=== PATIENT | male | born 1940 | race Caucasian/White ===

== ENCOUNTER → 2018-05-03 10:19 | Outpatient (CLI) | payer MEDICARE, OTHER, SELFPAY ==
[2018-05-03 10:58] LABS: Add Manual Diff / Slide Review NO; Basophils Percent Auto 0.8 % (0-2); Hematocrit 45.7 % (41-53); Hemoglobin 16.1 g/dL (13.5-17.5); Lymphocytes Percent Auto 33.1 % (25-40); Mean Corpuscular HGB Conc 35.2 % (30-36); Mean Corpuscular Volume 93.8 fL (80-100); Monocytes Percent Auto 8.9 % (3-14); Neutrophils Absolute Auto 4700 /uL (1500-7000); Neutrophils Percent Auto 51.2 % (50-75); Platelet Count 287 X10^3/uL (150-400); Red Blood Cell Count 4.87 X10^6/uL (4.5-5.9); Red Cell Distribution Width 13.2 % (11.6-14.8); White Blood Cell Count 9.1 X10^3/uL (4.5-11.0)
[2018-05-03 11:28] LABS: Alanine Aminotransferase 30 IU/L (21-72); Albumin Globulin Ratio 1.4 (1.0-2.8); Alkaline Phosphatase 70 U/L (38-126); Aspartate Aminotransferase 27 IU/L (17-59); BUN Creatinine Ratio 18.2 (6-22); Bilirubin Total 0.9 mg/dL (0.2-1.3); Blood Urea Nitrogen 20 mg/dL (9-20); Calcium 9.2 mg/dL (8.4-10.2); Carbon Dioxide 28 mmol/L (22-32); Chloride 107 mmol/L (98-107); Cholesterol 116 mg/dL (140-199); Estimated Glomerular Filt Rate > 60.0 mL/min (>60); Globulin 2.9 g/dL (1.7-4.1); Glucose 97 mg/dL (80-110); HDL Cholesterol 50 mg/dL (40-60); HEMOLYSIS < 15 (0-50); LDL Cholesterol Calculated 52 mg/dL (<100); Potassium 4.3 mmol/L (3.4-5.1); Sodium 144 mmol/L (137-145); Total Protein 6.9 g/dL (6.3-8.2); Triglycerides 72 mg/dL (35-150)
== END ==
PROVIDERS: PCP Internal Medicine; Visit Provider Internal Medicine
DX: I10 Essential (primary) hypertension (principal); E78.00 Pure hypercholesterolemia, unspecified; R73.01 Impaired fasting glucose
CPT/HCPCS: 36415; 80053; 80061; 85025

== ENCOUNTER → 2018-05-24 07:59 | Outpatient (CLI) | payer MEDICARE, OTHER, SELFPAY ==
--- NOTE | 2018-05-24 09:30 | PM.TREADMILL ---
Cardiac Stress Test Report Referral & Results Date Patient Seen: 05/24/18 Requesting provider: Shankar Ventura Indication: Coronary disease Rest ECG: Unremarkable Procedure Note: Today following both written and verbal informed consent the patient was exercised according to a standard Demetris protocol patient went for a total of 9 min to seconds achieving a maximum heart rate of 142 maximum systolic blood pressure of 220. This is approximately 10.1 METS. Exercise was terminated at this point because of targets were met. Patient was also given Cardiolite through a previously started Hep-Lock IV by the nuclear plant instrument technician approximately 1 minute prior to the cessation of exercise. With exercise patient did develop some atypical chest discomfort that resolved almost immediately upon cessation of activity There is nonspecific ST-T segment changes in leads V4 through V6 this seem to have minimal upsloping ST segment depression that rapidly in fact almost immediately resolved upon cessation of exercise Normal heart rate and blood pressure response to exercise Rare PVC Functional aerobic impairment way off the scale estimate is exercise capacity to 140% normal on the active scale Impression: No clear evidence of ischemia. Nonspecific changes as above not likely to be ischemic given duration of patient's exercise in the almost immediate resolution of changes with cessation of activity Perfusion imaging to be reported separately Excellent exercise capacity Please note: Actual ECG tracings can be found in the PACS system.
--- NOTE | 2018-05-25 17:45 | DI.NM.S_ITS ---
DATE OF SERVICE: 05/24/2018 PROCEDURE PERFORMED: Exercise treadmill stress and rest myocardial perfusion imaging with gating to assess ejection fraction and regional wall motion. ORDERING PROVIDER: Shankar Ventura MD INDICATIONS: The patient is a 77-year-old male with a history of stenting, now presents with atypical chest pain. EXERCISE TREADMILL TESTING: The patient was able to exercise for 9 minutes 2 seconds on a standard Demetris protocol suggesting excellent exercise capacity with an KSENIA estimated to be at least -40%. He had normal heart rate response to exercise achieving a maximum heart rate of 142 bpm (100% of his predicted maximum). He had a moderate hypertensive blood pressure response to exercise with a resting blood pressure of 160/94 with a peak blood pressure of 220/90. He had no chest discomfort. His resting ECG is normal, and there are no ischemic changes with stress. No arrhythmias were seen. At 7 minutes 59 seconds of exercise, at heart rate of 138 bpm, 26.3 mCi a technetium-99 Myoview was injected, and the patient was imaged 15 minutes later using a gated SPECT acquisition protocol. The patient returned the following day and was reinjected with an additional 26.6 mCi of technetium-99 Myoview and was imaged 30 minutes later, again using a gated SPECT acquisition protocol. FINDINGS: 1. Raw Data: There is fairly good myocardial tracer uptake. The lung/heart ratio is significantly elevated at 0.65, which can be a sign of pulmonary congestion although it is not readily apparent on the raw data images. The TID ratio is borderline elevated at 1.27, although again, is not clearly obvious on the images. 2. Quantitative Gated SPECT: Post stress ejection fraction is estimated at 68% with possible subtle hypokinesis of the distal inferior and inferoapex appears but no other wall motion abnormalities. The resting ejection fraction is 73% with resolution of the distal inferoapical wall motion abnormality and the resting end-diastolic volume is normal at 78 mL. 3. Myocardial Perfusion Imaging: Post stress supine images show a relatively normal myocardial perfusion pattern, although with a very subtle perfusion defect in the mid and distal wall extending out to the inferolateral apex, which would be in a pattern that would be very consistent with diaphragmatic attenuation, in part supported by resolution of this defect on the prone images with the exception of slight persistence in the distal inferior wall and inferolateral apex, raising concerns that this may represent, in part, a true perfusion defect, although appears to be small and subtle. Resting images show a completely normal perfusion pattern with resolution of the inferior and inferoapex defect. CONCLUSION: 1. Probable abnormal myocardial perfusion study, although with somewhat reduced specificity because of the subtlety of the abnormality. 2. Small, subtle brv-tb-genaeo inferior and inferolateral defect extending to the apex which only partially resolves on prone imaging but is completely reversible suggesting the possibility of a small volume of ischemia in this distribution. This is supported by a suggestion of hypokinesis in the distal inferoapex on the gated images. 3. Preserved left ventricular systolic function, although with subtle hypokinesis of the distal inferior wall and inferoapex that resolves on the resting images. In addition, the lung heart ratio is significantly increased which can be a sign of stress-induced pulmonary congestion, although this is relatively nonspecific and the patient's excellent exercise capacity would mitigate against this. The TID ratio, likewise, is borderline elevated, although is nonspecific. 4. Excellent exercise capacity without angina or significant ECG changes of ischemia. 5. Compared to the previous myocardial perfusion imaging study of 01/07/2015, the lung heart ratio was previously normal at 0.37 with a normal TID ratio of 0.88. The stress ejection fraction was estimated at 68%, identical to today's study. No wall motion abnormalities were described. The previous perfusion images appear nearly identical to today images with a subtle, partially reversible inferior defect that persists slightly on the prone images and was felt most likely to represent attenuation artifact on the previous study. However, given the associative wall motion abnormality seen on today's study, this more likely represents a true perfusion defect, although occupying a small volume myocardium and thus is relatively low risk. Dhaval Rosales - RS/fn/ab doc#: [id number]/job#: [id number] dd: 05/25/2018 16:57:00 dt: 05/25/2018 17:24:00 DICTATING MD/COPIES TO: Jarad Sellers MD; Shankar Ventura MD COPIES MNE: RORO CORREIA
== END ==
PROVIDERS: PCP Internal Medicine; Visit Provider Internal Medicine
DX: R07.89 Other chest pain (principal); I25.10 Atherosclerotic heart disease of native coronary artery without angina pectoris; Z95.5 Presence of coronary angioplasty implant and graft
CPT/HCPCS: 78452; 93016; 93017; 93018; A9502

== ENCOUNTER → 2018-10-16 09:52 | Outpatient (CLI) | payer MEDICARE, OTHER, SELFPAY ==
[2018-10-16 11:03] LABS: Blood Urea Nitrogen 21 mg/dL (9-20); Calcium 9.4 mg/dL (8.4-10.2); Carbon Dioxide 30 mmol/L (22-32); Chloride 108 mmol/L (98-107); Cholesterol 120 mg/dL (140-199); Estimated Glomerular Filt Rate > 60.0 mL/min (>60); Glucose 103 mg/dL (80-110); HDL Cholesterol 49 mg/dL (40-60); HEMOLYSIS < 15 (0-50); LDL Cholesterol Calculated 50 mg/dL (<100); Potassium 4.9 mmol/L (3.4-5.1); Sodium 143 mmol/L (137-145); Triglycerides 104 mg/dL (35-150)
== END ==
PROVIDERS: Family Provider Internal Medicine; PCP Internal Medicine; Visit Provider Internal Medicine Cardiovascular Disease
DX: I10 Essential (primary) hypertension (principal)
CPT/HCPCS: 36415; 80048; 80061

== ENCOUNTER → 2019-05-18 11:50 | Outpatient (CLI) | payer MEDICARE, OTHER, SELFPAY ==
[2019-05-18 13:53] LABS: Cholesterol 131 mg/dL (140-199); HDL Cholesterol 49 mg/dL (40-60); LDL Cholesterol Calculated 61 mg/dL (<100); Triglycerides 103 mg/dL (35-150)
== END ==
PROVIDERS: Family Provider Internal Medicine; PCP Internal Medicine; Visit Provider Internal Medicine Cardiovascular Disease
DX: E78.00 Pure hypercholesterolemia, unspecified (principal)
CPT/HCPCS: 36415; 80061

== ENCOUNTER → 2019-12-04 09:43 | Outpatient (CLI) | payer MEDICARE, OTHER, SELFPAY ==
[2019-12-04 10:14] LABS: Add Manual Diff / Slide Review NO; Basophils Absolute Auto 0 /uL (0-100); Basophils Percent Auto 0.5 % (0-2); Eosinophils Absolute Auto 300 /uL (0-450); Eosinophils Percent Auto 3.4 % (2-4); Hematocrit 48.3 % (41-53); Hemoglobin 16.5 g/dL (13.5-17.5); Lymphocytes Absolute Auto 2400 /uL (1100-4500); Lymphocytes Percent Auto 31.6 % (25-40); Mean Corpuscular HGB Conc 34.2 % (30-36); Mean Corpuscular Hemoglobin 32.1 PG (26-34); Monocytes Absolute Auto 700 /uL (0-900); Monocytes Percent Auto 8.6 % (3-14); Neutrophils Absolute Auto 4300 /uL (1500-7000); Neutrophils Percent Auto 55.9 % (50-75); Platelet Count 277 X10^3/uL (150-400); Red Blood Cell Count 5.14 X10^6/uL (4.5-5.9); Red Cell Distribution Width 13.7 % (11.6-14.8); White Blood Cell Count 7.6 X10^3/uL (4.5-11.0)
[2019-12-04 10:40] LABS: Alanine Aminotransferase 25 IU/L (<50); Albumin 4.1 g/dL (3.5-5.0); Albumin Globulin Ratio 1.5 (1.0-2.8); Alkaline Phosphatase 83 U/L (38-126); Aspartate Aminotransferase 33 IU/L (17-59); BUN Creatinine Ratio 18.3 (6-22); Bilirubin Total 1.2 mg/dL (0.2-1.3); Blood Urea Nitrogen 19 mg/dL (9-20); Calcium 9.5 mg/dL (8.4-10.2); Carbon Dioxide 24 mmol/L (22-32); Chloride 108 mmol/L (98-107); Cholesterol 138 mg/dL (140-199); Estimated Glomerular Filt Rate > 60.0 mL/min (>60); Globulin 2.8 g/dL (1.7-4.1); Glucose 103 mg/dL (80-110); HDL Cholesterol 58 mg/dL (40-60); HEMOLYSIS < 15 (0-50); LDL Cholesterol Calculated 64 mg/dL (<100); Potassium 4.5 mmol/L (3.4-5.1); Sodium 139 mmol/L (137-145); Total Protein 6.9 g/dL (6.3-8.2); Triglycerides 78 mg/dL (35-150)
[2019-12-04 10:49] LABS: NT-proBNP (BNP-Adult 18+) 64 pg/mL (<450)
== END ==
PROVIDERS: Family Provider Internal Medicine; PCP Internal Medicine; Referring Provider Internal Medicine Cardiovascular Disease; Visit Provider Internal Medicine Cardiovascular Disease
DX: I25.10 Atherosclerotic heart disease of native coronary artery without angina pectoris (principal); I51.7 Cardiomegaly; I10 Essential (primary) hypertension
CPT/HCPCS: 36415; 80053; 80061; 83880; 85025

== ENCOUNTER → 2020-04-29 19:14 | Outpatient (ROUT) | payer MEDICARE, OTHER, SELFPAY ==
[2020-04-29 19:21] LABS: Add Manual Diff / Slide Review NO; Basophils Absolute Auto 100 /uL (0-100); Basophils Percent Auto 0.6 % (0-2); Eosinophils Absolute Auto 200 /uL (0-450); Eosinophils Percent Auto 1.9 % (2-4); Hematocrit 47.6 % (41-53); Hemoglobin 16.3 g/dL (13.5-17.5); Lymphocytes Absolute Auto 2600 /uL (1100-4500); Lymphocytes Percent Auto 25.9 % (25-40); Mean Corpuscular HGB Conc 34.2 % (30-36); Mean Corpuscular Hemoglobin 32.5 PG (26-34); Mean Corpuscular Volume 95.1 fL (80-100); Monocytes Absolute Auto 800 /uL (0-900); Monocytes Percent Auto 8.4 % (3-14); Neutrophils Absolute Auto 6300 /uL (1500-7000); Neutrophils Percent Auto 63.2 % (50-75); Platelet Count 342 X10^3/uL (150-400); Red Cell Distribution Width 12.9 % (11.6-14.8)
[2020-04-29 19:30] LABS: Alanine Aminotransferase 20 IU/L (<50); Albumin Globulin Ratio 1.2 (1.0-2.8); Alkaline Phosphatase 82 U/L (38-126); Aspartate Aminotransferase 29 IU/L (17-59); BUN Creatinine Ratio 12.5 (6-22); Bilirubin Total 0.7 mg/dL (0.2-1.3); Blood Urea Nitrogen 16 mg/dL (9-20); Calcium 9.3 mg/dL (8.4-10.2); Carbon Dioxide 32 mmol/L (22-32); Chloride 106 mmol/L (98-107); Cholesterol 146 mg/dL (140-199); Estimated Glomerular Filt Rate 54.1 mL/min (>60); Globulin 3.3 g/dL (1.7-4.1); Glucose 89 mg/dL (80-110); HDL Cholesterol 55 mg/dL (40-60); HEMOLYSIS < 15 (0-50); LDL Cholesterol Calculated 64 mg/dL (<100); Magnesium 2.2 mg/dL (1.6-2.3); Potassium 4.3 mmol/L (3.4-5.1); Sodium 140 mmol/L (137-145); Total Protein 7.3 g/dL (6.3-8.2); Triglycerides 133 mg/dL (35-150)
== END ==
PROVIDERS: Family Provider Internal Medicine; PCP Internal Medicine; Visit Provider Physician Assistant
DX: I10 Essential (primary) hypertension (principal); I25.10 Atherosclerotic heart disease of native coronary artery without angina pectoris; E78.00 Pure hypercholesterolemia, unspecified; R00.1 Bradycardia, unspecified
CPT/HCPCS: 80053; 80061; 83735; 84443; 85025

== ENCOUNTER → 2020-09-29 14:20 | Outpatient (CLI) | payer MEDICARE, OTHER, SELFPAY ==
[2020-09-29 16:17] LABS: COVID-19 CEPHEID PCR (VTM/NP) Negative (Negative)
== END ==
PROVIDERS: Family Provider Internal Medicine; PCP Internal Medicine; Visit Provider Physician Assistant
DX: Z01.812 Encounter for preprocedural laboratory examination (principal); Z20.822 Contact with and (suspected) exposure to COVID-19
CPT/HCPCS: C9803; U0003

== ENCOUNTER 2021-01-09 16:50 | Inpatient (IN) | payer MEDICARE, OTHER, SELFPAY ==
[2021-01-09] VITALS (13 sets, daily range): BP systolic 88–137; BP diastolic 63–83; PULSE 86–97; RESP 16–20; TEMP 36.6–37.7; O2SAT 93–97; BMI 24.3
--- NOTE | 2021-01-09 17:08 | DI.RAD.S_ITS ---
PROCEDURE: XR CHEST 1V INDICATIONS: altered mental status TECHNIQUE: One view of the chest was acquired. COMPARISON: [facility], CR, CHEST 1VW (PORTABLE), 03/30/2013, 12:53. [facility], CT, CT HEAD/BRAIN WO CON, 01/09/2021, 17:36. [facility], CR, CHEST 1 VIEW, 09/15/2015, 13:41. FINDINGS: Surgical changes and devices: None. Lungs and pleura: Minimal patchy interstitial infiltrates are seen. No pleural effusions or pneumothorax. Low lung volumes are noted. This causes a crowded appearance to the lung markings and limits evaluation. Mediastinum: Mediastinal contours appear normal. Heart size is normal. Atherosclerotic calcification of the aortic arch is noted. Bones and chest wall: No suspicious bony lesions. Age-appropriate bony degenerative changes are seen. Overlying soft tissues appear unremarkable. IMPRESSION: Minimal patchy interstitial infiltrates are seen, which are consistent with the known history of COVID pneumonia. Dictated by: Dileep Arellano M.D. on 01/09/2021 at 16:58 Approved by: Dileep Arellano M.D. on 01/09/2021 at 16:59
--- NOTE | 2021-01-09 17:11 | DI.CT.S_ITS ---
PROCEDURE: CT HEAD/BRAIN WO CON INDICATIONS: confusion TECHNIQUE: Noncontrast 4.5 mm thick angled axial sections acquired from the foramen magnum to the vertex, with coronal and sagittal reformats. For radiation dose reduction, the following was used: automated exposure control, adjustment of mA and/or kV according to patient size. COMPARISON: None. FINDINGS: Image quality: Excellent. CSF spaces: Basal cisterns are patent. No extra-axial fluid collections. The ventricles are symmetric in size and shape. Brain: No acute intracranial hemorrhage or mass effect. Small chronic lacunar infarcts are seen in the right basal ganglia. There is cerebral volume loss for age, with resultant ventricular and sulcal prominence. There are periventricular and deep white matter chronic small vessel ischemic changes. There is intracranial internal carotid artery atherosclerosis. Skull and face: Calvarium and visualized facial bones appear intact, without suspicious lesions. Sinuses: There is opacification of the right maxillary sinus with sinus wall thickening, consistent with chronic sinusitis. The remaining visualized paranasal sinuses and the mastoid air cells are clear. IMPRESSION: 1. No acute intracranial abnormality. 2. Small chronic lacunar infarcts are seen in the right basal ganglia. 3. Mild diffuse cerebral volume loss and chronic microvascular ischemic changes. Dictated by: Miky Aponte M.D. on 01/09/2021 at 17:56 Approved by: Miky Aponte M.D. on 01/09/2021 at 17:58
[2021-01-09 17:20] LABS: COVID19 -Nasal RAPID POSITIVE (Negative)
[2021-01-09] MEDS: SODIUM CHLORIDE 0.9% 1,000 ML 1000 ML IV ×2 (17:28→19:15)
[2021-01-09 17:37] LABS: Add Manual Diff / Slide Review NO; Basophils Absolute Auto 100 /uL (0-100); Basophils Percent Auto 0.5 % (0-2); Eosinophils Absolute Auto 0 /uL (0-450); Hematocrit 53.6 % (41-53); Hemoglobin 17.9 g/dL (13.5-17.5); Lymphocytes Absolute Auto 1900 /uL (1100-4500); Lymphocytes Percent Auto 17.1 % (25-40); Mean Corpuscular HGB Conc 33.4 % (30-36); Mean Corpuscular Hemoglobin 31.8 PG (26-34); Mean Corpuscular Volume 95.4 fL (80-100); Monocytes Absolute Auto 800 /uL (0-900); Monocytes Percent Auto 7.4 % (3-14); Neutrophils Absolute Auto 8300 /uL (1500-7000); Platelet Count 236 X10^3/uL (150-400); Red Blood Cell Count 5.62 X10^6/uL (4.5-5.9); Red Cell Distribution Width 13.3 % (11.6-14.8)
[2021-01-09 17:47] LABS: Alanine Aminotransferase 36 IU/L (<50); Albumin 4.1 g/dL (3.5-5.0); Albumin Globulin Ratio 1.1 (1.0-2.8); Alkaline Phosphatase 73 U/L (38-126); Aspartate Aminotransferase 60 IU/L (17-59); BUN Creatinine Ratio 31.7 (6-22); Bilirubin Total 0.9 mg/dL (0.2-1.3); Blood Urea Nitrogen 70 mg/dL (9-20); Calcium 8.7 mg/dL (8.4-10.2); Carbon Dioxide 28 mmol/L (22-32); Chloride 102 mmol/L (98-107); Estimated Glomerular Filt Rate 28.7 mL/min (>60); Globulin 3.6 g/dL (1.7-4.1); Glucose 134 mg/dL (80-110); HEMOLYSIS < 15 (0-50); Sodium 141 mmol/L (137-145); Total Protein 7.7 g/dL (6.3-8.2)
[2021-01-09 18:02] LABS: Procalcitonin 0.27 ng/mL (<0.5)
--- NOTE | 2021-01-09 18:43 | ED.WEAKNESS ---
HPI - Weakness General Chief complaint: Weakness Stated complaint: Confussion, Sent from [facility] Time Seen by Provider: 01/09/21 18:14 History of Present Illness HPI Narrative: 80-year-old male nonsmoker with history of coronary artery disease and STEMI presents from the walk-in clinic for evaluation of confusion and weakness over the course of the week. He states that for about 7 days he has become increasingly weak, dizzy, lightheaded with poor appetite. He denies runny nose or sore throat. He denies any chest pain or shortness of breath. He has had frequent bouts of loose stools and states he has not been drinking much at all. Additionally, he states there is no food in his house that sounds good so it has been few days since he has had anything to eat. He denies any new medications or recent travel. He has not been vaccinated against COVID Related Data Allergies Allergy/AdvReac Type Severity Reaction Status Date / Time No Known Drug Allergies Allergy Verified 01/09/21 22:19 Review of Systems Review of Systems Narrative: GENERAL: See HPI HEENT: Denies sinus pain, ear pain, sore throat, difficulty swallowing, dizziness. RESPIRATORY: Denies dyspnea, cough, wheezing, hemoptysis, sputum. CARDIOVASCULAR: Denies chest pain, palpitations, orthopnea, edema, GASTROINTESTINAL: see HPI : Denies dysuria, frequency, incontinence, hematuria, urinary retention. MUSCULOSKELETAL: denies weakness, joint pain, or bony pain SKIN: Denies rash, skin lesions, or other NEUROLOGIC: see HPI PSYCHIATRIC: No concerning psychosocial issues. 12 point review of systems is negative except for those stated above Patient History Social History household members: none Smoking Status: Unknown if ever smoked Exam Narrative Exam Narrative: GENERAL: [80 year old patient appears stated age. Well-developed patient, in mild distress. GCS 14, confused HEAD: Atraumatic. Normocephalic. EYES: Pupils equal round and reactive. Extraocular motions intact. No scleral icterus. No injection or drainage. ENT: Dry mucous membranes Nose without bleeding, purulent drainage. Throat without erythema, tonsillar hypertrophy or exudate. Airway patent. NECK: Trachea midline. Non tender CARDIOVASCULAR: Regular rate and rhythm without murmurs, gallops, or rubs. RESPIRATORY: Clear to auscultation. Breath sounds equal bilaterally. No wheezes, rales, or rhonchi. GASTROINTESTINAL: Abdomen soft, non-tender, nondistended. EXTREMITIES: No edema or joint tenderness. BACK: Nontender without deformity or crepitance. No flank tenderness. NEURO: AOx3. SKIN: Poor skin turgor No rash or erythema of visible areas Initial Vital Signs Initial Vital Signs: Vital Signs Temperature 97.9 F 01/09/21 17:00 Pulse Rate 90 01/09/21 17:00 Respiratory Rate 20 01/09/21 17:00 Blood Pressure 88/63 L 01/09/21 17:00 Pulse Oximetry 97 01/09/21 17:00 Course Orders Ordered: ED Orders 01/09/21 17:05 COVID19 -Nasal swab/Pre-Proc Stat 01/09/21 17:08 XR chest 1V Stat EKG-12 Lead Stat 01/09/21 17:11 CT head/brain wo con Stat 01/09/21 17:19 Complete Blood Count AUTO DIFF Stat Comprehensive Metabolic Panel Stat Procalcitonin Stat 01/09/21 18:00 Blood Culture Stat Acetaminophen (Acetaminophen 325 Mg Tablet) 650 mg PO Q6HR PRN PRN Reason: Fever/Mild Pain (1-3) Last Admin: 01/09/21 23:57 Dose: 650 mg Documented by: VALARIE Sodium Chloride (Normal Saline 0.9%) 1,000 mls @ 125 mls/hr IV CONT PARISH Last Admin: 01/09/21 21:57 Dose: 125 mls/hr Documented by: KELI Ondansetron HCl (Ondansetron 4 Mg/2 Ml Inj) 4 mg IV Q8HR PRN PRN Reason: Nausea And Vomiting Discontinued Medications Sodium Chloride (Normal Saline 0.9%) 1,000 mls @ 1,000 mls/hr IV BOLUS ONE Stop: 01/09/21 18:10 Last Infusion: 01/09/21 19:14 Dose: 0 mls/hr Documented by: Admin: 01/09/21 17:28 Dose: 1,000 mls/hr Documented by: MAUDE Sodium Chloride (Normal Saline 0.9%) 1,000 mls @ 1,000 mls/hr IV BOLUS ONE Stop: 01/09/21 19:41 Last Infusion: 01/09/21 20:17 Dose: 0 mls/hr Documented by: Admin: 01/09/21 19:15 Dose: 1,000 mls/hr Documented by: JUAN Vital Signs Vital signs: Vital Signs - 8 hr 01/09/21 18:00 01/09/21 18:30 01/09/21 19:00 Pulse Rate 93 H 97 H 90 Blood Pressure Pulse Oximetry 97 94 95 01/09/21 19:10 Pulse Rate 91 H Blood Pressure 111/75 Pulse Oximetry 96 MDM - Weakness Lab Data Result diagrams: 01/09/21 17:19 01/09/21 17:19 Labs: Lab Results 01/09/21 01/09/21 01/09/21 Range/Units 17:05 17:19 17:19 WBC 11.0 (4.5-11.0) X10^3/uL RBC 5.62 (4.5-5.9) X10^6/uL Hgb 17.9 H (13.5-17.5) g/dL Hct 53.6 H (41-53) % MCV 95.4 (80-100) fL MCH 31.8 (26-34) PG MCHC 33.4 (30-36) % RDW 13.3 (11.6-14.8) % Plt Count 236 (150-400) X10^3/uL Neut % (Auto) 75.0 (50-75) % Lymph % (Auto) 17.1 L (25-40) % [place] % (Auto) 7.4 (3-14) % Eos % (Auto) 0.0 L (2-4) % Baso % (Auto) 0.5 (0-2) % Neut # (Auto) 8300 H (9800-6658) /uL Lymph # (Auto) 1900 (1607-7122) /uL [place] # (Auto) 800 (0-900) /uL Eos # (Auto) 0 (0-450) /uL Baso # (Auto) 100 (0-100) /uL Sodium 141 (137-145) mmol/L Potassium 4.0 (3.4-5.1) mmol/L Chloride 102 (98-107) mmol/L Carbon Dioxide 28 (22-32) mmol/L BUN 70 H (9-20) mg/dL Creatinine 2.21 H (0.66-1.25) mg/dL Estimated GFR 28.7 L (>60) mL/min BUN/Creatinine Ratio 31.7 H (6-22) Glucose 134 H (80-110) mg/dL Calcium 8.7 (8.4-10.2) mg/dL Total Bilirubin 0.9 (0.2-1.3) mg/dL AST 60 H (17-59) IU/L ALT 36 (<50) IU/L Alkaline Phosphatase 73 (38-126) U/L Total Protein 7.7 (6.3-8.2) g/dL Albumin 4.1 (3.5-5.0) g/dL Globulin 3.6 (1.7-4.1) g/dL Albumin/Globulin Ratio 1.1 (1.0-2.8) Procalcitonin (<0.5) ng/mL SARS-CoV-2 (PCR) Positive H (Negative) 01/09/21 Range/Units 17:19 WBC (4.5-11.0) X10^3/uL RBC (4.5-5.9) X10^6/uL Hgb (13.5-17.5) g/dL Hct (41-53) % MCV (80-100) fL MCH (26-34) PG MCHC (30-36) % RDW (11.6-14.8) % Plt Count (150-400) X10^3/uL Neut % (Auto) (50-75) % Lymph % (Auto) (25-40) % [place] % (Auto) (3-14) % Eos % (Auto) (2-4) % Baso % (Auto) (0-2) % Neut # (Auto) (6097-9951) /uL Lymph # (Auto) (9677-3671) /uL [place] # (Auto) (0-900) /uL Eos # (Auto) (0-450) /uL Baso # (Auto) (0-100) /uL Sodium (137-145) mmol/L Potassium (3.4-5.1) mmol/L Chloride (98-107) mmol/L Carbon Dioxide (22-32) mmol/L BUN (9-20) mg/dL Creatinine (0.66-1.25) mg/dL Estimated GFR (>60) mL/min BUN/Creatinine Ratio (6-22) Glucose (80-110) mg/dL Calcium (8.4-10.2) mg/dL Total Bilirubin (0.2-1.3) mg/dL AST (17-59) IU/L ALT (<50) IU/L Alkaline Phosphatase (38-126) U/L Total Protein (6.3-8.2) g/dL Albumin (3.5-5.0) g/dL Globulin (1.7-4.1) g/dL Albumin/Globulin Ratio (1.0-2.8) Procalcitonin 0.27 (<0.5) ng/mL SARS-CoV-2 (PCR) (Negative) Imaging Data Chest x-ray: Radiologist Impression: [address] [id number] XRay Report Signed Patient: Dhaval Rosales MR#: [id number] : 1940 Acct:[id number] Age/Sex: 80 / M Date of Service: 01/09/21 Loc: ED Accession Number: [id number] ?? Procedure: XR chest 1V Ordering Provider: Latricia Valentin D.O. PROCEDURE:? XR CHEST 1V ? INDICATIONS:? altered mental status ? TECHNIQUE:? One view of the chest was acquired.? ? COMPARISON:? [facility], CR, CHEST 1VW (PORTABLE), 03/30/2013, 12:53.? [facility], CT, CT HEAD/BRAIN WO CON, 01/09/2021, 17:36.? [facility], , CHEST 1 VIEW, 09/15/2015, 13:41. ? FINDINGS:? ? Surgical changes and devices:? None.? ? Lungs and pleura:? Minimal patchy interstitial infiltrates are seen.? No pleural effusions or pneumothorax.? Low lung volumes are noted. This causes a crowded appearance to the lung markings and limits evaluation.? ? Mediastinum:? Mediastinal contours appear normal.? Heart size is normal.? Atherosclerotic calcification of the aortic arch is noted.? ? Bones and chest wall:? No suspicious bony lesions.? Age-appropriate bony degenerative changes are seen. ? Overlying soft tissues appear unremarkable.? IMPRESSION:? Minimal patchy interstitial infiltrates are seen, which are consistent with the known history of COVID pneumonia. ? ? ? Dictated by: Dileep Arellano M.D. on 01/09/2021 at 16:58 ? ? Approved by: Dlieep Arellano M.D. on 01/09/2021 at 16:59 ? CT scan - head: Radiologist Impression: [address] [address] [address] Scan Report Signed Patient: Dhaval Rosales MR#: [id number] : 1940 Acct:[id number] Age/Sex: 80 / M Date of Service: 01/09/21 Loc: ED Accession Number: [id number] ?? Procedure: CT head/brain wo con Ordering Provider: Latricia Valentin D.O. PROCEDURE:? CT HEAD/BRAIN WO CON ? INDICATIONS:? confusion ? TECHNIQUE:? Noncontrast 4.5 mm thick angled axial sections acquired from the foramen magnum to the vertex, with coronal and sagittal reformats.? For radiation dose reduction, the following was used:? automated exposure control, adjustment of mA and/or kV according to patient size.? ? COMPARISON:? None. ? FINDINGS:? Image quality:? Excellent.? ? CSF spaces:? Basal cisterns are patent.? No extra-axial fluid collections.? The ventricles are symmetric in size and shape.? ? Brain:? No acute intracranial hemorrhage or mass effect.? Small chronic lacunar infarcts are seen in the right basal ganglia.? There is cerebral volume loss for age, with resultant ventricular and sulcal prominence.? There are periventricular and deep white matter chronic small vessel ischemic changes.? There is intracranial internal carotid artery atherosclerosis.? ? Skull and face:? Calvarium and visualized facial bones appear intact, without suspicious lesions.? ? Sinuses:? There is opacification of the right maxillary sinus with sinus wall thickening, consistent with chronic sinusitis.? The remaining visualized paranasal sinuses and the mastoid air cells are clear. ? IMPRESSION:? 1. No acute intracranial abnormality. 2. Small chronic lacunar infarcts are seen in the right basal ganglia. 3. Mild diffuse cerebral volume loss and chronic microvascular ischemic changes. ? ? Dictated by: Miky Aponte M.D. on 01/09/2021 at 17:56 ? ? Approved by: Miky Aponte M.D. on 01/09/2021 at 17:58? Discharge Plan Departure Patient Disposition: Admitted As Inpatient Clinical Impression: COVID-19, Acute kidney injury, Acute dehydration, Acute metabolic encephalopathy Admit Date/Time: 01/09/21 19:11 Admit Provider: Macario Godoy
--- NOTE | 2021-01-09 20:33 | PM.HP.1 ---
History of Present Illness History of Present Illness Date Patient Seen: 01/09/21 Time Patient Seen: 20:45 Chief complaint: Confussion, Sent from [facility] Narrative: Mr. Rosales is an 80M with PMH CAD who presents to the hospital with weakness and confusion. Per the patient for the last week he has become progressively dizzy, lightheaded, and not eating well. he has not had a cough or shortness of breath. He has had loose stools. He has not eaten much because nothing tastes good. He has not been vaccinated against COVID. In the ED workup was done, vitals initially notable for blood pressure 88/63. Labs notable for Hgb 17.9, WBC 11, BUN 70, creatinine 2.21, procalcitonin 0.27. Chest xray showed minimal patchy infiltrates. CT head shows no acute process but does show small chronic lacunar infarcts. He did not have any hypoxemia or respiratory distress so he was not indicated to start medication for COVID. He did get 2L IV fluid and was admitted for further treatment. PMH: CAD, HTN FH: Father, CHF SH: former smoker quit decades ago, drinks 2-3 etoh drinks every other day Meds: ASA 81mg daily, atorvastatin 40mg daily, lisinopril 10mg daily, metoprolol 37.5mg BID, plavix 75mg daily Patient History Family & Social History Safety & Behavioral: Feels Safe in Current Yes Environment Been Physically Hurt or No Threatened By a Person Review of Systems Review of Systems Narrative: 14 systems reviewed and negative aside from what is noted in HPI Exam Vital Signs (past 8 hours): - 01/09/21 17:00 01/09/21 17:30 01/09/21 17:31 Temperature 97.9 F Pulse Rate 90 88 89 Respiratory Rate 20 Blood Pressure 88/63 L 101/71 Pulse Oximetry 97 94 94 01/09/21 18:00 01/09/21 18:30 01/09/21 19:00 Temperature Pulse Rate 93 H 97 H 90 Respiratory Rate Blood Pressure Pulse Oximetry 97 94 95 01/09/21 19:10 01/09/21 19:30 01/09/21 20:00 Temperature Pulse Rate 91 H 86 86 Respiratory Rate Blood Pressure 111/75 122/68 120/65 Pulse Oximetry 96 95 95 Oxygen Delivery Method Room Air Narrative Exam Narrative: GEN: no acute distress HEENT: dry mucous membranes, PERRL NECK: trachea midline, no JVD CV: regular rate and rhythm, no murmurs PULM: clear bilaterally no wheezes, rhonchi, rales ABD: soft, nontender, nondistended, no organomegaly, normal bowel sounds SKIN: no rashes EXT: warm and well perfused with no edema NEURO: awake alert and oriented PSYCH: pleasant, cooperative Objective Labs Result Diagrams: 01/09/21 17:19 01/09/21 17:19 Labs: Laboratory Results - last 24 hr 01/09/21 01/09/21 01/09/21 17:05 17:19 17:19 WBC 11.0 RBC 5.62 Hgb 17.9 H Hct 53.6 H MCV 95.4 MCH 31.8 MCHC 33.4 RDW 13.3 Plt Count 236 Neut % (Auto) 75.0 Lymph % (Auto) 17.1 L [place] % (Auto) 7.4 Eos % (Auto) 0.0 L Baso % (Auto) 0.5 Neut # (Auto) 8300 H Lymph # (Auto) 1900 [place] # (Auto) 800 Eos # (Auto) 0 Baso # (Auto) 100 Sodium 141 Potassium 4.0 Chloride 102 Carbon Dioxide 28 BUN 70 H Creatinine 2.21 H Estimated GFR 28.7 L BUN/Creatinine Ratio 31.7 H Glucose 134 H Calcium 8.7 Total Bilirubin 0.9 AST 60 H ALT 36 Alkaline Phosphatase 73 Total Protein 7.7 Albumin 4.1 Globulin 3.6 Albumin/Globulin Ratio 1.1 Procalcitonin SARS-CoV-2 (PCR) Positive H 01/09/21 17:19 WBC RBC Hgb Hct MCV MCH MCHC RDW Plt Count Neut % (Auto) Lymph % (Auto) [place] % (Auto) Eos % (Auto) Baso % (Auto) Neut # (Auto) Lymph # (Auto) [place] # (Auto) Eos # (Auto) Baso # (Auto) Sodium Potassium Chloride Carbon Dioxide BUN Creatinine Estimated GFR BUN/Creatinine Ratio Glucose Calcium Total Bilirubin AST ALT Alkaline Phosphatase Total Protein Albumin Globulin Albumin/Globulin Ratio Procalcitonin 0.27 SARS-CoV-2 (PCR) Assessment & Plan Assessment & Plan narrative: Mr. Rosales is an 80M with PMH CAD, HTN, HL who comes in with weakness, fatigue and confusion progressing over the last week found to have COVID pneumonia and YESICA. 1. Metabolic encephalopathy, acute -currently mild confusion, appears somewhat improved with IVF -UA pending -presume etiology is combination of COVID and hypovolemia/YESICA 2. YESICA -secondary to hypovolemia -initially hypotensive, presume hypovolemia as cause -trial IVF to see if improves GFR -consider atn if no improvement and further workup if creatinine not improved with IVF 3. COVID pneumonia -currently with cough, no sob -not hypoxemic -currently dexamethasone and remdesivir not indicated -will monitor respiratory status closely 4. Diarrhea, acute -test for c diff and stool culture -however presume secondary to covid 5. CAD -continue asa, statin, plavix 6. h/o CVA -incidentally noted on CT head -continue on asa, plavix, statin 7. HTN -hold lisinopril 8. HL -continue atorvastatin Code: Full Proxy: Riya, friend I have utilized all available immediate resources to obtain, update, or review the patient's current medications. Time Spent With Patient Critical Care time: I spent a total of [] minutes of critical care time on this patient's care today; this time is exclusive of procedural time.
--- NOTE | 2021-01-09 21:03 | PC.NURSE ---
Admit/Evening Shift Note- Patient arrived to room via stretcher from ER at 2044. Tele monitor placed. SCD's placed. Patient alert and orientedmx2-3 with noted confusion and forgetfullness. Patient reports increased weakness x1 week. Talked with patient about calling for assistance. bed alarm activated. Patient unable to recall any home medications. Oriented patient to bed and bed controls, room, lights, phone, menu, bathroom, and call jain/tv remote. Patient will need frequent reteaching. Safety measures in place. bed alarm [id number]. call jain and phone within reach. Will continue to monitor.
[2021-01-09] MEDS: SODIUM CHLORIDE 0.9% 1,000 ML 125 ML IV (21:57)
[2021-01-09] MEDS: ACETAMINOPHEN 325 MG TABLET 650 MG PO (23:57)
[2021-01-10] VITALS (7 sets, daily range): BP systolic 113–137; BP diastolic 61–77; PULSE 83–90; RESP 16–18; TEMP 36.9–37.5; O2SAT 91–97
--- NOTE | 2021-01-10 02:06 | PC.NURSE ---
Patient is alert and oriented except did not know day of month. States he unsure why he has to be here but states he came to hospital to find out what was wrong with me. Breath sounds diminished but CTA with RA sat of 97%. HRR with telemetry reading of SR. Denies nausea. BT hypoactive. Reportedly was having loose stools prior to admit but has had no stools since admission. Denies dysuria, frequency or urgency with urination. Is able to turn himself in bed. Provided SBA when out of bed. Patient is impulsive and forgets to call for assistance so bed alarm is activated. Refusing to wear SCD's so reminded to ankle wave. Denies pain. On covid isolation although no symptoms other than fatigue.
[2021-01-10 05:00] LABS: Appearance Urine UA CLEAR; Bilirubin Urine UA NEGATIVE (NEGATIVE); Color Urine UA YELLOW; Glucose Urine UA NEGATIVE (Negative); Ketones Urine UA NEGATIVE (NEGATIVE); Leukocyte Esterase Urine UA NEGATIVE (NEGATIVE); Nitrite Urine UA NEGATIVE (Negative); Occult Blood Urine UA TRACE-INTACT (Negative); Protein Urine UA TRACE (Negative); Specific Gravity Urine UA 1.015 (1.000-1.035); Urobilinogen Urine UA 0.2 E.U./dL (0.2)
[2021-01-10 05:06] LABS: Bacteria Urine Occasional (0-1); Culture Indicated Urine Cult Not Indicated; Hyaline Casts Urine 0-1/LPF; RBC Urine 0-1/HPF (0-5/HPF); Squamous Epithelial Cell Urine 0-1 /HPF (0-5/HPF); WBC Urine None Seen (0-5/HPF)
[2021-01-10 05:17] LABS: Add Manual Diff / Slide Review NO; Basophils Absolute Auto 100 /uL (0-100); Basophils Percent Auto 0.8 % (0-2); Eosinophils Absolute Auto 0 /uL (0-450); Eosinophils Percent Auto 0.1 % (2-4); Hematocrit 45.2 % (41-53); Hemoglobin 15.4 g/dL (13.5-17.5); Lymphocytes Absolute Auto 1400 /uL (1100-4500); Lymphocytes Percent Auto 20.7 % (25-40); Mean Corpuscular HGB Conc 34.1 % (30-36); Mean Corpuscular Hemoglobin 32.3 PG (26-34); Mean Corpuscular Volume 94.7 fL (80-100); Monocytes Absolute Auto 500 /uL (0-900); Monocytes Percent Auto 7.8 % (3-14); Neutrophils Absolute Auto 4700 /uL (1500-7000); Neutrophils Percent Auto 70.6 % (50-75); Platelet Count 187 X10^3/uL (150-400); Red Blood Cell Count 4.78 X10^6/uL (4.5-5.9); White Blood Cell Count 6.6 X10^3/uL (4.5-11.0)
[2021-01-10 05:27] LABS: Blood Urea Nitrogen 57 mg/dL (9-20); Calcium 7.6 mg/dL (8.4-10.2); Carbon Dioxide 27 mmol/L (22-32); Chloride 110 mmol/L (98-107); Estimated Glomerular Filt Rate 43.6 mL/min (>60); Glucose 104 mg/dL (80-110); HEMOLYSIS < 15 (0-50); Potassium 3.7 mmol/L (3.4-5.1); Sodium 140 mmol/L (137-145)
[2021-01-10] MEDS: SODIUM CHLORIDE 0.9% 1,000 ML 125 ML IV ×2 (05:41→14:15)
--- NOTE | 2021-01-10 12:16 | CM.DANOTE ---
DCP: Case received, EMR reviewed. Called patient's room. Introduced self and role over the phone. Was able to obtain information regarding his baseline activity level prior to hospitalization, as well as his current living situation. DCP assessment completed with information currently available. Patient is an 80 year old male who admitted yesterday afternoon to the care of the hospitalist team. PCP: Dr. Ventura. Payer: confirmed: Medicare/[employer]. Patient came to the hospital via wheel-chair from the walk in clinic. Patient had been having some decreased appetite, unable to taste, as well as some confusion and weakness. Patient was diagnosed with COVID. He is not currently on oxygen. He was unvaccinated. Called patient's room. He is eager to go home, he has not yet seen the doctor. Asked him if he resides alone, and indicated, he lives alone. Asked him how he gets around at home, stated that he is independent, and does drive. P: DCP to continue to follow. Patient should be able to go home when he is deemed medically stable. Lissa Pardo RN/[facility] Discharge Planning/Care Management CM Discharge Assessment Start: 01/10/21 12:12 Freq: Status: Active Protocol: Document 01/10/21 12:12 (Rec: 01/10/21 12:15 [id number]) Discharge Planning Assessment Assigned [place] Operator iLssa Pardo RN/[facility] Advance Directives? No Advance Directives on File No History Provided By Patient,Medical Record Prior Living Arrangements House Household Members none Type of transporation used prior to Drives own vehicle admit Independent with ADL's Yes Is patient alert and oriented? Yes Comment Lives alone, had some confusion upon admission Discharge Plan Home Transportation Arrangement Friend? Referrals Initiated None needed Whiteboard Updated in Patient Room with Yes name and ext. # of [place] Operator Review Status In Process Next Review Type Continued Stay Review
--- NOTE | 2021-01-10 14:28 | PM.DS.1 ---
History of Present Illness History of Present Illness Date Patient Seen: 01/10/21 Time Patient Seen: 14:28 Chief complaint: Confussion, Sent from [facility] Narrative: Per Dr. Godoy, Mr. Rosales is an 80M with PMH CAD who presents to the hospital with weakness and confusion. Per the patient for the last week he has become progressively dizzy, lightheaded, and not eating well. he has not had a cough or shortness of breath. He has had loose stools. He has not eaten much because nothing tastes good. He has not been vaccinated against COVID. In the ED workup was done, vitals initially notable for blood pressure 88/63. Labs notable for Hgb 17.9, WBC 11, BUN 70, creatinine 2.21, procalcitonin 0.27. Chest xray showed minimal patchy infiltrates. CT head shows no acute process but does show small chronic lacunar infarcts. He did not have any hypoxemia or respiratory distress so he was not indicated to start medication for COVID. He did get 2L IV fluid and was admitted for further treatment. PMH: CAD, HTN FH: Father, CHF SH: former smoker quit decades ago, drinks 2-3 etoh drinks every other day Meds: ASA 81mg daily, atorvastatin 40mg daily, lisinopril 10mg daily, metoprolol 37.5mg BID, plavix 75mg daily Discharge Providers Provider Date of admission: 01/09/21 19:11 Discharge Date: 01/10/21 Primary care physician: Shankar Ventura MD Discharge provider: Andrea Mckenzie DO Summary Hospital Course Discharge Diagnosis: 1. Metabolic encephalopathy, acute, improved 2. YESICA, improved 3. COVID pneumonia 4. Diarrhea, acute, resolved 5. CAD 6. h/o CVA 7. HTN 8. HLD Hospital Course: Mr. Rosales is an 80M with PMH CAD, HTN, HLD who presented with weakness, fatigue and confusion progressing over the last week found to have COVID pneumonia and YESICA. The patient was not hypoxic during his stay. His diarrhea resolved after arrival to the floor, C. diff was unable to be sent. With IV fluids creatinine improved to 1.5 the following morning. His confusion improved and patient wished to discharge home. He ipmroved more quickly than expected. He was tolerating a diet and with resolution of diarrhea the following afternoon after admission. Recommend PCP follow up in the next 1-2 weeks to check on his symptoms. Exam Vital Signs (past 8 hours): - 01/10/21 07:30 01/10/21 08:30 01/10/21 09:28 Temperature 99.4 F Pulse Rate 86 Respiratory Rate 18 Blood Pressure 137/77 Pulse Oximetry 92 92 92 01/10/21 12:40 Temperature 99.0 F Pulse Rate 83 Respiratory Rate 16 Blood Pressure 129/61 Pulse Oximetry 91 Oxygen Delivery Method Room Air Oxygen Flow Rate 0 Narrative Exam Narrative: GEN: no acute distress HEENT: moist mucous membranes, PERRL NECK: trachea midline, no JVD CV: regular rate and rhythm, no murmurs PULM: clear bilaterally no wheezes, rhonchi, rales ABD: soft, nontender, nondistended, no organomegaly, normal bowel sounds SKIN: no rashes EXT: warm and well perfused with no edema NEURO: awake alert and oriented x3. ambulatory without assistance. PSYCH: pleasant, cooperative, though mildly anxious Objective Labs Result Diagrams: 01/10/21 05:00 01/10/21 05:00 Labs: Laboratory Results - last 24 hr 01/09/21 01/09/21 01/09/21 17:05 17:19 17:19 WBC 11.0 RBC 5.62 Hgb 17.9 H Hct 53.6 H MCV 95.4 MCH 31.8 MCHC 33.4 RDW 13.3 Plt Count 236 Neut % (Auto) 75.0 Lymph % (Auto) 17.1 L [place] % (Auto) 7.4 Eos % (Auto) 0.0 L Baso % (Auto) 0.5 Neut # (Auto) 8300 H Lymph # (Auto) 1900 [place] # (Auto) 800 Eos # (Auto) 0 Baso # (Auto) 100 Sodium 141 Potassium 4.0 Chloride 102 Carbon Dioxide 28 BUN 70 H Creatinine 2.21 H Estimated GFR 28.7 L BUN/Creatinine Ratio 31.7 H Glucose 134 H Calcium 8.7 Total Bilirubin 0.9 AST 60 H ALT 36 Alkaline Phosphatase 73 Total Protein 7.7 Albumin 4.1 Globulin 3.6 Albumin/Globulin Ratio 1.1 Procalcitonin Urine Color Urine Appearance Urine pH Ur Specific [place] Urine Protein Urine Glucose (UA) Urine Ketones Urine Occult Blood Urine Nitrate Urine Bilirubin Urine Urobilinogen Ur Leukocyte Esterase Urine RBC Urine WBC Ur Squamous Epith Cells Urine Bacteria Hyaline Casts Ur Culture Indicated? SARS-CoV-2 (PCR) Positive H 01/09/21 01/10/21 01/10/21 17:19 04:57 05:00 WBC 6.6 RBC 4.78 Hgb 15.4 Hct 45.2 MCV 94.7 MCH 32.3 MCHC 34.1 RDW 13.0 Plt Count 187 Neut % (Auto) 70.6 Lymph % (Auto) 20.7 L [place] % (Auto) 7.8 Eos % (Auto) 0.1 L Baso % (Auto) 0.8 Neut # (Auto) 4700 Lymph # (Auto) 1400 [place] # (Auto) 500 Eos # (Auto) 0 Baso # (Auto) 100 Sodium Potassium Chloride Carbon Dioxide BUN Creatinine Estimated GFR BUN/Creatinine Ratio Glucose Calcium Total Bilirubin AST ALT Alkaline Phosphatase Total Protein Albumin Globulin Albumin/Globulin Ratio Procalcitonin 0.27 Urine Color Yellow Urine Appearance Clear Urine pH 5.0 Ur Specific [place] 1.015 Urine Protein Trace H Urine Glucose (UA) Negative Urine Ketones Negative Urine Occult Blood Trace-intact Urine Nitrate Negative Urine Bilirubin Negative Urine Urobilinogen 0.2 Ur Leukocyte Esterase Negative Urine RBC 0-1/hpf Urine WBC None seen Ur Squamous Epith Cells 0-1 /hpf Urine Bacteria Occasional (0-1) Hyaline Casts 0-1/lpf Ur Culture Indicated? Cult not indicated SARS-CoV-2 (PCR) 01/10/21 05:00 WBC RBC Hgb Hct MCV MCH MCHC RDW Plt Count Neut % (Auto) Lymph % (Auto) [place] % (Auto) Eos % (Auto) Baso % (Auto) Neut # (Auto) Lymph # (Auto) [place] # (Auto) Eos # (Auto) Baso # (Auto) Sodium 140 Potassium 3.7 Chloride 110 H Carbon Dioxide 27 BUN 57 H Creatinine 1.54 H Estimated GFR 43.6 L BUN/Creatinine Ratio 37.0 H Glucose 104 Calcium 7.6 L Total Bilirubin AST ALT Alkaline Phosphatase Total Protein Albumin Globulin Albumin/Globulin Ratio Procalcitonin Urine Color Urine Appearance Urine pH Ur Specific [place] Urine Protein Urine Glucose (UA) Urine Ketones Urine Occult Blood Urine Nitrate Urine Bilirubin Urine Urobilinogen Ur Leukocyte Esterase Urine RBC Urine WBC Ur Squamous Epith Cells Urine Bacteria Hyaline Casts Ur Culture Indicated? SARS-CoV-2 (PCR) PFSH Social History household members: none Smoking Status: Unknown if ever smoked Discharge Plan Discharge Plan Patient Disposition: Home Provider Discharge Comment: You were admitted to the hospital with dehydration. Please stay hydrated at home. Diarrhea has improved. No medication changes are necessary. Please try and follow up with your PCP in the next 1-2 weeks. Discharge orders & Medications Follow up/Referrals: Shankar Ventura MD [Primary Care Provider] - Diet/Activity/Treatments Diet: Diet as Tolerated Activity: As tolerated Visit Report/Discharge Packet Instructions: DI for Dehydration -- Adult, DI for COVID-19 (Suspected or Confirmed ) Discharge Data Primary Care Provider: Shankar Ventura Quality VTE Deep Vein Thrombosis/Pulmonary Embolism Present on Admission: No
--- NOTE | 2021-01-10 15:44 | PC.NURSE ---
Discharge note: IV discontinued. Reviewed with patient instructions regarding Covid and to remain in isolation at home for 10 days. Instructed patient that he will need to not leave his home or be around other people during this time. He verbalized understanding. Pt has not been on oxygen during his stay. Sats on room air today were between 91-93%. No resp distress noted. He denies having any loose stools since admission and is eager to go home. Instructed pt to rest at home and drink plenty of fluids at home. Instructed pt that if he develops difficulty breathing while at home that he will need to call 911 to come back to the hospital. Verbalized understanding. Instructed pt that he may need to arrange grocery delivery as he cannot go into public being Covid positive, or he will infect others. Verbalized understanding. Celestina GARCIA wheeled pt to car. He drove self to the walk in clinic and will drive home.
== END 2021-01-10 15:54 | disposition home or self-care (01) | DRG 177 ==
LOC: ED 18:50 → AC 19:12
PROVIDERS: Emergency Medicine; Admitting Provider Internal Medicine; Emergency Provider Emergency Medicine; Family Provider Internal Medicine; PCP Internal Medicine; Referring Provider Emergency Medicine; Visit Provider Internal Medicine
DX: U07.1 COVID-19 (principal); J12.82 Pneumonia due to coronavirus disease 2019; G93.41 Metabolic encephalopathy; N17.9 Acute kidney failure, unspecified; E86.0 Dehydration; R19.7 Diarrhea, unspecified; I25.10 Atherosclerotic heart disease of native coronary artery without angina pectoris; E78.5 Hyperlipidemia, unspecified; Z87.891 Personal history of nicotine dependence; Z79.01 Long term (current) use of anticoagulants; Z86.73 Personal history of transient ischemic attack (TIA), and cerebral infarction without residual deficits
CPT/HCPCS: 36415; 70450; 71045; 80048; 80053; 81001; 84145; 85025; 87040; 87635; 93005; 93010; 94760; 96360; 96361; 99284; C9803

== ENCOUNTER → 2022-02-09 10:04 | Outpatient (CLI) | payer MEDICARE, SELFPAY ==
[2021-01-09 19:49] VITALS: BMI 24.3
[2022-02-09 12:48] LABS: Cholesterol 172 mg/dL (140-199); HDL Cholesterol 43 mg/dL (40-60); LDL Cholesterol Calculated 104 mg/dL (<100); Triglycerides 126 mg/dL (35-150)
== END ==
PROVIDERS: Family Provider Internal Medicine; PCP Internal Medicine; Referring Provider Internal Medicine Cardiovascular Disease; Visit Provider Internal Medicine Cardiovascular Disease
DX: I25.10 Atherosclerotic heart disease of native coronary artery without angina pectoris (principal)
CPT/HCPCS: 36415; 80061

== ENCOUNTER 2022-06-22 16:47 | Emergency (ER) | payer MEDICARE, SELFPAY ==
[2021-01-09 19:49] VITALS: BMI 24.3
[2022-06-22] VITALS (30 sets, daily range): BP systolic 98–138; BP diastolic 68–87; PULSE 72–86; RESP 14–26; TEMP 36.7; O2SAT 95–100; BMI 24.4
--- NOTE | 2022-06-22 17:08 | DI.RAD.S_ITS ---
PROCEDURE: XR CHEST 1V INDICATIONS: chest pain TECHNIQUE: One view of the chest was acquired. COMPARISON: [facility], , CHEST 1 VIEW, 09/15/2015, 13:41. [facility], , XR CHEST 1V, 01/09/2021, 17:39. FINDINGS: Surgical changes and devices: A percutaneously placed aortic valve replacement can be seen. Lungs and pleura: On this semiupright portable chest examination, no large pneumothorax or large pleural effusions are seen. No focal infiltrates are seen. Low lung volumes are noted. This causes a crowded appearance to the lung markings and limits evaluation. Mediastinum: Mediastinal contours appear normal. Heart size is normal. Atherosclerotic calcification of the aortic arch is noted. Bones and chest wall: No suspicious bony lesions. Age-appropriate bony degenerative changes are seen. Overlying soft tissues appear unremarkable. IMPRESSION: Limited portable chest examination, without a significant cardiopulmonary abnormality identified. Postoperative and degenerative changes are seen. Dictated by: Dileep Arellano M.D. on 06/22/2022 at 16:36 Approved by: Dileep Arellano M.D. on 06/22/2022 at 16:37
[2022-06-22 17:37] LABS: INR 1.2 (0.9-1.3); Prothrombin Time 13.9 SECONDS (10.1-12.7)
[2022-06-22 17:40] LABS: PTT Partial Thromboplastin Tim 28 SECONDS (26-36)
[2022-06-22 17:41] LABS: Add Manual Diff / Slide Review NO; Basophils Absolute Auto 100 /uL (0-100); Basophils Percent Auto 0.7 % (0-2); Eosinophils Absolute Auto 0 /uL (0-450); Eosinophils Percent Auto 0.2 % (2-4); Hematocrit 51.1 % (41-53); Hemoglobin 17.6 g/dL (13.5-17.5); Lymphocytes Absolute Auto 2600 /uL (1100-4500); Lymphocytes Percent Auto 23.3 % (25-40); Mean Corpuscular HGB Conc 34.4 % (30-36); Mean Corpuscular Hemoglobin 32.2 PG (26-34); Mean Corpuscular Volume 93.5 fL (80-100); Monocytes Absolute Auto 1600 /uL (0-900); Monocytes Percent Auto 14.4 % (3-14); Neutrophils Absolute Auto 6800 /uL (1500-7000); Neutrophils Percent Auto 61.4 % (50-75); Platelet Count 213 X10^3/uL (150-400); Red Blood Cell Count 5.46 X10^6/uL (4.5-5.9); Red Cell Distribution Width 13.3 % (11.6-14.8); White Blood Cell Count 11.1 X10^3/uL (4.5-11.0)
[2022-06-22 17:45] LABS: Alanine Aminotransferase 26 IU/L (<50); Albumin 4.3 g/dL (3.5-5.0); Albumin Globulin Ratio 1.1 (1.0-2.8); Alkaline Phosphatase 74 U/L (38-126); Aspartate Aminotransferase 32 IU/L (17-59); BUN Creatinine Ratio 17.4 (6-22); Blood Urea Nitrogen 30 mg/dL (9-20); Carbon Dioxide 28 mmol/L (22-32); Chloride 100 mmol/L (98-107); Creatine Kinase 143 U/L (55-170); Estimated Glomerular Filt Rate 39 mL/min (>60); Globulin 3.9 g/dL (1.7-4.1); Glucose 107 mg/dL (80-110); HEMOLYSIS < 15 (0-50); Lipase 312 U/L (23-300); Magnesium 2.2 mg/dL (1.6-2.3); Potassium 4.1 mmol/L (3.4-5.1); Sodium 139 mmol/L (137-145); Total Protein 8.2 g/dL (6.3-8.2)
[2022-06-22 17:50] LABS: COVID19 -Nasal RAPID Negative (Negative)
[2022-06-22 17:58] LABS: Troponin I < 0.012 ng/mL (0.01-0.034)
[2022-06-22 18:00] LABS: CKMB % Relative Index 0.7 % (1.5-5.0); Creatine Kinase MB 1.03 ng/mL (<2.37)
--- NOTE | 2022-06-22 18:01 | ED_ITS ---
HPI - Weakness General Chief complaint: Weakness Stated complaint: [facility] low energy X2, blood drawn recommend Time Seen by Provider: 06/22/22 17:49 Source: patient Mode of arrival: Family Vehicle History of Present Illness HPI Narrative: Patient is a 81-year-old male with history of is coronary artery disease, valve replacement presenting today with generalized weakness. He reports that he is been feeling weak yesterday definitely more tired. He says he took a 6 hour nap in the middle of the day which is very abnormal for him. Denies any shortness of breath dizziness fever or chills. He has a chronic ongoing nonproductive cough which he says remains unchanged. He is tolerating fluids. He does not have a sore throat. He reports repeated episodes of dizziness at least twice a day lasting under 1 minute it comes both at rest and upon standing. He reports that this has been ongoing and it remains unchanged. Previous H and P from 01/09/2021 also reports some dizziness and lightheadedness. During that admission diagnosis metabolic encephalopathy along with acute kidney injury and COVID not pneumonia. Today he is noted to be mildly hypotensive upon arrival 98/75 without tachycardia. It sounds as though he is followed mostly at [facility] for his medical care Related Data Allergies Allergy/AdvReac Type Severity Reaction Status Date / Time No Known Drug Allergies Allergy Verified 06/22/22 17:07 Review of Systems Review of Systems ROS Unobtainable: All systems reviewed & are unremarkable except as noted in HPI and below Patient History Social History household members: none Smoking Status: Unknown if ever smoked Smoking Status: Unknown if ever smoked alcohol intake frequency: 0-2 drinks per day Substance Use Type: does not use Exam Initial Vital Signs Initial Vital Signs: Vital Signs Temperature 98.1 F 06/22/22 17:02 Pulse Rate 81 06/22/22 17:02 Respiratory Rate 20 06/22/22 17:02 Blood Pressure 107/78 06/22/22 17:02 Pulse Oximetry 99 06/22/22 17:02 Oxygen Delivery Method Room Air 06/22/22 17:02 GENERAL: Alert elderly 81 year male no acute distress HEENT: Head atraumatic,EOMI, pupils reactive, face symmetric, moist mucous membranes CARDIOVASCULAR: Regular rate and rhythm without murmurs, rubs or gallops. RESPIRATORY: Breath sounds equal bilaterally, no wheezes rales or rhonchi. ABDOMEN: Soft, nontender. Normoactive bowel sounds all 4 quadrants. No guarding or rebound. EXTREMITIES: Normal range of motion, no clubbing or edema. Neurovascularly intact NEUROLOGICAL: Alert and oriented x4.Normal gait and speech. Cranial nerves II through XII grossly intact. Good [id number], good ayit-hm-ewbh, strength equal bilaterally, no dysarthria or aphasia, sensation in tact to soft touch bilaterally, no visual changes, no facial droop SKIN: Warm, dry, no laceration, no petechiae, no rashes or lesions. Scores NIH Stroke Scale Level of Conciousness: Alert, keenly responsive Ask month/age: Answers both questions correctly. Open/close eyes, close hand: Performs both tasks correctly Best gaze horizontal: Normal Visual glover: No visual loss Facial palsy: Normal symetrical movement Left arm drift: No drift for full 10 sec Right arm drift: No drift for full 10 sec Left leg drift: No drift for full 5 sec Right leg drift: No drift for full 5 sec Limb ataxia: Absent Sensory on face/arms/legs: Normal, no sensory loss Best language: No aphasia, normal Dysarthria: Normal Extinction or inattention: No abnormality Total NIH Stroke scale score: 0 Course Orders Ordered: Discontinued Medications Aspirin (Aspirin 81 Mg Chew Tab) 324 mg PO NOW ONE Stop: 06/22/22 17:08 Last Admin: 06/22/22 19:11 Dose: Not Given Documented By: EVER Sodium Chloride (Normal Saline 0.9%) 500 mls @ 1,000 mls/hr IV BOLUS ONE Stop: 06/22/22 18:54 Last Admin: 06/22/22 19:12 Dose: Not Given Documented By: EVER Vital Signs Vital signs: Vital Signs - 8 hr 06/22/22 17:02 06/22/22 17:13 06/22/22 17:14 Temperature 98.1 F Pulse Rate 81 74 72 Respiratory Rate 20 21 21 Blood Pressure 107/78 Pulse Oximetry 99 96 96 Oxygen Delivery Method Room Air 06/22/22 17:14 06/22/22 17:15 06/22/22 17:15 Temperature Pulse Rate 78 Respiratory Rate 23 Blood Pressure 138/85 137/85 Pulse Oximetry 97 Oxygen Delivery Method 06/22/22 17:20 06/22/22 17:21 06/22/22 17:21 Temperature Pulse Rate 80 80 Respiratory Rate 18 17 Blood Pressure 127/85 Pulse Oximetry 99 98 Oxygen Delivery Method 06/22/22 17:25 06/22/22 17:25 06/22/22 17:30 Temperature Pulse Rate 83 Respiratory Rate 14 Blood Pressure 98/75 108/74 Pulse Oximetry 97 Oxygen Delivery Method 06/22/22 17:30 06/22/22 17:35 06/22/22 17:35 Temperature Pulse Rate 78 78 Respiratory Rate 19 15 Blood Pressure 110/68 Pulse Oximetry 97 97 Oxygen Delivery Method 06/22/22 17:40 06/22/22 17:40 06/22/22 17:46 Temperature Pulse Rate 79 Respiratory Rate 18 Blood Pressure 114/75 101/69 Pulse Oximetry 95 Oxygen Delivery Method Room Air 06/22/22 17:46 06/22/22 17:50 06/22/22 17:50 Temperature Pulse Rate 80 78 Respiratory Rate 14 15 Blood Pressure 108/69 Pulse Oximetry 96 96 Oxygen Delivery Method 06/22/22 17:55 06/22/22 17:55 06/22/22 18:00 Temperature Pulse Rate 78 Respiratory Rate 17 Blood Pressure 101/68 112/71 Pulse Oximetry 97 Oxygen Delivery Method 06/22/22 18:00 06/22/22 18:05 06/22/22 18:05 Temperature Pulse Rate 75 79 Respiratory Rate 16 20 Blood Pressure 114/75 Pulse Oximetry 96 95 Oxygen Delivery Method 06/22/22 18:10 06/22/22 18:10 06/22/22 18:15 Temperature Pulse Rate 79 72 Respiratory Rate 26 H 15 Blood Pressure 117/78 Pulse Oximetry 97 95 Oxygen Delivery Method 06/22/22 18:15 06/22/22 18:20 06/22/22 18:20 Temperature Pulse Rate 74 Respiratory Rate 16 Blood Pressure 123/83 124/78 Pulse Oximetry 96 Oxygen Delivery Method 06/22/22 18:25 06/22/22 18:25 06/22/22 18:30 Temperature Pulse Rate 78 Respiratory Rate 17 Blood Pressure 121/78 120/74 Pulse Oximetry 95 Oxygen Delivery Method 06/22/22 18:30 06/22/22 18:35 06/22/22 18:35 Temperature Pulse Rate 75 77 Respiratory Rate 17 18 Blood Pressure 129/78 Pulse Oximetry 95 96 Oxygen Delivery Method 06/22/22 18:40 06/22/22 18:40 06/22/22 18:45 Temperature Pulse Rate 80 78 Respiratory Rate 22 20 Blood Pressure 130/87 Pulse Oximetry 96 97 Oxygen Delivery Method 06/22/22 18:45 06/22/22 19:00 06/22/22 19:03 Temperature Pulse Rate 84 79 Respiratory Rate 20 Blood Pressure 119/76 Pulse Oximetry 99 99 Oxygen Delivery Method 06/22/22 19:03 06/22/22 19:05 06/22/22 19:05 Temperature Pulse Rate 78 Respiratory Rate 17 Blood Pressure 134/81 109/68 Pulse Oximetry 99 Oxygen Delivery Method Room Air MDM - Weakness Lab Data 06/22/22 17:20 06/22/22 17:20 Labs: Lab Results 06/22/22 06/22/22 06/22/22 Range/Units 17:20 17:20 17:20 WBC 11.1 H (4.5-11.0) X10^3/uL RBC 5.46 (4.5-5.9) X10^6/uL Hgb 17.6 H (13.5-17.5) g/dL Hct 51.1 (41-53) % MCV 93.5 (80-100) fL MCH 32.2 (26-34) PG MCHC 34.4 (30-36) % RDW 13.3 (11.6-14.8) % Plt Count 213 (150-400) X10^3/uL Neut % (Auto) 61.4 (50-75) % Lymph % (Auto) 23.3 L (25-40) % [place] % (Auto) 14.4 H (3-14) % Eos % (Auto) 0.2 L (2-4) % Baso % (Auto) 0.7 (0-2) % Neut # (Auto) 6800 (0027-8702) /uL Lymph # (Auto) 2600 (2439-2323) /uL [place] # (Auto) 1600 H (0-900) /uL Eos # (Auto) 0 (0-450) /uL Baso # (Auto) 100 (0-100) /uL PT 13.9 H (10.1-12.7) SECONDS INR 1.2 (0.9-1.3) APTT 28 (26-36) SECONDS Sodium 139 (137-145) mmol/L Potassium 4.1 (3.4-5.1) mmol/L Chloride 100 (98-107) mmol/L Carbon Dioxide 28 (22-32) mmol/L BUN 30 H (9-20) mg/dL Creatinine 1.72 H (0.66-1.25) mg/dL Estimated GFR 39 L (>60) mL/min BUN/Creatinine Ratio 17.4 (6-22) Glucose 107 (80-110) mg/dL Calcium 9.0 (8.4-10.2) mg/dL Magnesium 2.2 (1.6-2.3) mg/dL Total Bilirubin 1.0 (0.2-1.3) mg/dL AST 32 (17-59) IU/L ALT 26 (<50) IU/L Alkaline Phosphatase 74 (38-126) U/L Total Creatine Kinase 143 (55-170) U/L CK-MB (CK-2) 1.03 (<2.37) ng/mL CK-MB (CK-2) Rel Index 0.7 L (1.5-5.0) % Troponin I < 0.012 (0.01-0.034) ng/mL Total Protein 8.2 (6.3-8.2) g/dL Albumin 4.3 (3.5-5.0) g/dL Globulin 3.9 (1.7-4.1) g/dL Albumin/Globulin Ratio 1.1 (1.0-2.8) Lipase 312 H (23-300) U/L SARS-CoV-2 (PCR) (Negative) 06/22/22 Range/Units 17:20 WBC (4.5-11.0) X10^3/uL RBC (4.5-5.9) X10^6/uL Hgb (13.5-17.5) g/dL Hct (41-53) % MCV (80-100) fL MCH (26-34) PG MCHC (30-36) % RDW (11.6-14.8) % Plt Count (150-400) X10^3/uL Neut % (Auto) (50-75) % Lymph % (Auto) (25-40) % [place] % (Auto) (3-14) % Eos % (Auto) (2-4) % Baso % (Auto) (0-2) % Neut # (Auto) (7510-2042) /uL Lymph # (Auto) (0414-1003) /uL [place] # (Auto) (0-900) /uL Eos # (Auto) (0-450) /uL Baso # (Auto) (0-100) /uL PT (10.1-12.7) SECONDS INR (0.9-1.3) APTT (26-36) SECONDS Sodium (137-145) mmol/L Potassium (3.4-5.1) mmol/L Chloride (98-107) mmol/L Carbon Dioxide (22-32) mmol/L BUN (9-20) mg/dL Creatinine (0.66-1.25) mg/dL Estimated GFR (>60) mL/min BUN/Creatinine Ratio (6-22) Glucose (80-110) mg/dL Calcium (8.4-10.2) mg/dL Magnesium (1.6-2.3) mg/dL Total Bilirubin (0.2-1.3) mg/dL AST (17-59) IU/L ALT (<50) IU/L Alkaline Phosphatase (38-126) U/L Total Creatine Kinase (55-170) U/L CK-MB (CK-2) (<2.37) ng/mL CK-MB (CK-2) Rel Index (1.5-5.0) % Troponin I (0.01-0.034) ng/mL Total Protein (6.3-8.2) g/dL Albumin (3.5-5.0) g/dL Globulin (1.7-4.1) g/dL Albumin/Globulin Ratio (1.0-2.8) Lipase (23-300) U/L SARS-CoV-2 (PCR) Negative (Negative) Urine Dip Bedside Urine Glucose Negative Bedside Urine Bilirubin - Negative Bedside Urine Ketone - Negative Urine Specific [place] 1.025 Bedside Urine Occult Blood - Negative Bedside Urine pH 6.0 Bedside Urine Protein - Negative Bedside Urine Urobilinogen - Negative Bedside Urine Nitrite - Negative Bedside Urine Leukocytes - Negative Esterase Imaging Data Chest x-ray: Radiologist Impression: PROCEDURE:? XR CHEST 1V ? INDICATIONS:? chest pain ? TECHNIQUE:? One view of the chest was acquired.? ? COMPARISON:? [facility], CR, CHEST 1 VIEW, 09/15/2015, 13:41.? [facility], CR, XR CHEST 1V, 01/09/2021, 17:39. ? FINDINGS:? ? Surgical changes and devices:? A percutaneously placed aortic valve replacement can be seen.? ? Lungs and pleura:? On this semiupright portable chest examination, no large pneumothorax or large pleural effusions are seen.? No focal infiltrates are seen.? Low lung volumes are noted. This causes a crowded appearance to the lung markings and limits evaluation.? ? Mediastinum:? Mediastinal contours appear normal.? Heart size is normal.? Atherosclerotic calcification of the aortic arch is noted.? ? Bones and chest wall:? No suspicious bony lesions.? Age-appropriate bony degenerative changes are seen. ? Overlying soft tissues appear unremarkable.? IMPRESSION:? ? Limited portable chest examination, without a significant cardiopulmonary abnormality identified.? ? Postoperative and degenerative changes are seen.? ? ? Dictated by: Dileep Arellano M.D. on 06/22/2022 at 16:36 ? ? ECG Data Interpretation: Sinus rhythm rate 75 OH interval 174 QRS [address] changes no T-wave inversions similar to previous EKG in 2020 MDM Narrative Medical decision making narrative: He is scheduled to have 2 stents placed at [facility] in June. He is absolutely no chest pain no EKG changes and 1- troponins. He ambulated to the restroom without any difficulty. No evidence of infection, sepsis. Creatinine is 1.72 today improved from previous. Overall feeling better. Chest x-ray does not show any abnormality. He does not have any focal deficits found on anticoagulation no need for head CT. Unclear cause of patient's weakness but his weakness seems to have improved without any intervention. Discharge Plan Departure Patient Disposition: Home Clinical Impression: Weakness Instructions: DI for Muscle Weakness Activity Restrictions/Additional Instructions: *You have been diagnosed with weakness *What to do: At this time there is no evidence of infection. Blood work and x- ray are overall reassuring. I recommend that you stay hydrated rest return as needed. *Continue to take medications as directed *Follow up with your primary care provider in 2-3 days or call [phone] *Return to ER if you should have worsening dizziness falls weakness fever or any new, worsening or concerning symptoms Referrals: Shankar Ventura MD [Primary Care Provider] - Stand Alone Forms: Patient Portal/API
== END 2022-06-22 19:25 | disposition home or self-care (01) ==
PROVIDERS: Emergency Medicine; Emergency Provider Emergency Medicine; Family Provider Internal Medicine; PCP Internal Medicine
DX: R53.1 Weakness (principal); I95.9 Hypotension, unspecified; R42 Dizziness and giddiness; Z95.2 Presence of prosthetic heart valve; Z20.822 Contact with and (suspected) exposure to COVID-19
CPT/HCPCS: 36415; 71045; 80053; 81003; 82550; 82553; 83690; 83735; 84484; 85025; 85610; 85730; 87635; 93005; 99284; C9803

== ENCOUNTER 2022-06-24 10:15 | Outpatient (RCR) | payer MEDICARE, SELFPAY ==
[2021-01-09 19:49] VITALS: BMI 24.3
== END 2022-06-24 12:15 ==
LOC: CAR 10:15
PROVIDERS: Family Provider Internal Medicine; PCP Internal Medicine; Referring Provider Internal Medicine Interventional Cardiology; Visit Provider Internal Medicine Interventional Cardiology
DX: Z95.2 Presence of prosthetic heart valve (principal)
CPT/HCPCS: 93798

== ENCOUNTER 2022-07-07 10:29 | Emergency (ER) | payer MEDICARE, SELFPAY ==
[2021-01-09 19:49] VITALS: BMI 24.3
[2022-07-07] VITALS (11 sets, daily range): BP systolic 107–146; BP diastolic 60–86; PULSE 72–102; RESP 24; O2SAT 95–98; BMI 24.7
--- NOTE | 2022-07-07 11:09 | DI.CT.S_ITS ---
PROCEDURE: CT ANGIO HEAD AND NECK INDICATIONS: dizziness/off balance since january, TAVR TECHNIQUE: Pre-contrast 4.5 mm thick sections acquired from the foramen magnum to the vertex. After the administration of intravenous contrast, 1 mm thick sections acquired from the aortic arch through the [place] of [place]. Post-contrast 4.5 mm thick sections then re-acquired from the foramen magnum to the vertex. 3-dimensional [id number] (MIP) and/or volume rendering reformats were acquired of the central intracranial vasculature and neck separately. For radiation dose reduction, the following was used: automated exposure control, adjustment of mA and/or kV according to patient size. COMPARISON: None. FINDINGS: Image quality: Excellent. BRAIN: CSF spaces: Ventricles are normal in size and shape. Basal cisterns are patent. No extra-axial fluid collections. Brain: No midline shift. No intracranial bleeds or masses. Sahni-white matter interface appears intact. Dense bilateral intracranial carotid and vertebral artery calcifications. Skull and face: Calvarium and facial bones appear intact, without suspicious lesions. Orbits appear normal. Sinuses: Right maxillary sinus may be hypoaerated. It is subtotally opacified. The other visualized paranasal sinuses are patent. HEAD CT ANGIOGRAPHY: Anterior circulation: There is extensive intracranial carotid calcifications, with moderate left cavernous carotid artery stenosis. The flow within the paired anterior cerebral arteries is normal and symmetric. The flow within the middle cerebral arteries is normal and symmetric. The anterior communicating artery is seen. No aneurysms are seen. Posterior circulation: Visualized portions of the vertebral arteries demonstrate normal caliber, and join to form a normal appearing basilar artery. Flow within the posterior cerebral arteries is normal and symmetric. No aneurysms are seen. NECK CT ANGIOGRAPHY: Carotid system: The great vessels demonstrate a conventional anatomy as they arise from the aortic arch. The origins of the common carotid arteries appear patent. The common carotid arteries demonstrate normal caliber and courses. The bifurcation regions are both widely patent. There is a [id number] calcified proximal right internal carotid artery stenosis, less than 50%. Mild proximal right internal carotid artery stenosis. Posterior circulation: The origins of the vertebral arteries both appear widely patent. The more superior extracranial portions of both vertebral arteries also demonstrate normal courses and calibers. They join to form a normal appearing basilar artery. Soft tissues: Visualized neck soft tissues demonstrate no suspicious abnormalities. Bones: No suspicious bony lesions. Visualized cervical spine appears normally aligned. IMPRESSION: 1. No evidence acute stroke, hemorrhage, or mass. 2. Age-related volume loss and small vessel ischemic change. 3. Hypoaerated right maxillary sinus, subtotally opacified. 4. CTA head significant for moderate left cavernous carotid stenotic disease. No aneurysms or occlusions or focal filling defects. 5. Less than 50% left internal carotid artery stenosis. Mild proximal right internal carotid artery stenosis. Any quantitative measurements of stenosis were performed using NASCET criteria. Dictated by: Ramón Michelle M.D. on 07/07/2022 at 13:01 Approved by: Ramón Michelle M.D. on 07/07/2022 at 13:09
[2022-07-07 11:43] LABS: Add Manual Diff / Slide Review NO; Basophils Absolute Auto 100 /uL (0-100); Basophils Percent Auto 0.5 % (0-2); Eosinophils Absolute Auto 100 /uL (0-450); Eosinophils Percent Auto 0.6 % (2-4); Hematocrit 42.7 % (41-53); Hemoglobin 14.5 g/dL (13.5-17.5); Lymphocytes Absolute Auto 1300 /uL (1100-4500); Lymphocytes Percent Auto 9.8 % (25-40); Mean Corpuscular Hemoglobin 31.4 PG (26-34); Mean Corpuscular Volume 92.5 fL (80-100); Monocytes Absolute Auto 1000 /uL (0-900); Monocytes Percent Auto 7.6 % (3-14); Neutrophils Absolute Auto 10600 /uL (1500-7000); Neutrophils Percent Auto 81.5 % (50-75); Platelet Count 299 X10^3/uL (150-400); Red Blood Cell Count 4.61 X10^6/uL (4.5-5.9)
[2022-07-07 11:49] LABS: INR 1.4 (0.9-1.3); Prothrombin Time 16.4 SECONDS (10.1-12.7)
[2022-07-07 11:51] LABS: PTT Partial Thromboplastin Tim 27 SECONDS (26-36)
[2022-07-07 11:52] LABS: Alanine Aminotransferase 24 IU/L (<50); Albumin 3.3 g/dL (3.5-5.0); Albumin Globulin Ratio 0.9 (1.0-2.8); Alkaline Phosphatase 69 U/L (38-126); Aspartate Aminotransferase 26 IU/L (17-59); BUN Creatinine Ratio 17.6 (6-22); Bilirubin Total 1.1 mg/dL (0.2-1.3); Blood Urea Nitrogen 25 mg/dL (9-20); Calcium 8.3 mg/dL (8.4-10.2); Carbon Dioxide 23 mmol/L (22-32); Chloride 106 mmol/L (98-107); Creatine Kinase 69 U/L (55-170); Estimated Glomerular Filt Rate 49 mL/min (>60); Ethanol (ETOH) < 10 mg/dL; Globulin 3.6 g/dL (1.7-4.1); Glucose 143 mg/dL (80-110); HEMOLYSIS 24 (0-50); Potassium 3.9 mmol/L (3.4-5.1); Sodium 135 mmol/L (137-145); Total Protein 6.9 g/dL (6.3-8.2)
[2022-07-07 12:02] LABS: Troponin I < 0.012 ng/mL (0.01-0.034)
[2022-07-07 12:02] LABS: COVID19 -Nasal RAPID Negative (Negative)
[2022-07-07 13:33] LABS: UR Morphine/Opiate cutoff 300 Negative (Negative); Ur Creatinine Normal (Normal); Ur Specific Gravity Normal (Normal); Urine Amphetamines Negative (Negative); Urine Barbiturates Negative (Negative); Urine Benzodiazepines Negative (Negative); Urine Cocaine Negative (Negative); Urine MDMA Negative (Negative); Urine Methadone Negative (Negative); Urine Methamphetamines Negative (Negative); Urine Oxycodone Negative (Negative); Urine Phencyclidine Negative (Negative); Urine Tetrahydrocannabinol Negative (Negative); Urine Tricyclic Antidepressant Negative (Negative); Urine pH Normal (Normal)
[2022-07-07 13:47] LABS: Appearance Urine UA CLEAR; Bilirubin Urine UA NEGATIVE (NEGATIVE); Color Urine UA YELLOW; Glucose Urine UA NEGATIVE (Negative); Ketones Urine UA NEGATIVE (NEGATIVE); Leukocyte Esterase Urine UA NEGATIVE (NEGATIVE); Nitrite Urine UA NEGATIVE (Negative); Occult Blood Urine UA TRACE-INTACT (Negative); Protein Urine UA NEGATIVE (Negative); Specific Gravity Urine UA <=1.005 (1.000-1.035); pH Urine UA 5.5 (4.5-8.0)
[2022-07-07 13:57] LABS: Bacteria Urine None Seen; Culture Indicated Urine Cult Not Indicated; RBC Urine 1-5/HPF (0-5/HPF); WBC Urine None Seen (0-5/HPF)
--- NOTE | 2022-07-07 14:01 | ED.DIZZY ---
HPI - Dizziness General Chief Complaint: Dizziness Stated Complaint: sent From his Doctor possible Stroke Time Seen by Provider: 07/07/22 11:09 Source: patient Mode of arrival: Ambulatory Limitations: no limitations History of Present Illness HPI Narrative: This is an 81-year-old male with history of coronary artery disease, valve replacement who presents with persistent dizziness since January after his valve was replaced. Patient states that he had his valve replaced in January he states about a month afterwards he started noticing we get dizzy particularly was walking and sometimes noticed difficulty focusing on his vision. He states he would notice that it was only when both eyes were being used to be covered up his left or his right eye would resolve the issue, he states it is almost like a double vision will typically last less than a minute and then resolved. He states it was happening about twice weekly at a minimum and the worst at the end of May patient was having episodes every other day. He thought that he would shared this with his cardiology team he is not entirely sure shared with the nurses today on a phone call and was told to come to the ER to be worked up. Denies numbness, tingling or weakness. No loss of consciousness, no syncope. No chest pain, he is got some persistent chronic shortness of breath he states he is was have cardiac stents x2 in the next week. He states his shortness of breath has not changed or worsened. He denies syncope, no headaches. He does not currently have any symptoms. He is on aspirin 81 mg daily atorvastatin 10 mg daily, metoprolol 25 mg daily and had his your irbesartan and HCTZ stopped by his cardiology team and states his blood pressures been improved. Patient follows with Cardiology at [facility]. Related Data Previous Rx's Medication Instructions Recorded clopidogrel 75 mg tablet (Plavix) 75 mg PO DAILY #25 tabs 07/07/22 Allergies Allergy/AdvReac Type Severity Reaction Status Date / Time No Known Drug Allergies Allergy Verified 06/22/22 17:07 Review of Systems Review of Systems ROS Unobtainable: All systems reviewed & are unremarkable except as noted in HPI and below Patient History Social History household members: none Smoking Status: Former smoker Smoking Status: Former smoker alcohol intake frequency: 0-2 drinks per day Alcohol type: beer Substance Use Type: does not use Exam Narrative Exam Narrative: GEN: well nourished, well appearing male, alert and oriented x 3, patient appears to be in mild distress. HEENT: Atraumatic, pupils are equal round reactive to light, extraocular movements are intact, nares are clear, TMs are clear with no fluid, there is no conjunctival pallor. Throat is clear without any exudates, erythema, tonsillar enlargement or uvular deviation, no facial droop HEART: Regular rate and rhythm without murmur, clicks, rubs. Pulses are equal in upper and lower extremities LUNGS:Lungs clear to auscultation, no wheezes, rales, crackles, chest moves symmetrically ABD:bowel sounds normal, soft, non-tender, no guarding, rebound, rigidity, no masses noted, no hepatosplenomegaly :No CVA tenderness MSCL: Non-tender, no muscle atrophy, muscles strength 5/5 upper and lower extremities, full range of motion, normal gait NEURO:CN 2-12 intact, sensation normal, reflexes 2/4 upper and lower extremities. finger nose finger test normal, heel briggs test normal, romberg normal Initial Vital Signs Initial Vital Signs: Vital Signs Pulse Rate 102 H 07/07/22 10:45 Respiratory Rate 24 07/07/22 10:45 Blood Pressure 136/82 07/07/22 10:45 Pulse Oximetry 97 07/07/22 10:45 Oxygen Delivery Method Room Air 07/07/22 10:45 Scores NIH Stroke Scale Level of Conciousness: Alert, keenly responsive Ask month/age: Answers both questions correctly. Open/close eyes, close hand: Performs both tasks correctly Best gaze horizontal: Normal Visual glover: No visual loss Facial palsy: Normal symetrical movement Left arm drift: No drift for full 10 sec Right arm drift: No drift for full 10 sec Left leg drift: No drift for full 5 sec Right leg drift: No drift for full 5 sec Limb ataxia: Absent Sensory on face/arms/legs: Normal, no sensory loss Best language: No aphasia, normal Dysarthria: Normal Extinction or inattention: No abnormality Total NIH Stroke scale score: 0 Course Orders Ordered: ED Orders 07/07/22 11:09 CT angio head and neck Stat EKG-12 Lead Stat 07/07/22 11:20 Complete Blood Count AUTO DIFF Stat Comprehensive Metabolic Panel Stat Ethanol (ETOH) Stat PTT Partial Thromboplastin Silvano Stat Prothrombin Time INR Stat Troponin & CK Cardiac Panel Stat 07/07/22 11:30 COVID19 -Nasal RAPID Stat 07/07/22 13:15 Urinalysis and Microscopic Stat Urine Drug Screen, Rapid Stat 07/07/22 14:38 MR head/brain wo con Stat Vital Signs Vital signs: Vital Signs - 8 hr 07/07/22 12:06 07/07/22 12:07 07/07/22 12:07 Pulse Rate 73 73 Blood Pressure 146/86 H Pulse Oximetry 98 98 Oxygen Delivery Method 07/07/22 12:30 07/07/22 12:30 07/07/22 16:30 Pulse Rate 72 Blood Pressure 125/78 138/83 Pulse Oximetry 98 Oxygen Delivery Method Room Air 07/07/22 16:30 07/07/22 17:00 07/07/22 17:00 Pulse Rate 79 76 Blood Pressure 128/60 Pulse Oximetry 97 96 Oxygen Delivery Method 07/07/22 17:30 07/07/22 17:30 Pulse Rate 81 Blood Pressure 138/83 Pulse Oximetry 97 Oxygen Delivery Method MDM - Dizziness Lab Data 07/07/22 11:20 07/07/22 11:20 Labs: Lab Results 07/07/22 07/07/22 07/07/22 Range/Units 11:20 11:20 11:20 WBC 13.0 H (4.5-11.0) X10^3/uL RBC 4.61 (4.5-5.9) X10^6/uL Hgb 14.5 (13.5-17.5) g/dL Hct 42.7 (41-53) % MCV 92.5 (80-100) fL MCH 31.4 (26-34) PG MCHC 34.0 (30-36) % RDW 13.0 (11.6-14.8) % Plt Count 299 (150-400) X10^3/uL Neut % (Auto) 81.5 H (50-75) % Lymph % (Auto) 9.8 L (25-40) % [place] % (Auto) 7.6 (3-14) % Eos % (Auto) 0.6 L (2-4) % Baso % (Auto) 0.5 (0-2) % Neut # (Auto) 82429 H (5056-5094) /uL Lymph # (Auto) 1300 (7397-3697) /uL [place] # (Auto) 1000 H (0-900) /uL Eos # (Auto) 100 (0-450) /uL Baso # (Auto) 100 (0-100) /uL PT 16.4 H (10.1-12.7) SECONDS INR 1.4 H (0.9-1.3) APTT 27 (26-36) SECONDS Sodium 135 L (137-145) mmol/L Potassium 3.9 (3.4-5.1) mmol/L Chloride 106 (98-107) mmol/L Carbon Dioxide 23 (22-32) mmol/L BUN 25 H (9-20) mg/dL Creatinine 1.42 H (0.66-1.25) mg/dL Estimated GFR 49 L (>60) mL/min BUN/Creatinine Ratio 17.6 (6-22) Glucose 143 H (80-110) mg/dL Calcium 8.3 L (8.4-10.2) mg/dL Total Bilirubin 1.1 (0.2-1.3) mg/dL AST 26 (17-59) IU/L ALT 24 (<50) IU/L Alkaline Phosphatase 69 (38-126) U/L Total Creatine Kinase 69 (55-170) U/L CK-MB (CK-2) TNP CK-MB (CK-2) Rel Index TNP Troponin I < 0.012 (0.01-0.034) ng/mL Total Protein 6.9 (6.3-8.2) g/dL Albumin 3.3 L (3.5-5.0) g/dL Globulin 3.6 (1.7-4.1) g/dL Albumin/Globulin Ratio 0.9 L (1.0-2.8) Urine Color Urine Appearance Urine pH (4.5-8.0) Ur Specific [place] (1.000-1.035) Urine Protein (Negative) Urine Glucose (UA) (Negative) g/dL Urine Ketones (NEGATIVE) Urine Occult Blood (Negative) Urine Nitrate (Negative) Urine Bilirubin (NEGATIVE) Urine Urobilinogen (0.2) E.U./dL Ur Leukocyte Esterase (NEGATIVE) Urine RBC (0-5/HPF) Urine WBC (0-5/HPF) Urine Bacteria (None) Ur Culture Indicated? U Opiates 300ng/mL cut (Negative) Ur Oxycodone Screen (Negative) Urine Methadone Screen (Negative) Ur Barbiturates Screen (Negative) U Tricyclic Antidepress (Negative) Ur Phencyclidine Scrn (Negative) Ur Amphetamines Screen (Negative) U Methamphetamines Scrn (Negative) Ur MDMA Scrn (Ecstasy) (Negative) U Benzodiazepines Scrn (Negative) Urine Cocaine Screen (Negative) U Marijuana (THC) Screen (Negative) Ethyl Alcohol < 10 ( - 10) mg/dL SARS-CoV-2 (PCR) (Negative) 07/07/22 07/07/22 07/07/22 Range/Units 11:30 13:15 13:15 WBC (4.5-11.0) X10^3/uL RBC (4.5-5.9) X10^6/uL Hgb (13.5-17.5) g/dL Hct (41-53) % MCV (80-100) fL MCH (26-34) PG MCHC (30-36) % RDW (11.6-14.8) % Plt Count (150-400) X10^3/uL Neut % (Auto) (50-75) % Lymph % (Auto) (25-40) % [place] % (Auto) (3-14) % Eos % (Auto) (2-4) % Baso % (Auto) (0-2) % Neut # (Auto) (9174-4399) /uL Lymph # (Auto) (0932-7834) /uL [place] # (Auto) (0-900) /uL Eos # (Auto) (0-450) /uL Baso # (Auto) (0-100) /uL PT (10.1-12.7) SECONDS INR (0.9-1.3) APTT (26-36) SECONDS Sodium (137-145) mmol/L Potassium (3.4-5.1) mmol/L Chloride (98-107) mmol/L Carbon Dioxide (22-32) mmol/L BUN (9-20) mg/dL Creatinine (0.66-1.25) mg/dL Estimated GFR (>60) mL/min BUN/Creatinine Ratio (6-22) Glucose (80-110) mg/dL Calcium (8.4-10.2) mg/dL Total Bilirubin (0.2-1.3) mg/dL AST (17-59) IU/L ALT (<50) IU/L Alkaline Phosphatase (38-126) U/L Total Creatine Kinase (55-170) U/L CK-MB (CK-2) CK-MB (CK-2) Rel Index Troponin I (0.01-0.034) ng/mL Total Protein (6.3-8.2) g/dL Albumin (3.5-5.0) g/dL Globulin (1.7-4.1) g/dL Albumin/Globulin Ratio (1.0-2.8) Urine Color Yellow Urine Appearance Clear Urine pH 5.5 (4.5-8.0) Ur Specific [place] <=1.005 (1.000-1.035) Urine Protein Negative (Negative) Urine Glucose (UA) Negative (Negative) g/dL Urine Ketones Negative (NEGATIVE) Urine Occult Blood Trace-intact (Negative) Urine Nitrate Negative (Negative) Urine Bilirubin Negative (NEGATIVE) Urine Urobilinogen 1.0 (0.2) E.U./dL Ur Leukocyte Esterase Negative (NEGATIVE) Urine RBC 1-5/hpf (0-5/HPF) Urine WBC None seen (0-5/HPF) Urine Bacteria None seen (None) Ur Culture Indicated? Cult not indicated U Opiates 300ng/mL cut Negative (Negative) Ur Oxycodone Screen Negative (Negative) Urine Methadone Screen Negative (Negative) Ur Barbiturates Screen Negative (Negative) U Tricyclic Antidepress Negative (Negative) Ur Phencyclidine Scrn Negative (Negative) Ur Amphetamines Screen Negative (Negative) U Methamphetamines Scrn Negative (Negative) Ur MDMA Scrn (Ecstasy) Negative (Negative) U Benzodiazepines Scrn Negative (Negative) Urine Cocaine Screen Negative (Negative) U Marijuana (THC) Screen Negative (Negative) Ethyl Alcohol ( - 10) mg/dL SARS-CoV-2 (PCR) Negative (Negative) Urine Dip Bedside Urine Glucose Negative Bedside Urine Bilirubin - Negative Bedside Urine Ketone - Negative Urine Specific [place] 1.010 Bedside Urine Occult Blood +/- Bedside Urine pH 5.5 Bedside Urine Protein - Negative Bedside Urine Urobilinogen - Negative Bedside Urine Nitrite - Negative Bedside Urine Leukocytes - Negative Esterase Imaging Data CTA - brain/neck: Radiologist's Impression: Close Head/Neck CTA (Signed) Ramón Michelle - 07/07/22 Chest X-Ray (Signed) Dileep Arellano - 06/22/22 Telemetry Strips 01/09/[address] (Signed) Miky Aponte - 01/09/21 Chest X-Ray (Signed) Dileep Arellano - 01/09/21 Radiology Report (Cancelled) Jarad Sellers - 05/25/18 Myocardial Perfusion Scan Nuc Med (Signed) Jarad Sellers - 05/24/18 Launch?[place] [address] CT Scan Report Signed Patient: Dhaval Rosales MR#: [id number] : 1940 Acct:[id number] Age/Sex: 81 / M Date of Service: 07/07/22 Loc: ED Accession Number: [id number] ?? Procedure: CT angio head and neck Ordering Provider: Latricia Valentin D.O. PROCEDURE:? CT ANGIO HEAD AND NECK ? INDICATIONS:? dizziness/off balance since january, prior TAVR ? TECHNIQUE:? Pre-contrast 4.5 mm thick sections acquired from the foramen magnum to the vertex.? After the administration of intravenous contrast, 1 mm thick sections acquired from the aortic arch through the Reyno of Sims.? Post-contrast 4.5 mm thick sections then re-acquired from the foramen magnum to the vertex.? 3-dimensional fkeyspm-soerxcihb-hhdpghmxxa (MIP) and/or volume rendering reformats were acquired of the central intracranial vasculature and neck separately. For radiation dose reduction, the following was used:? automated exposure control, adjustment of mA and/or kV according to patient size.? ? COMPARISON:? None. ? FINDINGS:? Image quality:? Excellent.? ? BRAIN:? CSF spaces:? Ventricles are normal in size and shape.? Basal cisterns are patent.? No extra-axial fluid collections.? ? Brain:? No midline shift.? No intracranial bleeds or masses.? Sahni-white matter interface appears intact.? Dense bilateral intracranial carotid and vertebral artery calcifications.? ? Skull and face:? Calvarium and facial bones appear intact, without suspicious lesions.? Orbits appear normal.? ? Sinuses:? Right maxillary sinus may be hypoaerated.? It is subtotally opacified.? The other visualized paranasal sinuses are patent. ? HEAD CT ANGIOGRAPHY:? Anterior circulation:? There is extensive intracranial carotid calcifications, with moderate left cavernous carotid artery stenosis.? The flow within the paired anterior cerebral arteries is normal and symmetric.? The flow within the middle cerebral arteries is normal and symmetric.? The anterior communicating artery is seen.? No aneurysms are seen.? ? Posterior circulation:? Visualized portions of the vertebral arteries demonstrate normal caliber, and join to form a normal appearing basilar artery.? Flow within the posterior cerebral arteries is normal and symmetric.? No aneurysms are seen.? ? NECK CT ANGIOGRAPHY:? Carotid system:? The great vessels demonstrate a conventional anatomy as they arise from the aortic arch.? The origins of the common carotid arteries appear patent.? The common carotid arteries demonstrate normal caliber and courses.? The bifurcation regions are both widely patent.? There is a [id number]-dhqljedo calcified proximal right internal carotid artery stenosis, less than 50%.? Mild proximal right internal carotid artery stenosis. ? Posterior circulation:? The origins of the vertebral arteries both appear widely patent.? The more superior extracranial portions of both vertebral arteries also demonstrate normal courses and calibers.? They join to form a normal appearing basilar artery.? ? Soft tissues:? Visualized neck soft tissues demonstrate no suspicious abnormalities.? ? Bones:? No suspicious bony lesions.? Visualized cervical spine appears normally aligned.? IMPRESSION:? ? 1. No evidence acute stroke, hemorrhage, or mass. ? 2. Age-related volume loss and small vessel ischemic change. ? 3. Hypoaerated right maxillary sinus, subtotally opacified. ? 4. CTA head significant for moderate left cavernous carotid stenotic disease.? No aneurysms or occlusions or focal filling defects. ? 5. Less than 50% left internal carotid artery stenosis.? Mild proximal right internal carotid artery stenosis.? ? Any quantitative measurements of stenosis were performed using NASCET criteria.? ? ? Dictated by: Ramón Michelle M.D. on 07/07/2022 at 13:01 ? ? Approved by: Ramón Michelle M.D. on 07/07/2022 at 13:09?? MRI brain: Radiologist's Impression: Close Brain MRI (Signed) Erlin Cisneros - 07/07/22 Head/Neck CTA (Signed) Ramón Michelle - 07/07/22 Launch?[address] [address] Magnetic Resonance Report Signed Patient: Dhaval Rosales MR#: [id number] : 1940 Acct:[id number] Age/Sex: 81 / M Date of Service: 07/07/22 Loc: ED Accession Number: [id number] ?? Procedure: MR head/brain wo con Ordering Provider: Latricia Valentin D.O. PROCEDURE:? MR HEAD/BRAIN WO CON ? INDICATIONS:? intermittent double vision, dizzy ? TECHNIQUE:? Non-contrast axial T1 spin echo, axial T2 fast spin echo, sagittal and axial FLAIR, coronal T2 fast spin echo, axial gradient echo, axial diffusion and ADC through the brain.? ? COMPARISON:? [facility], CT, CT ANGIO HEAD AND NECK, 07/07/2022, 11:57.? [facility], CT, CT HEAD/BRAIN WO CON, 01/09/2021, 17:36. ? FINDINGS:? Image quality:? Excellent.? ? CSF spaces:? Ventricles appear symmetric in size and shape.? Basal cisterns are patent.? No extra-axial fluid collections.? ? Brain:? There is a small focus of restricted diffusion in the right frontal white matter, compatible with acute lacunar infarct. ? There are a couple of foci of hyperintensity in diffusion weighted images involving the cerebella bilaterally, one on each side.? On ADC images, there is no definitive correlates.? The findings are suspicious for late subacute infarcts. ? ?No intracranial bleeds or mass effects.? There is cerebral volume loss for age.? There are mild periventricular and deep white matter chronic small vessel ischemic changes.? Brainstem appears normal.? Diffusion-weighted images show no acute ischemic insults.? No chronic ischemic insults.? Normal intravascular flow voids are present.? ? Skull and face:? Calvarial bone marrow is normal in signal.? Orbits are normal.? ? Sinuses:? Right maxillary sinus mucosal thickening consistent with sinusitis.? The? mastoids are clear.? ? IMPRESSION:? ? 1. An acute lacunar infarct in the right frontal white matter. 2. Suspect late subacute lacunar infarcts involving the cerebella, one on each side.? Bilateral process suggesting an embolic event. ? 3. Cerebral volume loss and chronic microvascular ischemic changes. ? 4. Right maxillary sinusitis.? Dictated by: Erlin Cisneros M.D. on 07/07/2022 at 14:54 ? ? Approved by: Erlin Cisneros M.D. on 07/07/2022 at 15:06?? ECG Data Attestation: I personally reviewed and interpreted this ECG as follows: Interpretation: Sinus rhythm rate 81 MS 164 QRS 84 and QTC 453. Patient has prior from 06/22/2022 which appears to have no acute changes. MDM Narrative Medical decision making narrative: This is an 81-year-old male who presents with complaint of several months starting about a February 2022 with dizziness and some double or vision changes that are intermittent sometimes twice weekly sometimes more frequently. They are very brief he states they less last than a minute typically and have resolved. Similar symptoms each time pattern is odd he is not had any other acute neurologic changes. Unclear if he is discussed this with his team but talked to the office today and was told to come in. Labs show chronic kidney disease but improved from prior creatinine of 1.42 no significant electrolyte abnormalities, CBC, INR, troponin ETOH do not show acute change. CT angio shows some right maxillary disease, left cavernous carotid stenotic disease and calcification extensively, no aneurysm, no occlusion or focal defects patient's NIH is 0 today. He is currently on aspirin 81 mg daily, atorvastatin 10 mg and metoprolol. I discussed with Neurology Dr. Yoselyn Garcia at [facility] she recommends continuing aspirin 81 mg at this time increasing atorvastatin to 80 mg and MR brain, dependent on if there is stroke disease and the location and likely causes patient might be a candidate for dual antiplatelet therapy for 90 days versus just aspirin 81 mg. She notes that she has actually consulted on this patient before at . MR shows acute lacunar infarct right frontal and subacute lacunar infarcts involving cerebellum bilateral process suggesting embolic event. Right maxillary sinusitis. Patient was not willing to wait for call back from Neurology for recommendations. He wishes to return home. He is alert, appropriate competent he understands worse versus benefits and his MR findings. Was willing to call back to find out their recommendations. I spoke with Dr. Garcia who recommends to load patient with Plavix 300 mg followed by 75 mg once daily times 21 days. She recommends a 30 day heart monitor for rhythm she states it appears he is had a 7 day in the past as well as repeat echo. 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 He actually follows with Cardiology at [facility] which is the same facility neurology is at and we discussed his cardiology team could order both of these for. Patient expressed understanding and was encouraged to return at any time. Discharge Plan Departure Patient Disposition: Left Against Medical Advice Clinical Impression: Dizziness, Acute lacunar infarction Activity Restrictions/Additional Instructions: Follow-up with your team at [facility], your MRI shows a recent stroke and you have had prior strokes fairly recently as well. I am awaiting call back from Neurology, I recommend that you stay until I have the recommendations about how to change your medications. You have elected to leave but I would ask that you call back this evening to find out the results of my discussion with the neurologist from [facility] and anymore recommendations for workup. Your case was discussed with Neurology at [facility] today. It is recommended that you continue aspirin 81 mg daily you may need additional blood thinner I am waiting to hear back from the neurologist. Atorvastatin should be increased to 80 mg daily. You can continue your other home medications as prescribed. Prescriptions: New clopidogrel [Plavix] 75 mg tablet 75 mg PO DAILY Qty: 25 0RF Rx Instructions: Take 4 tablets(300mg) po x 1 day, then 1 tablet(75mg) po once daily x 21 days. Stand Alone Forms: Against Medical Advice
--- NOTE | 2022-07-07 14:38 | DI.MRI.S_ITS ---
PROCEDURE: MR HEAD/BRAIN WO CON INDICATIONS: intermittent double vision, dizzy TECHNIQUE: Non-contrast axial T1 spin echo, axial T2 fast spin echo, sagittal and axial FLAIR, coronal T2 fast spin echo, axial gradient echo, axial diffusion and ADC through the brain. COMPARISON: [facility], CT, CT ANGIO HEAD AND NECK, 07/07/2022, 11:57. [facility], CT, CT HEAD/BRAIN WO CON, 01/09/2021, 17:36. FINDINGS: Image quality: Excellent. CSF spaces: Ventricles appear symmetric in size and shape. Basal cisterns are patent. No extra-axial fluid collections. Brain: There is a small focus of restricted diffusion in the right frontal white matter, compatible with acute lacunar infarct. There are a couple of foci of hyperintensity in diffusion weighted images involving the cerebella bilaterally, one on each side. On ADC images, there is no definitive correlates. The findings are suspicious for late subacute infarcts. No intracranial bleeds or mass effects. There is cerebral volume loss for age. There are mild periventricular and deep white matter chronic small vessel ischemic changes. Brainstem appears normal. Diffusion-weighted images show no acute ischemic insults. No chronic ischemic insults. Normal intravascular flow voids are present. Skull and face: Calvarial bone marrow is normal in signal. Orbits are normal. Sinuses: Right maxillary sinus mucosal thickening consistent with sinusitis. The mastoids are clear. IMPRESSION: 1. An acute lacunar infarct in the right frontal white matter. 2. Suspect late subacute lacunar infarcts involving the cerebella, one on each side. Bilateral process suggesting an embolic event. 3. Cerebral volume loss and chronic microvascular ischemic changes. 4. Right maxillary sinusitis. Dictated by: Erlin Cisneros M.D. on 07/07/2022 at 14:54 Approved by: Erlin Cisneros M.D. on 07/07/2022 at 15:06
== END 2022-07-07 17:36 | disposition left against medical advice (07) ==
PROVIDERS: Emergency Provider Emergency Medicine; Family Provider Internal Medicine
DX: R42 Dizziness and giddiness (principal); I63.81 Other cerebral infarction due to occlusion or stenosis of small artery; H53.2 Diplopia; Z95.2 Presence of prosthetic heart valve; Z20.822 Contact with and (suspected) exposure to COVID-19
CPT/HCPCS: 70496; 70498; 70551; 80053; 80305; 80320; 81001; 81003; 82550; 84484; 85025; 85610; 85730; 87635; 93005; 93010; 99284; C9803; Q9967

== ENCOUNTER 2022-07-17 16:53 | Inpatient (IN) | payer MEDICARE, SELFPAY ==
[2021-01-09 19:49] VITALS: BMI 24.3
[2022-07-17] VITALS (13 sets, daily range): BP systolic 151–187; BP diastolic 86–105; PULSE 76–107; RESP 17–23; TEMP 36.7–37; O2SAT 96–99; BMI 23.8; BMI 22.4
--- NOTE | 2022-07-17 16:57 | DI.CT.S_ITS ---
PROCEDURE: CT ANGIO HEAD AND NECK INDICATIONS: left sided weakness TECHNIQUE: Pre-contrast 4.5 mm thick sections acquired from the foramen magnum to the vertex. After the administration of intravenous contrast, 1 mm thick sections acquired from the aortic arch through the [place]. Post-contrast 4.5 mm thick sections then re-acquired from the foramen magnum to the vertex. 3-dimensional rcetpfl-qtnvqcojf-ugfwiruagj (MIP) and/or volume rendering reformats were acquired of the central intracranial vasculature and neck separately. For radiation dose reduction, the following was used: automated exposure control, adjustment of mA and/or kV according to patient size. COMPARISON: [facility], CT, CT STROKE, 07/17/2022, 16:54. [facility], MR, MR HEAD/BRAIN WO CON, 07/07/2022, 15:04. [facility], CT, CT ANGIO HEAD AND NECK, 07/07/2022, 11:57. FINDINGS: Image quality: Limited by bolus timing, with venous contamination. BRAIN: CSF spaces: Ventricles are normal in size and shape. Basal cisterns are patent. No extra-axial fluid collections. Brain: No midline shift. No intracranial bleeds or masses. Sahni-white matter interface appears intact. Skull and face: Calvarium and facial bones appear intact, without suspicious lesions. Orbits appear normal. Sinuses: Sinuses and mastoids are clear. HEAD CT ANGIOGRAPHY: Anterior circulation: Intracranial internal carotid arteries are normal in size and flow. The flow within the paired anterior cerebral arteries is normal and symmetric. The flow within the middle cerebral arteries is normal and symmetric. The anterior communicating artery is seen. No aneurysms are seen. Posterior circulation: Visualized portions of the vertebral arteries demonstrate normal caliber, and join to form a normal appearing basilar artery. Flow within the posterior cerebral arteries is normal and symmetric. No aneurysms are seen. NECK CT ANGIOGRAPHY: Carotid system: The great vessels demonstrate a conventional anatomy as they arise from the aortic arch. The origins of the common carotid arteries appear patent. The common carotid arteries demonstrate normal caliber and courses. The bifurcation regions demonstrate atherosclerotic irregularity and calcification. No image of occlusive again stenosis can be seen on the right. On the left, there is approximately 50% narrowing involving the proximal internal carotid artery. Posterior circulation: The origins of the vertebral arteries both appear widely patent. The more superior extracranial portions of both vertebral arteries also demonstrate normal courses and calibers. They join to form a normal appearing basilar artery. Soft tissues: Visualized neck soft tissues demonstrate no suspicious abnormalities. Bones: No suspicious bony lesions. Visualized cervical spine appears normally aligned. Moderate cervical spine degenerative changes are seen. IMPRESSION: No significant intracranial arterial abnormality is seen. Approximately 50% narrowing seen involving the origin of the left internal carotid artery, which is similar to prior. Any quantitative measurements of stenosis were performed using NASCET criteria. Dictated by: Dileep Arellano M.D. on 07/17/2022 at 16:19 Approved by: Dileep Arellano M.D. on 07/17/2022 at 16:21
--- NOTE | 2022-07-17 16:57 | DI.CT.S_ITS ---
PROCEDURE: CT STROKE INDICATIONS: left sided weakness TECHNIQUE: Noncontrast 4.5 mm thick angled axial sections acquired from the foramen magnum to the vertex, with coronal reformats. For radiation dose reduction, the following was used: automated exposure control, adjustment of mA and/or kV according to patient size. COMPARISON: [facility], CT, CT HEAD/BRAIN WO CON, 01/09/2021, 17:36. [facility], CT, CT ANGIO HEAD AND NECK, 07/07/2022, 11:57. [facility], MR, MR HEAD/BRAIN WO CON, 07/07/2022, 15:04. [facility], CT, CT ANGIO HEAD AND NECK, 07/17/2022, 16:54. FINDINGS: Image quality: Mild streak artifact can be seen through the skull base. CSF spaces: Basal cisterns are patent. No extra-axial fluid collections. The ventricles are symmetric in size and shape. Brain: No intracranial bleeds or masses. There is cerebral volume loss for age, with resultant ventricular and sulcal prominence. There are periventricular and deep white matter chronic small vessel ischemic changes. There is intracranial internal carotid artery atherosclerosis. Skull and face: Calvarium and visualized facial bones appear intact, without suspicious lesions. Sinuses: There is moderate mucosal thickening within the right maxillary sinus. There is thickening of the [place] of the right maxillary sinus. The paranasal sinuses are otherwise unremarkable. No abnormal fluid is seen within the mastoid air cells. IMPRESSION: No acute intracranial hemorrhage is seen. No acute intracranial process is seen. If there is strong clinical suspicion for an acute stroke, please consider a brain MRI for further evaluation, as it is more sensitive (assuming that there is no contraindication to MRI). Additional findings: Focal chronic right maxillary sinus disease. Note: Case discussed by telephone with Dr. Oneal at 4:17 p.m. [place] time on July 17, 2022. This study fulfills neurological imaging criteria for inclusion or exclusion of acute stroke therapies based on available published neurological guidelines. Dictated by: Dileep Arellano M.D. on 07/17/2022 at 16:15 Approved by: Dileep Arellano M.D. on 07/17/2022 at 16:18
--- NOTE | 2022-07-17 17:02 | ED_ITS ---
HPI - Neuro Symptoms/Deficit General Chief Complaint: Neuro Symptoms/Deficit Stated Complaint: Stroke Like symptoms Time Seen by Provider: 07/17/22 16:57 History of Present Illness HPI Narrative: Patient is a 82-year-old male history of coronary artery disease, valve replacement he had recent lacunar infarcts on 07/07/2022 and left against medical advice. EMS was called today concern for stroke. Neighbor reports that he was walking around yesterday at his baseline but realized today that he had not been out of his house which is abnormal for him. He was found crawling around on the floor. He does have some obvious aphasia left facial droop and some left-sided weakness. He reports that maybe symptoms started this morning but his last known well is unknown. Related Data Home Medications Medication Instructions Recorded Confirmed aspirin 81 mg capsule 81 mg PO DAILY 07/17/22 07/17/22 atorvastatin 10 mg tablet 5 mg PO BEDTIME 07/17/22 07/17/22 metoprolol succinate 25 mg 12.5 mg PO QAM 07/17/22 07/17/22 tablet,extended release 24 hr metoprolol succinate 25 mg 25 mg PO BEDTIME 07/17/22 07/17/22 tablet,extended release 24 hr Previous Rx's Medication Instructions Recorded clopidogrel 75 mg tablet (Plavix) 75 mg PO DAILY #25 tabs 07/07/22 Allergies Allergy/AdvReac Type Severity Reaction Status Date / Time No Known Drug Allergies Allergy Verified 07/17/22 17:14 Review of Systems Review of Systems ROS Unobtainable: All systems reviewed & are unremarkable except as noted in HPI and below Patient History Medical History Essential hypertension Hyperlipidemia Surgical History History of heart valve replacement Family History Mother Pneumonia Father Congestive heart failure Social History household members: none Smoking Status: Former smoker alcohol intake: current Smoking Status: Former smoker alcohol intake frequency: 0-2 drinks per day Alcohol type: beer Substance Use Type: does not use Exam Initial Vital Signs Initial Vital Signs: Vital Signs Temperature 98.6 F 07/17/22 16:57 Pulse Rate 107 H 07/17/22 16:57 Respiratory Rate 18 07/17/22 16:57 Blood Pressure 187/105 H 07/17/22 16:57 Pulse Oximetry 96 07/17/22 16:57 Oxygen Delivery Method Room Air 07/17/22 16:57 GENERAL: Alert elderly male HEENT: Head atraumatic,EOMI, pupils reactive, left facial droop, [moist] mucous membranes CARDIOVASCULAR: Regular rate and rhythm without murmurs, rubs or gallops. RESPIRATORY: Breath sounds equal bilaterally, no wheezes rales or rhonchi. ABDOMEN: Soft, nontender. Normoactive bowel sounds all 4 quadrants. No guarding or rebound. EXTREMITIES: Normal range of motion, no clubbing or edema. Neurovascularly int act Left hand is noted to be mildly swollen mildly erythematous distal radial pulse intact NEUROLOGICAL: Alert and oriented x4.Normal gait and speech. Left facial droop slurring of words with aphasia left arm drift to bed good [id number] with right hand good [id number] with both legs lower leg extremity equal, SKIN: Warm, dry, no laceration, no petechiae, no rashes or lesions. Scores NIH Stroke Scale Level of Conciousness: Alert, keenly responsive Ask month/age: Answers both questions correctly. Open/close eyes, close hand: Performs both tasks correctly Best gaze horizontal: Normal Visual glover: No visual loss Facial palsy: Minor paralysis, flattened nasolabial fold, asymmetry on smiling Left arm drift: Drifts down, not to bed Right arm drift: No drift for full 10 sec Left leg drift: No drift for full 5 sec Right leg drift: No drift for full 5 sec Limb ataxia: Absent Sensory on face/arms/legs: Normal, no sensory loss Best language: Mild to moderate, slurs some words Dysarthria: Normal Extinction or inattention: No abnormality Total NIH Stroke scale score: 3 Course Orders Ordered: Acetaminophen (Acetaminophen 325 Mg Tablet) 650 mg PO Q6HR PRN PRN Reason: Fever Hydrocodone Bitart/Acetaminophen (Hydrocodone/Acet 5/325 Tablet) 2 tab PO Q4H PRN PRN Reason: Pain, Severe (5-10 Al Hydrox/Mg Hydrox/Simethicone (Mag Hydrox/Alum/Simeth 30 Ml Udc) 30 ml PO Q6HR PRN PRN Reason: Dyspepsia Aspirin (Aspirin Ec 325 Mg Tablet) 325 mg PO DAILY [facility] Atorvastatin Calcium (Atorvastatin 20 Mg Tablet) 20 mg PO BEDTIME [facility] Calcium Carbonate (Calcium Carbonate 500 Mg Tab) 1,000 mg PO Q4HR PRN PRN Reason: Dyspepsia Clopidogrel Bisulfate (Clopidogrel 75 Mg Tablet) 75 mg PO DAILY [facility] Sodium Chloride (Normal Saline 0.9%) 1,000 mls @ 60 mls/hr IV CONT [facility] Last Admin: 07/17/22 21:31 Dose: 60 mls/hr Documented By: CT Metoprolol Succinate (Metoprolol Er 25 Mg Tablet) 25 mg PO DAILY [facility] Last Admin: 07/17/22 21:31 Dose: 25 mg Documented By: CT Metoprolol Succinate (Metoprolol Er 25 Mg Tablet) 12.5 mg PO DAILY [facility] Metoprolol Succinate (Metoprolol Er 25 Mg Tablet) 25 mg PO BEDTIME [facility] Last Admin: 07/17/22 21:50 Dose: Not Given Documented By: CT Metoprolol Tartrate (Metoprolol Tartrate 5 Mg/5 Ml Inj) 5 mg IV Q15MIN [facility] Stop: 07/19/22 21:01 Naloxone HCl (Naloxone 0.4 Mg/Ml Vial) 0.2 mg IV Q2MIN PRN PRN Reason: Opiate Reversal Ondansetron HCl (Ondansetron 4 Mg/2 Ml Inj) 4 mg IV Q8HR PRN PRN Reason: Nausea And Vomiting Sennosides (Sennosides 8.6 Mg Tablet) 17.2 mg PO BEDTIME [facility] Last Admin: 07/17/22 21:31 Dose: Not Given Documented By: CT Discontinued Medications Aspirin (Aspirin 81 Mg Chew Tab) 324 mg PO NOW ONE Stop: 07/17/22 18:14 Last Admin: 07/17/22 18:31 Dose: 324 mg Documented By: RLS Sodium Chloride (Normal Saline 0.9%) 1,000 mls @ 150 mls/hr IV CONT [facility] Last Admin: 07/17/22 18:40 Dose: 150 mls/hr Documented By: RLS Vital Signs Vital signs: Vital Signs - 8 hr 07/17/22 16:57 07/17/22 17:11 07/17/22 17:11 Temperature 98.6 F Pulse Rate 107 H 106 H Respiratory Rate 18 Blood Pressure 187/105 H 187/105 H Pulse Oximetry 96 96 Oxygen Delivery Method Room Air 07/17/22 17:15 07/17/22 17:15 07/17/22 17:30 Temperature Pulse Rate 104 H Respiratory Rate 23 Blood Pressure 167/95 H 151/86 H Pulse Oximetry 96 Oxygen Delivery Method 07/17/22 17:30 07/17/22 17:45 07/17/22 17:45 Temperature Pulse Rate 94 H 100 H Respiratory Rate 17 20 Blood Pressure 174/100 H Pulse Oximetry 97 96 Oxygen Delivery Method 07/17/22 18:00 07/17/22 18:00 Temperature Pulse Rate 97 H Respiratory Rate 18 Blood Pressure 156/93 H Pulse Oximetry 96 Oxygen Delivery Method Room Air MDM - Neuro Symptoms/Deficit Lab Data 07/18/22 05:01 07/18/22 05:01 Labs: Lab Results 07/17/22 07/17/22 07/17/22 Range/Units 16:55 16:55 16:55 WBC 18.9 H (4.5-11.0) X10^3/uL RBC 4.89 (4.5-5.9) X10^6/uL Hgb 15.3 (13.5-17.5) g/dL Hct 45.1 (41-53) % MCV 92.2 (80-100) fL MCH 31.4 (26-34) PG MCHC 34.0 (30-36) % RDW 13.2 (11.6-14.8) % Plt Count 294 (150-400) X10^3/uL Neut % (Auto) 84.8 H (50-75) % Lymph % (Auto) 7.2 L (25-40) % Mora % (Auto) 6.3 (3-14) % Eos % (Auto) 0.0 L (2-4) % Baso % (Auto) 1.7 (0-2) % Neut # (Auto) 05854 H (3213-8344) /uL Lymph # (Auto) 1400 (9718-2432) /uL Mora # (Auto) 1200 H (0-900) /uL Eos # (Auto) 0 (0-450) /uL Baso # (Auto) 300 H (0-100) /uL PT 15.5 H (10.1-12.7) SECONDS INR 1.3 (0.9-1.3) APTT 24 L (26-36) SECONDS Sodium 143 (137-145) mmol/L Potassium 4.1 (3.4-5.1) mmol/L Chloride 111 H (98-107) mmol/L Carbon Dioxide 20 L (22-32) mmol/L BUN 20 (9-20) mg/dL Creatinine 1.25 (0.66-1.25) mg/dL Estimated GFR 57 L (>60) mL/min BUN/Creatinine Ratio 16.0 (6-22) Glucose 166 H (80-110) mg/dL Hemoglobin A1c Lactate (0.7-2.1) mmol/L Calcium 9.1 (8.4-10.2) mg/dL Magnesium (1.6-2.3) mg/dL Total Bilirubin 1.6 H (0.2-1.3) mg/dL AST 46 (17-59) IU/L ALT 29 (<50) IU/L Alkaline Phosphatase 85 (38-126) U/L Total Creatine Kinase 700 H (55-170) U/L CK-MB (CK-2) 4.89 H (<2.37) ng/mL CK-MB (CK-2) Rel Index 0.7 L (1.5-5.0) % Troponin I 0.159 H* (0.01-0.034) ng/mL Total Protein 7.5 (6.3-8.2) g/dL Albumin 3.7 (3.5-5.0) g/dL Globulin 3.8 (1.7-4.1) g/dL Albumin/Globulin Ratio 1.0 (1.0-2.8) Procalcitonin (<0.5) ng/mL TSH (0.47-4.68) uIU/mL Ethyl Alcohol < 10 ( - 10) mg/dL SARS-CoV-2 (PCR) (Negative) 07/17/22 07/17/22 07/17/22 Range/Units 16:55 16:55 16:55 WBC (4.5-11.0) X10^3/uL RBC (4.5-5.9) X10^6/uL Hgb (13.5-17.5) g/dL Hct (41-53) % MCV (80-100) fL MCH (26-34) PG MCHC (30-36) % RDW (11.6-14.8) % Plt Count (150-400) X10^3/uL Neut % (Auto) (50-75) % Lymph % (Auto) (25-40) % Mora % (Auto) (3-14) % Eos % (Auto) (2-4) % Baso % (Auto) (0-2) % Neut # (Auto) (6018-9743) /uL Lymph # (Auto) (8052-1112) /uL Mora # (Auto) (0-900) /uL Eos # (Auto) (0-450) /uL Baso # (Auto) (0-100) /uL PT (10.1-12.7) SECONDS INR (0.9-1.3) APTT (26-36) SECONDS Sodium (137-145) mmol/L Potassium (3.4-5.1) mmol/L Chloride (98-107) mmol/L Carbon Dioxide (22-32) mmol/L BUN (9-20) mg/dL Creatinine (0.66-1.25) mg/dL Estimated GFR (>60) mL/min BUN/Creatinine Ratio (6-22) Glucose (80-110) mg/dL Hemoglobin A1c Cancelled Lactate 3.4 H (0.7-2.1) mmol/L Calcium (8.4-10.2) mg/dL Magnesium (1.6-2.3) mg/dL Total Bilirubin (0.2-1.3) mg/dL AST (17-59) IU/L ALT (<50) IU/L Alkaline Phosphatase (38-126) U/L Total Creatine Kinase (55-170) U/L CK-MB (CK-2) (<2.37) ng/mL CK-MB (CK-2) Rel Index (1.5-5.0) % Troponin I (0.01-0.034) ng/mL Total Protein (6.3-8.2) g/dL Albumin (3.5-5.0) g/dL Globulin (1.7-4.1) g/dL Albumin/Globulin Ratio (1.0-2.8) Procalcitonin 0.48 (<0.5) ng/mL TSH (0.47-4.68) uIU/mL Ethyl Alcohol ( - 10) mg/dL SARS-CoV-2 (PCR) (Negative) 07/17/22 07/17/22 07/17/22 Range/Units 16:55 16:55 17:40 WBC (4.5-11.0) X10^3/uL RBC (4.5-5.9) X10^6/uL Hgb (13.5-17.5) g/dL Hct (41-53) % MCV (80-100) fL MCH (26-34) PG MCHC (30-36) % RDW (11.6-14.8) % Plt Count (150-400) X10^3/uL Neut % (Auto) (50-75) % Lymph % (Auto) (25-40) % Mora % (Auto) (3-14) % Eos % (Auto) (2-4) % Baso % (Auto) (0-2) % Neut # (Auto) (1360-1321) /uL Lymph # (Auto) (6198-5394) /uL Mora # (Auto) (0-900) /uL Eos # (Auto) (0-450) /uL Baso # (Auto) (0-100) /uL PT (10.1-12.7) SECONDS INR (0.9-1.3) APTT (26-36) SECONDS Sodium (137-145) mmol/L Potassium (3.4-5.1) mmol/L Chloride (98-107) mmol/L Carbon Dioxide (22-32) mmol/L BUN (9-20) mg/dL Creatinine (0.66-1.25) mg/dL Estimated GFR (>60) mL/min BUN/Creatinine Ratio (6-22) Glucose (80-110) mg/dL Hemoglobin A1c Lactate (0.7-2.1) mmol/L Calcium (8.4-10.2) mg/dL Magnesium 2.1 (1.6-2.3) mg/dL Total Bilirubin (0.2-1.3) mg/dL AST (17-59) IU/L ALT (<50) IU/L Alkaline Phosphatase (38-126) U/L Total Creatine Kinase (55-170) U/L CK-MB (CK-2) (<2.37) ng/mL CK-MB (CK-2) Rel Index (1.5-5.0) % Troponin I (0.01-0.034) ng/mL Total Protein (6.3-8.2) g/dL Albumin (3.5-5.0) g/dL Globulin (1.7-4.1) g/dL Albumin/Globulin Ratio (1.0-2.8) Procalcitonin (<0.5) ng/mL TSH 1.29 (0.47-4.68) uIU/mL Ethyl Alcohol ( - 10) mg/dL SARS-CoV-2 (PCR) Negative (Negative) Point of Care Testing Glucose POC [address] scan - head: Radiologist's Impression: PROCEDURE:? CT STROKE ? INDICATIONS:? left sided weakness ? TECHNIQUE:? Noncontrast 4.5 mm thick angled axial sections acquired from the foramen magnum to the vertex, with coronal reformats.? For radiation dose reduction, the following was used:? automated exposure control, adjustment of mA and/or kV according to patient size.? ? COMPARISON:? [facility], CT, CT HEAD/BRAIN WO CON, 01/09/2021, 17:36.? [facility], CT, CT ANGIO HEAD AND NECK, 07/07/2022, 11:57.? [facility], MR, MR HEAD/BRAIN WO CON, 07/07/2022, 15:04.? [facility], CT, CT ANGIO HEAD AND NECK, 07/17/2022, 16:54. ? FINDINGS:? Image quality:? Mild streak artifact can be seen through the skull base. ? CSF spaces:? Basal cisterns are patent.? No extra-axial fluid collections.? The ventricles are symmetric in size and shape.? ? Brain:? No intracranial bleeds or masses.? There is cerebral volume loss for ag e, with resultant ventricular and sulcal prominence.? There are periventricular and deep white matter chronic small vessel ischemic changes.? There is intracranial internal carotid artery atherosclerosis.? ? Skull and face:? Calvarium and visualized facial bones appear intact, without suspicious lesions.? ? Sinuses:? There is moderate mucosal thickening within the right maxillary sinus.? There is thickening of the elliott of the right maxillary sinus.? The paranasal sinuses are otherwise unremarkable. No abnormal fluid is seen within the mastoid air cells. ? ? ? IMPRESSION:? No acute intracranial hemorrhage is seen.? ? No acute intracranial process is seen.? ? If there is strong clinical suspicion for an acute stroke, please consider a brain MRI for further evaluation, as it is more sensitive (assuming that there is no contraindication to MRI). ? Additional findings:? Focal chronic right maxillary sinus disease. ? Note: Case discussed by telephone with Dr. Oneal at 4:17 p.m. [place] time on July 17, 2022.? ? This study fulfills neurological imaging criteria for inclusion or exclusion of acute stroke therapies based on available published neurological guidelines.? ? ? Dictated by: Dileep Arellano M.D. on 07/17/2022 at 16:15 ? ? Approved by: Dileep Arellano M.D. on 07/17/2022 at 16:18 ? CTA - brain/neck: Radiologist's Impression: PROCEDURE:? CT ANGIO HEAD AND NECK ? INDICATIONS:? left sided weakness ? TECHNIQUE:? Pre-contrast 4.5 mm thick sections acquired from the foramen magnum to the vertex.? After the administration of intravenous contrast, 1 mm thick sections acquired from the aortic arch through the [place] of [place].? Post-contrast 4.5 mm thick sections then re- acquired from the foramen magnum to the vertex.? 3-dimensional gkkdicb-afvxogazl-tnomokdebg (MIP) and/or volume rendering reformats were acquired of the central intracranial vasculature and neck separately. For radiation dose reduction, the following was used:? automated exposure control, adjustment of mA and/or kV according to patient size.? ? COMPARISON:? [facility], CT, CT STROKE, 07/17/2022, 16:54.? [facility], MR, MR HEAD/BRAIN WO CON, 07/07/2022, 15:04.? [facility], CT, CT ANGIO HEAD AND NECK, 07/07/2022, 11:57. ? FINDINGS:? Image quality:? Limited by bolus timing, with venous contamination. ? BRAIN:? CSF spaces:? Ventricles are normal in size and shape.? Basal cisterns are patent.? No extra-axial fluid collections.? ? Brain:? No midline shift.? No intracranial bleeds or masses.? Sahni-white matter interface appears intact.? ? Skull and face:? Calvarium and facial bones appear intact, without suspicious lesions.? Orbits appear normal.? ? Sinuses:? Sinuses and mastoids are clear.? ? HEAD CT ANGIOGRAPHY:? Anterior circulation:? Intracranial internal carotid arteries are normal in size and flow.? The flow within the paired anterior cerebral arteries is normal and symmetric.? The flow within the middle cerebral arteries is normal and symmetric.? The anterior communicating artery is seen.? No aneurysms are seen.? ? Posterior circulation:? Visualized portions of the vertebral arteries demonstrate normal caliber, and join to form a normal appearing basilar artery.? Flow within the posterior cerebral arteries is normal and symmetric.? No aneurysms are seen.? ? NECK CT ANGIOGRAPHY:? Carotid system:? The great vessels demonstrate a conventional anatomy as they arise from the aortic arch.? The origins of the common carotid arteries appear patent.? The common carotid arteries demonstrate normal caliber and courses.? The bifurcation regions demonstrate atherosclerotic irregularity and calcification.? No image of occlusive again stenosis can be seen on the right.? On the left, there is approximately 50% narrowing involving the proximal internal carotid artery. ? Posterior circulation:? The origins of the vertebral arteries both appear widely patent.? The more superior extracranial portions of both vertebral arteries also demonstrate normal courses and calibers.? They join to form a normal appearing basilar artery.? ? Soft tissues:? Visualized neck soft tissues demonstrate no suspicious abnormalities.? ? Bones:? No suspicious bony lesions.? Visualized cervical spine appears normally aligned.? Moderate cervical spine degenerative changes are seen. ? ? ? IMPRESSION:? No significant intracranial arterial abnormality is seen.? ? Approximately 50% narrowing seen involving the origin of the left internal carotid artery, which is similar to prior. ? ? Any quantitative measurements of stenosis were performed using NASCET criteria.? ? ? Dictated by: Dileep Arellano M.D. on 07/17/2022 at 16:19 ?? Chest x-ray: Radiologist's Impression: PROCEDURE:? XR CHEST 1V ? INDICATIONS:? cva ? TECHNIQUE:? One view of the chest was acquired.? ? COMPARISON:? [facility], CT, CT STROKE, 07/17/2022, 16:54.? [facility], CR, XR HAND LT MIN 3V, 07/17/2022, 17:45.? [facility], CR, XR CHEST 1V, 01/09/2021, 17:39.? [facility], CR, XR CHEST 1V, 06/22/2022, 17:18. ? FINDINGS:? ? Surgical changes and devices:? A percutaneously placed aortic valve replacement can be seen.? ? Lungs and pleura:? An incomplete inspiratory result is noted, causing a crowded appearance to the lung markings.? No focal infiltrates are seen.? No pneumothorax or significant pleural effusions are seen. ? ? Mediastinum:? Mediastinal contours appear normal.? Heart size is normal.? ? Bones and chest wall:? No suspicious bony lesions.? Age-appropriate bony degenerative changes are seen.? Overlying soft tissues appear unremarkable.? ? ? IMPRESSION:? ? Limited portable chest examination, without a significant cardiopulmonary abnormality identified.? ? Dictated by: Dileep Arellano M.D. on 07/17/2022 at 17:13 ? ? Approved by: Dileep Arellano M.D. on 07/17/2022 at 17:13 ? Extremity x-ray #1: Radiologist's Impression: PROCEDURE:? XR HAND LT MIN 3V ? INDICATIONS:? swelling ? TECHNIQUE:? 3 views of the hand(s) acquired.? ? COMPARISON:? [facility], CR, XR CHEST 1V, 07/17/2022, 17:45.? [facility], CT, CT STROKE, 07/17/2022, 16:54. ? FINDINGS:? ? Bones:? No fractures or dislocations.? Carpal bones are normally aligned.? No suspicious bony lesions.? Generalized age-appropriate degenerative changes are seen, which are worst involving the 1st carpometacarpal joint. ? Soft tissues:? Mild generalized soft tissue swelling is seen. ? ? IMPRESSION:? Mild generalized soft tissue swelling, without an acute focal bony abnormality seen on these plain films. ? ? Dictated by: Dileep Arellano M.D. on 07/17/2022 at 17:14 ? ? Approved by: Dileep Arellano M.D. on 07/17/2022 at 17:14 ? ECG Data Interpretation: Sinus rhythm rate 104 MS interval 162 QRS 84 QTC 470 T-wave inversion noted in lead 3 Q-waves in inferior leads similar to previous EKG without ST changes MDM Narrative Medical decision making narrative: Patient 82-year-old male is known history of coronary artery disease valve disease recent lacunar stroke and cerebellar stroke noted on MRI July 07 presents today with left-sided deficits. Concern for embolic stroke. He is not a candidate for tPA due to recent stroke on July 07 and last known well is unknown. CT and CT angio today are also negative. He is NIH stroke scale 3. Blood work show some leukocytosis of 18 lactic acid 3.4 and elevated troponin is 0.15. This is probable demand ischemia although sepsis is possible. His left hand is mildly swollen minimally erythematous his x-ray is negative. He is not had any other signs or symptoms of of infection. Still waiting urinalysis. Negative procalcitonin. I did touch base with stroke at [facility] probably an embolic stroke recommend starting aspirin at 325 mg. They are aware of troponin elevation no need for anticoagulation at this time. Dr. Buenrostro updated patient's symptoms test results no need to talk with [facility] rdiology will trend troponins she happily accepts Discharge Plan Departure Patient Disposition: Admitted As Inpatient Clinical Impression: CVA (cerebral vascular accident), Elevated troponin Admit Date/Time: 07/17/22 18:33 Admit Provider: Paulette Mccarthy
[2022-07-17 17:17] LABS: Add Manual Diff / Slide Review NO; Basophils Absolute Auto 300 /uL (0-100); Basophils Percent Auto 1.7 % (0-2); Eosinophils Absolute Auto 0 /uL (0-450); Hematocrit 45.1 % (41-53); Hemoglobin 15.3 g/dL (13.5-17.5); Lymphocytes Absolute Auto 1400 /uL (1100-4500); Lymphocytes Percent Auto 7.2 % (25-40); Mean Corpuscular Hemoglobin 31.4 PG (26-34); Mean Corpuscular Volume 92.2 fL (80-100); Monocytes Absolute Auto 1200 /uL (0-900); Monocytes Percent Auto 6.3 % (3-14); Neutrophils Absolute Auto 16100 /uL (1500-7000); Neutrophils Percent Auto 84.8 % (50-75); Platelet Count 294 X10^3/uL (150-400); Red Blood Cell Count 4.89 X10^6/uL (4.5-5.9); Red Cell Distribution Width 13.2 % (11.6-14.8); White Blood Cell Count 18.9 X10^3/uL (4.5-11.0)
[2022-07-17 17:18] LABS: INR 1.3 (0.9-1.3); Prothrombin Time 15.5 SECONDS (10.1-12.7)
[2022-07-17 17:20] LABS: PTT Partial Thromboplastin Tim 24 SECONDS (26-36)
[2022-07-17 17:23] LABS: Albumin 3.7 g/dL (3.5-5.0); Alkaline Phosphatase 85 U/L (38-126); Aspartate Aminotransferase 46 IU/L (17-59); Bilirubin Total 1.6 mg/dL (0.2-1.3); Blood Urea Nitrogen 20 mg/dL (9-20); Calcium 9.1 mg/dL (8.4-10.2); Carbon Dioxide 20 mmol/L (22-32); Chloride 111 mmol/L (98-107); Creatine Kinase 700 U/L (55-170); Estimated Glomerular Filt Rate 57 mL/min (>60); Ethanol (ETOH) < 10 mg/dL; Globulin 3.8 g/dL (1.7-4.1); Glucose 166 mg/dL (80-110); HEMOLYSIS 27 (0-50); Potassium 4.1 mmol/L (3.4-5.1); Sodium 143 mmol/L (137-145); Total Protein 7.5 g/dL (6.3-8.2)
[2022-07-17 17:37] LABS: Alanine Aminotransferase 29 IU/L (<50); CKMB % Relative Index 0.7 % (1.5-5.0); Creatine Kinase MB 4.89 ng/mL (<2.37)
--- NOTE | 2022-07-17 17:45 | DI.RAD.S_ITS ---
PROCEDURE: XR HAND LT MIN 3V INDICATIONS: swelling TECHNIQUE: 3 views of the hand(s) acquired. COMPARISON: [facility], CR, XR CHEST 1V, 07/17/2022, 17:45. [facility], CT, CT STROKE, 07/17/2022, 16:54. FINDINGS: Bones: No fractures or dislocations. Carpal bones are normally aligned. No suspicious bony lesions. Generalized age-appropriate degenerative changes are seen, which are worst involving the 1st carpometacarpal joint. Soft tissues: Mild generalized soft tissue swelling is seen. IMPRESSION: Mild generalized soft tissue swelling, without an acute focal bony abnormality seen on these plain films. Dictated by: Dileep Arellano M.D. on 07/17/2022 at 17:14 Approved by: Dileep Arellano M.D. on 07/17/2022 at 17:14
--- NOTE | 2022-07-17 17:45 | DI.RAD.S_ITS ---
PROCEDURE: XR CHEST 1V INDICATIONS: cva TECHNIQUE: One view of the chest was acquired. COMPARISON: [facility], CT, CT STROKE, 07/17/2022, 16:54. [facility], CR, XR HAND LT MIN 3V, 07/17/2022, 17:45. [facility], CR, XR CHEST 1V, 01/09/2021, 17:39. [facility], CR, XR CHEST 1V, 06/22/2022, 17:18. FINDINGS: Surgical changes and devices: A percutaneously placed aortic valve replacement can be seen. Lungs and pleura: An incomplete inspiratory result is noted, causing a crowded appearance to the lung markings. No focal infiltrates are seen. No pneumothorax or significant pleural effusions are seen. Mediastinum: Mediastinal contours appear normal. Heart size is normal. Bones and chest wall: No suspicious bony lesions. Age-appropriate bony degenerative changes are seen. Overlying soft tissues appear unremarkable. IMPRESSION: Limited portable chest examination, without a significant cardiopulmonary abnormality identified. Dictated by: Dileep Arellano M.D. on 07/17/2022 at 17:13 Approved by: Dileep Arellano M.D. on 07/17/2022 at 17:13
[2022-07-17 17:56] LABS: Lactate (Lactic Acid) 3.4 mmol/L (0.7-2.1); Troponin I 0.159 ng/mL (0.01-0.034)
[2022-07-17 18:11] LABS: COVID19 -Nasal RAPID Negative (Negative)
[2022-07-17 18:18] LABS: Procalcitonin 0.48 ng/mL (<0.5)
[2022-07-17] MEDS: ASPIRIN 81 MG CHEW TAB 324 MG PO (18:31)
--- NOTE | 2022-07-17 18:37 | PC.NURSE ---
pt passed swallow but had some delayed coughing. maintained npo until futher speech evaluation
--- NOTE | 2022-07-17 18:38 | PC.NURSE ---
speech consult ordered . had some delayed coughing.
[2022-07-17] MEDS: SODIUM CHLORIDE 0.9% 1,000 ML 150 ML IV (18:40)
[2022-07-17 19:48] LABS: Reflexed Lactate in 2 Hours Y
[2022-07-17 19:55] LABS: NT-proBNP (BNP-Adult 18+) 1200 pg/mL (<450)
[2022-07-17 19:58] LABS: Lactate 2HR (Lactic Acid Rflx) 1.3 mmol/L (0.7-2.1)
[2022-07-17 20:01] LABS: Troponin I 0.149 ng/mL (0.01-0.034)
--- NOTE | 2022-07-17 20:46 | DI.MRI.S_ITS ---
PROCEDURE: MR HEAD/BRAIN WO CON INDICATIONS: prior infarct, new onset stroke s/s TECHNIQUE: Non-contrast axial T1 spin echo, axial T2 fast spin echo, sagittal and axial FLAIR, coronal T2 fast spin echo, axial gradient echo, axial diffusion and ADC through the brain. COMPARISON: [facility], MR, MR HEAD/BRAIN WO CON, 07/07/2022, 15:04. FINDINGS: Image quality: Excellent. CSF spaces: Ventricles appear symmetric in size and shape. Basal cisterns are patent. No extra-axial fluid collections. Brain: No intracranial bleeds or mass effects. There is cerebral volume loss for age. There are periventricular and deep white matter chronic small vessel ischemic changes. Brainstem appears normal. Diffusion-weighted images demonstrate a moderate size region of increased signal intensity within the right anterolateral frontal lobe which demonstrates moderate FLAIR signal elevation, measuring roughly 50 mm anteroposterior. There is a 30 mm diameter region of elevated diffusion and FLAIR signal within the right parietal lobe. There is a 4 mm focus of elevated diffusion and FLAIR signal intensity within the right occipital lobe. There are 2 curvilinear regions of elevated diffusion and FLAIR signal intensity within the left cerebellar hemisphere, spanning roughly 5 mm each. There is a 3 mm cortical focus of elevated diffusion and FLAIR signal within the left superior parietal lobe. Normal intravascular flow voids are present. Skull and face: Calvarial bone marrow is normal in signal. Orbits are normal. Sinuses: Right maxillary sinus is hypoplastic and demonstrates moderate mucosal thickening. Sinuses and mastoids are otherwise clear. IMPRESSION: 1. Multiple new subacute cerebral and cerebellar infarcts, consistent with an embolic phenomenon. 2. Volume loss and small vessel ischemic disease. Dictated by: Vikash Maya M.D. on 07/18/2022 at 8:45 Approved by: Vikash Maya M.D. on 07/18/2022 at 8:48
--- NOTE | 2022-07-17 20:51 | DI.ECHO.S_ITS ---
[facility] +---------+ [facility] +---------+ : : [address] : : : : [id number] : : : : Phone: [phone]+ Echocardiogram Report + + :Name: YESY BAKER Study Date: 07/18/2022 Height: 68 in : :[facility] ReadingLocation: [facility] Weight: 147 lb : : Gender: Male BSA: 1.8 m2 : :: 1940 Age: 82 yrs BP: 151/92 mmHg: :Reason For Study: Likely Stroke : : Performed By: Aide Fierro : :Referring: NOAM VILA : + + Interpretation Summary The left ventricular cavity is small. Left ventricular systolic function appears normal without focal wall motion abnormalities. The ejection fraction is estimated to be 70-75%. There are no focal wall motion abnormalities. The right ventricle is mildly dilated. The right ventricular systolic function is normal. The left atrial size is normal. The right atrium is borderline dilated. Injection of contrast documented no interatrial shunt. There is moderate to severe mitral annular calcification. The ascending aorta is mild-moderately enlarged. Procedure: A two-dimensional transthoracic echocardiogram with color flow and Doppler was performed. The study quality was technically adequate. Comparison is made with the echocardiogram of 02/22/2015. A saline contrast injection was performed to assess for cardiac shunting. The patient was in normal sinus rhythm during the exam. Left Ventricle: The left ventricular cavity is small. Left ventricular systolic function appears normal without focal wall motion abnormalities. The ejection fraction is estimated to be 70-75%. There are no focal wall motion abnormalities. Right Ventricle: The right ventricle is mildly dilated. The right ventricular systolic function is normal. Atria: The left atrial size is normal. The right atrium is borderline dilated. Injection of contrast documented no interatrial shunt. Mitral Valve: The mitral valve leaflets appear mildly thickened, but open well. There is moderate to severe mitral annular calcification. There is no mitral valve stenosis. The mitral valve mean gradient is 2 mmHg. There is trace mitral regurgitation. Aortic Valve: There is a bioprosthetic aortic valve. The peak aortic velocity is 2.66 m/sec. The aortic valve mean gradient is 16.92 mmHg. There is trace aortic regurgitation. Tricuspid Valve: The tricuspid valve is normal. There is no tricuspid stenosis. There is trace tricuspid regurgitation. Pulmonic Valve: The pulmonic valve leaflets are thin and pliable; valve motion is normal. There is no pulmonic valvular stenosis. There is trace pulmonic regurgitation. Great Vessels: The aortic root is normal size. The ascending aorta is mild- moderately enlarged. The pulmonary artery is normal size. The IVC is of normal diameter and collapses greater than 50% with a sniff. This suggests a low right atrial pressure of 3 mm Hg. Pericardium/ Pleura There is no pericardial effusion. There is no pleural effusion. MMode/2D Measurements & Calculations LVIDd: 3.9 cm LVOT diam: 1.9 cm LVIDs: 1.9 cm Ao root diam: 3.4 cm FS: 50.7 % asc Aorta Diam: 4.0 cm IVSd: 1.3 cm LVPWd: 0.99 cm LV potter. diameter/BSA (cm/m^2): 2.2 LV sys. diameter/BSA (cm/m^2): 1.1 LA A2 area: 15.6 cm2 RA long axis: 6.0 cm LA A4 area: 10.8 cm2 RA area: 19.6 cm2 LA length (vol): 4.1 cm RA vol: 54.6 ml LA vol: 34.5 ml RA : 30.5 ml/m2 LA vol index: 19.2 ml/m2 RVD1 (basal): 4.2 cm TAPSE: 2.2 cm Doppler Measurements & Calculations Ao V2 max: 266.3 cm/sec LVOT Max Lennox: 87.8 cm/sec Ao V2 mean: 198.4 cm/sec LV V1 max P.1 mmHg Ao max P.4 mmHg LV V1 VTI: 18.7 cm Ao mean P.9 mmHg CECILIO(I,D): 0.88 cm2 Ao V2 VTI: 60.8 cm CECILIO(V,D): 0.94 cm2 sev ratio: 0.31 CECILIO indexed to BSA (cm^2/m^2): 0.49 MV E max lennox: 70.2 cm/sec PA V2 max: 57.1 cm/sec MV A max lennox: 125.5 cm/sec PA V2 mean: 37.9 cm/sec MV E/A: 0.56 PA mean P.66 mmHg Med Peak E' Lennox: 4.0 cm/sec PA pr(Accel): 6.6 mmHg E/E' med: 17.8 Lat Peak E' Lennox: 3.1 cm/sec E/E' lat: 22.3 E/e' average: 20.1 MV dec time: 0.25 sec MVA(VTI): 1.5 cm2 MV V2 mean: 68.8 cm/sec SV(LVOT): 53.5 ml MV mean P.2 mmHg MV V2 VTI: 34.6 cm Reading Physician:05:17 PM
[2022-07-17 21:16] LABS: Magnesium 2.1 mg/dL (1.6-2.3)
[2022-07-17] MEDS: METOPROLOL ER 25 MG TABLET PO (21:31)
[2022-07-17] MEDS: SODIUM CHLORIDE 0.9% 1,000 ML 60 ML IV (21:31)
[2022-07-17 21:48] LABS: Thyroid Stimulating Hormone 1.29 uIU/mL (0.47-4.68)
--- NOTE | 2022-07-17 21:49 | PM.HP.1 ---
History of Present Illness History of Present Illness Date Patient Seen: 07/17/22 Time Patient Seen: 21:00 Chief complaint: Stroke Like symptoms Narrative: Dhaval Rosales is a 82 male with a known medical history of CAD and valve replacement, recent lacunar infarcts on 07/07/2022 and left against medical advice.? EMS was called today concern for stroke.? Neighbor reports that he was walking around yesterday at his baseline but realized today that he had not been out of his house which is abnormal for him.? He was found crawling around on the floor.? He has obvious aphasia, which made obtaining HPI, ROS significantly difficult on admit, although patient does appear alert orientated x3, positive left facial droop and some left-sided weakness.? He reported to the ED that maybe symptoms started this morning but his last known well is unknown. He is a poor historian and difficult to understand in regards to todays events. In the ED patient presented with blood pressure is 187/105, 174/100, and slightly tachycardic heart rates 100-107. On admit patient does not appear to demonstrate or endorse the following chest pain, shortness in breath, headache, fever, body aches, chills, cough, abdominal pain, nausea, vomiting, urinary incontinence/retention, dysuria, frequency, urgency, hematuria, bowel changes, constipation, incontinence, melena, rashes, recent changes to medication. Admit vitals temp 98.6?, BP 156/93, HR 106, RR 21, O2 saturation 98% on room air. NIH score 3. WBC 18.9, newt 16,100, mono 1200, baso 300. Chloride 111, bicarb 20, glucose 166, albumin 3.3, ETOH, COVID, procalcitonin are all negative. CK 700 lactate negative, GFR 57, CK-2: 4.89, RI 0.7, BNP 1200. Chest x-ray negative, left hand x-ray noted soft tissue swelling without fracture or acute injury, brain CT negative for acute intracranial process. Initial troponin 0.159, repeat 0.149. EKG which I personally reviewed sinus rhythm [address] or T-wave changes EKG is unchanged in similar to that from 06/22/2022. CTA head and neck is negative for acute stroke, hemorrhage, or mass noted moderate left cavernous carotid stenotic disease < 50% ICA, mild proximal right ICA. Patient admitted for acute TIA versus stroke, with hypertensive urgency. Patient History Medical History Essential hypertension Hyperlipidemia Surgical History History of heart valve replacement Family & Social History Family History Mother Pneumonia Father Congestive heart failure Social History: household members none Prior Living Arrangements House Safety & Behavioral: Feels Safe in Current Yes Environment Been Physically Hurt or No Threatened By a Person Tobacco & Substance use: Tobacco type cigarettes Smoking Status Former smoker alcohol intake current alcohol intake frequency 0-2 drinks per day Substance Use Type does not use Meds Home Medications and Allergies Home Medications Medication Instructions Recorded Confirmed Type clopidogrel 75 mg tablet (Plavix) 75 mg PO DAILY #25 tabs 07/07/22 07/17/22 Rx aspirin 81 mg capsule 81 mg PO DAILY 07/17/22 07/17/22 History atorvastatin 10 mg tablet 5 mg PO BEDTIME 07/17/22 07/17/22 History metoprolol succinate 25 mg 12.5 mg PO QAM 07/17/22 07/17/22 History tablet,extended release 24 hr metoprolol succinate 25 mg 25 mg PO BEDTIME 07/17/22 07/17/22 History tablet,extended release 24 hr Allergies Allergy/AdvReac Type Severity Reaction Status Date / Time No Known Drug Allergies Allergy Verified 07/17/22 17:14 Review of Systems Review of Systems Narrative: Difficult to obtain accurate ROS due to patient's significant aphasia. All 12 point systems reviewed with the patient and are negative except otherwise documented. Exam Vital Signs (past 8 hours): - 07/17/22 16:57 07/17/22 17:11 07/17/22 17:11 Temperature 98.6 F Pulse Rate 107 H 106 H Respiratory Rate 18 Blood Pressure 187/105 H 187/105 H Pulse Oximetry 96 96 Oxygen Delivery Method Room Air Oxygen Flow Rate 07/17/22 17:15 07/17/22 17:15 07/17/22 17:30 Temperature Pulse Rate 104 H Respiratory Rate 23 Blood Pressure 167/95 H 151/86 H Pulse Oximetry 96 Oxygen Delivery Method Oxygen Flow Rate 07/17/22 17:30 07/17/22 17:45 07/17/22 17:45 Temperature Pulse Rate 94 H 100 H Respiratory Rate 17 20 Blood Pressure 174/100 H Pulse Oximetry 97 96 Oxygen Delivery Method Oxygen Flow Rate 07/17/22 18:00 07/17/22 18:00 07/17/22 18:15 Temperature Pulse Rate 97 H 96 H Respiratory Rate 18 17 Blood Pressure 156/93 H Pulse Oximetry 96 96 Oxygen Delivery Method Room Air Oxygen Flow Rate 07/17/22 18:30 07/17/22 20:00 07/17/22 18:55 Temperature 98.6 F Pulse Rate 106 H 101 H Respiratory Rate 21 18 Blood Pressure 173/101 H Pulse Oximetry 99 98 Oxygen Delivery Method Room Air Oxygen Flow Rate 0 07/17/22 20:40 07/17/22 21:31 Temperature Pulse Rate 76 106 H Respiratory Rate 17 Blood Pressure 151/101 H 173/101 H Pulse Oximetry 98 Oxygen Delivery Method Oxygen Flow Rate 0 Oxygen Delivery Method Room Air Oxygen Flow Rate 0 Narrative Exam Narrative: GENERAL: Alert and orientated x 3 elderly male HEENT: Head atraumatic,EOMI, pupils reactive, left facial droop, [moist] mucous membranes CARDIOVASCULAR: Regular rate and rhythm without murmurs, rubs or gallops. RESPIRATORY: Breath sounds equal bilaterally in all lobes, no wheezes rales or rhonchi. ABDOMEN: Soft, nontender. Hyperactive bowel sounds all 4 quadrants. No guarding or rebound. EXTREMITIES: Normal range of motion, no clubbing or edema. Neurovascularly intact Left hand is noted to be mildly swollen mildly erythematous distal radial pulse intact NEUROLOGICAL: Alert and oriented x4.Normal gait and speech. Left facial droop slurring of words with significant aphasia left arm drift to bed good [id number] with right hand good [id number] with both legs lower leg extremity equal, SKIN: Warm, dry, no laceration, no petechiae, no rashes or lesions. NIH Stroke Scale Level of Conciousness: Alert, keenly responsive Ask month/age: Answers both questions correctly. Open/close eyes, close hand: Performs both tasks correctly Best gaze horizontal: Normal Visual glover: No visual loss Facial palsy: Minor paralysis, flattened nasolabial fold, asymmetry on smiling Left arm drift: Drifts down, not to bed Right arm drift: No drift for full 10 sec Left leg drift: No drift for full 5 sec Right leg drift: No drift for full 5 sec Limb ataxia: Absent Sensory on face/arms/legs: Normal, no sensory loss Best language: Mild to moderate, slurs some words Dysarthria: Normal Extinction or inattention: No abnormality Total NIH Stroke scale score: 3 Objective Labs 07/17/22 16:55 07/17/22 16:55 Labs: Laboratory Results - last 24 hr 07/17/22 07/17/22 07/17/22 16:55 16:55 16:55 WBC 18.9 H RBC 4.89 Hgb 15.3 Hct 45.1 MCV 92.2 MCH 31.4 MCHC 34.0 RDW 13.2 Plt Count 294 Neut % (Auto) 84.8 H Lymph % (Auto) 7.[address] % (Auto) 6.3 Eos % (Auto) 0.0 L Baso % (Auto) 1.7 Neut # (Auto) 79693 H Lymph # (Auto) 1400 [place] # (Auto) 1200 H Eos # (Auto) 0 Baso # (Auto) 300 H PT 15.5 H INR 1.3 APTT 24 L Sodium 143 Potassium 4.1 Chloride 111 H Carbon Dioxide 20 L BUN 20 Creatinine 1.25 Estimated GFR 57 L BUN/Creatinine Ratio 16.0 Glucose 166 H Hemoglobin A1c Lactate Calcium 9.1 Magnesium Total Bilirubin 1.6 H AST 46 ALT 29 Alkaline Phosphatase 85 Total Creatine Kinase 700 H CK-MB (CK-2) 4.89 H CK-MB (CK-2) Rel Index 0.7 L Troponin I 0.159 H* NT-Pro-B Natriuret Pep Total Protein 7.5 Albumin 3.7 Globulin 3.8 Albumin/Globulin Ratio 1.0 Procalcitonin TSH Ethyl Alcohol < 10 SARS-CoV-2 (PCR) 07/17/22 07/17/22 07/17/22 16:55 16:55 16:55 WBC RBC Hgb Hct MCV MCH MCHC RDW Plt Count Neut % (Auto) Lymph % (Auto) [place] % (Auto) Eos % (Auto) Baso % (Auto) Neut # (Auto) Lymph # (Auto) [place] # (Auto) Eos # (Auto) Baso # (Auto) PT INR APTT Sodium Potassium Chloride Carbon Dioxide BUN Creatinine Estimated GFR BUN/Creatinine Ratio Glucose Hemoglobin A1c Cancelled Lactate 3.4 H Calcium Magnesium Total Bilirubin AST ALT Alkaline Phosphatase Total Creatine Kinase CK-MB (CK-2) CK-MB (CK-2) Rel Index Troponin I NT-Pro-B Natriuret Pep Total Protein Albumin Globulin Albumin/Globulin Ratio Procalcitonin 0.48 TSH Ethyl Alcohol SARS-CoV-2 (PCR) 07/17/22 07/17/22 07/17/22 16:55 16:55 17:40 WBC RBC Hgb Hct MCV MCH MCHC RDW Plt Count Neut % (Auto) Lymph % (Auto) [place] % (Auto) Eos % (Auto) Baso % (Auto) Neut # (Auto) Lymph # (Auto) [place] # (Auto) Eos # (Auto) Baso # (Auto) PT INR APTT Sodium Potassium Chloride Carbon Dioxide BUN Creatinine Estimated GFR BUN/Creatinine Ratio Glucose Hemoglobin A1c Lactate Calcium Magnesium 2.1 Total Bilirubin AST ALT Alkaline Phosphatase Total Creatine Kinase CK-MB (CK-2) CK-MB (CK-2) Rel Index Troponin I NT-Pro-B Natriuret Pep Total Protein Albumin Globulin Albumin/Globulin Ratio Procalcitonin TSH 1.29 Ethyl Alcohol SARS-CoV-2 (PCR) Negative 07/17/22 07/17/22 07/17/22 19:25 19:25 19:25 WBC RBC Hgb Hct MCV MCH MCHC RDW Plt Count Neut % (Auto) Lymph % (Auto) [place] % (Auto) Eos % (Auto) Baso % (Auto) Neut # (Auto) Lymph # (Auto) [place] # (Auto) Eos # (Auto) Baso # (Auto) PT INR APTT Sodium Potassium Chloride Carbon Dioxide BUN Creatinine Estimated GFR BUN/Creatinine Ratio Glucose Hemoglobin A1c Lactate 1.3 Calcium Magnesium Total Bilirubin AST ALT Alkaline Phosphatase Total Creatine Kinase CK-MB (CK-2) CK-MB (CK-2) Rel Index Troponin I 0.149 H* NT-Pro-B Natriuret Pep 1200 H Total Protein Albumin Globulin Albumin/Globulin Ratio Procalcitonin TSH Ethyl Alcohol SARS-CoV-2 (PCR) Assessment & Plan Assessment & Plan narrative: Dhaval Rosales is a 82 male with a known medical history of CAD and valve replacement, recent lacunar infarcts on 07/07/2022 and left against medical advice.? EMS was called to the home by a neighbor, patient found down crawling around on the floor, last known well is unknown. Patient admitted for acute TIA versus stroke, with hypertensive urgency. 1. TIA versus stroke, acute, with history of stroke, acute on chronic present on admission -NIH:3, left-sided facial droop, moderate aphasia, left upper extremity weakness -recent lacunar infarct on 07/07/2022 left ED against medical advice -patient admitted under TIA stroke protocol, aspiration precautions -PT/OT/speech evaluation -negative bedside swallow -brain CT negative for acute intracranial process. -CTA head and neck is negative for acute stroke, hemorrhage, or mass noted moderate left cavernous carotid stenotic disease < 50% ICA, mild proximal right ICA. -holding VTE medication until after MRI, hemorrhage rule out -echo and MRI tomorrow -increased patient's Lipitor to 20 mg, ASA, continue Plavix 2. Hypertensive urgency, in the setting of essential hypertension, CAD & valve replacement, acute on chronic, present on admission - ED b/p 187/105, 174/100, and slightly tachycardic heart rates 100-107. CK-2:4.89, RI: 0.7, BNP 1200. -Admit vitals temp 98.6?, BP 156/93, HR 106, RR 21 -Initial troponin 0.159, repeat 0.149. EKG which I personally reviewed sinus rhythm [address] or T-wave changes EKG is unchanged in similar to that from 06/22/2022. -troponin is downtrending, we will continue to trend, monitored on telemedicine -continue metoprolol 3. Hyperlipidemia, chronic, present on admission -increased Lipitor from 5 mg to 20 mg -lipid panel ordered 4. Leukocytosis, neutrophilic, acute, present on admission -likely secondary to stroke -WBC 18.9, newt 16,100, mono 1200, baso 300. Chloride 111, bicarb 20, glucose 166, albumin 3.3, ETOH, COVID, procalcitonin are all negative. CK 700, lactate negative. -blood and urine cultures pending 5. Malnutrition, mild, acute on chronic, present on admission -as evidence by BMI 22.5 -patient's malnutrition places them at high risk for medical and surgical complications in relation to acute illness/chronic illness. This increases the difficulty in complexity of medical management and increases the chances poor outcomes such as mortality and morbidity as well as impaired wound healing, and immune suppression. -dietary consult ordered to evaluate and implement steps to improve caloric intake and nutrition. Code status: Full Surrogate decision maker: Prem BASS PCR: Negative DVT/VTE prophylaxis: Holding medication VTE until after MRI, SCD only Disposition: Patient admitted for TIA versus stroke, expected length of stay greater than 2 midnights-patient lives alone will likely require rehab or SNF placement on discharge. I have utilized all available immediate resources to obtain, update, or review the patient's current medications. I confirmed that the patient's advanced care plan is present, Code status is documented and/or surrogate decision maker is listed in the patient's medical record. I have personally reviewed patient's chart notes from PCP, specialists, diagnostic imaging, and laboratory results. Quality VTE Deep Vein Thrombosis/Pulmonary Embolism Present on Admission: No
[2022-07-18] VITALS (8 sets, daily range): BP systolic 150–170; BP diastolic 90–105; PULSE 76–95; RESP 16–22; TEMP 36.3–37.3; O2SAT 95–98
[2022-07-18 05:26] LABS: Add Manual Diff / Slide Review NO; Basophils Absolute Auto 100 /uL (0-100); Basophils Percent Auto 0.5 % (0-2); Eosinophils Absolute Auto 100 /uL (0-450); Eosinophils Percent Auto 0.6 % (2-4); Hemoglobin 13.6 g/dL (13.5-17.5); Lymphocytes Absolute Auto 1700 /uL (1100-4500); Lymphocytes Percent Auto 11.4 % (25-40); Mean Corpuscular Hemoglobin 31.1 PG (26-34); Mean Corpuscular Volume 91.6 fL (80-100); Monocytes Absolute Auto 1100 /uL (0-900); Monocytes Percent Auto 7.7 % (3-14); Neutrophils Absolute Auto 11600 /uL (1500-7000); Neutrophils Percent Auto 79.8 % (50-75); Platelet Count 257 X10^3/uL (150-400); Red Blood Cell Count 4.37 X10^6/uL (4.5-5.9); White Blood Cell Count 14.6 X10^3/uL (4.5-11.0)
[2022-07-18 05:28] LABS: INR 1.4 (0.9-1.3); Prothrombin Time 15.8 SECONDS (10.1-12.7)
[2022-07-18 05:31] LABS: PTT Partial Thromboplastin Tim 25 SECONDS (26-36)
[2022-07-18 05:44] LABS: Alanine Aminotransferase 21 IU/L (<50); Albumin Globulin Ratio 0.9 (1.0-2.8); Alkaline Phosphatase 65 U/L (38-126); Aspartate Aminotransferase 40 IU/L (17-59); BUN Creatinine Ratio 17.6 (6-22); Bilirubin Total 1.1 mg/dL (0.2-1.3); Blood Urea Nitrogen 19 mg/dL (9-20); Calcium 8.5 mg/dL (8.4-10.2); Carbon Dioxide 25 mmol/L (22-32); Chloride 111 mmol/L (98-107); Cholesterol 90 mg/dL (140-199); Estimated Glomerular Filt Rate > 60 mL/min (>60); Globulin 3.3 g/dL (1.7-4.1); Glucose 113 mg/dL (80-110); HDL Cholesterol 24 mg/dL (40-60); HEMOLYSIS < 15 (0-50); LDL Cholesterol Calculated 51 mg/dL (<100); Potassium 3.7 mmol/L (3.4-5.1); Sodium 141 mmol/L (137-145); Total Protein 6.3 g/dL (6.3-8.2); Triglycerides 73 mg/dL (35-150)
[2022-07-18] MEDS: ASPIRIN EC 325 MG TABLET PO (10:07)
[2022-07-18] MEDS: CLOPIDOGREL 75 MG TABLET PO (10:10)
[2022-07-18] MEDS: METOPROLOL ER 25 MG TABLET PO ×2 (10:13→21:00)
--- NOTE | 2022-07-18 10:42 | PT.IIE ---
Current Diagnoses Transient cerebral ischemic attack, unspecified (07/17/22) Surgical History (Last Reviewed 07/18/22 @ 02:55 by Chio Burton [facility]) History of heart valve replacement Medical History (Last Reviewed 07/18/22 @ 02:55 by Chio Burton [facility]) Essential hypertension Hyperlipidemia Physical Therapy Inpatient Evaluation/Re-Eval M1 PT/OT-IP Prior Functional Status Start: 07/18/22 10:26 Freq: Status: Active Protocol: Document 07/18/22 10:27 (Rec: 07/18/22 10:42 [id number]) Medical Review Prior Functional Status Medical History Reviewed Yes Diet/Fluid Consistency Regular Communication Facial droop post CVA in early June From [facility] Mobility and Gait Independent Activities of Daily Living and IADL's Independent Prior Functional Level (Other details) Pt was fully independent prior to and post CVA in early June 2022. He does not use a. d. He drives and manages all his own affairs. He has a dtr but she lives on the [facility]. He walks 1 mi every other day. He is close with a neighbor. Social History Household Members none Living Arrangements House Number of Floors (Floors) One Floor Number of Stairs To Enter/Railing? 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 Sister in [place] that he is no longer in communication with. Dtr that [place] the [place]. Recent lacunar infarct on 07/07/22. Pt left hospital AMA. M2 PT-IP Current Condition Start: 07/18/22 10:26 Freq: Status: Active Protocol: Document 07/18/22 10:27 BC (Rec: 07/18/22 10:42 [id number]) Physical Therapy Current Condition Current Condition Evaluation Date 07/18/22 Treatment Diagnosis CVA Onset Date 07/17/22 M3 PT-IP Subjective Start: 07/18/22 10:26 Freq: Status: Active Protocol: Document 07/18/22 10:27 (Rec: 07/18/22 10:42 [id number]) Subjective Physical Therapy Visit Type Type Initial Evaluation Visit Start Time 09:00 Visit Stop Time 09:40 Total Visit Minutes 40 Physical Therapy Visit Comments Patient Comments He is agreeable to HHPT Patient Goals To go home today. Therapy Pain Assessment Pain When Pain Assessed At Rest Pain Present Pain Present Denied Pain M4 PT-IP Mobility and Gait Start: 07/18/22 10:26 Freq: Status: Active Protocol: Document 07/18/22 10:27 (Rec: 07/18/22 10:42 [id number]) PT-Bed Mobility Assessment Rolling Level of Assist Independent Supine to Sit Supine to Sit Independent Sit to Supine Sit to Supine Independent Scooting Scooting to Edge of Bed Independent Scooting Up and Down in Bed Independent PT-Transfer Assessment Sit to and From Stand Sit to and from Stand Independent Equipment Transfer Assistive Device Gait Belt Transfers Transfer Destination Bed,Chair,Toilet Transfer Technique Stand Step Pivot Transfer Ability Level of Assist Independent Comments Mobility Comments Gait belt donned for safety but no need for physical support/assist throughout PT. He was independent with sit<> supine x3 reps. Sit to stand x4 reps including EOB, chair and commode. Gait Assessment Gait Gait Assistance Required: Independent Distance (Feet) 400 Assistive Devices Assistive Device Gait Belt Gait Deviations General Gait Pattern Within Normal Limits Comments Gait Comments Pt ambulatory without gait deficits, symmetrical gait pattern present and no LOB. Stair Climbing Assessment Evaluation Level of Assist On Stairs Independent Devices Stair Climbing Assistive Devices None Technique/Endurance Stair Climbing Direction Ascend and Descend Stair Climbing Technique Step Over Step Number of Steps Climbed 3 Query Text: Stair Climbing Set # Repetitions (reps) 2 Comments Stair Climbing Comments No deficit noted PT-Balance Assessment Sitting Balance and Reactions Static Sitting Balance Ability Normal Dynamic Sitting Balance Ability Normal Standing Balance and Reactions Static Standing Balance Ability Normal Dynamic Standing Balance Ability Normal Device Used none Comments Other Balance Tests/Deviations/Treatment Lacey 28 : 4 itme DGI 04/05 M5 PT-IP Objective Assessments Start: 07/18/22 10:26 Freq: Status: Active Protocol: Document 07/18/22 10:27 (Rec: 07/18/22 10:42 [id number]) Orientation Orientation/Cognition Level of Alertness Alert Orientation Name,Date,Place,Situation Language Function Ability Garbled Speech Safety Awareness Understands Safety Issues Memory Description No Deficits Noted Gross Range of Motion Upper Extremity ROM Assessment Left Impaired Impairments Reduced LUE shoulder ROM. Appears to be related to LUE weakness. Lower Extremity ROM Assessment Within Functional Limits Strength Upper Extremity Strength Assessment Left Impaired Shoulder 3+/5 Elbow 4/5 Wrist 5 Hand 5 Lower Extremity Strength Assessment Within Functional Limits Hip 5/5 Knee 5/5 Ankle 5/5 Comments Strength Comments No focal weakness in LLE but seen in RUE shouler and elbow joints. Coordination Assessment Assessment Finger to Nose Test Minimal Impairment Pronation/Supination Test Normal Performance Foot Tapping Test Normal Performance Heel on Chapman Test Normal Performance Coordination Comments Intact rapid alternating movements in UE/LE. Difficulty with LUE finger to nose and slight LUE pronator drift. Sensation Assessment Sensation Gross Sensation WNL Muscle Tone Muscle Tone WNL Yes Comments Muscle Tone Comments negative BLE ankle clonus. Normal patellar reflexes. M6 PT-IP Treatment Start: 07/18/22 10:26 Freq: Status: Active Protocol: Document 07/18/22 10:27 BC (Rec: 07/18/22 10:42 [id number]) Physical Therapy Treatment Education Education Provided Safety Other Treatments Other Treatment Performed Educated on HHPT/OT recommendation. M7 PT-IP Assessment and Plan Start: 07/18/22 10:26 Freq: Status: Active Protocol: Document 07/18/22 10:27 BC (Rec: 07/18/22 10:42 [id number]) PT Summary Assessment and Plan Potential Rehabilitation Potential Excellent Status of Condition at Evaluation Stable Summary Impairments Strength,Coordination Progress Towards Goals Safe For Discharge,Goals Met Assessment Summary Pt admitted after being found on floor by neighbor. Pt states he fell in his kitchen to his knees. Denies any pain. Denies LOC. He reports being on floor ~1 hr. He also denies headache, dizziness, and vision changes. PLOF: fully independent. He recently left AMA following acute lacunar infarct. Imaging on this admission positive for subacute L cerebellar infarct. CLOF: He is demonstrating independent mobility in room and in calderon. He is able to manage stairs I'ly. He is testing low fall risk on two standardized balance tests. There does appear to be LUE weakness (per Pt present after prior CVA) and impaired LUE coordination. Recommend HHPT/ OT for home safety assessment and rehab as appropriate. No further inpatient PT needs. Recommend d/c home when medically stable. Nsng aware of Pt's functional status and to continue providing SBA for safety with mobility. Frequency of Treatment Frequency Of Treatment Discharge Recommendations To Nursing Amount of Assist Needed Standby Assistance Discharge Recommendations PT Discharge Recommendations Home,Home Health Transportation Needs at Discharge Private Vehicle
[2022-07-18 11:12] LABS: Acinetobacter calcoa-baumannii Not Detected (Not Detect); Bacteroides fragilis Not Detected (Not Detect); Candida albicans Not Detected (Not Detect); Candida auris Not Detected (Not Detect); Candida glabrata Not Detected (Not Detect); Candida krusei Not Detected (Not Detect); Candida parapsilosis Not Detected (Not Detect); Candida tropicalis Not Detected (Not Detect); Cryptococcus neoformans/gatti Not Detected (Not Detect); Enterobacter cloacae complex Not Detected (Not Detect); Enterobacterales Not Detected (Not Detect); Enterococcus faecalis Not Detected (Not Detect); Enterococcus faecium Not Detected (Not Detect); Haemophilus influenzae Not Detected (Not Detect); Klebsiella aerogenes Not Detected (Not Detect); Listeria monocytogenes Not Detected (Not Detect); Neisseria meningitidis Not Detected (Not Detect); Proteus species Not Detected (Not Detect); Pseudomonas aeruginosa Not Detected (Not Detect); Salmonella species Not Detected (Not Detect); Serratia marcescens Not Detected (Not Detect); Staphylococcus epidermidis Not Detected (Not Detect); Staphylococcus lugdunensis Not Detected (Not Detect); Staphylococcus species Not Detected (Not Detect); Stenotrophomonas maltophilia Not Detected (Not Detect); Streptococcus agalactiae (Gr B Not Detected (Not Detect); Streptococcus pneumonia Not Detected (Not Detect); Streptococcus pyogenes (Gr A) Not Detected (Not Detect); Streptococcus species DETECTED (Not Detect)
--- NOTE | 2022-07-18 12:07 | CM.DANOTE ---
DCP: Case received, EMR reviewed and met with patient. Introduced self and role. Was able to obtain information regarding patient's baseline activity level at home, as well as his current living situation. DCP assessment completed with information currently available. Patient is an 82 year old male who admitted yesterday afternoon to the care of the hospitalist team. PCP: Fortunato Blanco. Payer: confirmed: Medicare. Patient came to the hospital via ambulance secondary to having been found crawling on the floor. Notes indicate that neighbors report that patient was walking around yesterday at his baseline, but realized that he had not been out of his house, which is abnormal for him. Patient was noted to have some aphasia, left facial droop and left-sided weakness. Notes also indicate that he had been here on 07/07 for lacunar infarcts, left against medical advice. Patient had MRI, admitted for acute CVA. Met with patient in his room. He was having his breakfast. He did note some facial droop to his left side of his face. Confirmed with patient that he resides alone here in [place]. He does still drive, has friends in the area, and local neighbors. He does not use any DME supplies at his baseline. His main contact is Prem Veliz, out of [place], [place]. Patient did work with P.T, they recommend home with home health, as patient wants to return home. He will still need to work with speech therapy and O.T. P: DCP to continue to follow. At this time, plan will be home with home health. Will meet with patient to discuss, and to discuss agencies as long as he is ok with this. iLssa Pardo RN/Recovery Rn Discharge Planning/Care Management CM Discharge Assessment Start: 07/18/22 11:53 Freq: Status: Active Protocol: Document 07/18/22 11:54 (Rec: 07/18/22 11:55 [id number]) Discharge Planning Assessment Assigned Bar Finish Operator Lissa Pardo RN/Recovery Rn Advance Directives? Yes Advance Directives on File No History Provided By Patient,Medical Record Prior Living Arrangements House Household Members none Type of transporation used prior to Drives own vehicle admit Independent with ADL's Yes Is patient alert and oriented? Yes Caregiver for Another No Comment Lives alone. Discharge Plan Home with Home Health Transportation Arrangement Friend? Referrals Initiated Other Additional Comment Will discuss home heatlh with patient. Whiteboard Updated in Patient Room with Yes name and ext. # of Bar Finish Operator Review Status In Process Next Review Type Continued Stay Review
[2022-07-18] MEDS: cefTRIAXone 2,000 MG in SODIUM CHLORIDE 0.9% 100 ML 200 MG IV (13:05)
[2022-07-18] MEDS: SODIUM CHLORIDE 0.9% 1,000 ML 60 ML IV (13:16)
--- NOTE | 2022-07-18 16:43 | P.PN_ITS ---
Subjective Subjective Interval history: Dhaval Rosales is a 82 male with a known medical history of CAD and valve rep lacement, recent lacunar infarcts on 07/07/2022 and left against medical advice.? EMS was called yesterday for concern of stroke.? Neighbor reports that he was walking around 2 days prior at his baseline but realized yesterday that he had not been out of his house which is abnormal for him.? He was found crawling around on the floor.? He has obvious aphasia, which made obtaining HPI, ROS significantly difficult on admit, although patient does appear alert orientated x3, positive left facial droop and some left-sided weakness on admission.? He reported to the ED that maybe symptoms started this morning but his last known well is unknown. He is a poor historian and difficult to understand in regards to todays events.? In the ED patient presented with blood pressure of 187/105, 174/100, and slightly tachycardic heart rates 100-107. Exam Vital Signs (past 8 hours): - 07/18/22 09:51 07/18/22 13:00 07/18/22 13:00 Temperature 97.9 F 99.0 F Pulse Rate 84 82 82 Respiratory Rate 16 16 Blood Pressure 151/92 H 159/92 H 159/92 H Pulse Oximetry 98 95 Oxygen Delivery Method Room Air Oxygen Flow Rate 0 Narrative Exam Narrative: GENERAL:? Alert and orientated x 3 elderly male HEENT: Head atraumatic,EOMI, pupils reactive, left facial droop, moist mucous membranes CARDIOVASCULAR: Regular rate and rhythm without murmurs, rubs or gallops. RESPIRATORY: Breath sounds equal bilaterally in all lobes, no wheezes rales or rhonchi. ABDOMEN: Soft, nontender.? Hyperactive bowel sounds all 4 quadrants.? No guarding or rebound. EXTREMITIES: Normal range of motion, no clubbing or edema.? Neurovascularly intact Left hand is noted to be mildly swollen mildly erythematous distal radial pulse intact. Abrasions on knees. NEUROLOGICAL: Alert and oriented x4.Normal gait and speech.? Left facial droop slurring of words with significant aphasia but improved since admission since able to understand his speech and he has full receptive ability and full expressive ability. Left arm slight drift but minimal at this time. Strength left hand is less than right hand but present. Good [id number] with right hand. Able to do with left hand but very difficult. Good [id number] with both legs lower leg extremity equal, SKIN: Warm, dry, no laceration, no petechiae, no rashes or lesions. Objective Labs 07/18/22 05:01 07/18/22 05:01 Labs: Laboratory Results - last 24 hr 07/17/22 07/17/22 07/17/22 16:55 16:55 16:55 WBC 18.9 H RBC 4.89 Hgb 15.3 Hct 45.1 MCV 92.2 MCH 31.4 MCHC 34.0 RDW 13.2 Plt Count 294 Neut % (Auto) 84.8 H Lymph % (Auto) 7.2 L [place] % (Auto) 6.3 Eos % (Auto) 0.0 L Baso % (Auto) 1.7 Neut # (Auto) 88805 H Lymph # (Auto) 1400 [place] # (Auto) 1200 H Eos # (Auto) 0 Baso # (Auto) 300 H PT 15.5 H INR 1.3 APTT 24 L Sodium 143 Potassium 4.1 Chloride 111 H Carbon Dioxide 20 L BUN 20 Creatinine 1.25 Estimated GFR 57 L BUN/Creatinine Ratio 16.0 Glucose 166 H Hemoglobin A1c Lactate Calcium 9.1 Magnesium Total Bilirubin 1.6 H AST 46 ALT 29 Alkaline Phosphatase 85 Total Creatine Kinase 700 H CK-MB (CK-2) 4.89 H CK-MB (CK-2) Rel Index 0.7 L Troponin I 0.159 H* NT-Pro-B Natriuret Pep Total Protein 7.5 Albumin 3.7 Globulin 3.8 Albumin/Globulin Ratio 1.0 Triglycerides Cholesterol LDL Cholesterol, Calc HDL Cholesterol Procalcitonin TSH Ethyl Alcohol < 10 A.calcoaceticus-baumannii cmplx PCR Bacteroides fragilis Nafisa albicans (PCR) Nafisa auris (PCR) C. glabrata (PCR) C. krusei (PCR) C. parapsilosis (PCR) C. tropicalis (PCR) SARS-CoV-2 (PCR) C. neoform/gattii (PCR) Enterobacterales (PCR) E. cloacae complex PCR Enterococc faecalis PCR Enterococc faecium PCR E. coli (PCR) H. influenzae (PCR) Klebsiella aerogenes (PCR) Klebsiella oxytoca PCR Klebsiella pneumoniae List. monocytogenes PCR N. meningitidis (PCR) Proteus species (PCR) Salmonella spp. (PCR) Serratia marcescens PCR Staphylococcus sp PCR Staph aureus (PCR) Staph epidermidis (PCR) Staph lugdunensis PCR S. maltophilia (PCR) Streptococcus sp PCR Group A Strep (PCR) Strep agalactiae (PCR) Strep pneumoniae (PCR) P. aeruginosa (PCR) 07/17/22 07/17/22 07/17/22 16:55 16:55 16:55 WBC RBC Hgb Hct MCV MCH MCHC RDW Plt Count Neut % (Auto) Lymph % (Auto) Sanborn % (Auto) Eos % (Auto) Baso % (Auto) Neut # (Auto) Lymph # (Auto) [place] # (Auto) Eos # (Auto) Baso # (Auto) PT INR APTT Sodium Potassium Chloride Carbon Dioxide BUN Creatinine Estimated GFR BUN/Creatinine Ratio Glucose Hemoglobin A1c Cancelled Lactate 3.4 H Calcium Magnesium Total Bilirubin AST ALT Alkaline Phosphatase Total Creatine Kinase CK-MB (CK-2) CK-MB (CK-2) Rel Index Troponin I NT-Pro-B Natriuret Pep Total Protein Albumin Globulin Albumin/Globulin Ratio Triglycerides Cholesterol LDL Cholesterol, Calc HDL Cholesterol Procalcitonin 0.48 TSH Ethyl Alcohol A.calcoaceticus-baumannii cmplx PCR Bacteroides fragilis Nafisa albicans (PCR) Nafisa auris (PCR) C. glabrata (PCR) C. krusei (PCR) C. parapsilosis (PCR) C. tropicalis (PCR) SARS-CoV-2 (PCR) C. neoform/gattii (PCR) Enterobacterales (PCR) E. cloacae complex PCR Enterococc faecalis PCR Enterococc faecium PCR E. coli (PCR) H. influenzae (PCR) Klebsiella aerogenes (PCR) Klebsiella oxytoca PCR Klebsiella pneumoniae List. monocytogenes PCR N. meningitidis (PCR) Proteus species (PCR) Salmonella spp. (PCR) Serratia marcescens PCR Staphylococcus sp PCR Staph aureus (PCR) Staph epidermidis (PCR) Staph lugdunensis PCR S. maltophilia (PCR) Streptococcus sp PCR Group A Strep (PCR) Strep agalactiae (PCR) Strep pneumoniae (PCR) P. aeruginosa (PCR) 07/17/22 07/17/22 07/17/22 16:55 16:55 17:40 WBC RBC Hgb Hct MCV MCH MCHC RDW Plt Count Neut % (Auto) Lymph % (Auto) Sanborn % (Auto) Eos % (Auto) Baso % (Auto) Neut # (Auto) Lymph # (Auto) [place] # (Auto) Eos # (Auto) Baso # (Auto) PT INR APTT Sodium Potassium Chloride Carbon Dioxide BUN Creatinine Estimated GFR BUN/Creatinine Ratio Glucose Hemoglobin A1c Lactate Calcium Magnesium 2.1 Total Bilirubin AST ALT Alkaline Phosphatase Total Creatine Kinase CK-MB (CK-2) CK-MB (CK-2) Rel Index Troponin I NT-Pro-B Natriuret Pep Total Protein Albumin Globulin Albumin/Globulin Ratio Triglycerides Cholesterol LDL Cholesterol, Calc HDL Cholesterol Procalcitonin TSH 1.29 Ethyl Alcohol A.calcoaceticus-baumannii cmplx PCR Bacteroides fragilis Nafisa albicans (PCR) Nafisa auris (PCR) C. glabrata (PCR) C. krusei (PCR) C. parapsilosis (PCR) C. tropicalis (PCR) SARS-CoV-2 (PCR) Negative C. neoform/gattii (PCR) Enterobacterales (PCR) E. cloacae complex PCR Enterococc faecalis PCR Enterococc faecium PCR E. coli (PCR) H. influenzae (PCR) Klebsiella aerogenes (PCR) Klebsiella oxytoca PCR Klebsiella pneumoniae List. monocytogenes PCR N. meningitidis (PCR) Proteus species (PCR) Salmonella spp. (PCR) Serratia marcescens PCR Staphylococcus sp PCR Staph aureus (PCR) Staph epidermidis (PCR) Staph lugdunensis PCR S. maltophilia (PCR) Streptococcus sp PCR Group A Strep (PCR) Strep agalactiae (PCR) Strep pneumoniae (PCR) P. aeruginosa (PCR) 07/17/22 07/17/22 07/17/22 18:10 19:25 19:25 WBC RBC Hgb Hct MCV MCH MCHC RDW Plt Count Neut % (Auto) Lymph % (Auto) Sanborn % (Auto) Eos % (Auto) Baso % (Auto) Neut # (Auto) Lymph # (Auto) [place] # (Auto) Eos # (Auto) Baso # (Auto) PT INR APTT Sodium Potassium Chloride Carbon Dioxide BUN Creatinine Estimated GFR BUN/Creatinine Ratio Glucose Hemoglobin A1c Lactate Calcium Magnesium Total Bilirubin AST ALT Alkaline Phosphatase Total Creatine Kinase CK-MB (CK-2) CK-MB (CK-2) Rel Index Troponin I 0.149 H* NT-Pro-B Natriuret Pep 1200 H Total Protein Albumin Globulin Albumin/Globulin Ratio Triglycerides Cholesterol LDL Cholesterol, Calc HDL Cholesterol Procalcitonin TSH Ethyl Alcohol A.calcoaceticus-baumannii cmplx PCR Not detected Bacteroides fragilis Not detected Nafisa albicans (PCR) Not detected Nafisa auris (PCR) Not detected C. glabrata (PCR) Not detected C. krusei (PCR) Not detected C. parapsilosis (PCR) Not detected C. tropicalis (PCR) Not detected SARS-CoV-2 (PCR) C. neoform/gattii (PCR) Not detected Enterobacterales (PCR) Not detected E. cloacae complex PCR Not detected Enterococc faecalis PCR Not detected Enterococc faecium PCR Not detected E. coli (PCR) Not detected H. influenzae (PCR) Not detected Klebsiella aerogenes (PCR) Not detected Klebsiella oxytoca PCR Not detected Klebsiella pneumoniae Not detected List. monocytogenes PCR Not detected N. meningitidis (PCR) Not detected Proteus species (PCR) Not detected Salmonella spp. (PCR) Not detected Serratia marcescens PCR Not detected Staphylococcus sp PCR Not detected Staph aureus (PCR) Not detected Staph epidermidis (PCR) Not detected Staph lugdunensis PCR Not detected S. maltophilia (PCR) Not detected Streptococcus sp PCR Detected H Group A Strep (PCR) Not detected Strep agalactiae (PCR) Not detected Strep pneumoniae (PCR) Not detected P. aeruginosa (PCR) Not detected 07/17/22 07/18/22 07/18/22 19:25 05:01 05:01 WBC 14.6 H RBC 4.37 L Hgb 13.6 Hct 40.0 L MCV 91.6 MCH 31.1 MCHC 34.0 RDW 13.0 Plt Count 257 Neut % (Auto) 79.8 H Lymph % (Auto) 11.4 L [place] % (Auto) 7.7 Eos % (Auto) 0.6 L Baso % (Auto) 0.5 Neut # (Auto) 44031 H Lymph # (Auto) 1700 [place] # (Auto) 1100 H Eos # (Auto) 100 Baso # (Auto) 100 PT 15.8 H INR 1.4 H APTT 25 L Sodium Potassium Chloride Carbon Dioxide BUN Creatinine Estimated GFR BUN/Creatinine Ratio Glucose Hemoglobin A1c Lactate 1.3 Calcium Magnesium Total Bilirubin AST ALT Alkaline Phosphatase Total Creatine Kinase CK-MB (CK-2) CK-MB (CK-2) Rel Index Troponin I NT-Pro-B Natriuret Pep Total Protein Albumin Globulin Albumin/Globulin Ratio Triglycerides Cholesterol LDL Cholesterol, Calc HDL Cholesterol Procalcitonin TSH Ethyl Alcohol A.calcoaceticus-baumannii cmplx PCR Bacteroides fragilis Nafisa albicans (PCR) Nafisa auris (PCR) C. glabrata (PCR) C. krusei (PCR) C. parapsilosis (PCR) C. tropicalis (PCR) SARS-CoV-2 (PCR) C. neoform/gattii (PCR) Enterobacterales (PCR) E. cloacae complex PCR Enterococc faecalis PCR Enterococc faecium PCR E. coli (PCR) H. influenzae (PCR) Klebsiella aerogenes (PCR) Klebsiella oxytoca PCR Klebsiella pneumoniae List. monocytogenes PCR N. meningitidis (PCR) Proteus species (PCR) Salmonella spp. (PCR) Serratia marcescens PCR Staphylococcus sp PCR Staph aureus (PCR) Staph epidermidis (PCR) Staph lugdunensis PCR S. maltophilia (PCR) Streptococcus sp PCR Group A Strep (PCR) Strep agalactiae (PCR) Strep pneumoniae (PCR) P. aeruginosa (PCR) 07/18/22 05:01 WBC RBC Hgb Hct MCV MCH MCHC RDW Plt Count Neut % (Auto) Lymph % (Auto) [place] % (Auto) Eos % (Auto) Baso % (Auto) Neut # (Auto) Lymph # (Auto) [place] # (Auto) Eos # (Auto) Baso # (Auto) PT INR APTT Sodium 141 Potassium 3.7 Chloride 111 H Carbon Dioxide 25 BUN 19 Creatinine 1.08 Estimated GFR > 60 BUN/Creatinine Ratio 17.6 Glucose 113 H Hemoglobin A1c Lactate Calcium 8.5 Magnesium Total Bilirubin 1.1 AST 40 ALT 21 Alkaline Phosphatase 65 Total Creatine Kinase CK-MB (CK-2) CK-MB (CK-2) Rel Index Troponin I 0.100 H NT-Pro-B Natriuret Pep Total Protein 6.3 Albumin 3.0 L Globulin 3.3 Albumin/Globulin Ratio 0.9 L Triglycerides 73 Cholesterol 90 L LDL Cholesterol, Calc 51 HDL Cholesterol 24 L Procalcitonin TSH Ethyl Alcohol A.calcoaceticus-baumannii cmplx PCR Bacteroides fragilis Nafisa albicans (PCR) Nafisa auris (PCR) C. glabrata (PCR) C. krusei (PCR) C. parapsilosis (PCR) C. tropicalis (PCR) SARS-CoV-2 (PCR) C. neoform/gattii (PCR) Enterobacterales (PCR) E. cloacae complex PCR Enterococc faecalis PCR Enterococc faecium PCR E. coli (PCR) H. influenzae (PCR) Klebsiella aerogenes (PCR) Klebsiella oxytoca PCR Klebsiella pneumoniae List. monocytogenes PCR N. meningitidis (PCR) Proteus species (PCR) Salmonella spp. (PCR) Serratia marcescens PCR Staphylococcus sp PCR Staph aureus (PCR) Staph epidermidis (PCR) Staph lugdunensis PCR S. maltophilia (PCR) Streptococcus sp PCR Group A Strep (PCR) Strep agalactiae (PCR) Strep pneumoniae (PCR) P. aeruginosa (PCR) PFSH Medical History Essential hypertension Hyperlipidemia Surgical History History of heart valve replacement Family History Mother Pneumonia Father Congestive heart failure Social History household members: none Smoking Status: Former smoker alcohol intake: current Assessment & Plan Assessment & Plan narrative: 1. Acute stroke, acute, with history of stroke of subacutely, acute on chronic present on admission-confirmed as follows: Right anterolateral frontal lobe, right parietal lobe, right occipital lobe, left cerebellar hemisphere and left superior parietal lobe -NIH:3, left-sided facial droop, moderate aphasia has improved, left upper extremity weakness improving -recent lacunar infarct on 07/07/2022 left ED against medical advice -patient admitted under TIA stroke protocol, aspiration precautions -PT/OT/speech evaluation -negative bedside swallow -brain CT negative for acute intracranial process.? -CTA head and neck is negative for acute stroke, hemorrhage, or mass noted moderate left cavernous carotid stenotic disease < 50% ICA, mild proximal right ICA. -holding VTE medication until after MRI, hemorrhage rule out -echo and MRI tomorrow - confirms no bleed -increased patient's Lipitor to 80 mg, ASA continue 325 mg daily, continue Plavix 75 mg daily 2. Hypertensive urgency, in the setting of essential hypertension, CAD & valve replacement, acute on chronic, present on admission - ED b/p 187/105, 174/100 -> 159/92 today, and slightly tachycardic heart rates 100-107 -> 82 today.? CK-2:4.89, RI: 0.7, BNP 1200. -Admit vitals temp 98.6?, BP 156/93, HR 106, RR 21 now 159/92 HR 82 RR 16 -Initial troponin 0.159, repeat 0.149 and today 0.1.? EKG which I personally reviewed sinus rhythm [address] or T-wave changes EKG is unchanged in similar to that from 06/22/2022.? -troponin is downtrending, we will continue to trend, monitored on telemedicine -continue metoprolol 3. Hyperlipidemia, chronic, present on admission -increased Lipitor from 5 mg to 20 mg -lipid panel ordered 4. Leukocytosis, neutrophilic, acute, present on admission -likely secondary to stroke -WBC 18.9, newt 16,100, mono 1200, baso 300.? Chloride 111, bicarb 20, glucose 166, albumin 3.3, ETOH, COVID, procalcitonin are all negative.? CK 700, lactate negative. -blood and urine cultures pending 5. Malnutrition, mild, acute on chronic, present on admission -as evidence by BMI 22.5 -patient's malnutrition places them at high risk for medical and surgical complications in relation to acute illness/chronic illness.? This increases the difficulty in complexity of medical management and increases the chances poor outcomes such as mortality and morbidity as well as impaired wound healing, and immune suppression. -dietary consult ordered to evaluate and implement steps to improve caloric intake and nutrition. 6. Positive blood cultures -gram-positive cocci/Streptococcus- started on Ceftriaxone 2 gm IV daily. sensitivities pending. Code status:? Full Surrogate decision maker: Prem BASS PCR:? Negative DVT/VTE prophylaxis:? Holding medication VTE until after MRI initially, can start enoxaparin 40 mg subQ daily Quality VTE Deep Vein Thrombosis/Pulmonary Embolism Present on Admission: No
--- NOTE | 2022-07-18 18:38 | PC.NURSE ---
pt has been sleeping most of the shift calls appropriately for staff when needed-alert and oriented x4 with left sided facial droop and slurring noted nih 6. bp has been 160's over 90's and increases with amb. denies and pain - decreased appetite- bc pos antbx therapy started.
[2022-07-18] MEDS: ATORVASTATIN 20 MG TABLET 80 MG PO (21:00)
[2022-07-18] MEDS: SENNOSIDES 8.6 MG TABLET 17.2 MG PO (21:00)
[2022-07-19] VITALS (9 sets, daily range): BP systolic 128–178; BP diastolic 87–106; PULSE 76–90; RESP 18–22; TEMP 36.2–37.4; O2SAT 98; BMI 22.4
[2022-07-19 05:07] LABS: Add Manual Diff / Slide Review NO; Basophils Absolute Auto 100 /uL (0-100); Basophils Percent Auto 0.7 % (0-2); Eosinophils Absolute Auto 200 /uL (0-450); Eosinophils Percent Auto 1.3 % (2-4); Hematocrit 37.1 % (41-53); Hemoglobin 12.9 g/dL (13.5-17.5); Lymphocytes Absolute Auto 1700 /uL (1100-4500); Lymphocytes Percent Auto 12.5 % (25-40); Mean Corpuscular HGB Conc 34.7 % (30-36); Mean Corpuscular Hemoglobin 31.8 PG (26-34); Mean Corpuscular Volume 91.5 fL (80-100); Monocytes Absolute Auto 1100 /uL (0-900); Neutrophils Absolute Auto 10800 /uL (1500-7000); Neutrophils Percent Auto 77.5 % (50-75); Platelet Count 234 X10^3/uL (150-400); Red Blood Cell Count 4.05 X10^6/uL (4.5-5.9); Red Cell Distribution Width 13.5 % (11.6-14.8); White Blood Cell Count 13.9 X10^3/uL (4.5-11.0)
[2022-07-19 05:23] LABS: Alanine Aminotransferase 20 IU/L (<50); Albumin 2.6 g/dL (3.5-5.0); Albumin Globulin Ratio 0.8 (1.0-2.8); Alkaline Phosphatase 64 U/L (38-126); Aspartate Aminotransferase 35 IU/L (17-59); Bilirubin Total 0.7 mg/dL (0.2-1.3); Blood Urea Nitrogen 17 mg/dL (9-20); Calcium 7.9 mg/dL (8.4-10.2); Carbon Dioxide 23 mmol/L (22-32); Chloride 111 mmol/L (98-107); Estimated Glomerular Filt Rate > 60 mL/min (>60); Globulin 3.1 g/dL (1.7-4.1); Glucose 106 mg/dL (80-110); HEMOLYSIS < 15 (0-50); Potassium 3.3 mmol/L (3.4-5.1); Sodium 138 mmol/L (137-145); Total Protein 5.7 g/dL (6.3-8.2)
[2022-07-19 05:45] LABS: Thyroid Stimulating Hormone 0.865 uIU/mL (0.47-4.68)
[2022-07-19] MEDS: SODIUM CHLORIDE 0.9% 1,000 ML 60 ML IV (06:26)
[2022-07-19] MEDS: ASPIRIN EC 325 MG TABLET PO (08:24)
[2022-07-19] MEDS: ENOXAPARIN 40 MG/0.4 ML SYRINGE SUBCUT (08:24)
[2022-07-19] MEDS: CLOPIDOGREL 75 MG TABLET PO (08:25)
[2022-07-19] MEDS: METOPROLOL ER 25 MG TABLET PO ×2 (08:28→20:47)
--- NOTE | 2022-07-19 09:19 | OT.IP.EVAL ---
Current Diagnoses Transient cerebral ischemic attack, unspecified (07/17/22) Past Medical History (Last Reviewed 07/18/22 @ 16:44 by Paulette Mccarthy MD) Essential hypertension Hyperlipidemia Surgical History (Last Reviewed 07/18/22 @ 16:44 by Paulette Mccarthy MD) History of heart valve replacement Occupational Therapy Inpatient Evaluation/Re-Eval M1 PT/OT-IP Prior Functional Status Start: 07/18/22 10:26 Freq: Status: Active Protocol: Document 07/18/22 10:27 (Rec: 07/18/22 10:42 [id number]) Medical Review Prior Functional Status Medical History Reviewed Yes Diet/Fluid Consistency Regular Communication Facial droop post CVA in early June From [facility] Mobility and Gait Independent Activities of Daily Living and IADL's Independent Prior Functional Level (Other details) Pt was fully independent prior to and post CVA in early June 2022. He does not use a. d. He drives and manages all his own affairs. He has a dtr but she lives on the [facility]. He walks 1 mi every other day. He is close with a neighbor. Social History Household Members none Living Arrangements House Number of Floors (Floors) One Floor Number of Stairs To Enter/Railing? 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 Sister in [place] that he is no longer in communication with. Dtr that lives out of the country. Recent lacunar infarct on 07/07/22. Pt left hospital AMA. M1 PT/OT-IP Prior Functional Status Start: 07/19/22 10:26 Freq: NEEDED Status: Active Protocol: Document 07/19/22 10:26 [facility] (Rec: 07/19/22 10:45 [facility] [id number]) Medical Review Prior Functional Status Medical History Reviewed Yes Diet/Fluid Consistency Regular Communication Facial droop post CVA in early June From [facility] Mobility and Gait Independent Activities of Daily Living and IADL's Independent Prior Functional Level (Other details) Pt was fully independent prior to and post CVA in early June 2022. He does not use a. d. He drives and manages all his own affairs. He has a dtr but she lives on the [facility]. He walks 1 mi every other day. He is close with a neighbor. Social History Household Members none Living Arrangements House Number of Floors (Floors) One Floor Number of Stairs To Enter/Railing? 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 Sister in [place] that he is no longer in communication with. Dtr that lives out of the country. Recent lacunar infarct on 07/07/22. Pt left hospital AMA. 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 Patient/Caregiver Goals To get home. OT Pain Assessment Pain When Pain Assessed At Rest Pain Present Pain Present Denied Pain M4 OT- IP ADL's Start: 07/19/22 10:26 Freq: Status: Active Protocol: Document 07/19/22 10:26 [facility] (Rec: 07/19/22 10:45 [facility] [id number]) OT [id number] Comments OT Self-Feeding Comments Noted pt coughing on thin liquids when drinking water, TAP GRINDER to assess. Pt does have left facial droop. OT ADL-Grooming Comments OT Grooming Comments Not performed. OT ADL-Oral Care Comments Oral Care Comments Not performed. OT ADL-Dressing General Eval Lower Body Dressing Ability Standby Assistance Comments OT Dressing Comments Pt able to dimitri/doff his socks while sitting in bed long sitting. OT ADL-Toileting Comments OT Toileting Comments Not performed. OT ADL-Bathing Comments OT Bathing Comments Pt will benefit from a shower chair. M5 OT- IP IADL's Start: 07/19/22 10:26 Freq: Status: Active Protocol: Document 07/19/22 10:26 [facility] (Rec: 07/19/22 10:45 [facility] [id number]) OT-Instrumental Activities of Daily Living Home Safety Awareness Awareness of Need for Assistance at Home Decreased Awareness Medication Management Medication Management Comments Pt would benefit from assist at this time due to pt needing increased time to process and problem solve at this time. Money Management Money Management Comments Pt would benefit from assist at this time due to pt needing increased time to process and problem solve at this time. Meal Preparation Meal Preparation Comments Pt will benefit from assist. Qualitative Executive Researcher Qualitative Executive Researcher Comments Pt will benefit from assist. Driving Driving Concerns Identified Regarding Safety M6 OT- IP Functional Cognition Start: 07/19/22 10:26 Freq: Status: Active Protocol: Document 07/19/22 10:26 [facility] (Rec: 07/19/22 10:45 [facility] [id number]) Cognitive Factors Limiting Selfcare Function Cognitive Ability Level of Alertness Alert Patient Orientation Name,Place,Situation Attention Span Ability Capable of Focused Attention, Capable of Sustained Attention Ability to Follow Commands Able to Follow One Step Commands Memory Description Working Impaired Problem Solving Ability Needs Assist to Identify Solutions Cognitive Comments Cognitive Assessment Comments Pt able to follow commands for mobility and ADl needs. Pt scored 268 seconds on [place] MAking PArt B which implies severe impairments for visual attention, task switching, mental flexibility, executive functioning, and speed of processing. Pt is aware that to get someone to drive for him and strongly considering Ot's suggestion of having someone to stay with him initially to assist with his needs. OT- Vision and Hearing OT- Hearing Assessment OT- Hearing Assessment WFL OT- Vision Assessment Visual Acuity WFL Visual Attentiveness WFL Occular Pursuits WFL Visual Convergence WFL Visual Sidhu WFL Diplopia Absent M7 OT- IP Mobility and Balance Start: 07/19/22 10:26 Freq: Status: Active Protocol: Document 07/19/22 10:26 [facility] (Rec: 07/19/22 10:45 [facility] [id number]) OT- Bed Mobility Assessment Supine to Sit Supine to Sit Assist Independent Sit to Supine Sit to Supine Assist Independent OT-Transfer Assessment Sit to and From Stand Sit to and from Stand Independent OT- Balance Assessment Sitting Balance and Reactions Static Sitting Balance Ability Normal Dynamic Sitting Balance Ability Normal Standing Balance and Reactions Static Standing Balance Ability Normal M8 OT- IP Objective Assessments Start: 07/19/22 10:26 Freq: Status: Active Protocol: Document 07/19/22 10:26 [facility] (Rec: 07/19/22 10:45 [facility] [id number]) OT Gross Range of Motion Upper Extremity Range of Motion Assessment Left Impaired ROM Impairments LUE mildly decreased at end ROM OT Strength Upper Extremity Strength Assessment Left Impaired Shoulder 4- Elbow 4 Forearm 4 Wrist 4+ Hand 4+ OT- Coordination Assessment Upper Extremity Finger to Nose Test Within Functional Limits Finger Tapping Test Left UE Impaired Comments Coordination Comments Left UE slight decreased in time compared to right hand OT-Muscle Tone Assessment Muscle Tone WNL Yes OT Sensation Assessment Comments Summary Comments Intact for light touch for BUE M9 OT- IP Assessment and Plan Start: 07/19/22 10:26 Freq: Status: Active Protocol: Document 07/19/22 10:26 [facility] (Rec: 07/19/22 10:45 [facility] [id number]) OT Summary Assessment and Plan Potential Rehabilitation Potential Good Analytic Complexity at Evaluation Moderate Summary OT Impairments Strength,Coordination, Functional Cognition, Functional Mobility,Self- Feeding,Grooming,Dressing, Toileting,Bathing Progress Towards Goals Progressing Toward Goals Assessment Summary Pt MOD complexity due to CVA and main barriers are decreased coordination, LUE strength, high level problem solving and processing. Pt will benefit from assist at home, however pt lives alone but states to work on finding someone to stay with him initially. Pt would benefit for home health as pt suggested not to drive at this time due decreased scored of 268 seconds for [place] making Part b. Pt also noted to be coughing on thin liquids during OT eval. Goals Grooming Goal Independent Dressing Goal Independent Toileting Goal Independent Bathing Goal Independent OT-Other Goals Pt to incorporate use of LUE 100% in smooth coordinated movement for all ADl needs. Days to Meet Goals 5 Frequency of Treatment Frequency Of Treatment Once a Day Treatment Plan OT Treatment Plan ADL Training,Functional Cognition Training,Functional Mobility,Patient/Family Education,Discharge Planning Other Treatment Recommendations and Next shower, reassess [place] making Treatment Focus part B Discharge Recommendations OT Discharge Recommendations Home with Assistance,Home Health Home Equipment Needs shower chair Transportation Needs at Discharge Private Vehicle
[2022-07-19] MEDS: cefTRIAXone 2,000 MG in SODIUM CHLORIDE 0.9% 100 ML 200 MG IV (10:10)
[2022-07-19] MEDS: POTASSIUM CHLORIDE 20 MEQ TAB 40 MEQ PO ×2 (10:11→16:30)
--- NOTE | 2022-07-19 14:21 | P.PN_ITS ---
Subjective Subjective Interval history: Patient indicating that he has slight increased weakness left side compared to yesterday afternoon and slight increase in slurred speech as well. Has pending formal LABOURERS evaluation later today. Exam Vital Signs (past 8 hours): - 07/19/22 08:28 07/19/22 08:00 07/19/22 09:54 Temperature 97.1 F L Pulse Rate 80 80 80 Respiratory Rate 18 Blood Pressure 157/98 H 157/98 H 157/98 H Pulse Oximetry 98 Oxygen Flow Rate 0 07/19/22 12:00 Temperature 98.6 F Pulse Rate 80 Respiratory Rate 20 Blood Pressure 128/106 H Pulse Oximetry 98 Oxygen Flow Rate 0 Oxygen Delivery Method Room Air Oxygen Flow Rate 0 Narrative Exam Narrative: GENERAL:? Alert and orientated x 3 elderly male HEENT: Head atraumatic,EOMI, pupils reactive, left facial droop, moist mucous me mbranes CARDIOVASCULAR: Regular rate and rhythm without murmurs, rubs or gallops. RESPIRATORY: Breath sounds equal bilaterally in all lobes, no wheezes rales or rhonchi. ABDOMEN: Soft, nontender.? Hyperactive bowel sounds all 4 quadrants.? No guarding or rebound. EXTREMITIES: Normal range of motion, no clubbing or edema.? Neurovascularly intact Left hand is noted to be mildly swollen mildly erythematous distal radial pulse intact.? Abrasions on knees. NEUROLOGICAL: Alert and oriented x4.Normal gait and speech.? Left facial droop slurring of words with no receptive or expressive aphasia but has some dysarthria the appears to be slightly increased from yesterday afternoon but improved since admission. Left arm some drift.? Strength left hand is less than right.? Good [id number]-[id number] with right hand.? Able to do with left hand but difficult.? Good cyfj-gf-guig with both legs lower leg extremity equal, SKIN: Warm, dry, no laceration, no petechiae, no rashes or lesions. Objective Labs 07/19/22 04:20 07/19/22 04:20 Labs: Laboratory Results - last 24 hr 07/19/22 07/19/22 07/19/22 04:20 04:20 04:20 WBC 13.9 H RBC 4.05 L Hgb 12.9 L Hct 37.1 L MCV 91.5 MCH 31.8 MCHC 34.7 RDW 13.5 Plt Count 234 Neut % (Auto) 77.5 H Lymph % (Auto) 12.5 L [place] % (Auto) 8.0 Eos % (Auto) 1.3 L Baso % (Auto) 0.7 Neut # (Auto) 97477 H Lymph # (Auto) 1700 [place] # (Auto) 1100 H Eos # (Auto) 200 Baso # (Auto) 100 Sodium 138 Potassium 3.3 L Chloride 111 H Carbon Dioxide 23 BUN 17 Creatinine 1.00 Estimated GFR > 60 BUN/Creatinine Ratio 17.0 Glucose 106 Calcium 7.9 L Total Bilirubin 0.7 AST 35 ALT 20 Alkaline Phosphatase 64 Total Protein 5.7 L Albumin 2.6 L Globulin 3.1 Albumin/Globulin Ratio 0.8 L TSH 0.865 D [facility] Medical History Essential hypertension Hyperlipidemia Surgical History History of heart valve replacement Family History Mother Pneumonia Father Congestive heart failure Social History household members: none Smoking Status: Former smoker alcohol intake: current Assessment & Plan Assessment & Plan narrative: 1. Acute stroke, acute, with history of stroke of subacutely, acute on chronic present on admission-confirmed as follows:? Right anterolateral frontal lobe, right parietal lobe, right occipital lobe, left cerebellar hemisphere and left superior parietal lobe -NIH:3, left-sided facial droop, moderate dysarthria has improved, left upper extremity weakness present -recent lacunar infarct on 07/07/2022 left ED against medical advice -patient admitted under TIA stroke protocol, aspiration precautions -PT/OT/speech evaluation -speech still pending. -negative bedside swallow -brain CT negative for acute intracranial process.? -CTA head and neck is negative for acute stroke, hemorrhage, or mass noted moderate left cavernous carotid stenotic disease < 50% ICA, mild proximal right ICA. -MRI no hemorrhage -echo 70% or greater ejection fraction and no wall motion abnormality -Lipitor 80 mg, ASA continue 325 mg daily, continue Plavix 75 mg daily 2. Hypertensive urgency on presentation, in the setting of essential hypertension, CAD & valve replacement, acute on chronic, present on admission - ED b/p 187/105, 174/100 -> 159/92 today, and slightly tachycardic heart rates 100-107 -> 82 -> 80 today.? CK-2:4.89, RI: 0.7, BNP 1200. -Admit vitals temp 98.6?, BP 156/93, HR 106, RR 21 now 128/106 HR 80 and RR 20 -Initial troponin 0.159, repeat 0.149 then 0.1.? EKG is unchanged in similar to that from 06/22/2022.? -troponin is downtrended -continue metoprolol 3. Hyperlipidemia, chronic, present on admission -increased Lipitor from 5 mg to 80 mg 4. Leukocytosis, neutrophilic, acute, present on admission -likely secondary to stroke -on presentation WBC 18.9, neut 16,100, mono 1200, baso 300.? Chloride 111, bicarb 20, glucose 166, albumin 3.3, ETOH, COVID, procalcitonin are all negative.? CK 700, lactate negative. WBC 13.9 today. -blood and urine cultures -blood cultures positive for Streptococcus patient placed on ceftriaxone IV daily 5. Malnutrition, mild, acute on chronic, present on admission -as evidence by BMI 22.5 -patient's malnutrition places them at high risk for medical and surgical complications in relation to acute illness/chronic illness.? This increases the difficulty in complexity of medical management and increases the chances poor outcomes such as mortality and morbidity as well as impaired wound healing, and immune suppression. -dietary consult ordered to evaluate and implement steps to improve caloric intake and nutrition. 6. Positive blood cultures -gram-positive cocci/Streptococcus- started on Ceftriaxone 2 gm IV daily. sensitivities pending. Follow clinically and labs. Code status:? Full Surrogate decision maker: Prem BASS PCR:? Negative DVT/VTE prophylaxis:? Holding medication VTE until after MRI initially, can start enoxaparin 40 mg subQ daily Quality VTE Deep Vein Thrombosis/Pulmonary Embolism Present on Admission: No
--- NOTE | 2022-07-19 15:54 | CM.DPC ---
DCP Cont: Met with patient to discuss home health. He is ok with this, he knows that he can't drive for a while. Went over home health agencies, has no preferences. [facility] is listed on calendar, initiated referral, [facility], has emailed and notified [facility]. Completed face to face and orders. Will order RN, P.T, O.T, and speech. Patient is working on having a neighbor look in on him, does not want rehab. P: DCP to continue to follow. Plan is home with [facility]. They will need update upon discharge, and DC Summary, as well as orders. Lissa Pardo RN/Vehicle Maintenance Supervisor
--- NOTE | 2022-07-19 17:00 | ST.IPCSEOM ---
Visit Care Team Role Provider Type Doctor MD Leonel Primary Care Provider Non-Staff Specialty: Medical Address: Phone: Fax: Email: Shankar Ventura MD Family Provider Physician Specialty: Internal Medicine Address: [address] [place] [address], [id number] Email: [email or web address] Sonal Oneal DO Emergency Provider Physician Referring Provider Specialty: Emergency Medicine Address: [address] [place] [address], [id number] Email: [email or web address] [email or web address] Mccarthy MD Admit Provider Physician Attending Provider Specialty: Family Practice Address: [address] [place] [address], [address] Phone: Fax: Email: [email or web address] [email or web address] Transient cerebral ischemic attack, unspecified (07/17/22) Past Medical History (Last Reviewed 07/18/22 @ 16:44 by Paulette Mccarthy MD) Essential hypertension (Medical) Hyperlipidemia (Medical) Speech-Language Pathology Swallow Evaluation CLINICAL DOCUMENTATION MANAGER Clinical Swallow Evaluation Start: 07/19/22 16:39 Freq: Status: Active Protocol: Document 07/19/22 16:40 CG (Rec: 07/19/22 17:00 CG [id number]) Clinical Swallow Evaluation Session Time Visit Start Time 15:45 Visit Stop Time 16:40 Total Visit Minutes 55 Visit Information Visit Number 1 Referral Referring Provider Chitra Reason for Referral Dysphagia 2/ CVA Setting Assessment Location Acute Care Visit Type Note Type Initial evaluation Next Note Type Next Note Type Treatment Note Patient Information Identification Type Name History Per H&P: Dhaval Rosales is a 82 male with a known medical history of CAD and valve replacement, recent lacunar infarcts on 07/07/2022 and left against medical advice.? EMS was called today concern for stroke.? Neighbor reports that he was walking around yesterday at his baseline but realized today that he had not been out of his house which is abnormal for him.? He was found crawling around on the floor.? He has obvious aphasia , which made obtaining HPI, ROS significantly difficult on admit, although patient does appear alert orientated x3, positive left facial droop and some left-sided weakness.? He reported to the ED that maybe symptoms started this morning but his last known well is unknown. He is a poor historian and difficult to understand in regards to todays events. In the ED patient presented with blood pressure is 187/105, 174/100, and slightly tachycardic heart rates 100-107. On admit patient does not appear to demonstrate or endorse the following chest pain, shortness in breath, headache, fever, body aches, chills, cough, abdominal pain, nausea, vomiting, urinary incontinence/retention, dysuria, frequency, urgency, hematuria, bowel changes, constipation, incontinence, melena, rashes, recent changes to medication. Admit vitals temp 98.6?, BP 156/93, HR 106, RR 21, O2 saturation 98% on room air. NIH score 3. WBC 18.9, newt 16,100, mono 1200, baso 300. Chloride 111, bicarb 20, glucose 166, albumin 3.3, ETOH , COVID, procalcitonin are all negative. CK 700 lactate negative, GFR 57, CK-2: 4.89, RI 0.7, BNP 1200. Chest x- ray negative, left hand x-ray noted soft tissue swelling without fracture or acute injury, brain CT negative for acute intracranial process. Initial troponin 0.159, repeat 0.149. EKG which I personally reviewed sinus rhythm [address] or T-wave changes EKG is unchanged in similar to that from 2022. CTA head and neck is negative for acute stroke, hemorrhage, or mass noted moderate left cavernous carotid stenotic disease < 50% ICA, mild proximal right ICA. Patient admitted for acute TIA versus stroke, with hypertensive urgency. Subjective Observations Pt was partially reclined in bed upon ST arrival to the room. ST accompanied by RD student, and pt was agreeable. Oriented across concepts. No word finding deficits noted though the pt did present with severe dysarthria due to left sided facial hemiparesis. Reported by Patient Other Symptoms Choking,Coughing,Difficulty swallowing liquids Comment Nursing reported some coughing on liquids, though they stated he did not have difficulty with solids or with medications. They report he has been much easier to understand compared to yesterday though his speech remains slurred. Current Diet Regular,Thin liquids Baseline Feeding Method Needs some assistance Objective Assessment Mental Status Alert,Responsive,Cooperative Oral Integrity WFL Dentition Missing teeth Lip Function Moderate impairment Observation of Lips at Rest Left sided weakness/Drooping Pucker Reduced range of motion,Left sided weakness/drooping Lip Retraction Reduced range of motion,Left sided weakness/Drooping Alternating Pucker/Lip Retraction Reduced range of motion Tongue Function Within normal limits Observations of Tongue at Rest Within normal limits Tongue Protrusion Within normal limits Tongue Retraction Within normal limits Tongue Lateralization Reduced range of motion Jaw Function Within normal limits Observations of Jaw at Rest Within normal limits Jaw Opening Within normal limits Hard/Soft Palate Function Within normal limits Observations of Hard/Soft Palate Within normal limits Comment Pt presented with left sided facial hemiparesis. Lingual coordination was WFL, with ROM moderately reduced due to difficulty lateralizing to the left. Lingual elevation and protrusion WFL. Labial coordination and ROM was moderately reduced due to left sided weakness, though anterior bolus loss was not observed during PO trials. Pt was unable to move lips to smile on L side. Mandibular strength/ROM appeared WFL but with mildly reduced ROM on L side. Food and Liquid Trials Position During Assessment Upright (90 degrees) Liquids Trialed Thin,Pudding Solids Trialed Dysphagia Mechanical Administration Type Tea spoon,Cup single sip,Straw Oral Impairment Mildly impaired Oral Phase Comments During trials thin via straw, labial seal around straw was WFL/ No anterior bolus loss observed. A-P transit was mildly delayed. During trials pudding with crumbled vida crackers, labial seal was WFL with A-P transit midly delayed. Mild oral residue remained after swallow of vida crackers/pudding, but pt awareness of residue intact . Pharyngeal Impairment Severely impaired Pharyngeal Phase Comments Trials thin via straw sip resulted in coughing immediately after the swallow as well as delayed coughing. Trials thin via teaspoon (no postural change) were WFL. However, CLINICAL DOCUMENTATION MANAGER trialed sips thin via cup sip with head turn left due to risk of inadequate hydration with teaspoon sips. Cup sip thin with head turn left was WFL. However, silent aspiration cannot be ruled out without an instrumental assessment. During trials pudding and vida crackers, pt presented with coughing before the swallow on initial trial of approximately 1.5-2 teaspoons. During additional trials with smaller bolus (.5-.75tsp) , no overt s/s aspiration were observed; however, silent aspiration cannot be ruled out without an instrumental assessment. Fatigue/Endurance Endurance WNL Strategies Attempted Head rotation Response/Comments Cup sips thin with head turn left were WFL during evaluation; however, silent aspiration cannot be ruled out without an instrumental assessment. Findings Swallowing Function Oropharyngeal phase dysphagia Severity of Swallow Impairment Moderately-severely impaired Contributing Factors to Swallow Delayed swallow initiation, Impairment Impaired airway protection Comments Suspect L side pharyngeal weakness/paresis Prognosis Fair Based on Other (comment) Comment Pt has history of leaving hospital AMA and states he wants to leave tomorrow. Prognosis is guarded without continued monitoring and tx from CLINICAL DOCUMENTATION MANAGER, as aspiration risk is high. Impact on Safety and Functioning Risk for aspiration Recommendations Swallowing Treatment Yes Recommended Solids Dysphagia Mechanical Recommended Liquids Thin Other Recommendations Head turn LEFT, SMALL sips. Safety Precautions/Swallowing 1 to 1 distant supervision, Recommendations Feed only when alert,Remain upright (90 degrees) during all oral intake,Small bites and sips when eating,No straw, Set-up assistance,Check for pocketing Medication Recommendations As Tolerated,Whole in Carrier Discharge Recommendations shelter facility Education Patient/Caregiver Education Described results of evaluation,Patient expressed understanding of evaluation, Family/caregivers expressed understanding of evaluation, Patient expressed understanding of safety precautions,Patient expressed understanding of feeding recommendations,Family/ caregivers expressed understanding of safety precautions,Family/caregivers expressed understanding of feeding recommendations, Patient requires further education/training Goals Short-term Goals Pt will demonstrate understanding of and compliance with swallowing precautions as prescribed by CLINICAL DOCUMENTATION MANAGER. Pt's diet will be advanced as tolerated. Long-term Goals Pt will tolerate a diet of regular solids and thin liquids without overt s/s aspiration/penetration in order to meet his nutrition/ hydration needs.
[2022-07-19] MEDS: SENNOSIDES 8.6 MG TABLET 17.2 MG PO (20:46)
[2022-07-19] MEDS: ATORVASTATIN 20 MG TABLET 80 MG PO (20:47)
[2022-07-19 22:09] LABS: Labcorp Hemoglobin (Hb) A1c 6.2 % (4.8-5.6)
[2022-07-20 00:08] VITALS: BP 157/90; PULSE 74; RESP 20; TEMP 36.8; O2SAT 98
[2022-07-20 00:26] VITALS: BP 157/90; PULSE 74
[2022-07-20 04:00] VITALS: BP 159/89; PULSE 75; RESP 17; TEMP 36.9; O2SAT 97
[2022-07-20 05:42] LABS: Add Manual Diff / Slide Review NO; Basophils Absolute Auto 100 /uL (0-100); Basophils Percent Auto 0.7 % (0-2); Eosinophils Absolute Auto 200 /uL (0-450); Hematocrit 37.1 % (41-53); Hemoglobin 12.7 g/dL (13.5-17.5); Lymphocytes Absolute Auto 1500 /uL (1100-4500); Lymphocytes Percent Auto 12.7 % (25-40); Mean Corpuscular HGB Conc 34.4 % (30-36); Mean Corpuscular Hemoglobin 31.3 PG (26-34); Mean Corpuscular Volume 91.1 fL (80-100); Monocytes Absolute Auto 1000 /uL (0-900); Monocytes Percent Auto 8.4 % (3-14); Neutrophils Absolute Auto 9200 /uL (1500-7000); Neutrophils Percent Auto 76.2 % (50-75); Platelet Count 256 X10^3/uL (150-400); Red Blood Cell Count 4.07 X10^6/uL (4.5-5.9); Red Cell Distribution Width 13.1 % (11.6-14.8); White Blood Cell Count 12.1 X10^3/uL (4.5-11.0)
[2022-07-20 05:53] LABS: Alanine Aminotransferase 21 IU/L (<50); Albumin 2.6 g/dL (3.5-5.0); Albumin Globulin Ratio 0.9 (1.0-2.8); Alkaline Phosphatase 61 U/L (38-126); Aspartate Aminotransferase 34 IU/L (17-59); BUN Creatinine Ratio 12.2 (6-22); Bilirubin Total 0.9 mg/dL (0.2-1.3); Blood Urea Nitrogen 12 mg/dL (9-20); Calcium 7.9 mg/dL (8.4-10.2); Carbon Dioxide 22 mmol/L (22-32); Chloride 110 mmol/L (98-107); Estimated Glomerular Filt Rate > 60 mL/min (>60); Glucose 101 mg/dL (80-110); HEMOLYSIS < 15 (0-50); Potassium 3.9 mmol/L (3.4-5.1); Sodium 137 mmol/L (137-145); Total Protein 5.6 g/dL (6.3-8.2)
[2022-07-20 08:00] VITALS: BP 159/97; BP 166/91; PULSE 77; PULSE 79; RESP 17; RESP 18; TEMP 36.9; TEMP 37.4; O2SAT 97
--- NOTE | 2022-07-20 08:01 | CM.DPNOTE ---
Contacted [facility] by email (Jayda's request) for [facility] services. He has accepted the patient. Vandana Soria, [employer] Exterior Designer.
[2022-07-20 08:38] VITALS: BP 159/97; PULSE 77
[2022-07-20] MEDS: ASPIRIN EC 325 MG TABLET PO (08:38)
[2022-07-20] MEDS: METOPROLOL ER 25 MG TABLET PO (08:38)
[2022-07-20] MEDS: CLOPIDOGREL 75 MG TABLET PO (08:38)
[2022-07-20] MEDS: ENOXAPARIN 40 MG/0.4 ML SYRINGE SUBCUT (08:38)
[2022-07-20] MEDS: ASPIRIN EC 325 MG TABLET 81 MG PO (09:00)
--- NOTE | 2022-07-20 09:04 | P.PN_ITS ---
Exam Vital Signs (past 8 hours): - 07/20/22 04:00 07/20/22 08:00 07/20/22 08:38 Temperature 98.4 F 99.3 F Pulse Rate 75 77 77 Respiratory Rate 17 18 Blood Pressure 159/89 H 159/97 H 159/97 H Pulse Oximetry 97 97 Oxygen Flow Rate 0 Oxygen Delivery Method Room Air Oxygen Flow Rate 0 Narrative Exam Narrative: GENERAL:? Alert and orientated x 3 elderly male HEENT: Head atraumatic,EOMI, pupils reactive, left facial droop, moist mucous membranes CARDIOVASCULAR: Regular rate and rhythm without murmurs, rubs or gallops. RESPIRATORY: Breath sounds equal bilaterally in all lobes, no wheezes rales or rhonchi. ABDOMEN: Soft, nontender.? Hyperactive bowel sounds all 4 quadrants.? No guarding or rebound. EXTREMITIES: Normal range of motion, no clubbing or edema.? Neurovascularly intact Left hand is noted to be mildly swollen mildly erythematous distal radial pulse intact.? Abrasions on knees. NEUROLOGICAL: Alert and oriented x4.Normal gait and speech.? Left facial droop slurring of words with no receptive or expressive aphasia but has some dysarthria the appears to be slightly increased from yesterday afternoon but im proved since admission. Left arm some drift.? Strength left hand is less than right.? Good mepkbz-st-chee with right hand.? Able to do with left hand but difficult.? Good [id number] with both legs lower leg extremity equal, SKIN: Warm, dry, no laceration, no petechiae, no rashes or lesions. Objective Labs 07/20/22 05:05 07/20/22 05:05 Labs: Laboratory Results - last 24 hr 07/17/22 07/20/22 07/20/22 16:55 05:05 05:05 WBC 12.1 H RBC 4.07 L Hgb 12.7 L Hct 37.1 L MCV 91.1 MCH 31.3 MCHC 34.4 RDW 13.1 Plt Count 256 Neut % (Auto) 76.2 H Lymph % (Auto) 12.7 L [place] % (Auto) 8.4 Eos % (Auto) 2.0 Baso % (Auto) 0.7 Neut # (Auto) 9200 H Lymph # (Auto) 1500 [place] # (Auto) 1000 H Eos # (Auto) 200 Baso # (Auto) 100 Sodium 137 Potassium 3.9 Chloride 110 H Carbon Dioxide 22 BUN 12 Creatinine 0.98 Estimated GFR > 60 BUN/Creatinine Ratio 12.2 Glucose 101 Hgb A1c (Ref Lab) 6.2 H Calcium 7.9 L Total Bilirubin 0.9 AST 34 ALT 21 Alkaline Phosphatase 61 Total Protein 5.6 L Albumin 2.6 L Globulin 3.0 Albumin/Globulin Ratio 0.9 L PFSH Medical History Essential hypertension Hyperlipidemia Surgical History History of heart valve replacement Family History Mother Pneumonia Father Congestive heart failure Social History household members: none Smoking Status: Former smoker alcohol intake: current Assessment & Plan Assessment & Plan narrative: 1. Acute stroke, acute, with history of stroke of subacutely, acute on chronic present on admission-confirmed as follows:? Right anterolateral frontal lobe, right parietal lobe, right occipital lobe, left cerebellar hemisphere and left superior parietal lobe -NIH:3, left-sided facial droop, moderate dysarthria has improved, left upper extremity weakness present -recent lacunar infarct on 07/07/2022 left ED against medical advice -patient admitted under TIA stroke protocol, aspiration precautions -PT/OT/speech evaluation -speech still pending. -negative bedside swallow -brain CT negative for acute intracranial process.? -CTA head and neck is negative for acute stroke, hemorrhage, or mass noted moderate left cavernous carotid stenotic disease < 50% ICA, mild proximal right ICA. -MRI no hemorrhage -echo 70% or greater ejection fraction and no wall motion abnormality -Lipitor 80 mg, ASA continue 325 mg daily, continue Plavix 75 mg daily 2. Hypertensive urgency on presentation, in the setting of essential hypertension, CAD & valve replacement, acute on chronic, present on admission - ED b/p 187/105, 174/100 -> 159/92 today, and slightly tachycardic heart rates 100-107 -> 82 -> 80 today.? CK-2:4.89, RI: 0.7, BNP 1200. -Admit vitals temp 98.6?, BP 156/93, HR 106, RR 21 now 128/106 HR 80 and RR 20 -Initial troponin 0.159, repeat 0.149 then 0.1.? EKG is unchanged in similar to that from 06/22/2022.? -troponin is downtrended -continue metoprolol 3. Hyperlipidemia, chronic, present on admission -increased Lipitor from 5 mg to 80 mg 4. Leukocytosis, neutrophilic, acute, present on admission -likely secondary to stroke -on presentation WBC 18.9, neut 16,100, mono 1200, baso 300.? Chloride 111, bicarb 20, glucose 166, albumin 3.3, ETOH, COVID, procalcitonin are all negative.? CK 700, lactate negative. WBC 13.9 today. -blood and urine cultures -blood cultures positive for Streptococcus patient placed on ceftriaxone IV daily 5. Malnutrition, mild, acute on chronic, present on admission -as evidence by BMI 22.5 -patient's malnutrition places them at high risk for medical and surgical complications in relation to acute illness/chronic illness.? This increases the difficulty in complexity of medical management and increases the chances poor outcomes such as mortality and morbidity as well as impaired wound healing, and immune suppression. -dietary consult ordered to evaluate and implement steps to improve caloric intake and nutrition. 6. Positive blood cultures -gram-positive cocci/Streptococcus- started on Ceftriaxone 2 gm IV daily. sensitivities pending. Follow clinically and labs. Code status:? Full Surrogate decision maker: Prem BASS PCR:? Negative DVT/VTE prophylaxis:? Holding medication VTE until after MRI initially, can start enoxaparin 40 mg subQ daily Quality VTE Deep Vein Thrombosis/Pulmonary Embolism Present on Admission: No
--- NOTE | 2022-07-20 09:11 | DIET.CONS ---
Addendum entered by Darling Carr 07/20/22 09:38: RD agrees with it intern note below. Original Note: Dietary Consultation Note Admission Date: 07/17/2022 18:33 Assessment: 82 y/o M admitted for acute stroke, with hypertensive urgency. RD consulted for BMI 22.5 (low for age). Met with pt at bedside to discuss current diet. Pt states that he has been eating less in the past couple of weeks d/t decreased appetite. Diet recall: B: yogurt, berries, oats L: (2:00 pm) sandwich D: (8:00 pm) small meal Pt reports having trouble using fork. He is left hand dominant, but writes with right hand. Pt with residual left sided weakness and left facial droop. Wt hx: pt has had a 9.4% wt loss in 2 weeks. 07/07/22: 73.9 kg Pt reports losing 20 lbs 1.5 yrs ago due to Covid. Seems pt is at high risk for unintentional wt loss when sick. Average of 50% meal consumed while hospitalized. Per notes, pt lives alone, drives, has friends in the area, and local neighbors. Ht: 172.72 cm Wt: 67 kg BMI: 22.4 Last BM: 07/18/22 (07/19/22 00:44) MNA: 11 (at risk for malnutrition) Claus Score: 21 Diet: 07/17/22 Breakfast Heart Healthy Diet Diet Modifications: 07/20/22 Breakfast Dysphagia Diet Diet Modifications: Head turn left.Small bites/sips.Up for all intake Liquid consistency: Normal/Thin Food texture: Dysphagia Mechanical Soft Nutrition Percent Meal Consumed 75% 07/19/22 17:51 Percent Meal Consumed 25% 07/19/22 12:42 Percent Meal Consumed 25% 07/18/22 18:26 Percent Meal Consumed 50% 07/18/22 15:06 Labs: RBC 4.07 X10^6/uL (4.5-5.9) L 07/20/22 05:05 Hgb 12.7 g/dL (13.5-17.5) L 07/20/22 05:05 Hct 37.1 % (41-53) L 07/20/22 05:05 Creatinine 0.98 mg/dL (0.66-1.25) 07/20/22 05:05 Hemoglobin A1c Cancelled 07/17/22 16:55 Lactate 1.3 mmol/L (0.7-2.1) 07/17/22 19:25 NT-Pro-B Natriuret Pep 1200 pg/mL (<450) H 07/17/22 19:25 Nutrition Diagnosis: severe acute protein calorie malnutrition r/t acute stroke aeb 9.4% unintentional wt loss in 2 weeks, PO meeting <50% EER x2 weeks, pt with left side weakness and facial droop, prescribed modified textured diet for high risk of aspiration, pt lives alone with a few local resources. Interventions: 1. Recommend speech therapy consult to determined safest modified diet to meet adequate PO intake. 2. Pt nutrition status supported by prepared meals while hospitalized. Pt may benefit from a structured living environment. EER: 2000 kcal (30 kcal/kg per BMI), 80-100 (1.2-1.5 per PCM) Monitoring/Evaluations: RD consult prn, POs if POs remain below 75% consider adding ONS. Electronically Signed by: Cyn Maddox 07/20/22 09:11 Clinical Dietitian [address] [address]
[2022-07-20 09:40] VITALS: BP 159/97; PULSE 77
--- NOTE | 2022-07-20 10:28 | P.DS_ITS ---
History of Present Illness History of Present Illness Date Patient Seen: 07/20/22 Time Patient Seen: 10:28 Chief complaint: Stroke Like symptoms Narrative: Dhaval Rosales is a 82 male with a known medical history of CAD and valve replacement, recent lacunar infarcts on 07/07/2022 and left against medical advice.? EMS was called today concern for stroke.? Neighbor reports that he was walking around yesterday at his baseline but realized today that he had not been out of his house which is abnormal for him.? He was found crawling around on the floor.? He has obvious aphasia, which made obtaining HPI, ROS significantly difficult on admit, although patient does appear alert orientated x3, positive left facial droop and some left-sided weakness.? He reported to the ED that maybe symptoms started this morning but his last known well is unknown. He is a poor historian and difficult to understand in regards to todays events. In the ED patient presented with blood pressure is 187/105, 174/100, and slightly tachycardic heart rates 100-107. On admit patient does not appear to demonstrate or endorse the following chest pain, shortness in breath, headache, fever, body aches, chills, cough, abdominal pain, nausea, vomiting, urinary incontinence/retention, dysuria, frequency, urgency, hematuria, bowel changes, constipation, incontinence, melena, rashes, recent changes to medication. Admit vitals temp 98.6?, BP 156/93, HR 106, RR 21, O2 saturation 98% on room air. NIH score 3. WBC 18.9, newt 16,100, mono 1200, baso 300. Chloride 111, bicarb 20, glucose 166, albumin 3.3, ETOH, COVID, procalcitonin are all negative. CK 700 lactate negative, GFR 57, CK-2: 4.89, RI 0.7, BNP 1200. Chest x-ray negative, left hand x-ray noted soft tissue swelling without fracture or acute injury, brain CT negative for acute intracranial process. Initial troponin 0.159, repeat 0.149. EKG which I personally reviewed sinus rhythm [address] or T-wave changes EKG is unchanged in similar to that from 06/22/2022. CTA head and neck is negative for acute stroke, hemorrhage, or mass noted moderate left cavernous carotid stenotic disease < 50% ICA, mild proximal right ICA. Patient admitted for acute TIA versus stroke, with hypertensive urgency. Discharge Providers Provider Date of admission: 07/17/22 18:33 Discharge Date: 07/20/22 Primary care physician: Doctor Leonel MD Consults: 07/17/22 20:46 Consult to Discharge Planning Routine Comment: Consult to Occupational Therapy Evaluate & Treat Comment: Physician Instructions: Evaluate and treat Consult to Physical Therapy Evaluate & Treat Comment: Physician Instructions: Evaluate and Treat Consult to Speech Therapy Evaluate & Treat Comment: Physician Instructions: Evaluate and treat 07/17/22 20:57 Consult to Dietitian, Adult Routine Comment: Reason For Exam: BMI 22.5 07/19/22 15:23 Consult to Home Health Routine Comment: Reason For Exam: Home Health RN, P.T, O.T, speech. Discharge provider: Scott Ozuna DO Summary Hospital Course Discharge Diagnosis: 1. Acute stroke, acute, with history of stroke of subacutely, acute on chronic present on admission-confirmed as follows:? Right anterolateral frontal lobe, right parietal lobe, right occipital lobe, left cerebellar hemisphere and left superior parietal lobe -NIH:3, left-sided facial droop, moderate dysarthria has improved, left upper extremity weakness present -recent lacunar infarct on 07/07/2022 left ED against medical advice -patient admitted under TIA stroke protocol, aspiration precautions -PT/OT/speech evaluation -speech still pending. -negative bedside swallow -brain CT negative for acute intracranial process.? -CTA head and neck is negative for acute stroke, hemorrhage, or mass noted moderate left cavernous carotid stenotic disease < 50% ICA, mild proximal right ICA. -MRI no hemorrhage -echo 70% or greater ejection fraction and no wall motion abnormality, bioprosthetic aortic valve present without evidence of endocarditis -Lipitor 80 mg, ASA continue 81 mg daily, continue Plavix 75 mg daily 2. Hypertensive urgency on presentation, in the setting of essential hypertension, CAD & valve replacement, acute on chronic, present on admission - ED b/p 187/105, 174/100 -> 159/92 today, and slightly tachycardic heart rates 100-107 -> 82 -> 80 today.? CK-2:4.89, RI: 0.7, BNP 1200. -Admit vitals temp 98.6?, BP 156/93, HR 106, RR 21 now 128/106 HR 80 and RR 20 -Initial troponin 0.159, repeat 0.149 then 0.1.? EKG is unchanged in similar to that from 06/22/2022.? -troponin is downtrended -continue metoprolol 3. Hyperlipidemia, chronic, present on admission -increased Lipitor from 5 mg to 80 mg 4. Leukocytosis, neutrophilic, acute, present on admission -likely secondary to stroke -on presentation WBC 18.9, neut 16,100, mono 1200, baso 300.? Chloride 111, bicarb 20, glucose 166, albumin 3.3, ETOH, COVID, procalcitonin are all negative.? CK 700, lactate negative. WBC 12.1 priot to discharge. -blood and urine cultures -blood cultures positive for Streptococcus 5. Malnutrition, mild, acute on chronic, present on admission -as evidence by BMI 22.5 -patient's malnutrition places them at high risk for medical and surgical complications in relation to acute illness/chronic illness.? This increases the difficulty in complexity of medical management and increases the chances poor outcomes such as mortality and morbidity as well as impaired wound healing, and immune suppression. -dietary consult ordered to evaluate and implement steps to improve caloric intake and nutrition. 6. Strep bovis bacteremia -07/17 blood cultures positive 4/4 bottles for Strep infanterius sensitive to rocephin -on 2g rocephin daily -repeat blood cutlures pending from 07/19 -TTE negative for endocarditis, will need PRAVEEN given embolic strokes and bioprosthetic aortic heart valve -transferring to [facility] for ID consult and PRAVEEN -consider colonoscopy if within GOC given strep bovis Code status:? Full code Surrogate decision maker: Prem BASS PCR:? Negative Hospital Course: Admitted for acute stroke symptoms consisting of dysarthria, left facial droop and left sided weakness. MRI brain showed multifocal strokes concerning for embolic source. Placed on DAPT and lipitor 80 nightly. Blood cultures positive for strep infanterius sensitive to rocephin in 4/4 bottles. Repeat cultures pending. TTE negative for endocarditis. Spoke with ID who recommended transfer to [facility] for PRAVEEN and ID consult. Patient was accepted for transfer. Time Spent with Patient Time spent: Greater than 30 minutes Exam Vital Signs (past 8 hours): - 07/20/22 04:00 07/20/22 08:00 07/20/22 08:38 Temperature 98.4 F 99.3 F Pulse Rate 75 77 77 Respiratory Rate 17 18 Blood Pressure 159/89 H 159/97 H 159/97 H Pulse Oximetry 97 97 Oxygen Flow Rate 0 07/20/22 09:40 Temperature Pulse Rate 77 Respiratory Rate Blood Pressure 159/97 H Pulse Oximetry Oxygen Flow Rate Oxygen Delivery Method Room Air Oxygen Flow Rate 0 Narrative Exam Narrative: GENERAL:? Alert and orientated x 3 elderly male HEENT: Head atraumatic,EOMI, pupils reactive, left facial droop, moist mucous membranes CARDIOVASCULAR: Regular rate and rhythm without murmurs, rubs or gallops. RESPIRATORY: Breath sounds equal bilaterally in all lobes, no wheezes rales or rhonchi. ABDOMEN: Soft, nontender.? Hyperactive bowel sounds all 4 quadrants.? No guarding or rebound. EXTREMITIES: Normal range of motion, no clubbing or edema.? Neurovascularly intact Left hand is noted to be mildly swollen mildly erythematous distal radial pulse intact.? Abrasions on knees. NEUROLOGICAL: Alert and oriented x4.Normal gait and speech.? Left facial droop s lurring of words with no receptive or expressive aphasia but has some dysarthria the appears to be slightly increased from yesterday afternoon but improved since admission. Left arm some drift.? Strength left hand is less than right.? Good [id number] with right hand.? Able to do with left hand but difficult.? Good phux-hm-bonf with both legs lower leg extremity equal, SKIN: Warm, dry, no laceration, no petechiae, no rashes or lesions. Objective Labs 07/20/22 05:05 07/20/22 05:05 Labs: Laboratory Results - last 24 hr 07/17/22 07/20/22 07/20/22 16:55 05:05 05:05 WBC 12.1 H RBC 4.07 L Hgb 12.7 L Hct 37.1 L MCV 91.1 MCH 31.3 MCHC 34.4 RDW 13.1 Plt Count 256 Neut % (Auto) 76.2 H Lymph % (Auto) 12.7 L [place] % (Auto) 8.4 Eos % (Auto) 2.0 Baso % (Auto) 0.7 Neut # (Auto) 9200 H Lymph # (Auto) 1500 [place] # (Auto) 1000 H Eos # (Auto) 200 Baso # (Auto) 100 Sodium 137 Potassium 3.9 Chloride 110 H Carbon Dioxide 22 BUN 12 Creatinine 0.98 Estimated GFR > 60 BUN/Creatinine Ratio 12.2 Glucose 101 Hgb A1c (Ref Lab) 6.2 H Calcium 7.9 L Total Bilirubin 0.9 AST 34 ALT 21 Alkaline Phosphatase 61 Total Protein 5.6 L Albumin 2.6 L Globulin 3.0 Albumin/Globulin Ratio 0.9 L PFSH Medical History Essential hypertension Hyperlipidemia Surgical History History of heart valve replacement Family History Mother Pneumonia Father Congestive heart failure Social History household members: none Smoking Status: Former smoker alcohol intake: current Discharge Plan Discharge Plan Patient Disposition: er [facility] Discharge Data Primary Care Provider: Miscellaneous,Doctor Quality VTE Deep Vein Thrombosis/Pulmonary Embolism Present on Admission: No
--- NOTE | 2022-07-20 11:13 | CM.DPNOTE ---
DC Note According to discussion in multidisciplinary rounds; patient has been accepted at [facility] for transfer ANDREINA Ross, has kindly updated Alpha JW
--- NOTE | 2022-07-20 11:44 | PC.NURSE ---
Pt Li&MD Jermain explained to pt about the need for transfer to [facility] for the PRAVEEN d/t stroke s/s. Pt signed [facility] papers. I called [facility] to give Varyl report, but RN was not available. I left my name a number so RN can call back at her convince. I did stress the fact that S had just arrived to p/u pt. Awaiting call back. Pt left unit via S @ [phone].
== END 2022-07-20 11:40 | disposition short-term general hospital (02) | DRG 69 ==
LOC: ED 18:31 → AC 18:34
PROVIDERS: Nurse Practitioner Family; Admitting Provider Neuromusculoskeletal Medicine, Sports Medicine; Emergency Provider Emergency Medicine; Family Provider Internal Medicine; Referring Provider Emergency Medicine; Visit Provider Neuromusculoskeletal Medicine, Sports Medicine
DX: G45.9 Transient cerebral ischemic attack, unspecified (principal); I63.9 Cerebral infarction, unspecified; E44.1 Mild protein-calorie malnutrition; I16.0 Hypertensive urgency; I10 Essential (primary) hypertension; I25.10 Atherosclerotic heart disease of native coronary artery without angina pectoris; E78.5 Hyperlipidemia, unspecified; B95.4 Other streptococcus as the cause of diseases classified elsewhere; R29.810 Facial weakness; R47.1 Dysarthria and anarthria; R29.703 NIHSS score 3; R29.706 NIHSS score 6; Z68.22 Body mass index [BMI] 22.0-22.9, adult; Z20.822 Contact with and (suspected) exposure to COVID-19; Z87.891 Personal history of nicotine dependence; Z95.2 Presence of prosthetic heart valve
CPT/HCPCS: 36415; 70450; 70496; 70498; 70551; 71045; 73130; 80053; 80061; 80320; 82550; 82553; 82962; 83036; 83605; 83735; 83880; 84145; 84443; 84484; 85025; 85610; 85730; 87040; 87086; 87154; 87186; 87635; 92610; 93005; 93010; 93306; 97161; 97166; 97530; 99285; C9803; J0696; J1650; Q9967

== ENCOUNTER → 2022-08-05 08:28 | Outpatient (CLI) | payer MEDICARE, OTHER, SELFPAY ==
[2022-07-19 00:44] VITALS: BMI 22.4
--- NOTE | 2022-08-05 08:30 | DI.RAD.S_ITS ---
PROCEDURE: FL GUIDED PICC PLACEMENT INDICATIONS: treatments for endocarditis COMPARISON: None. FINDINGS: PICC was placed by the intravenous therapy team from the left side. Fluoroscopic spot film demonstrates the tip of PICC projecting to the area of SVC. IMPRESSION: Tip of PICC projects to the area of SVC. Dictated by: Sadi Mckeon M.D. on 08/06/2022 at 9:51 Approved by: Sadi Mckeon M.D. on 08/06/2022 at 9:51
== END ==
PROVIDERS: Family Provider Internal Medicine; Referring Provider Internal Medicine Infectious Disease; Visit Provider Internal Medicine Infectious Disease
DX: Z45.2 Encounter for adjustment and management of vascular access device (principal); T82.6XXA Infection and inflammatory reaction due to cardiac valve prosthesis, initial encounter
CPT/HCPCS: 36573

== ENCOUNTER 2022-08-18 18:21 | Emergency (ER) | payer MEDICARE, SELFPAY ==
[2022-07-19 00:44] VITALS: BMI 22.4
[2022-08-18] VITALS (11 sets, daily range): BP systolic 125–137; BP diastolic 69–83; PULSE 87–108; RESP 18–25; TEMP 36.4–36.8; O2SAT 97–100
--- NOTE | 2022-08-18 18:40 | DI.CT.S_ITS ---
PROCEDURE: CT HEAD/BRAIN WO CON INDICATIONS: fall, hit back of head, on thinners. TECHNIQUE: Noncontrast 4.5 mm thick angled axial sections acquired from the foramen magnum to the vertex, with coronal and sagittal reformats. For radiation dose reduction, the following was used: automated exposure control, adjustment of mA and/or kV according to patient size. COMPARISON: [facility], CT, CT ANGIO HEAD AND NECK, 07/17/2022, 16:54. [facility], MR, MR HEAD/BRAIN WO CON, 07/07/2022, 15:04. [facility], CT, CT HEAD/BRAIN WO CON, 01/09/2021, 17:36. FINDINGS: Image quality: Excellent. CSF spaces: Basal cisterns are patent. No extra-axial fluid collections. The ventricles are symmetric in size and shape. Brain: No intracranial bleeds or masses. There is cerebral volume loss for age, with resultant ventricular and sulcal prominence. Interval development of new hypoattenuation of the right temporal lobe with loss of epps-white matter differentiation. No associated acute hemorrhage. No significant mass effect. There are periventricular and deep white matter chronic small vessel ischemic changes. There is intracranial internal carotid artery atherosclerosis. Skull and face: Calvarium and visualized facial bones appear intact, without suspicious lesions. Sinuses: Visualized sinuses and mastoids are clear. IMPRESSION: Interval development of age-indeterminate cerebral infarction involving the right parietal lobe which likely is subacute in etiology. No acute intracranial hemorrhage. No acute calvarial fracture. Findings were discussed with Dr. Maldonado at 1908 hrs. Dictated by: José Miguel Mcdonald M.D. on 08/18/2022 at 18:58 Approved by: José Miguel Mcdonald M.D. on 08/18/2022 at 19:09
--- NOTE | 2022-08-18 18:40 | DI.CT.S_ITS ---
PROCEDURE: CT CERVICAL SPINE WO CON INDICATIONS: fall, hit back of head, on thinners. TECHNIQUE: Noncontrast 3 mm thick sections acquired from the skull base to the T4 level. Sagittal and coronal reformats were then constructed. For radiation dose reduction, the following was used: automated exposure control, adjustment of mA and/or kV according to patient size. COMPARISON: [facility], CT, CT ANGIO HEAD AND NECK, 07/07/2022, 11:57. FINDINGS: Image quality: Excellent. Bones: No acute fractures or dislocations. No acute compression fractures of the vertebral bodies. Craniocervical junction is intact. C1-C2 relationship is preserved. Visualized superior ribs are intact. Stable appearance of moderate-severe multilevel cervical spondylosis. Stable alignment. Soft tissues: Prevertebral soft tissues are normal in thickness. No paravertebral hematomas. No apical pneumothoraces. Biapical pulmonary scarring. IMPRESSION: CT cervical spine without acute fracture or traumatic malalignment. Stable appearance of moderate-severe multilevel cervical spondylosis. Dictated by: José Miguel Mcdonald M.D. on 08/18/2022 at 19:02 Approved by: José Miguel Mcdonald M.D. on 08/18/2022 at 19:04
--- NOTE | 2022-08-18 18:41 | DI.RAD.S_ITS ---
PROCEDURE: XR CHEST 1V INDICATIONS: chest pain TECHNIQUE: One view of the chest was acquired. COMPARISON: Located [facility], CR, XR CHEST 1V, 07/17/2022, 17:45. FINDINGS: Surgical changes and devices: None. Lungs and pleura: No new focal consolidation. Chronic appearing interstitial prominence unchanged. No pneumothorax or pleural effusion. Mediastinum: Mediastinal contours appear stable. Heart size is normal. Bones and chest wall: No suspicious bony lesions. Overlying soft tissues appear unremarkable. IMPRESSION: Stable radiographic evaluation of the chest without acute cardiopulmonary abnormalities or focal airspace disease. Stable appearance of chronic interstitial prominence. Dictated by: José Miguel Mcdonald M.D. on 08/18/2022 at 19:27 Approved by: José Miguel Mcdonald M.D. on 08/18/2022 at 19:28
[2022-08-18 19:14] LABS: Add Manual Diff / Slide Review NO; Basophils Absolute Auto 100 /uL (0-100); Basophils Percent Auto 0.7 % (0-2); Eosinophils Absolute Auto 400 /uL (0-450); Eosinophils Percent Auto 3.9 % (2-4); Hematocrit 38.3 % (41-53); Hemoglobin 13.2 g/dL (13.5-17.5); Lymphocytes Absolute Auto 1600 /uL (1100-4500); Lymphocytes Percent Auto 15.4 % (25-40); Mean Corpuscular HGB Conc 34.5 % (30-36); Mean Corpuscular Volume 92.9 fL (80-100); Monocytes Absolute Auto 700 /uL (0-900); Neutrophils Absolute Auto 7800 /uL (1500-7000); Platelet Count 179 X10^3/uL (150-400); Red Blood Cell Count 4.13 X10^6/uL (4.5-5.9); Red Cell Distribution Width 14.9 % (11.6-14.8); White Blood Cell Count 10.7 X10^3/uL (4.5-11.0)
[2022-08-18 19:22] LABS: INR 1.3 (0.9-1.3); Prothrombin Time 14.8 SECONDS (10.1-12.7)
[2022-08-18 19:24] LABS: PTT Partial Thromboplastin Tim 28 SECONDS (26-36)
[2022-08-18 19:26] LABS: Alanine Aminotransferase 27 IU/L (<50); Albumin 3.4 g/dL (3.5-5.0); Alkaline Phosphatase 94 U/L (38-126); Aspartate Aminotransferase 43 IU/L (17-59); BUN Creatinine Ratio 19.6 (6-22); Bilirubin Total 0.7 mg/dL (0.2-1.3); Blood Urea Nitrogen 21 mg/dL (9-20); Calcium 8.7 mg/dL (8.4-10.2); Carbon Dioxide 25 mmol/L (22-32); Chloride 106 mmol/L (98-107); Creatine Kinase 147 U/L (55-170); Estimated Glomerular Filt Rate > 60 mL/min (>60); Globulin 3.4 g/dL (1.7-4.1); Glucose 115 mg/dL (80-110); HEMOLYSIS < 15 (0-50); Potassium 3.5 mmol/L (3.4-5.1); Sodium 136 mmol/L (137-145); Total Protein 6.8 g/dL (6.3-8.2)
[2022-08-18 19:27] LABS: Lactate (Lactic Acid) 1.1 mmol/L (0.7-2.1)
[2022-08-18 19:30] LABS: C-Reactive Protein Quant 7.7 mg/dL (<1.0)
[2022-08-18 19:41] LABS: CKMB % Relative Index 2.9 % (1.5-5.0); Creatine Kinase MB 4.28 ng/mL (<2.37)
[2022-08-18 19:42] LABS: Lipase 2403 U/L (23-300)
[2022-08-18 19:43] LABS: Procalcitonin 0.37 ng/mL (<0.5); Troponin I 0.291 ng/mL (0.01-0.034)
--- NOTE | 2022-08-18 19:51 | DI.CT.S_ITS ---
PROCEDURE: CT CHEST ABD PEL W CON INDICATIONS: fall, high trop, high lipase TECHNIQUE: After the administration of intravenous contrast, axial sections acquired from the supraclavicular neck to the pubic symphysis. Coronal and sagittal reformats were performed. For radiation dose reduction, the following was used: automated exposure control, adjustment of mA and/or kV according to patient size. COMPARISON: None. FINDINGS: Image quality: Excellent. CHEST: Lower Neck: No lymphadenopathy by size criteria. Thyroid: Visualized thyroid demonstrates no discrete nodules. Axillae: No lymphadenopathy by size criteria. Chest Wall: Unremarkable. Bones: No acute fractures identified. Lungs and Airways: No pulmonary contusions or lacerations. No acute consolidation. Bilateral linear areas of scarring are demonstrated. There is a calcified nodule in the right middle lobe likely reflecting sequelae of old granulomatous disease. The trachea and central airways are patent. Pleura: No pneumothorax or pleural effusions. Heart: Heart size is normal. No pericardial effusion. There is a prosthetic aortic valve. Thoracic Vessels: The aorta and pulmonary arteries are normal in size. There is a left upper extremity PICC line with the tip extending to the junction of the left innominate vein and superior vena cava. Mediastinum and Sandra: No lymphadenopathy by size criteria. No definite mediastinal hematomas. Esophagus: No wall thickening. No hiatal hernia. ABDOMEN: Liver: No hepatic lacerations or perihepatic fluid collections. Gallbladder: There is a centrally calcified stone within the gallbladder which is partially distended. No pericholecystic fluid. Biliary ducts: No biliary ductal dilatation. Pancreas: No peripancreatic fat stranding or fluid to suggest acute pancreatitis. Spleen: Normal in size. No splenic lacerations or perisplenic fluid collections. Adrenal Glands: No adrenal nodules. Kidneys and Ureters: There is mild left pelvicaliectasis. No urinary stones. No hydroureter. Stomach and Bowel: Stomach, small bowel loops, and colon are normal in caliber and wall thickness. Appendix is normal. There is colonic diverticulosis without acute diverticulitis. Peritoneum: No abnormal intraperitoneal fluid. No free air. Ventral Wall: No hernia. Abdominal Nodes: No retroperitoneal or mesenteric adenopathy by size criteria. Vessels: Aorta and inferior vena cava are normal in size. PELVIS: Pelvic Organs: There is moderate enlargement of the prostate. Bladder: Unremarkable. Pelvic Nodes: No enlarged lymph nodes. Miscellaneous: No inguinal hernias are seen. Bones: No acute fractures identified. There is a sclerotic focus within the left iliac bone which is nonspecific but likely represents a bone island. IMPRESSION: 1. No definite acute traumatic abnormality within the chest, abdomen, or pelvis. 2. No CT evidence of acute pancreatitis. Dictated by: Loy Sesay M.D. on 08/18/2022 at 20:30 Approved by: Loy Sesay M.D. on 08/18/2022 at 20:41
--- NOTE | 2022-08-18 19:51 | ED.FALL ---
HPI - Fall General Chief Complaint: Trauma Stated Complaint: fall, r/o stroke Time Seen by Provider: 08/18/22 18:46 Source: patient Mode of arrival: Family Vehicle History of Present Illness HPI Narrative: Patient is an 82-year-old male history of coronary artery disease, valve replacement lacunar infarcts, currently being treated for endocarditis he is a PICC line and IV antibiotics. Presenting today after a fall. He reports that the lights were off he was trying to get up and turned on the lights when he fell. He reports that he fell onto a rug and can not remember why he fell. He currently denies any chest pain palpitations fever chills nausea vomiting numbness tingling or weakness. He is noted to have left facial droop which he says is from part of his stroke but does not seem to have residual deficits from the stroke. He is quite anxious to like to go home. Related Data Home Medications Medication Instructions Recorded Confirmed aspirin 81 mg capsule 81 mg PO DAILY 07/17/22 07/17/22 atorvastatin 10 mg tablet 5 mg PO BEDTIME 07/17/22 07/17/22 metoprolol succinate 25 mg 12.5 mg PO QAM 07/17/22 07/17/22 tablet,extended release 24 hr metoprolol succinate 25 mg 25 mg PO BEDTIME 07/17/22 07/17/22 tablet,extended release 24 hr Previous Rx's Medication Instructions Recorded clopidogrel 75 mg tablet (Plavix) 75 mg PO DAILY #25 tabs 07/07/22 Allergies Allergy/AdvReac Type Severity Reaction Status Date / Time No Known Drug Allergies Allergy Verified 07/17/22 17:14 Review of Systems Review of Systems ROS Unobtainable: All systems reviewed & are unremarkable except as noted in HPI and below Patient History Medical History Essential hypertension Hyperlipidemia Surgical History History of heart valve replacement Family History Mother Pneumonia Father Congestive heart failure Social History household members: none Smoking Status: Former smoker alcohol intake: current Smoking Status: Former smoker alcohol intake frequency: 0-2 drinks per day Alcohol type: beer Substance Use Type: does not use Exam Initial Vital Signs Initial Vital Signs: Vital Signs Pulse Rate 97 H 08/18/22 18:43 Respiratory Rate 23 08/18/22 18:43 Pulse Oximetry 99 08/18/22 18:43 GENERAL: Alert well-appearing 82-year-old HEENT: Head atraumatic,EOMI, pupils reactive, left facial droop CARDIOVASCULAR: Regular rate and rhythm without murmurs, rubs or gallops. RESPIRATORY: Breath sounds equal bilaterally, no wheezes rales or rhonchi. ABDOMEN: Soft, nontender. Normoactive bowel sounds all 4 quadrants. No guarding or rebound. EXTREMITIES: Normal range of motion, no clubbing or edema. Neurovascularly intact NEUROLOGICAL: Alert and oriented x4.Normal gait and speech. Cranial nerves II through XII grossly intact. Good [id number], good [id number], strength equal bilaterally, no dysarthria or aphasia, sensation in tact to soft touch bilaterally, no visual changes, no facial droop SKIN: Warm, dry, no laceration, no petechiae, no rashes or lesions. Scores NIH Stroke Scale Level of Conciousness: Alert, keenly responsive Ask month/age: Answers both questions correctly. Open/close eyes, close hand: Performs both tasks correctly Best gaze horizontal: Normal Visual glover: No visual loss Facial palsy: Minor paralysis, flattened nasolabial fold, asymmetry on smiling Left arm drift: No drift for full 10 sec Right arm drift: No drift for full 10 sec Left leg drift: No drift for full 5 sec Right leg drift: No drift for full 5 sec Limb ataxia: Absent Sensory on face/arms/legs: Normal, no sensory loss Best language: No aphasia, normal Dysarthria: Normal Extinction or inattention: No abnormality Total NIH Stroke scale score: 1 Course Orders Ordered: ED Orders 08/18/22 18:40 CT cervical spine wo con Stat CT head/brain wo con Stat 08/18/22 18:41 XR chest 1V Stat EKG-12 Lead Stat 08/18/22 19:02 CRP [C-Reactive Protein Quant] Stat Complete Blood Count AUTO DIFF Stat Comprehensive Metabolic Panel Stat Lactate (Lactic Acid) Stat Lipase Stat Magnesium Stat PTT Partial Thromboplastin Silvano Stat Procalcitonin Stat Prothrombin Time INR Stat Troponin & CK Cardiac Panel Stat 08/18/22 19:51 CT chest abd pel w con Stat 08/18/22 21:15 COVID19 -Nasal RAPID Stat Trop I [Troponin I] Stat Vital Signs Vital signs: Vital Signs - 8 hr 08/18/22 18:49 08/18/22 18:43 08/18/22 18:58 Temperature 98.2 F Pulse Rate 94 H 97 H 90 Respiratory Rate 20 23 21 Blood Pressure 132/79 Pulse Oximetry 99 99 99 Oxygen Delivery Method Room Air 08/18/22 18:58 08/18/22 19:00 08/18/22 19:00 Temperature Pulse Rate 91 H Respiratory Rate 21 Blood Pressure 136/70 131/69 Pulse Oximetry 100 Oxygen Delivery Method 08/18/22 19:30 08/18/22 19:30 08/18/22 20:00 Temperature Pulse Rate 87 Respiratory Rate 21 Blood Pressure 125/72 129/70 Pulse Oximetry 98 Oxygen Delivery Method 08/18/22 20:00 08/18/22 20:19 08/18/22 20:19 Temperature Pulse Rate 95 H 96 H Respiratory Rate 22 20 Blood Pressure 137/83 Pulse Oximetry 99 99 Oxygen Delivery Method 08/18/22 20:30 08/18/22 20:30 08/18/22 21:00 Temperature Pulse Rate 95 H Respiratory Rate 22 Blood Pressure 128/72 129/83 Pulse Oximetry 98 Oxygen Delivery Method 08/18/22 21:00 08/18/22 21:30 08/18/22 21:30 Temperature Pulse Rate 102 H 108 H Respiratory Rate 18 25 H Blood Pressure 133/78 Pulse Oximetry 98 Oxygen Delivery Method 08/18/22 22:25 Temperature 97.6 F Pulse Rate 102 H Respiratory Rate 18 Blood Pressure 134/76 Pulse Oximetry 97 Oxygen Delivery Method Room Air MDM - Fall Lab Data 08/18/22 19:02 08/18/22 19:02 Labs: Lab Results 08/18/22 08/18/22 08/18/22 Range/Units 19:02 19:02 19:02 WBC 10.7 (4.5-11.0) X10^3/uL RBC 4.13 L (4.5-5.9) X10^6/uL Hgb 13.2 L (13.5-17.5) g/dL Hct 38.3 L (41-53) % MCV 92.9 (80-100) fL MCH 32.0 (26-34) PG MCHC 34.5 (30-36) % RDW 14.9 H (11.6-14.8) % Plt Count 179 (150-400) X10^3/uL Neut % (Auto) 73.0 (50-75) % Lymph % (Auto) 15.4 L (25-40) % [place] % (Auto) 7.0 (3-14) % Eos % (Auto) 3.9 (2-4) % Baso % (Auto) 0.7 (0-2) % Neut # (Auto) 7800 H (7329-9557) /uL Lymph # (Auto) 1600 (0484-1777) /uL [place] # (Auto) 700 (0-900) /uL Eos # (Auto) 400 (0-450) /uL Baso # (Auto) 100 (0-100) /uL PT 14.8 H (10.1-12.7) SECONDS INR 1.3 (0.9-1.3) APTT 28 (26-36) SECONDS Sodium 136 L (137-145) mmol/L Potassium 3.5 (3.4-5.1) mmol/L Chloride 106 (98-107) mmol/L Carbon Dioxide 25 (22-32) mmol/L BUN 21 H (9-20) mg/dL Creatinine 1.07 (0.66-1.25) mg/dL Estimated GFR > 60 (>60) mL/min BUN/Creatinine Ratio 19.6 (6-22) Glucose 115 H (80-110) mg/dL Lactate (0.7-2.1) mmol/L Calcium 8.7 (8.4-10.2) mg/dL Magnesium 2.0 (1.6-2.3) mg/dL Total Bilirubin 0.7 (0.2-1.3) mg/dL AST 43 (17-59) IU/L ALT 27 (<50) IU/L Alkaline Phosphatase 94 (38-126) U/L Total Creatine Kinase 147 (55-170) U/L CK-MB (CK-2) 4.28 H (<2.37) ng/mL CK-MB (CK-2) Rel Index 2.9 (1.5-5.0) % Troponin I 0.291 H* (0.01-0.034) ng/mL C-Reactive Protein (<1.0) mg/dL Total Protein 6.8 (6.3-8.2) g/dL Albumin 3.4 L (3.5-5.0) g/dL Globulin 3.4 (1.7-4.1) g/dL Albumin/Globulin Ratio 1.0 (1.0-2.8) Lipase 2403 H (23-300) U/L Procalcitonin (<0.5) ng/mL SARS-CoV-2 (PCR) (Negative) 08/18/22 08/18/22 08/18/22 Range/Units 19:02 19:02 21:15 WBC (4.5-11.0) X10^3/uL RBC (4.5-5.9) X10^6/uL Hgb (13.5-17.5) g/dL Hct (41-53) % MCV (80-100) fL MCH (26-34) PG MCHC (30-36) % RDW (11.6-14.8) % Plt Count (150-400) X10^3/uL Neut % (Auto) (50-75) % Lymph % (Auto) (25-40) % [place] % (Auto) (3-14) % Eos % (Auto) (2-4) % Baso % (Auto) (0-2) % Neut # (Auto) (1990-0741) /uL Lymph # (Auto) (2085-3532) /uL [place] # (Auto) (0-900) /uL Eos # (Auto) (0-450) /uL Baso # (Auto) (0-100) /uL PT (10.1-12.7) SECONDS INR (0.9-1.3) APTT (26-36) SECONDS Sodium (137-145) mmol/L Potassium (3.4-5.1) mmol/L Chloride (98-107) mmol/L Carbon Dioxide (22-32) mmol/L BUN (9-20) mg/dL Creatinine (0.66-1.25) mg/dL Estimated GFR (>60) mL/min BUN/Creatinine Ratio (6-22) Glucose (80-110) mg/dL Lactate 1.1 (0.7-2.1) mmol/L Calcium (8.4-10.2) mg/dL Magnesium (1.6-2.3) mg/dL Total Bilirubin (0.2-1.3) mg/dL AST (17-59) IU/L ALT (<50) IU/L Alkaline Phosphatase (38-126) U/L Total Creatine Kinase (55-170) U/L CK-MB (CK-2) (<2.37) ng/mL CK-MB (CK-2) Rel Index (1.5-5.0) % Troponin I 0.164 H* (0.01-0.034) ng/mL C-Reactive Protein 7.7 H (<1.0) mg/dL Total Protein (6.3-8.2) g/dL Albumin (3.5-5.0) g/dL Globulin (1.7-4.1) g/dL Albumin/Globulin Ratio (1.0-2.8) Lipase (23-300) U/L Procalcitonin 0.37 (<0.5) ng/mL SARS-CoV-2 (PCR) (Negative) 08/18/22 Range/Units 21:15 WBC (4.5-11.0) X10^3/uL RBC (4.5-5.9) X10^6/uL Hgb (13.5-17.5) g/dL Hct (41-53) % MCV (80-100) fL MCH (26-34) PG MCHC (30-36) % RDW (11.6-14.8) % Plt Count (150-400) X10^3/uL Neut % (Auto) (50-75) % Lymph % (Auto) (25-40) % [place] % (Auto) (3-14) % Eos % (Auto) (2-4) % Baso % (Auto) (0-2) % Neut # (Auto) (5257-2134) /uL Lymph # (Auto) (6170-0278) /uL [place] # (Auto) (0-900) /uL Eos # (Auto) (0-450) /uL Baso # (Auto) (0-100) /uL PT (10.1-12.7) SECONDS INR (0.9-1.3) APTT (26-36) SECONDS Sodium (137-145) mmol/L Potassium (3.4-5.1) mmol/L Chloride (98-107) mmol/L Carbon Dioxide (22-32) mmol/L BUN (9-20) mg/dL Creatinine (0.66-1.25) mg/dL Estimated GFR (>60) mL/min BUN/Creatinine Ratio (6-22) Glucose (80-110) mg/dL Lactate (0.7-2.1) mmol/L Calcium (8.4-10.2) mg/dL Magnesium (1.6-2.3) mg/dL Total Bilirubin (0.2-1.3) mg/dL AST (17-59) IU/L ALT (<50) IU/L Alkaline Phosphatase (38-126) U/L Total Creatine Kinase (55-170) U/L CK-MB (CK-2) (<2.37) ng/mL CK-MB (CK-2) Rel Index (1.5-5.0) % Troponin I (0.01-0.034) ng/mL C-Reactive Protein (<1.0) mg/dL Total Protein (6.3-8.2) g/dL Albumin (3.5-5.0) g/dL Globulin (1.7-4.1) g/dL Albumin/Globulin Ratio (1.0-2.8) Lipase (23-300) U/L Procalcitonin (<0.5) ng/mL SARS-CoV-2 (PCR) Negative (Negative) Imaging Data CT - cervical spine: Radiologist's Impression: PROCEDURE:? CT CERVICAL SPINE WO CON ? INDICATIONS:? fall, hit back of head, on thinners. ? TECHNIQUE:? Noncontrast 3 mm thick sections acquired from the skull base to the T4 level.? Sagittal and coronal reformats were then constructed.? For radiation dose reduction, the following was used:? automated exposure control, adjustment of mA and/or kV according to patient size.? ? COMPARISON:? [facility], CT, CT ANGIO HEAD AND NECK, 07/07/2022, 11:57. ? FINDINGS:? Image quality:? Excellent.? ? Bones:? No acute fractures or dislocations.? No acute compression fractures of the vertebral bodies. Craniocervical junction is intact. C1-C2 relationship is preserved. Visualized superior ribs are intact.? Stable appearance of moderate-severe multilevel cervical spondylosis.? Stable alignment. ? Soft tissues:? Prevertebral soft tissues are normal in thickness.? No paravertebral hematomas.? No apical pneumothoraces.? Biapical pulmonary scarring. ? ? IMPRESSION:? CT cervical spine without acute fracture or traumatic malalignment.? Stable appearance of moderate-severe multilevel cervical spondylosis. ? ? ? Dictated by: José Miguel Mcdonald M.D. on 08/18/2022 at 19:02 CT scan - head: Radiologist's Impression: PROCEDURE:? CT HEAD/BRAIN WO CON ? INDICATIONS:? fall, hit back of head, on thinners. ? TECHNIQUE:? Noncontrast 4.5 mm thick angled axial sections acquired from the foramen magnum to the vertex, with coronal and sagittal reformats.? For radiation dose reduction, the following was used:? automated exposure control, adjustment of mA and/or kV according to patient size.? ? COMPARISON:? [facility], CT, CT ANGIO HEAD AND NECK, 07/17/2022, 16:54.? [facility], MR, MR HEAD/BRAIN WO CON, 07/07/2022, 15:04.? [facility], CT, CT HEAD/BRAIN WO CON, 01/09/2021, 17:36. ? FINDINGS:? Image quality:? Excellent.? ? CSF spaces:? Basal cisterns are patent.? No extra-axial fluid collections.? The ventricles are symmetric in size and shape.? ? Brain:? No intracranial bleeds or masses.? There is cerebral volume loss for age, with resultant ventricular and sulcal prominence.? Interval development of new hypoattenuation of the right temporal lobe with loss of epps-white matter differentiation.? No associated acute hemorrhage.? No significant mass effect.? There are periventricular and deep white matter chronic small vessel ischemic changes.? There is intracranial internal carotid artery atherosclerosis.? ? Skull and face:? Calvarium and visualized facial bones appear intact, without suspicious lesions.? ? Sinuses:? Visualized sinuses and mastoids are clear.? ? IMPRESSION:? Interval development of age-indeterminate cerebral infarction involving the right parietal lobe which likely is subacute in etiology.? No acute intracranial hemorrhage.? No acute calvarial fracture. ? ? Findings were discussed with Dr. Maldonado at 1908 hrs. ? Dictated by: José Miguel Mcdonald M.D. on 08/18/2022 at 18:58 ? Chest x-ray: Radiologist's Impression: PROCEDURE:? XR CHEST 1V ? INDICATIONS:? chest pain ? TECHNIQUE:? One view of the chest was acquired.? ? COMPARISON:? [facility], , XR CHEST 1V, 07/17/2022, 17:45. ? FINDINGS:? ? Surgical changes and devices:? None.? ? Lungs and pleura:? No new focal consolidation.? Chronic appearing interstitial prominence unchanged.? No pneumothorax or pleural effusion. ? Mediastinum:? Mediastinal contours appear stable.? Heart size is normal.? ? Bones and chest wall:? No suspicious bony lesions.? Overlying soft tissues appear unremarkable.? ? IMPRESSION:? Stable radiographic evaluation of the chest without acute cardiopulmonary abnormalities or focal airspace disease. ? Stable appearance of chronic interstitial prominence. ? ? Dictated by: José Miguel Mcdonald M.D. on 08/18/2022 at 19:27 ? ? CT scan - chest: Radiologist's Impression: PROCEDURE:? CT CHEST ABD PEL W CON ? INDICATIONS:? fall, high trop, high lipase ? TECHNIQUE:? After the administration of intravenous contrast, axial sections acquired from the supraclavicular neck to the pubic symphysis.? Coronal and sagittal reformats were performed.? For radiation dose reduction, the following was used:? automated exposure control, adjustment of mA and/or kV according to patient size.? ? COMPARISON: ? None. ? FINDINGS:? Image quality:? Excellent.? ? CHEST: Lower Neck: No lymphadenopathy by size criteria. Thyroid:? Visualized thyroid demonstrates no discrete nodules. Axillae: No lymphadenopathy by size criteria. Chest Wall:? Unremarkable.? Bones:? No acute fractures identified. ? Lungs and Airways:? No pulmonary contusions or lacerations.? No acute consolidation.? Bilateral linear areas of scarring are demonstrated.? There is a calcified nodule in the right middle lobe likely reflecting sequelae of old granulomatous disease.? The trachea and central airways are patent. Pleura: No pneumothorax or pleural effusions.? ? Heart: Heart size is normal.? No pericardial effusion.? There is a prosthetic aortic valve. Thoracic Vessels: The aorta and pulmonary arteries are normal in size.? There is a left upper extremity PICC line with the tip extending to the junction of the left innominate vein and superior vena cava. Mediastinum and Sandra: No lymphadenopathy by size criteria.? No definite mediastinal hematomas.? Esophagus: No wall thickening. No hiatal hernia. ? ABDOMEN: Liver:? No hepatic lacerations or perihepatic fluid collections. Gallbladder:? There is a centrally calcified stone within the gallbladder which is partially distended.? No pericholecystic fluid. Biliary ducts:? No biliary ductal dilatation.? ? Pancreas:? No peripancreatic fat stranding or fluid to suggest acute pancreatitis.? ? Spleen:? Normal in size.? No splenic lacerations or perisplenic fluid collections. ? Adrenal Glands:? No adrenal nodules.? ? Kidneys and Ureters:? There is mild left pelvicaliectasis.? No urinary stones.? No hydroureter. ? Stomach and Bowel:? Stomach, small bowel loops, and colon are normal in caliber and wall thickness.? Appendix is normal.? There is colonic diverticulosis without acute diverticulitis.? Peritoneum:? No abnormal intraperitoneal fluid.? No free air.? ? Ventral Wall: ? No hernia.? Abdominal Nodes:? No retroperitoneal or mesenteric adenopathy by size criteria.? Vessels:? Aorta and inferior vena cava are normal in size.? ? PELVIS: Pelvic Organs:? There is moderate enlargement of the prostate.? ? Bladder:? Unremarkable.? ? Pelvic Nodes: No enlarged lymph nodes.? Miscellaneous: No inguinal hernias are seen. ? ? ? Bones:? No acute fractures identified.? There is a sclerotic focus within the left iliac bone which is nonspecific but likely represents a bone island. IMPRESSION:? ? 1.? No definite acute traumatic abnormality within the chest, abdomen, or pelvis. ? 2.? No CT evidence of acute pancreatitis. ? Dictated by: Loy Sesay M.D. on 08/18/2022 at 20:30? ECG Data Interpretation: Normal sinus rhythm rate 85 NE interval 2 QRS [address] Q[address] changes MDM Narrative Medical decision making narrative: Patient 82-year-old male history of coronary artery disease valve replacement currently be treated for endocarditis with recent lacunar infarct presents today after a fall he is found have elevated troponins though they are decreasing and elevated lipase at 12:00 p.m. no evidence of pancreatitis either by symptoms or CT. He is no elevated bilirubin liver or liver enzymes. He is getting infusions every day for his endocarditis he has a PICC line. He is here after a fall, no evidence injury. No evidence of infection no leukocytosis or anemia. No evidence of electrolyte abnormality or YESICA. Troponins are trending down words but are positive, he had previous troponins during his last visit for the CVA. They are roughly the same. Head CT does show interval development of age-indeterminate cerebral infarction involving right parietal lobe which is likely subacute in etiology. No acute intracranial hemorrhage. This is probably interval development of previous stroke not sure that this is a new stroke. He has no focal deficits has ongoing left facial droop. He overall feels okay. Patient is adamant about leaving hospital with elevated troponins and lipase. He is ambulatory around the department. He is steady on his feet he requires no help or support. He is leaving Against Medical Advice previously. He understands that his outcome maybe poor including . But he thinks that he may in the hospital as well. He says that he asked to return here tomorrow by noon for his infusion. He reports that he has things to take care of and is adamant about leaving. He understands that he can return at any time. Nurse Khan present for conversation. The patient is clinically sober, free from distracting injury, appears to have intact insight, judgment and reason. Does not meet criteria for involuntary hospitalization. Patient has the capacity to make decisions. The patient is also not under any duress to leave the hospital. In this scenario, it would be battery to subject the patient to treatment against his/her will. I have voiced my concerns for the patient's health given that a full evaluation and treatment had not occurred. I have discussed the need for continued evaluation to determine if there symptoms are caused by a condition that present risk of or morbidity. Risk including but not limited to , permanent disability, prolonged hospitalization, prolonged illness, were discussed. I tried offering alternative options in hopes that the patient might be amenable to partial evaluation and treatment which would be medically beneficial to the patient, though the patient declined my options and insisted on leaving. Because I have been unable to convince the patient to stay I answered all of their questions about the condition and ask them to return to the ED as soon as possible to complete their evaluation, especially if their symptoms worsen or do not improve. I emphasized that leaving against medical advice did not preclude returning here for further evaluation. I asked the patient to return if they change their mind about the further evaluation and treatment. I strongly encouraged the patient to return to this emergency department or any emergency department at any time, particularly with worsening symptoms. Discharge Plan Departure Patient Disposition: Left Against Medical Advice Clinical Impression: Non-ST elevation NV (NSTEMI), Stroke Activity Restrictions/Additional Instructions: You are leaving against medical advice It is likely that you have had another stroke. Your heart is also under stress you may have had a heart attack. Your pancreas is also under stress. It is strongly advised that you stay in the hospital for further monitoring and evaluation. However you are choosing to leave. You may return to the emergency department at any time for further evaluation. Please continue to keep taking your medications. Please call and follow-up with your primary care provider. Prescriptions: No Action clopidogrel [Plavix] 75 mg tablet 75 mg PO DAILY Qty: 25 0RF Rx Instructions: Take 4 tablets(300mg) po x 1 day, then 1 tablet(75mg) po once daily x 21 days. metoprolol succinate 25 mg Tablet Extended Release 24 Hr 12.5 mg PO QAM metoprolol succinate 25 mg Tablet Extended Release 24 Hr 25 mg PO BEDTIME aspirin 81 mg Capsule 81 mg PO DAILY atorvastatin 10 mg Tablet 5 mg PO BEDTIME Stand Alone Forms: Patient Portal/API, Against Medical Advice
[2022-08-18 21:44] LABS: Troponin I 0.164 ng/mL (0.01-0.034)
[2022-08-18 22:15] LABS: COVID19 -Nasal RAPID Negative (Negative)
== END 2022-08-18 22:20 | disposition left against medical advice (07) ==
PROVIDERS: Emergency Medicine; Emergency Provider Emergency Medicine; Family Provider Internal Medicine; PCP Physician Assistant
DX: I21.4 Non-ST elevation (NSTEMI) myocardial infarction (principal); I63.9 Cerebral infarction, unspecified; R29.701 NIHSS score 1; S09.90XA Unspecified injury of head, initial encounter; M54.2 Cervicalgia; Z79.01 Long term (current) use of anticoagulants; R07.9 Chest pain, unspecified; W18.30XA Fall on same level, unspecified, initial encounter; Z20.822 Contact with and (suspected) exposure to COVID-19; T82.6XXA Infection and inflammatory reaction due to cardiac valve prosthesis, initial encounter; I38 Endocarditis, valve unspecified
CPT/HCPCS: 70450; 71045; 71260; 72125; 74177; 80053; 82550; 82553; 83605; 83690; 83735; 84145; 84484; 85025; 85610; 85730; 86140; 87635; 93005; 93010; 96365; 99284; C9803; J0696; Q9967

== ENCOUNTER 2022-08-19 10:35 | Inpatient (IN) | payer MEDICARE, SELFPAY ==
[2022-07-19 00:44] VITALS: BMI 22.4
[2022-08-19] VITALS (8 sets, daily range): BP systolic 97–116; BP diastolic 59–78; PULSE 81–110; RESP 14–20; TEMP 36.8; O2SAT 95–100; BMI 23.6
--- NOTE | 2022-08-19 10:51 | ED_ITS ---
HPI - Neuro Symptoms/Deficit General Chief Complaint: Neuro Symptoms/Deficit Stated Complaint: stroke/small heart attack/seen@ED T-1 AMA Time Seen by Provider: 08/19/22 10:38 Source: patient Mode of arrival: Ambulatory History of Present Illness HPI Narrative: Patient is an 82-year-old male history of CAD, valve replacement, lacunar infar cts, currently being treated for endocarditis he is a PICC line and IV antibiotics. He was seen and evaluated yesterday after he had a fall on Tuesday at about 3:00 a.m.. He is a very poor historian and it is unclear why he fell but denies any dizziness, weakness or lightheadedness. He is having no chest pain or shortness of breath. Denies any fever or chills. He states that he had been admitted at an outside facility about 1 month ago and was found to have endocarditis and has been taking IV antibiotics since. He also reports that he may have had a stroke during that visit with symptoms consisting only of left-sided facial droop. We are in the process of obtaining records. Yesterday he had a head CT that shows an age indeterminate stroke but likely of a subacute nature. He had no extremity issues. Patient was also found to have elevated troponins and though he was strongly encouraged to be admitted to the hospital the patient ended up signing out [facility] [employer]. He returns today because he wishes to pursue the clinical path that the emergency department physician yesterday had recommended. He is not currently having chest pain, shortness of breath, fever or chills. On Anticoagulants: Yes Related Data Home Medications Medication Instructions Recorded Confirmed aspirin 81 mg capsule 81 mg PO DAILY 07/17/22 08/19/22 atorvastatin 10 mg tablet 5 mg PO DAILY 07/17/22 08/19/22 metoprolol succinate 25 mg 12.5 mg PO QAM 07/17/22 08/19/22 tablet,extended release 24 hr metoprolol succinate 25 mg 25 mg PO BEDTIME 07/17/22 08/19/22 tablet,extended release 24 hr Previous Rx's Medication Instructions Recorded clopidogrel 75 mg tablet (Plavix) 75 mg PO DAILY #25 tabs 07/07/22 Allergies Allergy/AdvReac Type Severity Reaction Status Date / Time No Known Drug Allergies Allergy Verified 08/19/22 10:45 Review of Systems Review of Systems Narrative: GENERAL: Denies chills, fatigue, malaise, fever, sweats. HEENT: Denies sinus pain, ear pain, sore throat, difficulty swallowing, dizzin ess. RESPIRATORY: Denies dyspnea, cough, wheezing, hemoptysis, sputum. CARDIOVASCULAR: Denies chest pain, palpitations, orthopnea, edema, GASTROINTESTINAL: Denies nausea, vomiting, abdominal pain, diarrhea, constipation, melena. : Denies dysuria, frequency, incontinence, hematuria, urinary retention. MUSCULOSKELETAL: denies weakness, joint pain, or bony pain SKIN: Denies rash, skin lesions, or other NEUROLOGIC: See HPI PSYCHIATRIC: No concerning psychosocial issues. 12 point review of systems is negative except for those stated above Hematologic/Lymphatic On Anticoagulants: Yes Patient History Medical History Essential hypertension Hyperlipidemia Surgical History History of heart valve replacement Family History Mother Pneumonia Father Congestive heart failure Social History household members: none Smoking Status: Former smoker alcohol intake: current Smoking Status: Former smoker alcohol intake frequency: 0-2 drinks per day Alcohol type: beer Substance Use Type: does not use Exam Narrative Exam Narrative: GENERAL: [82] year old patient appears stated age. Well-developed patient, in mild distress. HEAD: Atraumatic. Normocephalic. EYES: Pupils equal round and reactive. Extraocular motions intact. No scleral icterus. No injection or drainage. ENT: Nose without bleeding, purulent drainage. Throat without erythema, tonsillar hypertrophy or exudate. Airway patent. NECK: Trachea midline. Non tender CARDIOVASCULAR: Regular rate and rhythm without murmurs, gallops, or rubs. RESPIRATORY: Clear to auscultation. Breath sounds equal bilaterally. No wheezes, rales, or rhonchi. GASTROINTESTINAL: Abdomen soft, non-tender, nondistended. EXTREMITIES: No edema or joint tenderness. BACK: Nontender without deformity or crepitance. No flank tenderness. NEURO: AOx3. Cranial nerves 2-12 grossly intact SKIN: No rash or erythema of visible areas Initial Vital Signs Initial Vital Signs: Vital Signs Temperature 98.2 F 08/19/22 10:40 Pulse Rate 108 H 08/19/22 10:40 Respiratory Rate 15 08/19/22 10:40 Blood Pressure 116/78 08/19/22 10:40 Pulse Oximetry 98 08/19/22 10:40 Oxygen Delivery Method Room Air 08/19/22 10:40 Scores NIH Stroke Scale Level of Conciousness: Alert, keenly responsive Ask month/age: Answers both questions correctly. Open/close eyes, close hand: Performs both tasks correctly Best gaze horizontal: Normal Visual glover: No visual loss Facial palsy: Partial paralysis, total or near total paralysis of lower face Left arm drift: No drift for full 10 sec Right arm drift: No drift for full 10 sec Left leg drift: No drift for full 5 sec Right leg drift: No drift for full 5 sec Limb ataxia: Absent Sensory on face/arms/legs: Normal, no sensory loss Best language: No aphasia, normal Dysarthria: Mild to mod,some slurring Extinction or inattention: No abnormality Total NIH Stroke scale score: 3 Course Course Course Narrative: [facility] records obtained noting additional information including history of coronary artery disease status post inferior ME with PCI to the right coronary artery, mid LAD, smoldering myeloma, severe aortic stenosis status post TAVR in January of 2022, infrarenal aortic dissection with recent transfer from our facility to [facility] for strep bacteremia with concern for prosthetic valve endocarditis. PRAVEEN noted vegetation on Aortic valve Orders Ordered: ED Orders 08/19/22 15:10 EC echo limited Stat MR head/brain wo con Stat 08/19/22 16:35 Urinalysis and Microscopic Stat Urine Drug Screen, Rapid Stat 08/19/22 18:35 Trop I [Troponin I] Stat 08/19/22 19:52 Blood Culture Stat 08/19/22 20:23 PTT Partial Thromboplastin Silvano Q6H 08/20/22 00:45 PTT Partial Thromboplastin Silvano Q6H 08/20/22 05:00 Hemoglobin and Hematocrit DAILY Platelet Count DAILY 08/20/22 06:45 PTT Partial Thromboplastin Silvano Q6H 08/20/22 12:45 PTT Partial Thromboplastin Silvano Q6H 08/21/22 05:00 Hemoglobin and Hematocrit DAILY Platelet Count DAILY Heparin Sodium (Porcine) (Heparin Flush (Cl/Picc/Mid-Line) 50 Unit/5 Ml Syringe) 50 unit IV PRN PRN PRN Reason: Flush Last Admin: 08/19/22 16:44 Dose: 50 unit Documented By: BOB Heparin Sodium/Dextrose (Heparin Drip) 25,000 unit in 500 mls @ 16.874 mls/hr IV CONT PARISH; Protocol Last Admin: 08/19/22 20:05 Dose: 12 units/kg/hr, 16.874 mls/hr Documented By: ENA Co-signed By: [facility] Discontinued Medications Heparin Sodium (Porcine) (Heparin 5,000 Unit/Ml Vial) 4,000 unit IV NOW ONE Stop: 08/19/22 18:41 Last Admin: 08/19/22 19:56 Dose: 4,000 unit Documented By: ENA Ceftriaxone Sodium 2,000 mg/ (Sodium Chloride) 100 mls @ 200 mls/hr IV NOW ONE Stop: 08/19/22 14:59 Last Infusion: 08/19/22 15:35 Dose: 0 mls/hr Documented By: Admin: 08/19/22 15:01 Dose: 200 mls/hr Documented By: BOB Consultations Consultation #1: discussed with Dr. Ba given troponin elevations, given subtle downward trend of CK/MB and CPK this is most likely a troponin elevation secondary to stroke, not worth risk of anticoagulation prior to discussion with stroke. Likel y needs transfer for another PRAVEEN given worsening stroke symptoms Consultation #2: call to /[facility] Stroke, awaiting image loading, will call back. Findings are not new, MRI recommended for completeness Consultation #3: call back to cardiology (Ashlyn). Needs new cultures. Not good surgical candidate. 01/27/22 Cath - clean cath other than 80% obtuse branch. Not cath candidate given known vegetation. Recommends hospitalization here until cultures result, on tele, with heparin Vital Signs Vital signs: Vital Signs - 8 hr 08/19/22 13:00 08/19/22 14:50 08/19/22 16:49 Pulse Rate 82 94 H 81 Respiratory Rate 18 18 20 Blood Pressure 106/68 102/59 L 101/68 Pulse Oximetry 96 99 98 Oxygen Delivery Method Room Air Room Air Room Air MDM - Neuro Symptoms/Deficit Lab Data 08/19/22 10:56 08/19/22 10:56 Labs: Lab Results 08/19/22 08/19/22 08/19/22 Range/Units 10:56 10:56 10:56 WBC 9.6 (4.5-11.0) X10^3/uL RBC 4.13 L (4.5-5.9) X10^6/uL Hgb 13.1 L (13.5-17.5) g/dL Hct 38.1 L (41-53) % MCV 92.4 (80-100) fL MCH 31.8 (26-34) PG MCHC 34.4 (30-36) % RDW 14.6 (11.6-14.8) % Plt Count 198 (150-400) X10^3/uL Neut % (Auto) 71.8 (50-75) % Lymph % (Auto) 16.7 L (25-40) % [place] % (Auto) 8.7 (3-14) % Eos % (Auto) 2.4 (2-4) % Baso % (Auto) 0.4 (0-2) % Neut # (Auto) 6900 (2835-7595) /uL Lymph # (Auto) 1600 (4318-2488) /uL [place] # (Auto) 800 (0-900) /uL Eos # (Auto) 200 (0-450) /uL Baso # (Auto) 0 (0-100) /uL PT 15.3 H (10.1-12.7) SECONDS INR 1.3 (0.9-1.3) APTT 29 (26-36) SECONDS Sodium 134 L (137-145) mmol/L Potassium 3.9 (3.4-5.1) mmol/L Chloride 105 (98-107) mmol/L Carbon Dioxide 23 (22-32) mmol/L BUN 17 (9-20) mg/dL Creatinine 1.05 (0.66-1.25) mg/dL Estimated GFR > 60 (>60) mL/min BUN/Creatinine Ratio 16.2 (6-22) Glucose 102 (80-110) mg/dL Calcium 8.7 (8.4-10.2) mg/dL Total Bilirubin 1.0 (0.2-1.3) mg/dL AST 45 (17-59) IU/L ALT 26 (<50) IU/L Alkaline Phosphatase 90 (38-126) U/L Total Creatine Kinase 140 (55-170) U/L CK-MB (CK-2) 1.51 D (<2.37) ng/mL CK-MB (CK-2) Rel Index 1.1 L (1.5-5.0) % Troponin I 0.269 H* (0.01-0.034) ng/mL Total Protein 6.5 (6.3-8.2) g/dL Albumin 3.4 L (3.5-5.0) g/dL Globulin 3.1 (1.7-4.1) g/dL Albumin/Globulin Ratio 1.1 (1.0-2.8) Urine Color Urine Appearance Urine pH (4.5-8.0) Ur Specific [place] (1.000-1.035) Urine Protein (Negative) Urine Glucose (UA) (Negative) g/dL Urine Ketones (NEGATIVE) Urine Occult Blood (Negative) Urine Nitrate (Negative) Urine Bilirubin (NEGATIVE) Urine Urobilinogen (0.2) E.U./dL Ur Leukocyte Esterase (NEGATIVE) Urine RBC (0-5/HPF) Urine WBC (0-5/HPF) Urine Bacteria (None) Ur Culture Indicated? U Opiates 300ng/mL cut (Negative) Ur Oxycodone Screen (Negative) Urine Methadone Screen (Negative) Ur Barbiturates Screen (Negative) U Tricyclic Antidepress (Negative) Ur Phencyclidine Scrn (Negative) Ur Amphetamines Screen (Negative) U Methamphetamines Scrn (Negative) Ur MDMA Scrn (Ecstasy) (Negative) U Benzodiazepines Scrn (Negative) Urine Cocaine Screen (Negative) U Marijuana (THC) Screen (Negative) Ethyl Alcohol < 10 ( - 10) mg/dL SARS-CoV-2 (PCR) (Negative) 08/19/22 08/19/22 08/19/22 Range/Units 10:56 11:03 16:35 WBC (4.5-11.0) X10^3/uL RBC (4.5-5.9) X10^6/uL Hgb (13.5-17.5) g/dL Hct (41-53) % MCV (80-100) fL MCH (26-34) PG MCHC (30-36) % RDW (11.6-14.8) % Plt Count (150-400) X10^3/uL Neut % (Auto) (50-75) % Lymph % (Auto) (25-40) % [place] % (Auto) (3-14) % Eos % (Auto) (2-4) % Baso % (Auto) (0-2) % Neut # (Auto) (8603-1563) /uL Lymph # (Auto) (3976-4992) /uL [place] # (Auto) (0-900) /uL Eos # (Auto) (0-450) /uL Baso # (Auto) (0-100) /uL PT (10.1-12.7) SECONDS INR (0.9-1.3) APTT (26-36) SECONDS Sodium (137-145) mmol/L Potassium (3.4-5.1) mmol/L Chloride (98-107) mmol/L Carbon Dioxide (22-32) mmol/L BUN (9-20) mg/dL Creatinine (0.66-1.25) mg/dL Estimated GFR (>60) mL/min BUN/Creatinine Ratio (6-22) Glucose (80-110) mg/dL Calcium (8.4-10.2) mg/dL Total Bilirubin (0.2-1.3) mg/dL AST (17-59) IU/L ALT (<50) IU/L Alkaline Phosphatase (38-126) U/L Total Creatine Kinase (55-170) U/L CK-MB (CK-2) (<2.37) ng/mL CK-MB (CK-2) Rel Index (1.5-5.0) % Troponin I (0.01-0.034) ng/mL Total Protein (6.3-8.2) g/dL Albumin (3.5-5.0) g/dL Globulin (1.7-4.1) g/dL Albumin/Globulin Ratio (1.0-2.8) Urine Color Urine Appearance Urine pH (4.5-8.0) Ur Specific [place] (1.000-1.035) Urine Protein (Negative) Urine Glucose (UA) (Negative) g/dL Urine Ketones (NEGATIVE) Urine Occult Blood (Negative) Urine Nitrate (Negative) Urine Bilirubin (NEGATIVE) Urine Urobilinogen (0.2) E.U./dL Ur Leukocyte Esterase (NEGATIVE) Urine RBC (0-5/HPF) Urine WBC (0-5/HPF) Urine Bacteria (None) Ur Culture Indicated? U Opiates 300ng/mL cut Negative (Negative) Ur Oxycodone Screen Negative (Negative) Urine Methadone Screen Negative (Negative) Ur Barbiturates Screen Negative (Negative) U Tricyclic Antidepress Negative (Negative) Ur Phencyclidine Scrn Negative (Negative) Ur Amphetamines Screen Negative (Negative) U Methamphetamines Scrn Negative (Negative) Ur MDMA Scrn (Ecstasy) Negative (Negative) U Benzodiazepines Scrn Negative (Negative) Urine Cocaine Screen Negative (Negative) U Marijuana (THC) Screen Negative (Negative) Ethyl Alcohol Cancelled ( - 10) mg/dL SARS-CoV-2 (PCR) Negative (Negative) 08/19/22 08/19/22 Range/Units 16:35 18:35 WBC (4.5-11.0) X10^3/uL RBC (4.5-5.9) X10^6/uL Hgb (13.5-17.5) g/dL Hct (41-53) % MCV (80-100) fL MCH (26-34) PG MCHC (30-36) % RDW (11.6-14.8) % Plt Count (150-400) X10^3/uL Neut % (Auto) (50-75) % Lymph % (Auto) (25-40) % [place] % (Auto) (3-14) % Eos % (Auto) (2-4) % Baso % (Auto) (0-2) % Neut # (Auto) (3994-4477) /uL Lymph # (Auto) (4541-3663) /uL [place] # (Auto) (0-900) /uL Eos # (Auto) (0-450) /uL Baso # (Auto) (0-100) /uL PT (10.1-12.7) SECONDS INR (0.9-1.3) APTT (26-36) SECONDS Sodium (137-145) mmol/L Potassium (3.4-5.1) mmol/L Chloride (98-107) mmol/L Carbon Dioxide (22-32) mmol/L BUN (9-20) mg/dL Creatinine (0.66-1.25) mg/dL Estimated GFR (>60) mL/min BUN/Creatinine Ratio (6-22) Glucose (80-110) mg/dL Calcium (8.4-10.2) mg/dL Total Bilirubin (0.2-1.3) mg/dL AST (17-59) IU/L ALT (<50) IU/L Alkaline Phosphatase (38-126) U/L Total Creatine Kinase (55-170) U/L CK-MB (CK-2) (<2.37) ng/mL CK-MB (CK-2) Rel Index (1.5-5.0) % Troponin I 0.219 H* (0.01-0.034) ng/mL Total Protein (6.3-8.2) g/dL Albumin (3.5-5.0) g/dL Globulin (1.7-4.1) g/dL Albumin/Globulin Ratio (1.0-2.8) Urine Color Yellow Urine Appearance Clear Urine pH 5.5 (4.5-8.0) Ur Specific [place] 1.010 (1.000-1.035) Urine Protein Trace H (Negative) Urine Glucose (UA) Negative (Negative) g/dL Urine Ketones Trace H (NEGATIVE) Urine Occult Blood Negative (Negative) Urine Nitrate Negative (Negative) Urine Bilirubin Negative (NEGATIVE) Urine Urobilinogen 0.2 (0.2) E.U./dL Ur Leukocyte Esterase Negative (NEGATIVE) Urine RBC None seen (0-5/HPF) Urine WBC None seen (0-5/HPF) Urine Bacteria None seen (None) Ur Culture Indicated? Cult not indicated U Opiates 300ng/mL cut (Negative) Ur Oxycodone Screen (Negative) Urine Methadone Screen (Negative) Ur Barbiturates Screen (Negative) U Tricyclic Antidepress (Negative) Ur Phencyclidine Scrn (Negative) Ur Amphetamines Screen (Negative) U Methamphetamines Scrn (Negative) Ur MDMA Scrn (Ecstasy) (Negative) U Benzodiazepines Scrn (Negative) Urine Cocaine Screen (Negative) U Marijuana (THC) Screen (Negative) Ethyl Alcohol ( - 10) mg/dL SARS-CoV-2 (PCR) (Negative) MDM Narrative Medical decision making narrative: Patient with extremely complex medical history presents for the 2nd time in his many days. There have been extensive conversations with patient, various specialists including Cardiology and [facility] stroke. In the end patient requires hospitalization for evaluation of elevated troponin possible NSTEMI. Cardiology recommends 48 hours of heparin, blood cultures and upon results of these cultures further decisions can be made regarding his clinical course. Critical Care Time Critical Care Time Critical Care Time: Yes Total Critical Care Time: 45 Attestation: The high probability of a clinically significant, sudden or life threatening deterioration of the [CV system(s) required my full and direct attention, intervention and personal management. The aggregate critical care time was [45] minutes. This time is in addition to time spent performing reported procedures but includes the following: [x] Data Review and interpretation [x] Patient assessment and monitoring of vital signs [x] Documentation [x] Medication orders and management Discharge Plan Departure Patient Disposition: Admitted As Inpatient Clinical Impression: Non-ST elevation ME (NSTEMI), Endocarditis Admit Date/Time: 08/19/22 20:41 Admit Provider: Macario Godoy
--- NOTE | 2022-08-19 10:57 | DI.CT.S_ITS ---
PROCEDURE: CT ANGIO HEAD AND NECK INDICATIONS: worsening stroke symptoms, here yesterday, AMA TECHNIQUE: Pre-contrast 4.5 mm thick sections acquired from the foramen magnum to the vertex. After the administration of intravenous contrast, 1 mm thick sections acquired from the aortic arch through the [place] of [place]. Post-contrast 4.5 mm thick sections then re-acquired from the foramen magnum to the vertex. 3-dimensional [id number] (MIP) and/or volume rendering reformats were acquired of the central intracranial vasculature and neck separately. For radiation dose reduction, the following was used: automated exposure control, adjustment of mA and/or kV according to patient size. COMPARISON: [facility], CT, CT STROKE, 07/17/2022, 16:54. [facility], CT, CT HEAD/BRAIN WO CON, 08/18/2022, 18:44. [facility], MR, MR HEAD/BRAIN WO CON, 07/18/2022, 7:37. [facility], CT, CT ANGIO HEAD AND NECK, 07/17/2022, 16:54. FINDINGS: Image quality: Excellent. BRAIN: The ventricular system and cortical sulci demonstrate atrophy, consistent for the patient's stated age. There are areas of hypodensity within the periventricular and subcortical white matter. There is no acute intra-or extra axial fluid collection. Areas of evolving infarction in the right frontal temporal lobe without hemorrhage. No midline shift. Brainstem is unremarkable. Globes are symmetrical. Sinuses demonstrate chronic changes in the right maxillary sinus. Osseous structures are intact. HEAD CT ANGIOGRAPHY: Anterior circulation: Intracranial internal carotid arteries are normal in size and flow. The flow within the paired anterior cerebral arteries is normal and symmetric. The flow within the middle cerebral arteries is normal and symmetric. The anterior communicating artery is seen. No aneurysms are seen. Posterior circulation: Visualized portions of the vertebral arteries demonstrate normal caliber, and join to form a normal appearing basilar artery. Flow within the posterior cerebral arteries is normal and symmetric. No aneurysms are seen. NECK CT ANGIOGRAPHY: Carotid system: The great vessels demonstrate a conventional anatomy as they arise from the aortic arch. The origins of the common carotid arteries appear patent. The common carotid arteries demonstrate normal caliber and courses. The bifurcation regions are both widely patent. Stable appearance of approximate 50% narrowing at the origin of the left internal carotid artery. Posterior circulation: The origins of the vertebral arteries both appear widely patent. The more superior extracranial portions of both vertebral arteries also demonstrate normal courses and calibers. They join to form a normal appearing basilar artery. Soft tissues: Visualized neck soft tissues demonstrate no suspicious abnormalities. Bones: No suspicious bony lesions. Visualized cervical spine appears normally aligned. IMPRESSION: Expected evolution of infarction in the right frontal temporal lobe without hemorrhagic transformation. Atrophy and chronic microvascular ischemic changes. Stable 50% narrowing at the origin left internal carotid artery. Any quantitative measurements of stenosis were performed using NASCET criteria. Dictated by: Venus Carbone M.D. on 08/19/2022 at 12:17 Approved by: Venus Carbone M.D. on 08/19/2022 at 12:26
[2022-08-19 11:04] LABS: Add Manual Diff / Slide Review NO; Basophils Absolute Auto 0 /uL (0-100); Basophils Percent Auto 0.4 % (0-2); Eosinophils Absolute Auto 200 /uL (0-450); Eosinophils Percent Auto 2.4 % (2-4); Hematocrit 38.1 % (41-53); Hemoglobin 13.1 g/dL (13.5-17.5); Lymphocytes Absolute Auto 1600 /uL (1100-4500); Lymphocytes Percent Auto 16.7 % (25-40); Mean Corpuscular HGB Conc 34.4 % (30-36); Mean Corpuscular Hemoglobin 31.8 PG (26-34); Mean Corpuscular Volume 92.4 fL (80-100); Monocytes Absolute Auto 800 /uL (0-900); Monocytes Percent Auto 8.7 % (3-14); Neutrophils Absolute Auto 6900 /uL (1500-7000); Neutrophils Percent Auto 71.8 % (50-75); Platelet Count 198 X10^3/uL (150-400); Red Blood Cell Count 4.13 X10^6/uL (4.5-5.9); Red Cell Distribution Width 14.6 % (11.6-14.8); White Blood Cell Count 9.6 X10^3/uL (4.5-11.0)
[2022-08-19 11:15] LABS: INR 1.3 (0.9-1.3); Prothrombin Time 15.3 SECONDS (10.1-12.7)
[2022-08-19 11:18] LABS: PTT Partial Thromboplastin Tim 29 SECONDS (26-36)
[2022-08-19 11:21] LABS: Alanine Aminotransferase 26 IU/L (<50); Albumin 3.4 g/dL (3.5-5.0); Albumin Globulin Ratio 1.1 (1.0-2.8); Alkaline Phosphatase 90 U/L (38-126); Aspartate Aminotransferase 45 IU/L (17-59); BUN Creatinine Ratio 16.2 (6-22); Blood Urea Nitrogen 17 mg/dL (9-20); Calcium 8.7 mg/dL (8.4-10.2); Carbon Dioxide 23 mmol/L (22-32); Chloride 105 mmol/L (98-107); Creatine Kinase 140 U/L (55-170); Estimated Glomerular Filt Rate > 60 mL/min (>60); Globulin 3.1 g/dL (1.7-4.1); Glucose 102 mg/dL (80-110); HEMOLYSIS 27 (0-50); Potassium 3.9 mmol/L (3.4-5.1); Sodium 134 mmol/L (137-145); Total Protein 6.5 g/dL (6.3-8.2)
[2022-08-19 11:23] LABS: COVID19 -Nasal RAPID Negative (Negative)
[2022-08-19 11:37] LABS: Troponin I 0.269 ng/mL (0.01-0.034)
[2022-08-19 11:56] LABS: Ethanol (ETOH) < 10 mg/dL
[2022-08-19 12:01] LABS: CKMB % Relative Index 1.1 % (1.5-5.0); Creatine Kinase MB 1.51 ng/mL (<2.37)
--- NOTE | 2022-08-19 14:51 | PC.NURSE ---
pt has intermittent left sided facial droop. pt has no trouble swallowing or eating.
[2022-08-19] MEDS: cefTRIAXone 2,000 MG in SODIUM CHLORIDE 0.9% 100 ML 200 MG IV (15:01)
--- NOTE | 2022-08-19 15:10 | DI.ECHO.S_ITS ---
[facility] +---------+ : : [address] : : : : [id number] : : : : Phone: [phone] Echocardiogram Report + + :Name: YESY BAKER Study Date: 08/19/2022 Height: 68 in : :[facility] ReadingLocation: Weight: 155 lb : : Gender: Male BSA: 1.8 m2 : :: 1940 Age: 82 yrs BP: 102/59 mmHg: :Reason For Study: NSTEMI : :Ordering Physician: NICKIE, : :PREET Performed By: Tayler Seay : :Referring: PREET FU : + + Interpretation Summary Normal sinus rhythm. Normal LV size and wall thickness; normal wall motion and LV systolic function. EF is 65-70%. Mildly dilated RV Moderate MAC with normally functioning mitral valve. Aortic valve is replaced with a S3 stented bioprosthesis as of 02/13 It is functioning normally.There is no obvious vegetation. Trace pericardial effusion. Compared to prior TTE study 07/18/2022 no significant changes have occurred. Compared to prior PRAVEEN performed 07/22/2022, filamentous lesion on the ventricular aspect of aortic valve at the aortomitral continuity is not visualized. Procedure: Images were not obtained from all of the standard acoustic windows due to the limited scope of the study. A two-dimensional transthoracic echocardiogram with color flow and Doppler was performed in limited views only to assess LV and AV function.. The study quality was technically adequate. Comparison is made with the echocardiogram of 07/18/2022. The patient was in sinus rhythm with heart rates between 66-103 bpm during the exam. Left Ventricle: The left ventricle is normal in size and wall thickness. The ejection fraction is estimated to be 70-75%. Aortic Valve: There is a bioprosthetic aortic valve. The peak aortic velocity is 2.6 m/sec. The aortic valve mean gradient is 18 mmHg. There is mild aortic regurgitation. Great Vessels: The IVC is of normal diameter and collapses greater than 50% with a sniff. This suggests a low right atrial pressure of 3 mm Hg. Pericardium/ Pleura There is a small loculated pericardial effusion. There is no pleural effusion. MMode/2D Measurements & Calculations LVIDd: 4.5 cm LVOT diam: 2.0 cm LVIDs: 2.6 cm FS: 42.4 % IVSd: 0.79 cm LVPWd: 0.85 cm LV potter. diameter/BSA (cm/m^2): 2.4 LV sys. diameter/BSA (cm/m^2): 1.4 IVC diam: 1.3 cm Doppler Measurements & Calculations Ao V2 max: 261.0 cm/sec LVOT Max [place]: 87.8 cm/sec Ao V2 mean: 193.0 cm/sec LV V1 max P.1 mmHg Ao max P.4 mmHg LV V1 VTI: 21.2 cm Ao mean P.9 mmHg CECILIO(I,D): 1.3 cm2 Ao V2 VTI: 52.7 cm CECILIO(V,D): 1.1 cm2 sev ratio: 0.40 CECILIO indexed to BSA (cm^2/m^2): 0.70 SV(LVOT): 67.5 ml Electronically signed by: Kayla lopez [place] Physician:08/19/2022 04:47 PM
--- NOTE | 2022-08-19 15:10 | DI.MRI.S_ITS ---
PROCEDURE: MR HEAD/BRAIN WO CON INDICATIONS: stroke TECHNIQUE: Non-contrast axial T1 spin echo, axial T2 fast spin echo, sagittal and axial FLAIR, coronal T2 fast spin echo, axial gradient echo, axial diffusion and ADC through the brain. COMPARISON: [facility], MR, MR HEAD/BRAIN WO CON, 07/18/2022, 7:37. FINDINGS: Image quality: Excellent. CSF spaces: Ventricles appear symmetric in size and shape. Basal cisterns are patent. No extra-axial fluid collections. Brain: No intracranial bleeds or mass effects. There is cerebral volume loss for age. There are periventricular and deep white matter chronic small vessel ischemic changes. Brainstem appears normal. Diffusion-weighted images persistent although less prominent hyperintensity within the left frontal temporal lobe when compared to prior exam. No new areas of restricted diffusion are identified. These areas correlate to hyperintense T2/FLAIR signal. No chronic ischemic insults. Normal intravascular flow voids are present. Skull and face: Calvarial bone marrow is normal in signal. Orbits are normal. Sinuses: Sinuses demonstrate prominent mucosal thickening of the right maxillary sinus. IMPRESSION: Expected evolution of previous infarction in the left frontal parietal lobe. No new superimposed areas of ischemia are identified. No hemorrhagic transformation. Atrophy and chronic microvascular ischemic change. Dictated by: Venus Carbone M.D. on 08/19/2022 at 16:35 Approved by: Venus Carbone M.D. on 08/19/2022 at 16:36
[2022-08-19 17:18] LABS: Ur Creatinine Normal (Normal); Ur Specific Gravity Normal (Normal); Urine pH Normal (Normal)
[2022-08-19 17:19] LABS: UR Morphine/Opiate cutoff 300 Negative (Negative); Urine Amphetamines Negative (Negative); Urine Barbiturates Negative (Negative); Urine Benzodiazepines Negative (Negative); Urine Cocaine Negative (Negative); Urine MDMA Negative (Negative); Urine Methadone Negative (Negative); Urine Methamphetamines Negative (Negative); Urine Oxycodone Negative (Negative); Urine Phencyclidine Negative (Negative); Urine Tetrahydrocannabinol Negative (Negative); Urine Tricyclic Antidepressant Negative (Negative)
[2022-08-19 18:08] LABS: Appearance Urine UA CLEAR; Bilirubin Urine UA NEGATIVE (NEGATIVE); Color Urine UA YELLOW; Glucose Urine UA NEGATIVE (Negative); Ketones Urine UA TRACE (NEGATIVE); Leukocyte Esterase Urine UA NEGATIVE (NEGATIVE); Nitrite Urine UA NEGATIVE (Negative); Occult Blood Urine UA NEGATIVE (Negative); Protein Urine UA TRACE (Negative); Urobilinogen Urine UA 0.2 E.U./dL (0.2); pH Urine UA 5.5 (4.5-8.0)
[2022-08-19 18:19] LABS: Bacteria Urine None Seen; Culture Indicated Urine Cult Not Indicated; RBC Urine None Seen (0-5/HPF); WBC Urine None Seen (0-5/HPF)
--- NOTE | 2022-08-19 19:09 | PC.NURSE ---
Dr. Maldonado aware of pt refusing Heparin and that he wants to go home.
[2022-08-19 19:16] LABS: Troponin I 0.219 ng/mL (0.01-0.034)
[2022-08-19] MEDS: HEPARIN 5,000 UNIT/ML VIAL 4000 UNIT IV (19:56)
[2022-08-19] MEDS: HEPARIN DRIP 25,000 UNIT/500 ML IV.SOLN 16.874 UNIT IV (20:05)
[2022-08-19 22:05] LABS: PTT Partial Thromboplastin Tim 115 SECONDS (26-36)
[2022-08-20] VITALS (23 sets, daily range): BP systolic 111–120; BP diastolic 68–74; PULSE 62–120; RESP 16–21; TEMP 36.3–37.4; O2SAT 90–99; BMI 22.1
[2022-08-20 03:42] LABS: Hematocrit 38.4 % (41-53); Hemoglobin 13.2 g/dL (13.5-17.5); Platelet Count 191 X10^3/uL (150-400)
[2022-08-20 03:51] LABS: PTT Partial Thromboplastin Tim 210 SECONDS (26-36)
[2022-08-20 03:58] LABS: PTT Partial Thromboplastin Tim 61 SECONDS (26-36)
--- NOTE | 2022-08-20 06:54 | P.HP_ITS ---
History of Present Illness History of Present Illness Date Patient Seen: 08/19/22 Time Patient Seen: 20:30 Chief complaint: stroke/small heart attack/seen@ED T-1 AMA Narrative: Mr. 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 He is currently being treated for endocarditis, being followed by Vicky ARMSTRONG, but he is on IV ceftriaxone 2gm daily per records. He has continued to get his medication with no disruption. He presented to the hospital after a fall. He says his legs felt weak and gave out under him. He had no new lateralizing weakness. He had no upper extremity weakness. He had no headache, lightheadedness, vision changes. He has a facial droop which he says is stable from his recent stroke. He has had no chest pain, shortness of breath, fevers or chills. In the ED workup was done, vitals notable for afebrile, heart rate in the 90s, blood pressure 130s/70s, sats 99% on room air. Labs reviewed by me and notable for WBC 10.7, hgb 13.2, plts 179, creatinine 1.07. Trop 0.291. Lipase 2403. Lactate 1.1. Procal 0.37. Blood cultures sent. COVID negative. CT c-spine with no acute process. CT head reviewed by me and showed evolution of previous stroke. Chest xray showed stable chronic interstitial changes. CT chest abdomen pelvis showed no acute process. MRI head showed evolution of previous stroke. ED physician discussed case with neurology who said there is no evidence of new acute stroke, and that there is no contraindication to anticoagulation. ED physician discussed case with cardiology, who noted patient had recent cath, no indication for repeat cath, and to treat elevated troponin medically with anticoagulation. ECHO ordered showed no regional wall motion abnormalities and preserved EF. He was admitted for further treatment. [facility] Medical History Essential hypertension Hyperlipidemia Surgical History History of heart valve replacement Family History Mother Pneumonia Father Congestive heart failure Social History household members: none Smoking Status: Former smoker alcohol intake: current Meds Home Medications and Allergies Home Medications Medication Instructions Recorded Confirmed Type clopidogrel 75 mg tablet (Plavix) 75 mg PO DAILY #25 tabs 07/07/22 08/19/22 Rx aspirin 81 mg capsule 81 mg PO DAILY 07/17/22 08/19/22 History atorvastatin 10 mg tablet 5 mg PO DAILY 07/17/22 08/19/22 History metoprolol succinate 25 mg 12.5 mg PO QAM 07/17/22 08/19/22 History tablet,extended release 24 hr metoprolol succinate 25 mg 25 mg PO BEDTIME 07/17/22 08/19/22 History tablet,extended release 24 hr Allergies Allergy/AdvReac Type Severity Reaction Status Date / Time No Known Drug Allergies Allergy Verified 08/19/22 10:45 Review of Systems Review of Systems Narrative: 14 systems reviewed and negative aside from what is noted in HPI Exam Vital Signs (past 8 hours): - 08/20/22 02:59 08/20/22 03:00 08/20/22 03:30 Pulse Rate 104 H 120 H 92 H 08/20/22 04:00 08/20/22 04:30 08/20/22 05:00 Pulse Rate 93 H 85 82 08/20/22 05:30 Pulse Rate 80 Oxygen Delivery Method Room Air Narrative Exam Narrative: GEN: no acute distress HEENT: moist mucous membranes, PERRL NECK: trachea midline, no JVD CV: regular rate and rhythm, no murmurs PULM: clear bilaterally, no wheezes, rhonchi, rales ABD: soft, nontender, nondistended, no organomegaly, normal bowel sounds EXT: warm and well perfused, no edema NEURO: awake, alert, oriented, left facial droop Objective Labs 08/20/22 03:34 08/19/22 10:56 Labs: Laboratory Results - last 24 hr 08/19/22 08/19/22 08/19/22 10:56 10:56 10:56 WBC 9.6 RBC 4.13 L Hgb 13.1 L Hct 38.1 L MCV 92.4 MCH 31.8 MCHC 34.4 RDW 14.6 Plt Count 198 Neut % (Auto) 71.8 Lymph % (Auto) 16.7 L [place] % (Auto) 8.7 Eos % (Auto) 2.4 Baso % (Auto) 0.4 Neut # (Auto) 6900 Lymph # (Auto) 1600 [place] # (Auto) 800 Eos # (Auto) 200 Baso # (Auto) 0 PT 15.3 H INR 1.3 APTT 29 Sodium 134 L Potassium 3.9 Chloride 105 Carbon Dioxide 23 BUN 17 Creatinine 1.05 Estimated GFR > 60 BUN/Creatinine Ratio 16.2 Glucose 102 Calcium 8.7 Total Bilirubin 1.0 AST 45 ALT 26 Alkaline Phosphatase 90 Total Creatine Kinase 140 CK-MB (CK-2) 1.51 D CK-MB (CK-2) Rel Index 1.1 L Troponin I 0.269 H* Total Protein 6.5 Albumin 3.4 L Globulin 3.1 Albumin/Globulin Ratio 1.1 Urine Color Urine Appearance Urine pH Ur Specific [place] Urine Protein Urine Glucose (UA) Urine Ketones Urine Occult Blood Urine Nitrate Urine Bilirubin Urine Urobilinogen Ur Leukocyte Esterase Urine RBC Urine WBC Urine Bacteria Ur Culture Indicated? U Opiates 300ng/mL cut Ur Oxycodone Screen Urine Methadone Screen Ur Barbiturates Screen U Tricyclic Antidepress Ur Phencyclidine Scrn Ur Amphetamines Screen U Methamphetamines Scrn Ur MDMA Scrn (Ecstasy) U Benzodiazepines Scrn Urine Cocaine Screen U Marijuana (THC) Screen Ethyl Alcohol < 10 SARS-CoV-2 (PCR) 08/19/22 08/19/22 08/19/22 10:56 11:03 16:35 WBC RBC Hgb Hct MCV MCH MCHC RDW Plt Count Neut % (Auto) Lymph % (Auto) [place] % (Auto) Eos % (Auto) Baso % (Auto) Neut # (Auto) Lymph # (Auto) [place] # (Auto) Eos # (Auto) Baso # (Auto) PT INR APTT Sodium Potassium Chloride Carbon Dioxide BUN Creatinine Estimated GFR BUN/Creatinine Ratio Glucose Calcium Total Bilirubin AST ALT Alkaline Phosphatase Total Creatine Kinase CK-MB (CK-2) CK-MB (CK-2) Rel Index Troponin I Total Protein Albumin Globulin Albumin/Globulin Ratio Urine Color Urine Appearance Urine pH Ur Specific [place] Urine Protein Urine Glucose (UA) Urine Ketones Urine Occult Blood Urine Nitrate Urine Bilirubin Urine Urobilinogen Ur Leukocyte Esterase Urine RBC Urine WBC Urine Bacteria Ur Culture Indicated? U Opiates 300ng/mL cut Negative Ur Oxycodone Screen Negative Urine Methadone Screen Negative Ur Barbiturates Screen Negative U Tricyclic Antidepress Negative Ur Phencyclidine Scrn Negative Ur Amphetamines Screen Negative U Methamphetamines Scrn Negative Ur MDMA Scrn (Ecstasy) Negative U Benzodiazepines Scrn Negative Urine Cocaine Screen Negative U Marijuana (THC) Screen Negative Ethyl Alcohol Cancelled SARS-CoV-2 (PCR) Negative 08/19/22 08/19/22 08/19/22 16:35 18:35 20:23 WBC RBC Hgb Hct MCV MCH MCHC RDW Plt Count Neut % (Auto) Lymph % (Auto) [place] % (Auto) Eos % (Auto) Baso % (Auto) Neut # (Auto) Lymph # (Auto) [place] # (Auto) Eos # (Auto) Baso # (Auto) PT INR APTT 210 H* D Sodium Potassium Chloride Carbon Dioxide BUN Creatinine Estimated GFR BUN/Creatinine Ratio Glucose Calcium Total Bilirubin AST ALT Alkaline Phosphatase Total Creatine Kinase CK-MB (CK-2) CK-MB (CK-2) Rel Index Troponin I 0.219 H* Total Protein Albumin Globulin Albumin/Globulin Ratio Urine Color Yellow Urine Appearance Clear Urine pH 5.5 Ur Specific [place] 1.010 Urine Protein Trace H Urine Glucose (UA) Negative Urine Ketones Trace H Urine Occult Blood Negative Urine Nitrate Negative Urine Bilirubin Negative Urine Urobilinogen 0.2 Ur Leukocyte Esterase Negative Urine RBC None seen Urine WBC None seen Urine Bacteria None seen Ur Culture Indicated? Cult not indicated U Opiates 300ng/mL cut Ur Oxycodone Screen Urine Methadone Screen Ur Barbiturates Screen U Tricyclic Antidepress Ur Phencyclidine Scrn Ur Amphetamines Screen U Methamphetamines Scrn Ur MDMA Scrn (Ecstasy) U Benzodiazepines Scrn Urine Cocaine Screen U Marijuana (THC) Screen Ethyl Alcohol SARS-CoV-2 (PCR) 08/19/22 08/20/22 08/20/22 21:35 03:34 03:34 WBC RBC Hgb 13.2 L Hct 38.4 L MCV MCH MCHC RDW Plt Count 191 Neut % (Auto) Lymph % (Auto) [place] % (Auto) Eos % (Auto) Baso % (Auto) Neut # (Auto) Lymph # (Auto) [place] # (Auto) Eos # (Auto) Baso # (Auto) PT INR APTT 115 H* D 61 H D Sodium Potassium Chloride Carbon Dioxide BUN Creatinine Estimated GFR BUN/Creatinine Ratio Glucose Calcium Total Bilirubin AST ALT Alkaline Phosphatase Total Creatine Kinase CK-MB (CK-2) CK-MB (CK-2) Rel Index Troponin I Total Protein Albumin Globulin Albumin/Globulin Ratio Urine Color Urine Appearance Urine pH Ur Specific [place] Urine Protein Urine Glucose (UA) Urine Ketones Urine Occult Blood Urine Nitrate Urine Bilirubin Urine Urobilinogen Ur Leukocyte Esterase Urine RBC Urine WBC Urine Bacteria Ur Culture Indicated? U Opiates 300ng/mL cut Ur Oxycodone Screen Urine Methadone Screen Ur Barbiturates Screen U Tricyclic Antidepress Ur Phencyclidine Scrn Ur Amphetamines Screen U Methamphetamines Scrn Ur MDMA Scrn (Ecstasy) U Benzodiazepines Scrn Urine Cocaine Screen U Marijuana (THC) Screen Ethyl Alcohol SARS-CoV-2 (PCR) Assessment & Plan Assessment & Plan narrative: 1. NSTEMI -patient with elevated troponin, no chest pain or shortness of breath -has had recent cath, per discussion with cardiology no need for cath currently -recommended to stay at [place], and get heparin gtt -continue antiplatelets and statin -ECHO already ordered in ED and noted normal wall motion, normal EF, and no obvious vegetation with well functioning aortic valve 2. Endocarditis with history of CVA -last admission had strep infanterius positive blood cultures that cleared -continue on ceftriaxone 2gm daily -TTE showed no obvious vegetation -blood cultures pending 3. History of CVA -no new lateralizing neurologic symptoms -CT head, MRI head showed old CVA, no new abnormalities 4. Falls and weakness -PT eval I have discussed plan of care and obtained history from the patient and from review of previous medical notes. I have discussed plan of care with ED physician and bedside nurse. I have reviewed labs, CT and MRI head and previous medical notes Code status:? Full code Surrogate decision maker: Prem Veliz
--- NOTE | 2022-08-20 07:19 | PM.PN.1 ---
Subjective Subjective Interval history: Patient feels well. No CP. Exam Vital Signs (past 8 hours): - 08/20/22 02:59 08/20/22 03:00 08/20/22 03:30 Pulse Rate 104 H 120 H 92 H 08/20/22 04:00 08/20/22 04:30 08/20/22 05:00 Pulse Rate 93 H 85 82 08/20/22 05:30 08/20/22 06:00 08/20/22 06:30 Pulse Rate 80 105 H 85 Oxygen Delivery Method Room Air Narrative Exam Narrative: GEN: no acute distress HEENT: moist mucous membranes, PERRL NECK: trachea midline, no JVD CV: regular rate and rhythm, no murmurs PULM: clear bilaterally, no wheezes, rhonchi, rales ABD: soft, nontender, nondistended, no organomegaly, normal bowel sounds EXT: warm and well perfused, no edema NEURO: awake, alert, oriented, left facial droop Objective Labs 08/20/22 08:35 08/20/22 08:35 Labs: Laboratory Results - last 24 hr 08/19/22 08/19/22 08/19/22 10:56 10:56 10:56 WBC 9.6 RBC 4.13 L Hgb 13.1 L Hct 38.1 L MCV 92.4 MCH 31.8 MCHC 34.4 RDW 14.6 Plt Count 198 Neut % (Auto) 71.8 Lymph % (Auto) 16.7 L [place] % (Auto) 8.7 Eos % (Auto) 2.4 Baso % (Auto) 0.4 Neut # (Auto) 6900 Lymph # (Auto) 1600 [place] # (Auto) 800 Eos # (Auto) 200 Baso # (Auto) 0 PT 15.3 H INR 1.3 APTT 29 Sodium 134 L Potassium 3.9 Chloride 105 Carbon Dioxide 23 BUN 17 Creatinine 1.05 Estimated GFR > 60 BUN/Creatinine Ratio 16.2 Glucose 102 Calcium 8.7 Total Bilirubin 1.0 AST 45 ALT 26 Alkaline Phosphatase 90 Total Creatine Kinase 140 CK-MB (CK-2) 1.51 D CK-MB (CK-2) Rel Index 1.1 L Troponin I 0.269 H* Total Protein 6.5 Albumin 3.4 L Globulin 3.1 Albumin/Globulin Ratio 1.1 Urine Color Urine Appearance Urine pH Ur Specific [place] Urine Protein Urine Glucose (UA) Urine Ketones Urine Occult Blood Urine Nitrate Urine Bilirubin Urine Urobilinogen Ur Leukocyte Esterase Urine RBC Urine WBC Urine Bacteria Ur Culture Indicated? U Opiates 300ng/mL cut Ur Oxycodone Screen Urine Methadone Screen Ur Barbiturates Screen U Tricyclic Antidepress Ur Phencyclidine Scrn Ur Amphetamines Screen U Methamphetamines Scrn Ur MDMA Scrn (Ecstasy) U Benzodiazepines Scrn Urine Cocaine Screen U Marijuana (THC) Screen Ethyl Alcohol < 10 SARS-CoV-2 (PCR) 08/19/22 08/19/22 08/19/22 10:56 11:03 16:35 WBC RBC Hgb Hct MCV MCH MCHC RDW Plt Count Neut % (Auto) Lymph % (Auto) [place] % (Auto) Eos % (Auto) Baso % (Auto) Neut # (Auto) Lymph # (Auto) [place] # (Auto) Eos # (Auto) Baso # (Auto) PT INR APTT Sodium Potassium Chloride Carbon Dioxide BUN Creatinine Estimated GFR BUN/Creatinine Ratio Glucose Calcium Total Bilirubin AST ALT Alkaline Phosphatase Total Creatine Kinase CK-MB (CK-2) CK-MB (CK-2) Rel Index Troponin I Total Protein Albumin Globulin Albumin/Globulin Ratio Urine Color Urine Appearance Urine pH Ur Specific [place] Urine Protein Urine Glucose (UA) Urine Ketones Urine Occult Blood Urine Nitrate Urine Bilirubin Urine Urobilinogen Ur Leukocyte Esterase Urine RBC Urine WBC Urine Bacteria Ur Culture Indicated? U Opiates 300ng/mL cut Negative Ur Oxycodone Screen Negative Urine Methadone Screen Negative Ur Barbiturates Screen Negative U Tricyclic Antidepress Negative Ur Phencyclidine Scrn Negative Ur Amphetamines Screen Negative U Methamphetamines Scrn Negative Ur MDMA Scrn (Ecstasy) Negative U Benzodiazepines Scrn Negative Urine Cocaine Screen Negative U Marijuana (THC) Screen Negative Ethyl Alcohol Cancelled SARS-CoV-2 (PCR) Negative 08/19/22 08/19/22 08/19/22 16:35 18:35 20:23 WBC RBC Hgb Hct MCV MCH MCHC RDW Plt Count Neut % (Auto) Lymph % (Auto) [place] % (Auto) Eos % (Auto) Baso % (Auto) Neut # (Auto) Lymph # (Auto) [place] # (Auto) Eos # (Auto) Baso # (Auto) PT INR APTT 210 H* D Sodium Potassium Chloride Carbon Dioxide BUN Creatinine Estimated GFR BUN/Creatinine Ratio Glucose Calcium Total Bilirubin AST ALT Alkaline Phosphatase Total Creatine Kinase CK-MB (CK-2) CK-MB (CK-2) Rel Index Troponin I 0.219 H* Total Protein Albumin Globulin Albumin/Globulin Ratio Urine Color Yellow Urine Appearance Clear Urine pH 5.5 Ur Specific [place] 1.010 Urine Protein Trace H Urine Glucose (UA) Negative Urine Ketones Trace H Urine Occult Blood Negative Urine Nitrate Negative Urine Bilirubin Negative Urine Urobilinogen 0.2 Ur Leukocyte Esterase Negative Urine RBC None seen Urine WBC None seen Urine Bacteria None seen Ur Culture Indicated? Cult not indicated U Opiates 300ng/mL cut Ur Oxycodone Screen Urine Methadone Screen Ur Barbiturates Screen U Tricyclic Antidepress Ur Phencyclidine Scrn Ur Amphetamines Screen U Methamphetamines Scrn Ur MDMA Scrn (Ecstasy) U Benzodiazepines Scrn Urine Cocaine Screen U Marijuana (THC) Screen Ethyl Alcohol SARS-CoV-2 (PCR) 08/19/22 08/20/22 08/20/22 21:35 03:34 03:34 WBC RBC Hgb 13.2 L Hct 38.4 L MCV MCH MCHC RDW Plt Count 191 Neut % (Auto) Lymph % (Auto) [place] % (Auto) Eos % (Auto) Baso % (Auto) Neut # (Auto) Lymph # (Auto) [place] # (Auto) Eos # (Auto) Baso # (Auto) PT INR APTT 115 H* D 61 H D Sodium Potassium Chloride Carbon Dioxide BUN Creatinine Estimated GFR BUN/Creatinine Ratio Glucose Calcium Total Bilirubin AST ALT Alkaline Phosphatase Total Creatine Kinase CK-MB (CK-2) CK-MB (CK-2) Rel Index Troponin I Total Protein Albumin Globulin Albumin/Globulin Ratio Urine Color Urine Appearance Urine pH Ur Specific [place] Urine Protein Urine Glucose (UA) Urine Ketones Urine Occult Blood Urine Nitrate Urine Bilirubin Urine Urobilinogen Ur Leukocyte Esterase Urine RBC Urine WBC Urine Bacteria Ur Culture Indicated? U Opiates 300ng/mL cut Ur Oxycodone Screen Urine Methadone Screen Ur Barbiturates Screen U Tricyclic Antidepress Ur Phencyclidine Scrn Ur Amphetamines Screen U Methamphetamines Scrn Ur MDMA Scrn (Ecstasy) U Benzodiazepines Scrn Urine Cocaine Screen U Marijuana (THC) Screen Ethyl Alcohol SARS-CoV-2 (PCR) PFSH Medical History Essential hypertension Hyperlipidemia Surgical History History of heart valve replacement Family History Mother Pneumonia Father Congestive heart failure Social History household members: none Smoking Status: Former smoker alcohol intake: current Assessment & Plan Assessment & Plan narrative: 1. NSTEMI -patient with elevated troponin, no chest pain or shortness of breath -has had recent cath, per discussion with cardiology no need for cath currently -cards recommended to stay at [facility], and get heparin gtt -continue heparin drip x48 hours -continue antiplatelets and statin -ECHO already ordered in ED and noted normal wall motion, normal EF, and no obvious vegetation with well functioning aortic valve 2. Endocarditis with history of CVA -last admission had strep infanterius positive blood cultures that cleared -continue on ceftriaxone 2gm daily -TTE showed no obvious vegetation -blood cultures pending 3. History of CVA -no new lateralizing neurologic symptoms -CT head, MRI head showed old CVA, no new abnormalities 4. Falls and weakness -PT eval Code status:? Full code Surrogate decision maker: Prem Veliz Dispo: Home in 2 days pending negative BCx and finish 48hrs of heparin drip.
[2022-08-20 08:39] LABS: Add Manual Diff / Slide Review NO; Basophils Absolute Auto 0 /uL (0-100); Basophils Percent Auto 0.4 % (0-2); Eosinophils Absolute Auto 300 /uL (0-450); Eosinophils Percent Auto 3.6 % (2-4); Hematocrit 36.4 % (41-53); Hemoglobin 12.7 g/dL (13.5-17.5); Lymphocytes Absolute Auto 1300 /uL (1100-4500); Lymphocytes Percent Auto 15.3 % (25-40); Mean Corpuscular Volume 91.6 fL (80-100); Monocytes Absolute Auto 700 /uL (0-900); Monocytes Percent Auto 8.2 % (3-14); Neutrophils Absolute Auto 6400 /uL (1500-7000); Neutrophils Percent Auto 72.5 % (50-75); Platelet Count 188 X10^3/uL (150-400); Red Blood Cell Count 3.98 X10^6/uL (4.5-5.9); Red Cell Distribution Width 14.7 % (11.6-14.8); White Blood Cell Count 8.8 X10^3/uL (4.5-11.0)
[2022-08-20] MEDS: CLOPIDOGREL 75 MG TABLET PO (08:53)
[2022-08-20] MEDS: METOPROLOL ER 25 MG TABLET 12.5 MG PO (08:53)
[2022-08-20] MEDS: ASPIRIN EC 81 MG TABLET PO (08:54)
[2022-08-20 09:09] LABS: BUN Creatinine Ratio 18.5 (6-22); Blood Urea Nitrogen 15 mg/dL (9-20); Calcium 8.4 mg/dL (8.4-10.2); Carbon Dioxide 25 mmol/L (22-32); Chloride 107 mmol/L (98-107); Estimated Glomerular Filt Rate > 60 mL/min (>60); Glucose 106 mg/dL (80-110); HEMOLYSIS < 15 (0-50); Potassium 3.7 mmol/L (3.4-5.1); Sodium 135 mmol/L (137-145)
[2022-08-20 09:27] LABS: Troponin I 0.208 ng/mL (0.01-0.034)
[2022-08-20 09:46] LABS: PTT Partial Thromboplastin Tim 70 SECONDS (26-36)
--- NOTE | 2022-08-20 14:59 | PC.NURSE ---
Addendum entered by Faye Chacon R.N. 08/20/22 16:03: Please ignore the last note. Charted on the wrong patient. Addendum entered by Faye Chacon R.N. 08/20/22 15:02: Patient is visiting with her S.O. and she denies discomfort. NIH scale 4. Original Note: Assess- Patient is alert and oriented x4. His heparin drip is infusing at 840u/hr. He is tolerating this well. Denies chest pain and is lying supine at this time.
[2022-08-20] MEDS: cefTRIAXone 2,000 MG in SODIUM CHLORIDE 0.9% 100 ML 200 MG IV (15:39)
[2022-08-20] MEDS: SODIUM CHLORIDE 0.9% 250 ML 21 ML IV (15:41)
--- NOTE | 2022-08-20 16:44 | PT.IIE ---
Current Diagnoses Non-ST elevation (NSTEMI) myocardial infarction (08/19/22) Surgical History (Last Reviewed 08/20/22 @ 06:54 by Macario Godoy MD) History of heart valve replacement Medical History (Last Reviewed 08/20/22 @ 06:54 by Macario Godoy MD) Essential hypertension Hyperlipidemia Physical Therapy Inpatient Evaluation/Re-Eval M1 PT/OT-IP Prior Functional Status Start: 08/20/22 16:31 Freq: NEEDED Status: Active Protocol: Document 08/20/22 16:31 ES (Rec: 08/20/22 16:44 ES [id number]) Medical Review Prior Functional Status Medical History Reviewed Yes Diet/Fluid Consistency Regular Communication WFL, has some slurring at baseline from prior stroke/ facial droop Mobility and Gait Indep Activities of Daily Living and IADL's Indep Social History Household Members none Living Arrangements House Number of Floors (Floors) One Floor Number of Stairs To Enter/Railing? 2, no rail Home Environment Standard Height Toilet,Tub/ Shower Employment Status Retired Additional Social History Comment Has a neighbor who checks in as needed. M2 PT-IP Current Condition Start: 08/20/22 16:31 Freq: NEEDED Status: Active Protocol: Document 08/20/22 16:31 ES (Rec: 08/20/22 16:44 ES [id number]) Physical Therapy Current Condition Current Condition Evaluation Date 08/20/22 Treatment Diagnosis NSTEMI, hx CVA Onset Date 08/19/22 M3 PT-IP Subjective Start: 08/20/22 16:31 Freq: NEEDED Status: Active Protocol: Document 08/20/22 16:31 ES (Rec: 08/20/22 16:44 ES [id number]) Subjective Physical Therapy Visit Type Type Initial Evaluation Visit Start Time 16:05 Visit Stop Time 16:27 Total Visit Minutes 22 Physical Therapy Visit Comments Patient Comments Patient alert in bed, agreeable to work with PT. Reported feeling better today than yesterday. Stated he has had 2 falls in the past year; one he doesn't remember why it happened, and the other happened when he lost feeling below his waist while standing in the bathroom and fell, hitting the back of his head. Patient asked where he could buy a cane; has been thinking about getting one. Therapy Pain Assessment Pain Present Pain Present Denied Pain M4 PT-IP Mobility and Gait Start: 08/20/22 16:31 Freq: NEEDED Status: Active Protocol: Document 08/20/22 16:31 ES (Rec: 08/20/22 16:44 ES [id number]) PT-Bed Mobility Assessment Supine to Sit Supine to Sit Independent Sit to Supine Sit to Supine Independent Scooting Scooting to Edge of Bed Independent Scooting Up and Down in Bed Independent PT-Transfer Assessment Sit to and From Stand Sit to and from Stand Independent,Use of Upper Extremities Equipment Transfer Assistive Device None Transfers Transfer Destination Chair Transfer Technique Stand Step Pivot Transfer Ability Level of Assist Standby Assistance Comments Mobility Comments Assist for managing lines only . Gait Assessment Gait Gait Assistance Required: Standby Assistance Distance (Feet) 220 Assistive Devices Assistive Device None Gait Deviations General Gait Pattern Within Normal Limits Comments Gait Comments Patient pushed IV pole during ambulation without LOB with normal eric and velocity. SBA for managing lines. PT-Balance Assessment Sitting Balance and Reactions Static Sitting Balance Ability Normal Dynamic Sitting Balance Ability Normal Standing Balance and Reactions Static Standing Balance Ability Good Dynamic Standing Balance Ability Good Device Used None M5 PT-IP Objective Assessments Start: 08/20/22 16:31 Freq: NEEDED Status: Active Protocol: Document 08/20/22 16:31 ES (Rec: 08/20/22 16:44 ES [id number]) Orientation Orientation/Cognition Level of Alertness Alert Orientation Name,Age,Birthday,Month,Date, Year,Day of Week,Place, Situation Language Function Ability No Deficits Noted Safety Awareness Understands Safety Issues Memory Description No Deficits Noted Comments Slight slur with L facial droop; patient stated this is from a prior CVA and is not worse than usual. Gross Range of Motion Upper Extremity ROM Assessment Within Functional Limits Lower Extremity ROM Assessment Within Functional Limits Strength Upper Extremity Strength Assessment Within Functional Limits Lower Extremity Strength Assessment Within Functional Limits Coordination Assessment Gross Coordination Gross Coordination WNL Sensation Assessment Sensation Gross Sensation WNL Muscle Tone Muscle Tone WNL Yes M6 PT-IP Treatment Start: 08/20/22 16:31 Freq: NEEDED Status: Active Protocol: Document 08/20/22 16:31 ES (Rec: 08/20/22 16:44 ES [id number]) Physical Therapy Treatment Other Treatments Other Treatment Performed Provided patient with list of local DME providers. M7 PT-IP Assessment and Plan Start: 08/20/22 16:31 Freq: NEEDED Status: Active Protocol: Document 08/20/22 16:31 ES (Rec: 08/20/22 16:44 ES [id number]) PT Summary Assessment and Plan Potential Rehabilitation Potential Excellent Status of Condition at Evaluation Stable Summary Assessment Summary Patient is a 82 year old male who presents at his normal baseline function. He required assist managing IV/lines, otherwise was independent with bed mobility, transfers, and gait x200 ft without difficulty and without AD. Patient is safe to d/c home when medically stable. Frequency of Treatment Frequency Of Treatment Discharge Recommendations To Nursing Amount of Assist Needed Standby Assistance Discharge Recommendations PT Discharge Recommendations Home Transportation Needs at Discharge Private Vehicle
[2022-08-20] MEDS: METOPROLOL ER 25 MG TABLET PO (21:22)
[2022-08-21] VITALS (8 sets, daily range): BP systolic 107–133; BP diastolic 69–80; PULSE 67–90; RESP 16–18; TEMP 36.3–36.7; O2SAT 93–98
[2022-08-21] MEDS: HEPARIN DRIP 25,000 UNIT/500 ML IV.SOLN 16.874 UNIT IV (00:07)
[2022-08-21 06:48] LABS: Hematocrit 35.8 % (41-53); Hemoglobin 12.3 g/dL (13.5-17.5); Platelet Count 212 X10^3/uL (150-400)
[2022-08-21 06:54] LABS: PTT Partial Thromboplastin Tim 55 SECONDS (26-36)
[2022-08-21] MEDS: CLOPIDOGREL 75 MG TABLET PO (09:08)
[2022-08-21] MEDS: METOPROLOL ER 25 MG TABLET 12.5 MG PO (09:08)
[2022-08-21] MEDS: ASPIRIN EC 81 MG TABLET PO (09:08)
--- NOTE | 2022-08-21 13:24 | PM.PN.1 ---
Exam Vital Signs (past 8 hours): - 08/21/22 09:00 08/21/22 09:00 08/21/22 09:08 Temperature Pulse Rate 90 90 Respiratory Rate 18 Blood Pressure 107/70 107/70 Pulse Oximetry 95 95 Oxygen Delivery Method Room Air Oxygen Flow Rate 0 0 08/21/22 13:00 08/21/22 13:00 Temperature 98 F Pulse Rate 77 Respiratory Rate 16 Blood Pressure 121/69 Pulse Oximetry 95 97 Oxygen Delivery Method Room Air Oxygen Flow Rate 0 0 Oxygen Delivery Method Room Air Oxygen Flow Rate 0 Objective Labs 08/21/22 06:15 08/20/22 08:35 Labs: Laboratory Results - last 24 hr 08/21/22 08/21/22 06:15 06:15 Hgb 12.3 L Hct 35.8 L Plt Count 212 APTT 55 H D PFSH Medical History Essential hypertension Hyperlipidemia Surgical History History of heart valve replacement Family History Mother Pneumonia Father Congestive heart failure Social History household members: none Smoking Status: Former smoker alcohol intake: current Quality VTE Deep Vein Thrombosis/Pulmonary Embolism Present on Admission: No
--- NOTE | 2022-08-21 13:41 | CM.DANOTE ---
Initial Discharge Assessment Note: Case reviewed, met with patient. Introduced self and role. Payer: Medicare and Self Pay PCP: Nirali Armstrong 82 year old male admitted 08/19/22 with NSTEMI, elevated troponin; recent endocarditis and on IV Ceftriaxone 2 gm daily through [facility] here. Previous stroke with some facial droop. Recent heart cath. Falls and weakness lately. PT eval pending. Patient lives alone in 1 story home. He is ambulatory and drives, independent in ADLs. His neighbor checks in on him. PT has evaluated him and states he is at baseline and can be discharged home when cleared. Plan: Discharge home when medically cleared. Friend to transport. He drives so not eligible for Home Health. YUNIER Discharge Planning/Care Management CM Discharge Assessment Start: 08/21/22 11:01 Freq: Status: Active Protocol: Document 08/21/22 11:01 (Rec: 08/21/22 11:06 [id number]) Discharge Planning Assessment Assigned Paleology Teacher Yanet Garcia RN/MAIAP Advance Directives? Yes Advance Directives on File No History Provided By Patient,Medical Record Prior Living Arrangements House Household Members none Type of transporation used prior to Drives own vehicle admit Independent with ADL's Yes Is patient alert and oriented? Yes Comment Drives Caregiver for Another No Comment Lives alone. Discharge Plan Home Transportation Arrangement Friend? Referrals Initiated Other Additional Comment Will discuss home heatlh with patient. Review Status In Process Next Review Type Continued Stay Review Document 08/21/22 13:19 (Rec: 08/21/22 13:40 [id number]) Discharge Planning Assessment Assigned Paleology Teacher Yanet Garcia RN/MAIAP Advance Directives? Yes Advance Directives on File No History Provided By Patient,Medical Record Prior Living Arrangements House Household Members none Type of transporation used prior to Drives own vehicle admit Independent with ADL's Yes Is patient alert and oriented? Yes Comment Drives Caregiver for Another No Comment Lives alone. Discharge Plan Home Transportation Arrangement Friend? Referrals Initiated Other Additional Comment Will discuss home health with patient. Review Status In Process Next Review Type Continued Stay Review
[2022-08-21] MEDS: cefTRIAXone 2,000 MG in SODIUM CHLORIDE 0.9% 100 ML 200 MG IV (14:11)
--- NOTE | 2022-08-21 18:27 | P.DS_ITS ---
History of Present Illness History of Present Illness Date Patient Seen: 08/19/22 Time Patient Seen: 20:30 Chief complaint: stroke/small heart attack/seen@ED T-1 AMA Narrative: Mr. 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 He is currently being treated for endocarditis, being followed by Vicky ARMSTRONG, but he is on IV ceftriaxone 2gm daily per records. He has continued to get his medication with no disruption. He presented to the hospital after a fall. He says his legs felt weak and gave out under him. He had no new lateralizing weakness. He had no upper extremity weakness. He had no headache, lightheadedness, vision changes. He has a facial droop which he says is stable from his recent stroke. He has had no chest pain, shortness of breath, fevers or chills. In the ED workup was done, vitals notable for afebrile, heart rate in the 90s, blood pressure 130s/70s, sats 99% on room air. Labs reviewed by me and notable for WBC 10.7, hgb 13.2, plts 179, creatinine 1.07. Trop 0.291. Lipase 2403. Lactate 1.1. Procal 0.37. Blood cultures sent. COVID negative. CT c-spine with no acute process. CT head reviewed by me and showed evolution of previous stroke. Chest xray showed stable chronic interstitial changes. CT chest abdomen pelvis showed no acute process. MRI head showed evolution of previous stroke. ED physician discussed case with neurology who said there is no evidence of new acute stroke, and that there is no contraindication to anticoagulation. ED physician discussed case with cardiology, who noted patient had recent cath, no indication for repeat cath, and to treat elevated troponin medically with anticoagulation. ECHO ordered showed no regional wall motion abnormalities and preserved EF. He was admitted for further treatment. Discharge Providers Provider Date of admission: 08/19/22 20:41 Discharge Date: 08/21/22 Primary care physician: Nirali Armstrong PA-C Consults: 08/20/22 08:05 Consult to Physical Therapy Evaluate & Treat Comment: Physician Instructions: Evaluate and Treat Discharge provider: Scott Ozuna DO Summary Hospital Course Discharge Diagnosis: 1. NSTEMI -patient with elevated troponin, no chest pain or shortness of breath -has had recent cath, per discussion with cardiology no need for cath currently -cards recommended to stay at [place], and get heparin gtt -continue heparin drip x48 hours -continue antiplatelets and statin -ECHO already ordered in ED and noted normal wall motion, normal EF, and no obvious vegetation with well functioning aortic valve 2. Endocarditis with history of CVA -last admission had strep infanterius positive blood cultures that cleared -continue on ceftriaxone 2gm daily -TTE showed no obvious vegetation -blood cultures NG at 48 hours 3. History of CVA -no new lateralizing neurologic symptoms -CT head, MRI head showed old CVA, no new abnormalities 4. Falls and weakness -PT eval cleared for home Hospital Course: Admitted for weakness and falls and found to have elevated troponin. Cards rec 48 hours of heparin drip. Patient received this and had blood cultures checked which were negative at 48 hours. Echo showed no vegetations. He was discharged to resume daily IV abx as outpatient for his endocarditis. Time Spent with Patient Time spent: Greater than 30 minutes Exam Vital Signs (past 8 hours): - 08/21/22 13:00 08/21/22 13:00 08/21/22 16:55 Temperature 98 F Pulse Rate 77 Respiratory Rate 16 Blood Pressure 121/69 Pulse Oximetry 95 97 98 Oxygen Delivery Method Room Air Room Air Oxygen Flow Rate 0 0 0 08/21/22 16:55 Temperature 97.4 F L Pulse Rate 67 Respiratory Rate 16 Blood Pressure 111/69 Pulse Oximetry 98 Oxygen Delivery Method Oxygen Flow Rate 0 Oxygen Delivery Method Room Air Oxygen Flow Rate 0 Narrative Exam Narrative: GEN: no acute distress HEENT: moist mucous membranes, PERRL NECK: trachea midline, no JVD CV: regular rate and rhythm, no murmurs PULM: clear bilaterally, no wheezes, rhonchi, rales ABD: soft, nontender, nondistended, no organomegaly, normal bowel sounds EXT: warm and well perfused, no edema NEURO: awake, alert, oriented, left facial droop Objective Labs 08/21/22 06:15 08/20/22 08:35 Labs: Laboratory Results - last 24 hr 08/21/22 08/21/22 06:15 06:15 Hgb 12.3 L Hct 35.8 L Plt Count 212 APTT 55 H D PFSH Medical History Essential hypertension Hyperlipidemia Surgical History History of heart valve replacement Family History Mother Pneumonia Father Congestive heart failure Social History household members: none Smoking Status: Former smoker alcohol intake: current Discharge Plan Discharge Plan Patient Disposition: Home Provider Discharge Comment: You were admitted for falls and weakness and found to have elevated heart enzyme. Cardiology wanted you to receive 48 hours of IV heparin which you completed. We also checked your heart for any evidence of infection and it was clean, as well as your blood cultures. Please continue your daily IV abx. We've made an appt for you for a new PCP to get a referral to see Dr. Goldberg at [facility] cardiology. Discharge orders & Medications Prescriptions: Continued clopidogrel [Plavix] 75 mg tablet 75 mg PO DAILY Qty: 25 0RF Rx Instructions: Take 4 tablets(300mg) po x 1 day, then 1 tablet(75mg) po once daily x 21 da ys. metoprolol succinate 25 mg Tablet Extended Release 24 Hr 12.5 mg PO QAM metoprolol succinate 25 mg Tablet Extended Release 24 Hr 25 mg PO BEDTIME aspirin 81 mg Capsule 81 mg PO DAILY atorvastatin 10 mg Tablet 5 mg PO DAILY Follow up/Referrals: Nirali Armstrong PA-C [Primary Care Provider] - (Appt On August 30, [address] Candelario at 10:20am Please check-in at 10:00am. at [facility]. [phone].) Visit Report/Discharge Packet Instructions: DI for Heart Attack, DI for Infective Endocarditis Stand Alone Forms: Patient Portal/API, Stroke Signs & Symptoms Discharge Data Primary Care Provider: Nirali Armstrong VTE Deep Vein Thrombosis/Pulmonary Embolism Present on Admission: No
== END 2022-08-21 19:30 | disposition home or self-care (01) | DRG 280 ==
LOC: ED 20:26 → AC 20:42
PROVIDERS: Admitting Provider Internal Medicine; Emergency Provider Emergency Medicine; Family Provider Internal Medicine; PCP Physician Assistant; Referring Provider Emergency Medicine; Visit Provider Internal Medicine
DX: I21.4 Non-ST elevation (NSTEMI) myocardial infarction (principal); I63.9 Cerebral infarction, unspecified; I38 Endocarditis, valve unspecified; T82.6XXA Infection and inflammatory reaction due to cardiac valve prosthesis, initial encounter; I69.992 Facial weakness following unspecified cerebrovascular disease; R29.6 Repeated falls; I10 Essential (primary) hypertension; I25.10 Atherosclerotic heart disease of native coronary artery without angina pectoris; E78.5 Hyperlipidemia, unspecified; Z20.822 Contact with and (suspected) exposure to COVID-19; Z87.891 Personal history of nicotine dependence; R29.701 NIHSS score 1; S09.90XA Unspecified injury of head, initial encounter; M54.2 Cervicalgia; Z79.01 Long term (current) use of anticoagulants; R07.9 Chest pain, unspecified; W18.30XA Fall on same level, unspecified, initial encounter
CPT/HCPCS: 36415; 36592; 70450; 70496; 70498; 70551; 71045; 71260; 72125; 74177; 80048; 80053; 80305; 80320; 81001; 82550; 82553; 83605; 83690; 83735; 84145; 84484; 85014; 85018; 85025; 85049; 85610; 85730; 86140; 87040; 87635; 93005; 93010; 93307; 96365; 96366; 96367; 96376; 97161; 99284; 99285; 99291; C9803; J0696; J1642; J1644; Q9967

== ENCOUNTER 2022-08-26 14:12 | Emergency (ER) | payer MEDICARE, SELFPAY ==
[2022-08-20 11:32] VITALS: BMI 22.1
[2022-08-26] VITALS (7 sets, daily range): BP systolic 95–128; BP diastolic 57–75; PULSE 63–76; RESP 14–19; TEMP 36.6; O2SAT 94–100; BMI 23.6
--- NOTE | 2022-08-26 14:58 | DI.CT.S_ITS ---
PROCEDURE: CT HEAD/BRAIN WO CON INDICATIONS: eval for stroke TECHNIQUE: Noncontrast 4.5 mm thick angled axial sections acquired from the foramen magnum to the vertex, with coronal and sagittal reformats. For radiation dose reduction, the following was used: automated exposure control, adjustment of mA and/or kV according to patient size. COMPARISON: [facility], MR, MR HEAD/BRAIN WO CON, 08/19/2022, 15:44. [facility], CT, CT HEAD/BRAIN WO CON, 08/18/2022, 18:44. FINDINGS: Image quality: Excellent. CSF spaces: Basal cisterns are patent. No extra-axial fluid collections. Ventricles are normal in size and shape. Brain: No midline shift. No intracranial masses or hemorrhage. Prior right frontal and frontal parietal infarct is unchanged. Small area of hypodensity at the left cerebellum, (2/7), increased conspicuity. Intracranial atherosclerotic calcifications. Periventricular hypodensity consistent with chronic microvascular ischemic disease. Skull and face: Calvarium and visualized facial bones are intact, without suspicious lesions. Sinuses: Right maxillary sinus is diminutive with mucosal thickening. Mastoids are clear. IMPRESSION: No acute intracranial hemorrhage. Right frontal and frontal parietal infarcts are unchanged. Possible prior left cerebellum infarct is increased in conspicuity. Dictated by: Levi Osorio M.D. on 08/26/2022 at 15:12 Approved by: Levi Osorio M.D. on 08/26/2022 at 15:18
[2022-08-26 15:58] LABS: Add Manual Diff / Slide Review NO; Basophils Absolute Auto 100 /uL (0-100); Eosinophils Absolute Auto 400 /uL (0-450); Eosinophils Percent Auto 4.3 % (2-4); Hematocrit 38.1 % (41-53); Hemoglobin 12.9 g/dL (13.5-17.5); Lymphocytes Absolute Auto 1600 /uL (1100-4500); Lymphocytes Percent Auto 17.7 % (25-40); Mean Corpuscular HGB Conc 33.9 % (30-36); Mean Corpuscular Hemoglobin 31.2 PG (26-34); Mean Corpuscular Volume 92.1 fL (80-100); Monocytes Absolute Auto 800 /uL (0-900); Monocytes Percent Auto 8.3 % (3-14); Neutrophils Absolute Auto 6200 /uL (1500-7000); Neutrophils Percent Auto 68.7 % (50-75); Platelet Count 441 X10^3/uL (150-400); Red Blood Cell Count 4.14 X10^6/uL (4.5-5.9); Red Cell Distribution Width 14.8 % (11.6-14.8); White Blood Cell Count 9.1 X10^3/uL (4.5-11.0)
[2022-08-26 16:09] LABS: INR 1.2 (0.9-1.3); Prothrombin Time 14.3 SECONDS (10.1-12.7)
[2022-08-26 16:11] LABS: PTT Partial Thromboplastin Tim 30 SECONDS (26-36)
[2022-08-26 16:14] LABS: Alanine Aminotransferase 29 IU/L (<50); Albumin 3.4 g/dL (3.5-5.0); Albumin Globulin Ratio 1.1 (1.0-2.8); Alkaline Phosphatase 88 U/L (38-126); Aspartate Aminotransferase 32 IU/L (17-59); BUN Creatinine Ratio 16.8 (6-22); Bilirubin Total 0.5 mg/dL (0.2-1.3); Blood Urea Nitrogen 18 mg/dL (9-20); Calcium 8.6 mg/dL (8.4-10.2); Carbon Dioxide 27 mmol/L (22-32); Chloride 108 mmol/L (98-107); Estimated Glomerular Filt Rate > 60 mL/min (>60); Globulin 3.2 g/dL (1.7-4.1); Glucose 105 mg/dL (80-110); HEMOLYSIS < 15 (0-50); Lipase 1077 U/L (23-300); Potassium 4.3 mmol/L (3.4-5.1); Sodium 140 mmol/L (137-145); Total Protein 6.6 g/dL (6.3-8.2)
--- NOTE | 2022-08-26 17:19 | ED_ITS ---
HPI - Neuro Symptoms/Deficit General Chief Complaint: Neuro Symptoms/Deficit Stated Complaint: sent by paint specialist poss Brain Bleed Time Seen by Provider: 08/26/22 14:53 Source: patient Mode of arrival: Ambulatory Limitations: no limitations History of Present Illness HPI Narrative: Patient is an 82-year-old male who has a history of endocarditis. He is currently receiving antibiotics through left arm PICC line. He has had a stroke recently most likely as embolic from the endocarditis. He stated that he has developed a slight headache on both sides of his head. That has been over the past day or so. No other new neurologic symptoms. He contacted his paint specialist who told him to come to the emergency department for further evaluation. No vision changes. No balance changes. No chest pain. No shor tness of breath. He is on Plavix. On Anticoagulants: Yes (Plavix) Related Data Home Medications Medication Instructions Recorded Confirmed aspirin 81 mg capsule 81 mg PO DAILY 07/17/22 08/19/22 atorvastatin 10 mg tablet 5 mg PO DAILY 07/17/22 08/19/22 metoprolol succinate 25 mg 12.5 mg PO QAM 07/17/22 08/19/22 tablet,extended release 24 hr metoprolol succinate 25 mg 25 mg PO BEDTIME 07/17/22 08/19/22 tablet,extended release 24 hr Previous Rx's Medication Instructions Recorded clopidogrel 75 mg tablet (Plavix) 75 mg PO DAILY #25 tabs 07/07/22 Allergies Allergy/AdvReac Type Severity Reaction Status Date / Time No Known Drug Allergies Allergy Verified 08/19/22 10:45 Review of Systems Constitutional Constitutional: Reports headache(s) ENT Ears, Nose, Mouth, and Throat: Reports headache(s) Cardiovascular Cardiovascular: Reports system reviewed and no additional complaints, except as documented Respiratory Respiratory: Reports system reviewed and no additional complaints, except as d ocumented Gastrointestinal Gastrointestinal: Reports system reviewed and no additional complaints, except as documented Integumentary/Breasts Skin/Breast: Reports system reviewed and no additional complaints, except as documented Neurologic Neurologic: Reports headache(s) Hematologic/Lymphatic On Anticoagulants: Yes (Plavix) Patient History Medical History Essential hypertension Hyperlipidemia Surgical History History of heart valve replacement Family History Mother Pneumonia Father Congestive heart failure Social History household members: none Smoking Status: Former smoker alcohol intake: current Smoking Status: Former smoker alcohol intake frequency: 0-2 drinks per day Alcohol type: beer Substance Use Type: does not use Exam Initial Vital Signs Initial Vital Signs: Vital Signs Temperature 97.9 F 08/26/22 14:40 Pulse Rate 74 08/26/22 14:40 Respiratory Rate 18 08/26/22 14:40 Blood Pressure 95/61 08/26/22 14:40 Pulse Oximetry 99 08/26/22 14:40 Oxygen Delivery Method Room Air 08/26/22 14:40 Const General: cooperative, comfortable and No ill appearing HENMT Head: normal to inspection and normocephalic Chest Chest: normal inspection of the chest Resp Effort & Inspection: normal respiratory effort Cardio Rate: regular rate Neuro General: patient alert, patient awake and moves all extremities Cognition: normal cognition Extrem General: capillary refill normal Course Orders Ordered: ED Orders 08/26/22 14:58 CT head/brain wo con Stat 08/26/22 15:01 EKG-12 Lead Stat 08/26/22 15:30 Complete Blood Count AUTO DIFF Stat Comprehensive Metabolic Panel Stat Lipase Stat PTT Partial Thromboplastin Silvano Stat Prothrombin Time INR Stat Vital Signs Vital signs: Vital Signs - 8 hr 08/26/22 14:40 08/26/22 16:00 08/26/22 15:40 Temperature 97.9 F Pulse Rate 74 64 69 Respiratory Rate 18 18 17 Blood Pressure 95/61 98/57 L 97/59 L Pulse Oximetry 99 98 99 Oxygen Delivery Method Room Air Room Air 08/26/22 16:21 08/26/22 16:21 08/26/22 16:30 Temperature Pulse Rate 68 Respiratory Rate 19 Blood Pressure 116/71 123/69 Pulse Oximetry 94 Oxygen Delivery Method 08/26/22 16:30 08/26/22 17:00 08/26/22 17:00 Temperature Pulse Rate 63 65 Respiratory Rate 17 14 Blood Pressure 126/68 Pulse Oximetry 100 97 Oxygen Delivery Method 08/26/22 17:30 08/26/22 17:30 Temperature Pulse Rate 76 Respiratory Rate 19 Blood Pressure 128/75 Pulse Oximetry 99 Oxygen Delivery Method MDM - Neuro Symptoms/Deficit Lab Data Attestation: I reviewed the patient's lab results. 08/26/22 15:30 08/26/22 15:30 Labs: Lab Results 08/26/22 08/26/22 08/26/22 Range/Units 15:30 15:30 15:30 WBC 9.1 (4.5-11.0) X10^3/uL RBC 4.14 L (4.5-5.9) X10^6/uL Hgb 12.9 L (13.5-17.5) g/dL Hct 38.1 L (41-53) % MCV 92.1 (80-100) fL MCH 31.2 (26-34) PG MCHC 33.9 (30-36) % RDW 14.8 (11.6-14.8) % Plt Count 441 H (150-400) X10^3/uL Neut % (Auto) 68.7 (50-75) % Lymph % (Auto) 17.7 L (25-40) % Glascock % (Auto) 8.3 (3-14) % Eos % (Auto) 4.3 H (2-4) % Baso % (Auto) 1.0 (0-2) % Neut # (Auto) 6200 (0361-5392) /uL Lymph # (Auto) 1600 (2150-5264) /uL Glascock # (Auto) 800 (0-900) /uL Eos # (Auto) 400 (0-450) /uL Baso # (Auto) 100 (0-100) /uL PT 14.3 H (10.1-12.7) SECONDS INR 1.2 (0.9-1.3) APTT 30 (26-36) SECONDS Sodium 140 (137-145) mmol/L Potassium 4.3 (3.4-5.1) mmol/L Chloride 108 H (98-107) mmol/L Carbon Dioxide 27 (22-32) mmol/L BUN 18 (9-20) mg/dL Creatinine 1.07 (0.66-1.25) mg/dL Estimated GFR > 60 (>60) mL/min BUN/Creatinine Ratio 16.8 (6-22) Glucose 105 (80-110) mg/dL Calcium 8.6 (8.4-10.2) mg/dL Total Bilirubin 0.5 (0.2-1.3) mg/dL AST 32 (17-59) IU/L ALT 29 (<50) IU/L Alkaline Phosphatase 88 (38-126) U/L Total Protein 6.6 (6.3-8.2) g/dL Albumin 3.4 L (3.5-5.0) g/dL Globulin 3.2 (1.7-4.1) g/dL Albumin/Globulin Ratio 1.1 (1.0-2.8) Lipase 1077 H D (23-300) U/L Imaging Data CT scan - head: Radiologist's Impression: PROCEDURE:? CT HEAD/BRAIN WO CON ? INDICATIONS:? eval for stroke ? TECHNIQUE:? Noncontrast 4.5 mm thick angled axial sections acquired from the foramen magnum to the vertex, with coronal and sagittal reformats.? For radiation dose reduction, the following was used:? automated exposure control, adjustment of mA and/or kV according to patient size.? ? COMPARISON:? [facility], MR, MR HEAD/BRAIN WO CON, 08/19/2022, 15:44.? [facility], CT, CT HEAD/BRAIN WO CON, 08/18/2022, 18:44. ? FINDINGS:? Image quality:? Excellent.? ? CSF spaces:? Basal cisterns are patent.? No extra-axial fluid collections.? Ventricles are normal in size and shape.? ? Brain:? No midline shift.? No intracranial masses or hemorrhage.? Prior right f rontal and frontal parietal infarct is unchanged.? Small area of hypodensity at the left cerebellum, (2/7), increased conspicuity.? Intracranial atherosclerotic calcifications.? Periventricular hypodensity consistent with chronic microvascular ischemic disease. ? Skull and face:? Calvarium and visualized facial bones are intact, without suspicious lesions.? ? Sinuses:? Right maxillary sinus is diminutive with mucosal thickening.? Mastoids are clear. ? IMPRESSION:? No acute intracranial hemorrhage. Right frontal and frontal parietal infarcts are unchanged. Possible prior left cerebellum infarct is increased in conspicuity. ECG Data Attestation: I personally reviewed and interpreted this ECG as follows: Interpretation: Sinus rhythm Ventricular rate is 71 Left axis deviation Normal QRS Nonspecific ST T wave changes MDM Narrative Medical decision making narrative: Patient arrives with bilateral headache however his CT scan today is unremarkable. I did advise him of this. He is no other new neurologic symptoms. We will hold on further workup for now and have him continue all of his antibiotics and other medications as directed and a contact his paint specialist/primary care doctor for follow-up. He was given return precautions. He expressed understanding and agreement. Discharge Plan Departure Patient Disposition: Home Clinical Impression: Headache Instructions: DI for Headache Activity Restrictions/Additional Instructions: Recommend that you continue to take all of your medications as directed and keep all of your scheduled medical appointments. Return to the emergency department for new or worsening symptoms. Prescriptions: No Action clopidogrel [Plavix] 75 mg tablet 75 mg PO DAILY Qty: 25 0RF Rx Instructions: Take 4 tablets(300mg) po x 1 day, then 1 tablet(75mg) po once daily x 21 days. metoprolol succinate 25 mg Tablet Extended Release 24 Hr 12.5 mg PO QAM metoprolol succinate 25 mg Tablet Extended Release 24 Hr 25 mg PO BEDTIME aspirin 81 mg Capsule 81 mg PO DAILY atorvastatin 10 mg Tablet 5 mg PO DAILY Referrals: Nirali Armstrong PA-C [Primary Care Provider] - Stand Alone Forms: Patient Portal/API
== END 2022-08-26 17:41 | disposition home or self-care (01) ==
PROVIDERS: Emergency Provider Emergency Medicine; Family Provider Internal Medicine; PCP Physician Assistant
DX: R51.9 Headache, unspecified (principal); Z79.01 Long term (current) use of anticoagulants; T82.6XXA Infection and inflammatory reaction due to cardiac valve prosthesis, initial encounter; I38 Endocarditis, valve unspecified
CPT/HCPCS: 36415; 70450; 80053; 83690; 85025; 85610; 85730; 93005; 96365; 99283; 99284; J0696

== ENCOUNTER → 2022-09-09 14:29 | Outpatient (CLI) | payer MEDICARE, SELFPAY ==
[2022-08-20 11:32] VITALS: BMI 22.1
== END ==
PROVIDERS: Family Provider Internal Medicine; PCP Physician Assistant; Referring Provider Internal Medicine Infectious Disease; Visit Provider Internal Medicine Infectious Disease
DX: T82.6XXA Infection and inflammatory reaction due to cardiac valve prosthesis, initial encounter (principal); I35.8 Other nonrheumatic aortic valve disorders
CPT/HCPCS: 36415; 87040

== ENCOUNTER → 2023-03-03 12:08 | Outpatient (CLI) | payer MEDICARE, SELFPAY ==
[2022-08-20 11:32] VITALS: BMI 22.1
--- NOTE | 2023-03-03 | DI.RAD.S_ITS ---
PROCEDURE: XR KNEE LT 3V INDICATIONS: KNEE PAIN TECHNIQUE: 3 views of the knee were acquired. COMPARISON: None. FINDINGS: Bones: No fractures or dislocations. No suspicious bony lesions. Mild tricompartmental osteoarthritis without osseous hypertrophy. Soft tissues: No joint effusion. No suspicious soft tissue calcifications. IMPRESSION: Mild tricompartmental osteoarthritis. Dictated by: Trice Tee MD, PhD on 03/03/2023 at 13:21 Approved by: Trice Tee MD, PhD on 03/03/2023 at 13:21
== END ==
PROVIDERS: PCP Family Medicine; Referring Provider Family Medicine; Visit Provider Family Medicine
DX: M25.562 Pain in left knee (principal); M17.12 Unilateral primary osteoarthritis, left knee
CPT/HCPCS: 73562

== ENCOUNTER → 2023-03-31 13:15 | Outpatient (CLI) | payer MEDICARE, SELFPAY ==
[2022-08-20 11:32] VITALS: BMI 22.1
[2023-03-31 14:52] LABS: Add Manual Diff / Slide Review NO; Basophils Absolute Auto 100 /uL (0-100); Basophils Percent Auto 0.7 % (0-2); Eosinophils Absolute Auto 100 /uL (0-450); Eosinophils Percent Auto 2.1 % (2-4); Hematocrit 47.6 % (41-53); Hemoglobin 16.1 g/dL (13.5-17.5); Lymphocytes Absolute Auto 2200 /uL (1100-4500); Mean Corpuscular HGB Conc 33.8 % (30-36); Mean Corpuscular Hemoglobin 30.8 PG (26-34); Monocytes Absolute Auto 500 /uL (0-900); Monocytes Percent Auto 6.9 % (3-14); Neutrophils Absolute Auto 4200 /uL (1500-7000); Neutrophils Percent Auto 59.3 % (50-75); Platelet Count 220 X10^3/uL (150-400); Red Blood Cell Count 5.23 X10^6/uL (4.5-5.9); Red Cell Distribution Width 14.5 % (11.6-14.8); White Blood Cell Count 7.2 X10^3/uL (4.5-11.0)
[2023-03-31 15:01] LABS: BUN Creatinine Ratio 12.6 (6-22); Blood Urea Nitrogen 16 mg/dL (9-20); Calcium 9.6 mg/dL (8.4-10.2); Carbon Dioxide 29 mmol/L (22-32); Chloride 105 mmol/L (98-107); Estimated Glomerular Filt Rate 56 mL/min (>60); Glucose 134 mg/dL (80-110); HEMOLYSIS < 15 (0-50); Sodium 140 mmol/L (137-145)
== END ==
PROVIDERS: PCP Family Medicine; Referring Provider Physician Assistant Medical; Visit Provider Physician Assistant Medical
DX: R55 Syncope and collapse (principal)
CPT/HCPCS: 36415; 80048; 85025

== ENCOUNTER → 2023-05-25 14:52 | Outpatient (CLI) | payer MEDICARE, SELFPAY ==
[2022-08-20 11:32] VITALS: BMI 22.1
[2023-05-25 17:56] LABS: Add Manual Diff / Slide Review NO; Basophils Absolute Auto 0 /uL (0-100); Basophils Percent Auto 0.6 % (0-2); Eosinophils Absolute Auto 0 /uL (0-450); Eosinophils Percent Auto 0.3 % (2-4); Hematocrit 46.4 % (41-53); Hemoglobin 15.7 g/dL (13.5-17.5); Lymphocytes Absolute Auto 1300 /uL (1100-4500); Lymphocytes Percent Auto 17.1 % (25-40); Mean Corpuscular HGB Conc 33.9 % (30-36); Mean Corpuscular Hemoglobin 31.2 PG (26-34); Monocytes Absolute Auto 300 /uL (0-900); Monocytes Percent Auto 4.2 % (3-14); Neutrophils Absolute Auto 5900 /uL (1500-7000); Neutrophils Percent Auto 77.8 % (50-75); Platelet Count 243 X10^3/uL (150-400); Red Blood Cell Count 5.04 X10^6/uL (4.5-5.9); Red Cell Distribution Width 15.4 % (11.6-14.8); White Blood Cell Count 7.6 X10^3/uL (4.5-11.0)
[2023-05-25 18:18] LABS: BUN Creatinine Ratio 14.3 (6-22); Blood Urea Nitrogen 17 mg/dL (9-20); Calcium 9.3 mg/dL (8.4-10.2); Carbon Dioxide 29 mmol/L (22-32); Chloride 104 mmol/L (98-107); Estimated Glomerular Filt Rate > 60 mL/min (>60); Glucose 154 mg/dL (80-110); HEMOLYSIS < 15 (0-50); Potassium 4.4 mmol/L (3.4-5.1); Sodium 137 mmol/L (137-145)
== END ==
PROVIDERS: PCP Family Medicine; Referring Provider Anesthesiology; Visit Provider Anesthesiology
DX: R55 Syncope and collapse (principal)
CPT/HCPCS: 36415; 80048; 85025

== ENCOUNTER 2023-07-10 18:18 | Emergency (ER) | payer MEDICARE, SELFPAY ==
[2022-08-20 11:32] VITALS: BMI 22.1
[2023-07-10] VITALS (10 sets, daily range): BP systolic 164–197; BP diastolic 78–93; PULSE 55–60; RESP 14–33; TEMP 36.3; O2SAT 98–100; BMI 22.8
[2023-07-10 19:10] LABS: Add Manual Diff / Slide Review NO; Basophils Absolute Auto 100 /uL (0-100); Basophils Percent Auto 0.7 % (0-2); Eosinophils Absolute Auto 300 /uL (0-450); Eosinophils Percent Auto 3.3 % (2-4); Hematocrit 45.4 % (41-53); Hemoglobin 15.3 g/dL (13.5-17.5); Lymphocytes Absolute Auto 1400 /uL (1100-4500); Lymphocytes Percent Auto 18.6 % (25-40); Mean Corpuscular HGB Conc 33.7 % (30-36); Mean Corpuscular Volume 94.7 fL (80-100); Monocytes Absolute Auto 500 /uL (0-900); Monocytes Percent Auto 6.3 % (3-14); Neutrophils Absolute Auto 5300 /uL (1500-7000); Neutrophils Percent Auto 71.1 % (50-75); Platelet Count 194 X10^3/uL (150-400); Red Blood Cell Count 4.79 X10^6/uL (4.5-5.9); Red Cell Distribution Width 14.9 % (11.6-14.8); White Blood Cell Count 7.5 X10^3/uL (4.5-11.0)
--- NOTE | 2023-07-10 19:12 | ED.GENADULT ---
HPI - General Adult General Chief complaint: Weakness Stated complaint: weak/dizzy/sweating Time Seen by Provider: 07/10/23 18:27 Source: patient Mode of arrival: Ambulatory History of Present Illness HPI narrative: Patient is an 82-year-old male who is here for evaluation of an episode that occurred earlier this afternoon. He states he was at his normal state of health. He drove to an here by [employer] in order to eat had 1 of his favorite restaurant. He returned home. After arriving home he spent a short amount of time sitting on his couch. He states that he started to get up when he became lightheaded/dizzy. He states that he started to sweat. He sat down. Symptoms lasted for several minutes and then completely resolved. During the time he did not chest pain or lightheadedness or nausea vomiting or headache or vision changes. No abdominal pain. He states that he has had some issues with constipation over the past several weeks and shortly around the time of the event that brought him in today he did have a bowel movement. He currently is asymptomatic. Related Data Home Medications Medication Instructions Recorded Confirmed aspirin 81 mg capsule 81 mg PO DAILY 07/17/22 08/19/22 atorvastatin 10 mg tablet 5 mg PO DAILY 07/17/22 08/19/22 metoprolol succinate 25 mg 12.5 mg PO QAM 07/17/22 08/19/22 tablet,extended release 24 hr metoprolol succinate 25 mg 25 mg PO BEDTIME 07/17/22 08/19/22 tablet,extended release 24 hr Previous Rx's Medication Instructions Recorded clopidogrel 75 mg tablet (Plavix) 75 mg PO DAILY #25 tabs 07/07/22 Allergies Allergy/AdvReac Type Severity Reaction Status Date / Time No Known Drug Allergies Allergy Verified 08/19/22 10:45 Review of Systems Review of Systems ROS Unobtainable: All systems reviewed & are unremarkable except as noted in HPI and below Patient History Medical History Essential hypertension Hyperlipidemia Surgical History History of heart valve replacement Family History Mother Pneumonia Father Congestive heart failure Social History household members: none Smoking Status: Former smoker alcohol intake: current Smoking Status: Former smoker alcohol intake frequency: 0-2 drinks per day Alcohol type: beer Substance Use Type: does not use Exam Initial Vital Signs Initial Vital Signs: Vital Signs Temperature 97.4 F L 07/10/23 18:20 Pulse Rate 55 L 07/10/23 18:20 Respiratory Rate 18 07/10/23 18:20 Blood Pressure 184/88 H 07/10/23 18:20 Pulse Oximetry 100 07/10/23 18:20 Oxygen Delivery Method Room Air 07/10/23 18:20 Const General: cooperative, comfortable and No ill appearing HENMT Head: normal to inspection and normocephalic Resp Effort & Inspection: normal respiratory effort Auscultation: clear to auscultation bilaterally Cardio Rate: regular rate Rhythm: regular rhythm GI Inspection: normal to inspection and non-distended Skin General: no rashes or lesions noted Neuro General: patient alert, patient awake, patient oriented x3 and moves all extremities Extrem General: No edema Course Orders Ordered: ED Orders 07/10/23 18:28 EKG-12 Lead Stat 07/10/23 18:53 Covid-19 + FLU A/B + RSV - PCR Stat 07/10/23 18:55 Complete Blood Count AUTO DIFF Stat Comprehensive Metabolic Panel Stat Lipase Stat Troponin & CK Cardiac Panel Stat Vital Signs Vital signs: Vital Signs - 8 hr 07/10/23 18:20 07/10/23 18:31 07/10/23 18:58 Temperature 97.4 F L Pulse Rate 55 L 55 L Respiratory Rate 18 33 H Blood Pressure 184/88 H 178/84 H Pulse Oximetry 100 Oxygen Delivery Method Room Air 07/10/23 19:00 07/10/23 19:00 07/10/23 19:30 Temperature Pulse Rate 59 L 57 L Respiratory Rate 18 23 Blood Pressure 164/78 H Pulse Oximetry 99 98 Oxygen Delivery Method 07/10/23 20:00 07/10/23 20:30 07/10/23 20:38 Temperature Pulse Rate 56 L 60 59 L Respiratory Rate 15 18 14 Blood Pressure Pulse Oximetry 99 98 99 Oxygen Delivery Method 07/10/23 20:38 07/10/23 21:00 07/10/23 21:01 Temperature Pulse Rate 59 L 60 Respiratory Rate 17 18 Blood Pressure 197/93 H Pulse Oximetry 98 98 Oxygen Delivery Method 07/10/23 21:01 Temperature Pulse Rate Respiratory Rate Blood Pressure 186/89 H Pulse Oximetry Oxygen Delivery Method Medical Decision Making Lab Data Lab results reviewed: Yes I reviewed the patient's lab results. 07/10/23 18:55 07/10/23 18:55 Labs: Lab Results 07/10/23 07/10/23 Range/Units 18:53 18:55 WBC 7.5 (4.5-11.0) X10^3/uL RBC 4.79 (4.5-5.9) X10^6/uL Hgb 15.3 (13.5-17.5) g/dL Hct 45.4 (41-53) % MCV 94.7 (80-100) fL MCH 32.0 (26-34) PG MCHC 33.7 (30-36) % RDW 14.9 H (11.6-14.8) % Plt Count 194 (150-400) X10^3/uL Neut % (Auto) 71.1 (50-75) % Lymph % (Auto) 18.6 L (25-40) % [place] % (Auto) 6.3 (3-14) % Eos % (Auto) 3.3 (2-4) % Baso % (Auto) 0.7 (0-2) % Neut # (Auto) 5300 (2776-4447) /uL Lymph # (Auto) 1400 (0191-9130) /uL [place] # (Auto) 500 (0-900) /uL Eos # (Auto) 300 (0-450) /uL Baso # (Auto) 100 (0-100) /uL Sodium 142 (137-145) mmol/L Potassium 4.3 (3.4-5.1) mmol/L Chloride 112 H (98-107) mmol/L Carbon Dioxide 27 (22-32) mmol/L BUN 24 H (9-20) mg/dL Creatinine 1.14 (0.66-1.25) mg/dL Estimated GFR > 60 (>60) mL/min BUN/Creatinine Ratio 21.1 (6-22) Glucose 112 H (80-110) mg/dL Calcium 8.9 (8.4-10.2) mg/dL Total Bilirubin 0.8 (0.2-1.3) mg/dL AST 27 (17-59) IU/L ALT 21 (<50) IU/L Alkaline Phosphatase 72 (38-126) U/L Total Creatine Kinase 195 H (55-170) U/L Troponin I < 0.012 (0.01-0.034) ng/mL Total Protein 7.1 (6.3-8.2) g/dL Albumin 3.8 (3.5-5.0) g/dL Globulin 3.3 (1.7-4.1) g/dL Albumin/Globulin Ratio 1.2 (1.0-2.8) Lipase 372 H (23-300) U/L SARS-CoV-2 (PCR) Negative (Negative) Influenza A (RT-PCR) Flu a negative (NEGATIVE) Influenza B (RT-PCR) Flu b negative (NEGATIVE) RSV (PCR) Negative (Negative) Urine Dip Bedside Urine Glucose Negative Bedside Urine Bilirubin - Negative Bedside Urine Ketone - Negative Urine Specific [place] 1.015 Bedside Urine Occult Blood - Negative Bedside Urine pH 6.0 Bedside Urine Protein - Negative Bedside Urine Urobilinogen - Negative Bedside Urine Nitrite - Negative Bedside Urine Leukocytes - Negative Esterase Point of care testing: Urine Dip Bedside Urine Glucose Negative Bedside Urine Bilirubin - Negative Bedside Urine Ketone - Negative Urine Specific [place] 1.015 Bedside Urine Occult Blood - Negative Bedside Urine pH 6.0 Bedside Urine Protein - Negative Bedside Urine Urobilinogen - Negative Bedside Urine Nitrite - Negative Bedside Urine Leukocytes - Negative Esterase ECG Data Attestation: I personally reviewed and interpreted this ECG as follows: Interpretation: Sinus bradycardia Ventricular rate of 58 Left axis deviation Normal QRS Normal QTC No ST T wave changes MDM Narrative Medical decision making narrative: Patient is currently asymptomatic. Troponin is negative. Low suspicion for ACS. Low suspicion for CVA/TIA. Patient did not have palpitations at the time of the event. He does have a loop recorder in place. He has had a valve replacement in the past. He has not hypotensive. Discussed the possibility of a transient arrhythmia. Patient states he thinks that the loop recorder only turns on nighttime but he is unsure. He does have an appointment with his brokerage office manager coming up next week. Patient is safe for discharge home had in the emergency department. He was given return precautions. He expressed understanding and agreement. Discharge Plan Departure Patient Disposition: Home Clinical Impression: Dizziness Instructions: DI for Dizziness-Nonvertigo Activity Restrictions/Additional Instructions: Recommend that you continue to take all of your medications as directed. Keep your appointment with your brokerage office manager that is coming up within the next couple days. I also recommend that you take your blood pressure in the afternoon and record the values so that you can talk with your brokerage office manager about potentially changing any of your medicines. Return to the emergency department for new symptoms. Prescriptions: No Action clopidogrel [Plavix] 75 mg tablet 75 mg PO DAILY Qty: 25 0RF Rx Instructions: Take 4 tablets(300mg) po x 1 day, then 1 tablet(75mg) po once daily x 21 days. metoprolol succinate 25 mg Tablet Extended Release 24 Hr 12.5 mg PO QAM metoprolol succinate 25 mg Tablet Extended Release 24 Hr 25 mg PO BEDTIME aspirin 81 mg Capsule 81 mg PO DAILY atorvastatin 10 mg Tablet 5 mg PO DAILY Referrals: Marshall Uribe MD [Primary Care Provider] - Stand Alone Forms: Patient Portal/API
[2023-07-10 19:16] LABS: Alanine Aminotransferase 21 IU/L (<50); Albumin 3.8 g/dL (3.5-5.0); Albumin Globulin Ratio 1.2 (1.0-2.8); Alkaline Phosphatase 72 U/L (38-126); Aspartate Aminotransferase 27 IU/L (17-59); BUN Creatinine Ratio 21.1 (6-22); Bilirubin Total 0.8 mg/dL (0.2-1.3); Blood Urea Nitrogen 24 mg/dL (9-20); Calcium 8.9 mg/dL (8.4-10.2); Carbon Dioxide 27 mmol/L (22-32); Chloride 112 mmol/L (98-107); Creatine Kinase 195 U/L (55-170); Estimated Glomerular Filt Rate > 60 mL/min (>60); Globulin 3.3 g/dL (1.7-4.1); Glucose 112 mg/dL (80-110); HEMOLYSIS 41 (0-50); Lipase 372 U/L (23-300); Potassium 4.3 mmol/L (3.4-5.1); Sodium 142 mmol/L (137-145); Total Protein 7.1 g/dL (6.3-8.2)
[2023-07-10 19:28] LABS: Troponin I < 0.012 ng/mL (0.01-0.034)
[2023-07-10 19:43] LABS: Influenza A - CEPHEID Flu A NEGATIVE (NEGATIVE); Influenza B - CEPHEID Flu B NEGATIVE (NEGATIVE); Respiratory Syncytial Virus Negative (Negative)
[2023-07-10 19:44] LABS: COVID-19 CEPHEID 4-PLEX PCR Negative (Negative)
--- NOTE | 2023-07-11 14:00 | PC.NURSE ---
Pt returned to ED to discuss discharge instructions. He stated he didn't understand what his results were. Reviewed results and Dr. Moss notes. Encouraged to increase po fluids. Encouraged to f/u as needed and indicated and return for any needs, concerns, worsening of symptoms. Has appointment w/ Cardiology tomorrow. Pt denies current complaints.
== END 2023-07-10 21:18 | disposition home or self-care (01) ==
PROVIDERS: Emergency Provider Emergency Medicine; PCP Family Medicine
DX: R42 Dizziness and giddiness (principal); R00.1 Bradycardia, unspecified; R79.89 Other specified abnormal findings of blood chemistry; Z20.822 Contact with and (suspected) exposure to COVID-19
CPT/HCPCS: 0241U; 36415; 80053; 81003; 82550; 83690; 84484; 85025; 93005; 99283; 99284

== ENCOUNTER → 2023-08-04 16:43 | Outpatient (CLI) | payer MEDICARE, SELFPAY ==
[2022-08-20 11:32] VITALS: BMI 22.1
--- NOTE | 2023-08-04 16:46 | DI.RAD.S_ITS ---
PROCEDURE: XR CHEST 2V INDICATIONS: DYSPNEA TECHNIQUE: 2 views of the chest were acquired. COMPARISON: [facility], CR, XR CHEST 1 VIEW, 07/27/2022, 9:24. [facility], CR, XR CHEST 1V, 08/18/2022, 18:45. FINDINGS: Surgical changes and devices: Cardiac monitoring device projects over the left chest. Cardiac valvular device is unchanged. Lungs and pleura: Lungs are clear. No pleural effusions or pneumothorax. Mediastinum: Mediastinal contours are normal. Heart size is normal. Bones and chest wall: No suspicious bony abnormalities. Soft tissues appear unremarkable. IMPRESSION: Stable radiographic evaluation of the chest without acute cardiopulmonary abnormalities or focal airspace disease. Dictated by: José Miguel Mcdonald M.D. on 08/05/2023 at 9:59 Approved by: José Miguel Mcdonald M.D. on 08/05/2023 at 10:10
== END ==
PROVIDERS: PCP Family Medicine; Referring Provider Family Medicine; Visit Provider Family Medicine
DX: R06.00 Dyspnea, unspecified (principal)
CPT/HCPCS: 71046

== ENCOUNTER → 2023-09-08 12:48 | Outpatient (CLI) | payer MEDICARE, SELFPAY ==
[2022-08-20 11:32] VITALS: BMI 22.1
[2023-09-08 14:26] LABS: Add Manual Diff / Slide Review NO; Basophils Absolute Auto 100 /uL (0-100); Basophils Percent Auto 0.8 % (0-2); Eosinophils Absolute Auto 200 /uL (0-450); Eosinophils Percent Auto 2.5 % (2-4); Hematocrit 48.2 % (41-53); Hemoglobin 16.8 g/dL (13.5-17.5); Lymphocytes Absolute Auto 2000 /uL (1100-4500); Lymphocytes Percent Auto 30.5 % (25-40); Mean Corpuscular HGB Conc 34.8 % (30-36); Mean Corpuscular Hemoglobin 33.7 PG (26-34); Mean Corpuscular Volume 96.8 fL (80-100); Monocytes Absolute Auto 600 /uL (0-900); Monocytes Percent Auto 8.8 % (3-14); Neutrophils Absolute Auto 3800 /uL (1500-7000); Neutrophils Percent Auto 57.4 % (50-75); Platelet Count 244 X10^3/uL (150-400); Red Blood Cell Count 4.97 X10^6/uL (4.5-5.9); Red Cell Distribution Width 13.5 % (11.6-14.8); White Blood Cell Count 6.7 X10^3/uL (4.5-11.0)
[2023-09-08 22:56] LABS: Alanine Aminotransferase 23 IU/L (<50); Albumin 4.2 g/dL (3.5-5.0); Albumin Globulin Ratio 1.4 (1.0-2.8); Alkaline Phosphatase 75 U/L (38-126); Aspartate Aminotransferase 63 IU/L (17-59); BUN Creatinine Ratio 16.4 (6-22); Bilirubin Total 1.1 mg/dL (0.2-1.3); Blood Urea Nitrogen 20 mg/dL (9-20); Calcium 9.3 mg/dL (8.4-10.2); Carbon Dioxide 30 mmol/L (22-32); Chloride 109 mmol/L (98-107); Cholesterol 127 mg/dL (140-199); Estimated Glomerular Filt Rate 58 mL/min (>60); Globulin 3.1 g/dL (1.7-4.1); Glucose 89 mg/dL (80-110); HDL Cholesterol 54 mg/dL (40-60); HEMOLYSIS < 15 (0-50); LDL Cholesterol Calculated 54 mg/dL (<100); Potassium 3.8 mmol/L (3.4-5.1); Sodium 143 mmol/L (137-145); Total Protein 7.3 g/dL (6.3-8.2); Triglycerides 97 mg/dL (35-150)
[2023-09-09 14:08] LABS: Free T4, Direct Thyroxine 1.01 ng/dL (0.78-2.19)
[2023-09-09 14:22] LABS: Thyroid Stimulating Hormone 1.06 uIU/mL (0.47-4.68)
== END ==
PROVIDERS: PCP Family Medicine; Referring Provider Family Medicine; Visit Provider Family Medicine
DX: Z00.01 Encounter for general adult medical examination with abnormal findings (principal); I10 Essential (primary) hypertension
CPT/HCPCS: 36415; 80053; 80061; 84439; 84443; 85025

== ENCOUNTER 2024-02-14 16:17 | Emergency (ER) | payer MEDICARE, SELFPAY ==
[2022-08-20 11:32] VITALS: BMI 22.1
[2024-02-14] VITALS (7 sets, daily range): BP systolic 105–122; BP diastolic 60–78; PULSE 74–89; RESP 16–24; TEMP 36.6; O2SAT 95–98; BMI 21.4
--- NOTE | 2024-02-14 16:19 | ED_ITS ---
HPI - Syncope General Chief Complaint: Syncope Stated Complaint: near syncopal Time Seen by Provider: 02/14/24 16:19 History of Present Illness HPI narrative: Patient is a 83-year-old male history of hypertension, hyperlipidemia, CVA presents by EMS for evaluation of presyncopal symptoms. 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 According to medics patient's blood pressure initially systolically in the 70s, however improved to normotension without any intervention. Patient states that he has not been eating or drinking over the past few days, did not eat or drink anything today. States that he went to [employer] to by Medicine for cold. He has not on any blood thinners, currently not complaining of any headache visual disturbances chest pain shortness of breath fever chills nausea vomiting abdominal pain or any other GI/ symptoms at this time. Related Data Home Medications Medication Instructions Recorded Confirmed aspirin 81 mg capsule 81 mg PO DAILY 07/17/22 08/19/22 atorvastatin 10 mg tablet 5 mg PO DAILY 07/17/22 08/19/22 metoprolol succinate 25 mg 12.5 mg PO QAM 07/17/22 08/19/22 tablet,extended release 24 hr metoprolol succinate 25 mg 25 mg PO BEDTIME 07/17/22 08/19/22 tablet,extended release 24 hr Previous Rx's Medication Instructions Recorded clopidogrel 75 mg tablet (Plavix) 75 mg PO DAILY #25 tabs 07/07/22 Allergies Allergy/AdvReac Type Severity Reaction Status Date / Time No Known Drug Allergies Allergy Verified 02/14/24 16:26 Review of Systems Review of Systems Narrative: General: Denies fever, chills, weight loss HEENT: Denies headache, eye drainage, eye irritation, head trauma, sore throat, voice change Cardiovascular: Denies any chest pain, palpitations, shortness of breath, tachycardia Respiratory: Denies any shortness of breath, cough, wheeze, stridor GI/: Denies any abdominal pain, nausea, vomiting, diarrhea, bright red blood per rectum, melanotic stools, urinary frequency, urinary retention, dysuria, hematuria MSK: Denies any joint pain, muscle pains, swelling Skin: Denies any rashes, lesions, discoloration Neuro: Positive near-syncope Psych: Denies SI/HI Patient History Medical History Essential hypertension Hyperlipidemia Surgical History History of heart valve replacement Family History Mother Pneumonia Father Congestive heart failure Social History household members: none Smoking Status: Former smoker alcohol intake: current Smoking Status: Former smoker alcohol intake frequency: 0-2 drinks per day Alcohol type: beer Substance Use Type: does not use Exam Narrative Exam Narrative: General: Cooperative, comfortable, well-developed, not in acute distress HEENT: Normocephalic, atraumatic, PERRLA, normal sclera, eyelids normal, Neck: Active full range of motion, atraumatic Chest: Normal to inspection, negative crepitus, no overlying erythema ecchymosis Respiratory: Normal respiratory effort, not in acute respiratory distress, clear to auscultation bilaterally negative cough, wheeze, tachypnea, rhonchi, rales Cardiology: Regular rate rhythm negative gallop, murmur, rubs GI/: Normal to inspection, soft, nonrigid, no tenderness to palpation, exam deferred MSK: Full range of active range of motion of all 4 extremities, atraumatic Skin: No rashes lesions noted Neuro: Alert awake oriented x3, moves all 4 extremities spontaneously, cranial nerves intact, able to answer all questions appropriately follows commands appropriately, NIH of 0 Psych: Cooperative, negative suicidal or homicidal ideations Initial Vital Signs Initial Vital Signs: Vital Signs Pulse Rate 88 02/14/24 16:21 Respiratory Rate 20 02/14/24 16:21 Pulse Oximetry 98 02/14/24 16:21 Course Orders Ordered: Discontinued Medications Sodium Chloride (Normal Saline 0.9%) 1,000 mls @ 500 mls/hr IV BOLUS ONE Stop: 02/14/24 18:24 Last Infusion: 02/14/24 18:42 Dose: Infused Documented By: Admin: 02/14/24 16:45 Dose: 500 mls/hr Documented By: DECLAN Vital Signs Vital signs: Vital Signs - 8 hr 02/14/24 16:21 02/14/24 16:22 02/14/24 16:30 Temperature 98 F Pulse Rate 88 81 84 Respiratory Rate 20 16 24 Blood Pressure 105/70 Pulse Oximetry 98 98 97 Oxygen Delivery Method Room Air MDM - Syncope Differential Diagnosis Differential diagnosis: Likely syncope due to orthostatic hypotension, vasovagal syncope, dehydration and other (Electrolyte abnormality, COVID, flu) Lab Data 02/14/24 16:18 02/14/24 16:18 Labs: Lab Results 02/14/24 02/14/24 Range/Units 16:18 16:30 WBC 11.0 (4.5-11.0) X10^3/uL RBC 5.23 (4.5-5.9) X10^6/uL Hgb 17.7 H (13.5-17.5) g/dL Hct 51.9 (41-53) % MCV 99.2 (80-100) fL MCH 33.8 (26-34) PG MCHC 34.0 (30-36) % RDW 13.6 (11.6-14.8) % Plt Count 210 (150-400) X10^3/uL Neut % (Auto) 59.9 (50-75) % Lymph % (Auto) 27.2 (25-40) % [place] % (Auto) 12.0 (3-14) % Eos % (Auto) 0.0 L (2-4) % Baso % (Auto) 0.9 (0-2) % Neut # (Auto) 6600 (2148-1567) /uL Lymph # (Auto) 3000 (0763-1148) /uL [place] # (Auto) 1300 H (0-900) /uL Eos # (Auto) 0 (0-450) /uL Baso # (Auto) 100 (0-100) /uL PT 13.5 H (9.4-12.5) SECONDS INR 1.2 (0.9-1.3) Sodium 136 L (137-145) mmol/L Potassium 3.7 (3.4-5.1) mmol/L Chloride 102 (98-107) mmol/L Carbon Dioxide 26 (22-32) mmol/L BUN 23 H (9-20) mg/dL Creatinine 1.65 H (0.66-1.25) mg/dL Estimated GFR 41 L (>60) mL/min BUN/Creatinine Ratio 13.9 (6-22) Glucose 129 H (80-110) mg/dL Calcium 9.4 (8.4-10.2) mg/dL Magnesium 2.1 (1.6-2.3) mg/dL Total Bilirubin 1.1 (0.2-1.3) mg/dL AST 32 (17-59) IU/L ALT 23 (<50) IU/L Alkaline Phosphatase 81 (38-126) U/L Troponin I 0.025 (0.01-0.034) ng/mL Total Protein 8.1 (6.3-8.2) g/dL Albumin 4.3 (3.5-5.0) g/dL Globulin 3.8 (1.7-4.1) g/dL Albumin/Globulin Ratio 1.1 (1.0-2.8) SARS-CoV-2 (PCR) Positive H (Negative) Influenza A (RT-PCR) Flu a negative (NEGATIVE) Influenza B (RT-PCR) Flu b negative (NEGATIVE) RSV (PCR) Negative (Negative) Imaging Data CT scan - head: Radiologist's Impression: [place] [address] CT Scan Report Signed Patient: Dhaval Rosales MR#: [id number] : 1940 Acct:[id number] Age/Sex: 83 / M Date of Service: 02/14/24 Loc: ED Accession Number: [id number] Procedure: CT head/brain wo con Ordering Provider: Andrea Romo D.O. PROCEDURE: CT HEAD/BRAIN WO CON INDICATIONS: presyncope TECHNIQUE: Noncontrast 4.5 mm thick angled axial sections acquired from the foramen magnum to the vertex, with coronal and sagittal reformats. For radiation dose reduction, the following was used: automated exposure control, adjustment of mA and/or kV according to patient size. COMPARISON: [facility], CT, CT HEAD WITHOUT CONTRAST, 04/11/2023, 14:39. [facility], CT, CT HEAD/BRAIN WO CON, 08/26/2022, 15:03. FINDINGS: Image quality: Diagnostic. CSF spaces: Basal cisterns are patent. No extra-axial fluid collections. The ventricles are symmetric in size and shape. Brain: No intracranial bleeds or masses. There is cerebral volume loss for age, with resultant ventricular and sulcal prominence. There are periventricular and deep white matter chronic small vessel ischemic changes. Multiple remote infarcts are seen, including within the right frontal lobe laterally. There is intracranial internal carotid artery atherosclerosis. Skull and face: Calvarium and visualized facial bones appear intact, without suspicious lesions. Sinuses: Visualized sinuses and mastoids are clear. IMPRESSION: No acute intracranial pathology. Stable prior infarcts can be seen. ECG Data Attestation: I personally reviewed and interpreted this ECG as follows: Interpretation: EKG interpreted ED physician sinus at 87 beats per minute QTC 440, normal axis, nonspecific ST changes, no STEMI MDM Narrative Medical decision making narrative: Patient is a 83-year-old male who presents with EMS for presyncopal symptoms was at [employer] attempting to buy medication for a chest cold that he was experiencing, states that has been feeling a little weaker than normal, states that he had not eaten or drank today, currently not complaining of any symptoms at this time, medics at arrival state that his systolic blood pressure was in the 70s did become normotensive without any intervention at time of initial evaluation in the emergency department patient completely asymptomatic, NIH of 0. Patient with [place] low comoran syncope score. Patient was found to be covid 19 positive. States that he has been feeling more fatigued that normal over the past few days. He states that he also has not had much of an appetite and did not eat or drink anything today which is abnormal for him due to a lack of appetite. Patient was able to stand and bear weight unassisted here in the ED after 1L NS bolus. Patient remains asymptomatic. Strict return precautions were given to the patient, he verbalized understanding of these and agrees with being discharged home with outpatient followup. Discharge Plan Departure Patient Disposition: Home Clinical Impression: COVID-19, Pre-syncope Activity Restrictions/Additional Instructions: Please follow up with primary care Please read the discharge instructions sheet carefully and bring all papers to all doctor follow-up visits, as it may contain information that your doctor may want to see. Disease processes change and evolve, if your symptoms worsen or if you develop any new symptoms that are concerning to you please return for evaluation. Your evaluation today does not show any evidence of any life- threatening/serious illnesses requiring admission to the hospital or surgery. Please follow-up with your doctor for re-evaluation in approximately 1 day. Seek immediate medical attention for any worrisome symptoms. Prescriptions: No Action clopidogrel [Plavix] 75 mg tablet 75 mg PO DAILY Qty: 25 0RF Rx Instructions: Take 4 tablets(300mg) po x 1 day, then 1 tablet(75mg) po once daily x 21 days. metoprolol succinate 25 mg Tablet Extended Release 24 Hr 12.5 mg PO QAM metoprolol succinate 25 mg Tablet Extended Release 24 Hr 25 mg PO BEDTIME aspirin 81 mg Capsule 81 mg PO DAILY atorvastatin 10 mg Tablet 5 mg PO DAILY Referrals: Marshall Uribe MD [Primary Care Provider] - Stand Alone Forms: Patient Portal/API
--- NOTE | 2024-02-14 16:23 | DI.RAD.S_ITS ---
PROCEDURE: XR CHEST 1V INDICATIONS: presyncope TECHNIQUE: One view of the chest was acquired. COMPARISON: [facility], CR, XR CHEST 2V, 08/04/2023, 16:56. 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 Lungs and pleura: Mild pulmonary vascular congestion is noted. No definite focal infiltrate. Chronic emphysematous changes as seen. No pleural effusions or pneumothorax. Mediastinum: Mediastinal contours appear normal. Heart size is normal. Bones and chest wall: No suspicious bony lesions. Overlying soft tissues appear unremarkable. IMPRESSION: Mild congestion and COPD. No focal infiltrate, pleural effusion or pneumothorax. Dictated by: Sadi Mckeon M.D. on 02/14/2024 at 16:53 Approved by: Sadi Mckeon M.D. on 02/14/2024 at 16:53
--- NOTE | 2024-02-14 16:23 | EKG_ITS ---
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
--- NOTE | 2024-02-14 16:24 | DI.CT.S_ITS ---
PROCEDURE: CT HEAD/BRAIN WO CON INDICATIONS: presyncope TECHNIQUE: Noncontrast 4.5 mm thick angled axial sections acquired from the foramen magnum to the vertex, with coronal and sagittal reformats. For radiation dose reduction, the following was used: automated exposure control, adjustment of mA and/or kV according to patient size. COMPARISON: [facility], CT, CT HEAD WITHOUT CONTRAST, 04/11/2023, 14:39. [facility], CT, CT HEAD/BRAIN WO CON, 08/26/2022, 15:03. FINDINGS: Image quality: Diagnostic. CSF spaces: Basal cisterns are patent. No extra-axial fluid collections. The ventricles are symmetric in size and shape. Brain: No intracranial bleeds or masses. There is cerebral volume loss for age, with resultant ventricular and sulcal prominence. There are periventricular and deep white matter chronic small vessel ischemic changes. Multiple remote infarcts are seen, including within the right frontal lobe laterally. There is intracranial internal carotid artery atherosclerosis. Skull and face: Calvarium and visualized facial bones appear intact, without suspicious lesions. Sinuses: Visualized sinuses and mastoids are clear. IMPRESSION: No acute intracranial pathology. Stable prior infarcts can be seen. Dictated by: Dileep Arellano M.D. on 02/14/2024 at 15:43 Approved by: Dileep Arellano M.D. on 02/14/2024 at 15:45
[2024-02-14 16:38] LABS: Add Manual Diff / Slide Review NO; Basophils Absolute Auto 100 /uL (0-100); Basophils Percent Auto 0.9 % (0-2); Eosinophils Absolute Auto 0 /uL (0-450); Hematocrit 51.9 % (41-53); Hemoglobin 17.7 g/dL (13.5-17.5); INR 1.2 (0.9-1.3); Lymphocytes Absolute Auto 3000 /uL (1100-4500); Lymphocytes Percent Auto 27.2 % (25-40); Mean Corpuscular Hemoglobin 33.8 PG (26-34); Mean Corpuscular Volume 99.2 fL (80-100); Monocytes Absolute Auto 1300 /uL (0-900); Neutrophils Absolute Auto 6600 /uL (1500-7000); Neutrophils Percent Auto 59.9 % (50-75); Platelet Count 210 X10^3/uL (150-400); Prothrombin Time 13.5 SECONDS (9.4-12.5); Red Blood Cell Count 5.23 X10^6/uL (4.5-5.9); Red Cell Distribution Width 13.6 % (11.6-14.8)
[2024-02-14] MEDS: SODIUM CHLORIDE 0.9% 1,000 ML 500 ML IV (16:45)
[2024-02-14 16:47] LABS: Alanine Aminotransferase 23 IU/L (<50); Albumin 4.3 g/dL (3.5-5.0); Albumin Globulin Ratio 1.1 (1.0-2.8); Alkaline Phosphatase 81 U/L (38-126); Aspartate Aminotransferase 32 IU/L (17-59); BUN Creatinine Ratio 13.9 (6-22); Bilirubin Total 1.1 mg/dL (0.2-1.3); Blood Urea Nitrogen 23 mg/dL (9-20); Calcium 9.4 mg/dL (8.4-10.2); Carbon Dioxide 26 mmol/L (22-32); Chloride 102 mmol/L (98-107); Estimated Glomerular Filt Rate 41 mL/min (>60); Globulin 3.8 g/dL (1.7-4.1); Glucose 129 mg/dL (80-110); HEMOLYSIS < 15 (0-50); Magnesium 2.1 mg/dL (1.6-2.3); Potassium 3.7 mmol/L (3.4-5.1); Sodium 136 mmol/L (137-145); Total Protein 8.1 g/dL (6.3-8.2)
[2024-02-14 16:58] LABS: Troponin I 0.025 ng/mL (0.01-0.034)
[2024-02-14 17:21] LABS: Influenza A - CEPHEID Flu A NEGATIVE (NEGATIVE); Influenza B - CEPHEID Flu B NEGATIVE (NEGATIVE); Respiratory Syncytial Virus Negative (Negative)
[2024-02-14 17:38] LABS: COVID-19 CEPHEID 4-PLEX PCR POSITIVE (Negative)
== END 2024-02-14 18:44 | disposition home or self-care (01) ==
PROVIDERS: Emergency Provider Student in an Organized Health Care Education/Training Program; PCP Family Medicine
DX: U07.1 COVID-19 (principal); R55 Syncope and collapse
CPT/HCPCS: 0241U; 70450; 71045; 80053; 83735; 84484; 85025; 85610; 93005; 96360; 96361; 99284

== ENCOUNTER 2024-02-19 20:22 | Emergency (ER) | payer MEDICARE, SELFPAY ==
[2022-08-20 11:32] VITALS: BMI 22.1
[2024-02-19 20:25] VITALS: BP 139/81; PULSE 67; RESP 16; TEMP 36.6; O2SAT 100; BMI 20.5
--- NOTE | 2024-02-19 21:00 | ED_ITS ---
HPI - URI/Sore Throat General Chief Complaint: Upper Respiratory Symptoms Stated Complaint: covid Time Seen by Provider: 02/19/24 20:41 Source: patient Mode of arrival: Ambulatory History of Present Illness HPI Narrative: 83-year-old male with cough symptoms for 1 week, was seen here with syncopal episode, evaluated and discharged, he was diagnosed with COVID at that time, no Paxlovid prescription at that time, now returns requesting Paxlovid however at day 7 past illness. He has occasional cough. No shortness of breath. He denies chest pain. He has not had any syncopal episodes since previous discharge. Related Data Home Medications Medication Instructions Recorded Confirmed aspirin 81 mg capsule 81 mg PO DAILY 07/17/22 08/19/22 atorvastatin 10 mg tablet 5 mg PO DAILY 07/17/22 08/19/22 metoprolol succinate 25 mg 12.5 mg PO QAM 07/17/22 08/19/22 tablet,extended release 24 hr metoprolol succinate 25 mg 25 mg PO BEDTIME 07/17/22 08/19/22 tablet,extended release 24 hr Previous Rx's Medication Instructions Recorded clopidogrel 75 mg tablet (Plavix) 75 mg PO DAILY #25 tabs 07/07/22 Allergies Allergy/AdvReac Type Severity Reaction Status Date / Time No Known Drug Allergies Allergy Verified 02/14/24 16:26 Review of Systems Review of Systems Narrative: see HPI Patient History Medical History Essential hypertension Hyperlipidemia Surgical History History of heart valve replacement Family History Mother Pneumonia Father Congestive heart failure Social History household members: none Smoking Status: Former smoker alcohol intake: current Smoking Status: Former smoker alcohol intake frequency: 0-2 drinks per day Alcohol type: beer Substance Use Type: does not use Exam Narrative Exam Narrative: GENERAL: Well-developed patient, in mild distress. HEAD: Atraumatic. Normocephalic. EYES: Pupils equal round and reactive. Extraocular motions intact. No scleral icterus. No injection or drainage. ENT: Nose without bleeding, purulent drainage. Throat without erythema, tonsillar hypertrophy or exudate. Airway patent. NECK: Trachea midline. Non tender CARDIOVASCULAR: Regular rate and rhythm without murmurs, gallops, or rubs. RESPIRATORY: Clear to auscultation. Breath sounds equal bilaterally. No wheezes, rales, or rhonchi. GASTROINTESTINAL: Abdomen soft, non-tender, nondistended. EXTREMITIES: No edema or joint tenderness. BACK: Nontender without deformity or crepitance. No flank tenderness. NEURO: AOx3. Motor functions grossly nonfocal SKIN: No rash or erythema of visible areas Initial Vital Signs Initial Vital Signs: Vital Signs Temperature 97.8 F 02/19/24 20:25 Pulse Rate 67 02/19/24 20:25 Respiratory Rate 16 02/19/24 20:25 Blood Pressure 139/81 02/19/24 20:25 Pulse Oximetry 100 02/19/24 20:25 Oxygen Delivery Method Room Air 02/19/24 20:25 Course Orders Ordered: Discontinued Medications Albuterol (Albuterol Hfa Prepack) 1 box MISC DIRECTED ONE Stop: 02/19/24 21:20 Last Admin: 02/19/24 21:34 Dose: 1 box Documented By: SB Vital Signs Vital signs: Vital Signs - 8 hr 02/19/24 20:25 02/19/24 21:39 Temperature 97.8 F Pulse Rate 67 88 Respiratory Rate 16 18 Blood Pressure 139/81 137/88 Pulse Oximetry 100 99 Oxygen Delivery Method Room Air Room Air MDM - URI/Sore Throat MDM Narrative Medical decision making narrative: 83-year-old male with 7 days duration increased cough over baseline, diagnosis COVID days ago, not prescribed Paxlovid, here requesting Paxlovid. Discussion of Paxlovid efficacy, symptoms greater than 5 days, not indicated at this time. He was informed his lung exam seems clear, no crackles or wheezes, normal oxygenation, offered inhaler to use which he would like to do. Dispensed albuterol inhaler with spacer, 2 puffs 4 times daily for the next few days. He has scheduled appointment with his regular provider on Tuesday. Encouraged to follow up with his regular provider then. Return precautions discussed Discharge Plan Departure Patient Disposition: Home Clinical Impression: Upper respiratory infection, COVID-19 Instructions: DI for Viral Upper Respiratory Infection -- Adult, DI for COVID- 19 (Suspected or Confirmed ) Activity Restrictions/Additional Instructions: 7 days duration cough, recent diagnosis COVID, not taking Paxlovid antiviral medication, requesting Paxlovid antiviral medication. However today is more than 5 days duration of illness, Paxlovid is not effective in this timeframe. No Paxlovid antiviral medication indicated today. No fever. Lung exam reassuring, no wheezes or crackles, no respiratory distress, coughing is fairly chronic, recently increased last week, but generally improving. Consider use of inhaler for cough control medication, you wanted to try the inhaler. Albuterol inhaler dispensed, with use of spacer, 2 puffs 4 times daily for the next week advised. For now continue her chronic medications as prescribed. Follow up with your regular provider Tuesday upcoming few days in clinic as scheduled. Return earlier to this/nearest emergency department for any change worsening symptoms or any concerns Prescriptions: No Action clopidogrel [Plavix] 75 mg tablet 75 mg PO DAILY Qty: 25 0RF Rx Instructions: Take 4 tablets(300mg) po x 1 day, then 1 tablet(75mg) po once daily x 21 days. metoprolol succinate 25 mg Tablet Extended Release 24 Hr 12.5 mg PO QAM metoprolol succinate 25 mg Tablet Extended Release 24 Hr 25 mg PO BEDTIME aspirin 81 mg Capsule 81 mg PO DAILY atorvastatin 10 mg Tablet 5 mg PO DAILY Referrals: Marshall Uribe MD [Primary Care Provider] - Stand Alone Forms: Patient Portal/API
[2024-02-19] MEDS: ALBUTEROL HFA PREPACK 1 BOX MISC (21:34)
[2024-02-19 21:39] VITALS: BP 137/88; PULSE 88; RESP 18; O2SAT 99
== END 2024-02-19 22:12 | disposition home or self-care (01) ==
PROVIDERS: Emergency Provider Emergency Medicine; PCP Family Medicine
DX: U07.1 COVID-19 (principal)
CPT/HCPCS: 99281; 99283

== ENCOUNTER → 2024-07-05 08:53 | Outpatient (CLI) | payer MEDICARE, SELFPAY ==
[2022-08-20 11:32] VITALS: BMI 22.1
--- NOTE | 2024-07-05 08:54 | DI.ECHO.S_ITS ---
[facility] : : [id number] : : [place] : : [id number] : : Phone: [phone] Echocardiogram Report + + :Name: YESY BAKER Study Date: 07/05/2024 Height: 69 in : :[facility] ReadingLocation: Weight: 142 lb : : Gender: Male BSA: 1.8 m2 : :: 1940 Age: 83 yrs BP: 167/92 mmHg: :Reason For Study: S/P TAVR : :Ordering Physician: REGINE, : :REGINE Verduzco Performed By: Terrence Raymond : :Referring: ERGINE WEINER : + + Interpretation Summary Normal sinus rhythm. Uncontrolled hypertension. Normal LV size and mildly increased wall thickness; normal wall motion and LV systolic function. EF is 65-70%. Borderline dilated RV; otherwise normal chamber sizes. Moderate MAC with normally functioning mitral valve. Aortic valve is replaced with a S3 stented bioprosthesis which has a known vegetation and mild paravalvular leak along the aortomitral continuity. Trace pericardial effusion. Compared to prior TTE 04/29/2023 no changes have occurred. Procedure: A two-dimensional transthoracic echocardiogram with color flow and Doppler was performed. The study quality was technically good. Comparison is made with the echocardiogram of 04/29/2023. The patient was in normal sinus rhythm during the exam. Left Ventricle: Left ventricular wall thickness is mildly increased. The left ventricle is normal in size. There is no ventricular septal defect visualized. A false chord is noted (normal variant). The ejection fraction is estimated to be 65-70%. There are no focal wall motion abnormalities. Diastolic parameters suggest a relaxation abnormality of the left ventricle, consistent with probable normal filling pressures. Right Ventricle: The right ventricle is borderline dilated. Atria: The left atrial size is normal. Right atrial size is normal. There is no Doppler evidence for an interatrial shunt. Mitral Valve: There is moderate mitral annular calcification. The mitral valve leaflets are mildly calcified. There is trace mitral regurgitation. Aortic Valve: S3 Stented Bioprosthetic TAVR. The peak aortic velocity is 2.13 m/sec. The aortic valve mean gradient is 11.2 mmHg. Moderate Perivalvular and Mild Valvular Regurgitation. Tricuspid Valve: The tricuspid valve leaflets are thin and pliable. There is mild tricuspid regurgitation. Pulmonic Valve: The pulmonic valve leaflets are thin and pliable; valve motion is normal. There is trace pulmonic regurgitation. Great Vessels: The aortic root is normal size. The ascending aorta is mildly enlarged. The pulmonary artery is normal size. The inferior vena cava was not visualized. Pericardium/ Pleura There is no pericardial effusion. There is no pleural effusion. MMode/2D Measurements & Calculations LVIDd: 3.6 cm LVOT diam: 1.7 cm LVIDs: 2.2 cm Ao root diam: 3.5 cm FS: 40.3 % asc Aorta Diam: 4.0 cm EPSS: 0.81 cm IVSd: 1.5 cm LVPWd: 1.1 cm LV potter. diameter/BSA (cm/m^2): 2.0 LV sys. diameter/BSA (cm/m^2): 1.2 LA A2 area: 19.3 cm2 RA long axis: 5.2 cm LA A4 area: 18.8 cm2 RA area: 11.7 cm2 LA length (vol): 5.3 cm RA vol: 22.5 ml LA vol: 58.2 ml RA : 12.6 ml/m2 LA vol index: 32.6 ml/m2 RVD1 (basal): 3.5 cm RVD2 (mid): 3.3 cm TAPSE: 1.9 cm Doppler Measurements & Calculations Ao V2 max: 213.0 cm/sec LVOT Max Lennox: 85.6 cm/sec Ao V2 mean: 161.1 cm/sec LV V1 max P.9 mmHg Ao max P.1 mmHg LV V1 VTI: 19.8 cm Ao mean P.2 mmHg CECILIO(I,D): 0.86 cm2 Ao V2 VTI: 55.2 cm CECILIO(V,D): 0.96 cm2 sev ratio: 0.36 CECILIO indexed to BSA (cm^2/m^2): 0.48 AI P1/2t: 428.3 msec AI dec slope: 340.5 cm/sec2 MV E max lennox: 78.7 cm/sec TR max lennox: 244.5 cm/sec MV A max lennox: 125.0 cm/sec TR max P.9 mmHg MV E/A: 0.63 PA V2 max: 72.0 cm/sec Med Peak E' Lennox: 4.2 cm/sec PA V2 mean: 48.8 cm/sec E/E' med: 18.9 PA mean P.1 mmHg Lat Peak E' Lennox: 3.4 cm/sec PA pr(Accel): 15.6 mmHg E/E' lat: 23.1 E/e' average: 21.0 MV dec time: 0.29 sec SV(LVOT): 47.3 ml Electronically signed by: Kayla lopez [place] Physician:07/07/2024 09:48 AM
== END ==
PROVIDERS: PCP Family Medicine; Referring Provider Family Medicine; Visit Provider Family Medicine
DX: Z95.2 Presence of prosthetic heart valve (principal); R53.83 Other fatigue; I10 Essential (primary) hypertension; I31.39 Other pericardial effusion (noninflammatory)
CPT/HCPCS: 93306

== ENCOUNTER → 2024-08-31 11:55 | Outpatient (CLI) | payer MEDICARE, SELFPAY ==
[2022-08-20 11:32] VITALS: BMI 22.1
[2024-08-31 12:47] LABS: Add Manual Diff / Slide Review NO; Basophils Absolute Auto 100 /uL (0-100); Basophils Percent Auto 1.1 % (0-2); Eosinophils Absolute Auto 100 /uL (0-450); Eosinophils Percent Auto 1.2 % (2-4); Hematocrit 47.8 % (41-53); Hemoglobin 16.5 g/dL (13.5-17.5); Lymphocytes Absolute Auto 2500 /uL (1100-4500); Lymphocytes Percent Auto 33.8 % (25-40); Mean Corpuscular HGB Conc 34.6 % (30-36); Mean Corpuscular Hemoglobin 33.4 PG (26-34); Mean Corpuscular Volume 96.7 fL (80-100); Monocytes Absolute Auto 700 /uL (0-900); Monocytes Percent Auto 9.9 % (3-14); Neutrophils Absolute Auto 4000 /uL (1500-7000); Platelet Count 238 X10^3/uL (150-400); Red Blood Cell Count 4.94 X10^6/uL (4.5-5.9); Red Cell Distribution Width 13.1 % (11.6-14.8); White Blood Cell Count 7.5 X10^3/uL (4.5-11.0)
[2024-08-31 15:01] LABS: Calcium 9.6 mg/dL (8.4-10.2); Carbon Dioxide 29 mmol/L (22-32); Chloride 107 mmol/L (98-107); Glucose 113 mg/dL (70-99); HEMOLYSIS < 15 (0-50); Potassium 4.5 mmol/L (3.4-5.1); Sodium 140 mmol/L (137-145)
[2024-08-31 15:23] LABS: BUN Creatinine Ratio 16.5 (6-22); Blood Urea Nitrogen 19 mg/dL (9-20); Estimated Glomerular Filt Rate > 60 mL/min (>60)
== END ==
PROVIDERS: PCP Family Medicine; Referring Provider Internal Medicine Cardiovascular Disease; Visit Provider Internal Medicine Cardiovascular Disease
DX: Z45.09 Encounter for adjustment and management of other cardiac device (principal)
CPT/HCPCS: 36415; 80048; 85025

== ENCOUNTER 2025-03-08 14:44 | Emergency (ER) | payer MEDICARE, SELFPAY ==
[2022-08-20 11:32] VITALS: BMI 22.1
[2025-03-08] VITALS (12 sets, daily range): BP systolic 130–148; BP diastolic 70–97; PULSE 63–103; RESP 16–23; TEMP 36.9; O2SAT 96–99; BMI 20.5
--- NOTE | 2025-03-08 15:10 | PC.NURSE ---
Code stroke called overhead at 1508.
--- NOTE | 2025-03-08 15:14 | DI.CT.S_ITS ---
PROCEDURE: CT ANGIO HEAD AND NECK INDICATIONS: dizziness TECHNIQUE: After the administration of intravenous contrast, 1 mm thick sections acquired from the aortic arch through the [place] of [place]. 3-dimensional gedmujv-sigadbkez-cdnncaobed (MIP) and/or volume rendering reformats were acquired of the central intracranial vasculature and neck separately. For radiation dose reduction, the following was used: automated exposure control, adjustment of mA and/or kV according to patient size. COMPARISON: [facility], CT, CT ANGIO HEAD AND NECK, 08/19/2022, 11:33. [facility], CT, CT STROKE, 03/08/2025, 15:22. [facility], CT, CT HEAD/BRAIN WO CON, 02/14/2024, 16:33. [facility], CT, CT HEAD WITHOUT CONTRAST, 04/11/2023, 14:39. FINDINGS: Image quality: There is streak artifact seen through the level of the shoulders. Cerebral CT Angiogram: Internal carotid arteries: No acute findings. Atherosclerotic calcification and irregularity can be seen involving the carotid bifurcations, with up to 70% narrowing on each side. No occlusion. No aneurysm. Anterior cerebral arteries: There is a diminutive right A1 segment, with a corresponding robust left A1 segment. This is considered to be a normal developmental variant of the [place] of [place], of typically no clinical consequence. The flow within the paired anterior cerebral arteries is otherwise normal and symmetric. The anterior communicating artery is seen. No aneurysms are seen. Middle cerebral arteries: Unremarkable. No significant stenosis. No occlusion. No aneurysm. Posterior cerebral arteries: Unremarkable. No significant stenosis. No occlusion. No aneurysm. Basilar artery: Unremarkable. No significant stenosis. No occlusion. No aneurysm. Vertebral arteries: Unremarkable as visualized. Dural venous sinuses: Unremarkable given phase of enhancement. Other: There is a stable right MCA territory infarction. Neck CT Angiogram: Internal carotid arteries: Atherosclerotic calcification can be seen involving the carotid bifurcation regions. There is 60-70% narrowing seen on the left and 50% narrowing seen on the right. The more distal internal carotid arteries demonstrate normal caliber. There is tortuosity seen of the extracranial internal carotid arteries. No dissection or occlusion. Common carotid arteries: Unremarkable. No significant stenosis. No dissection or occlusion. External carotid arteries: Unremarkable. No occlusion. Vertebral arteries: 50% narrowing can be seen involving the origin of the left vertebral artery. The more distal extracranial vertebral arteries are within normal limits. No dissection or occlusion. Aortic Arch and Mediastinum: Partially visualized aortic arch unremarkable without evidence of aneurysm. Origins of the great vessels unremarkable. Other: Arterial phase soft tissues of the neck and chest are unremarkable. IMPRESSION: Dense calcification can be seen involving the intracranial internal carotid arteries with up to 70% narrowing on each side. Focal calcification can be seen involving the carotid bifurcation regions with 60-70% narrowing on the left and 50% narrowing on the right. 50% narrowing seen involving the origin of the left vertebral artery. Stable right MCA territory infarction noted. Additional findings: Rpvztl-[id number]-[id number] developmental anomalies. Tortuous extracranial internal carotid arteries. Any quantitative measurements of stenosis were performed using NASCET criteria. Dictated by: Dileep Arellano M.D. on 03/08/2025 at 14:50 Approved by: Dileep Arellano M.D. on 03/08/2025 at 14:53
--- NOTE | 2025-03-08 15:14 | DI.CT.S_ITS ---
PROCEDURE: CT STROKE INDICATIONS: dizziness TECHNIQUE: Noncontrast 4.5 mm thick angled axial sections acquired from the foramen magnum to the vertex, with coronal reformats. For radiation dose reduction, the following was used: automated exposure control, adjustment of mA and/or kV according to patient size. COMPARISON: [facility], CT, CT HEAD/BRAIN WO CON, 02/14/2024, 16:33. [facility], CT, CT STROKE, 07/17/2022, 16:54. FINDINGS: Image quality: Diagnostic. CSF spaces: Basal cisterns are patent. No extra-axial fluid collections. The ventricles are symmetric in size and shape. Brain: No intracranial bleeds or mass effect. There is cerebral volume loss, with resultant ventricular and sulcal prominence. There are periventricular and deep white matter chronic small vessel ischemic changes. 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 There is intracranial internal carotid artery atherosclerosis. Skull and face: Calvarium and visualized facial bones appear intact, without suspicious lesions. Sinuses: Visualized sinuses and mastoids are clear. IMPRESSION: No acute intracranial pathology. 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 Comment: Findings were discussed with Dr. Nassar on 03/08/2025 at 1534 hours. This study fulfills neurological imaging criteria for inclusion or exclusion of acute stroke therapies based on available published neurological guidelines. Dictated by: Ramón Michelle M.D. on 03/08/2025 at 15:33 Approved by: Ramón Michelle M.D. on 03/08/2025 at 15:36
--- NOTE | 2025-03-08 15:14 | EKG_ITS ---
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
--- NOTE | 2025-03-08 15:15 | DI.RAD.S_ITS ---
PROCEDURE: XR CHEST 1V INDICATIONS: dizziness TECHNIQUE: One view of the chest was acquired. COMPARISON: [facility], CR, XR CHEST 1V, 02/14/2024, 16:34. FINDINGS: Surgical changes and devices: A percutaneously placed aortic valve replacement can be seen. Lungs and pleura: Lungs are clear. No pleural effusions or pneumothorax. Mediastinum: Mediastinal contours appear normal. Heart size is normal. Atherosclerotic calcification of the aortic arch is noted. Bones and chest wall: No suspicious bony lesions. Age-appropriate bony degenerative changes are seen. Overlying soft tissues appear unremarkable. IMPRESSION: No acute cardiopulmonary abnormality is seen. Postoperative and degenerative changes are seen. Dictated by: Dileep Arellano M.D. on 03/08/2025 at 14:34 Approved by: Dileep Arellano M.D. on 03/08/2025 at 14:34
--- NOTE | 2025-03-08 15:15 | ED.NEUROSD ---
HPI - Neuro Symptoms/Deficit General Chief Complaint: Neuro Symptoms/Deficit Stated Complaint: presyncope at noon for 5 min. dizzy, blurry vision Time Seen by Provider: 03/08/25 15:13 Source: patient Mode of arrival: Ambulatory History of Present Illness HPI Narrative: Patient is a 84-year-old male history of hyperlipidemia, hypertension, CVA,follows with Dr. Goldberg of Cardiology at [facility], comes into the ED from home for evaluation of dizziness, states it started about noon, states it lasted for no more than 5 minutes, states that it happened when he got up to attempt to go get coffee. He states that it only lasted 5 minutes had complete resolution he did not have any chest pain shortness breath prior during or after this episode. At time of evaluation patient with completely resolved symptoms. At my evaluation NIH of 0, patient denies any blood thinners, he denies any other symptoms such as headache visual disturbance chest pain shortness breath fever chills nausea vomiting abdominal pain or any other GI/ symptoms. Patient is already on statin, Plavix, aspirin. On Anticoagulants: No Related Data Home Medications ?Medication ?Instructions ?Recorded ?Confirmed aspirin 81 mg capsule 81 mg PO DAILY 07/17/22 08/19/22 atorvastatin 10 mg tablet 5 mg PO DAILY 07/17/22 08/19/22 metoprolol succinate 25 mg 12.5 mg PO QAM 07/17/22 08/19/22 tablet,extended release 24 hr metoprolol succinate 25 mg 25 mg PO BEDTIME 07/17/22 08/19/22 tablet,extended release 24 hr Previous Rx's ?Medication ?Instructions ?Recorded clopidogrel 75 mg tablet (Plavix) 75 mg PO DAILY #25 tabs 07/07/22 Allergies Allergy/AdvReac Type Severity Reaction Status Date / Time No Known Drug Allergies Allergy Verified 02/14/24 16:26 Review of Systems Review of Systems Narrative: General: Denies fever, chills, weight loss HEENT: Denies headache, eye drainage, eye irritation, head trauma, sore throat, voice change Cardiovascular: Denies any chest pain, palpitations, tachycardia Respiratory: Denies any shortness of breath, cough, wheeze, stridor GI/: Denies any abdominal pain, nausea, vomiting, diarrhea, bright red blood per rectum, melanotic stools, urinary frequency, urinary retention, dysuria, hematuria MSK: Denies any joint pain, muscle pains, swelling Skin: Denies any rashes, lesions, discoloration Neuro: positive dizziness,Denies any headache, lightheadedness, fainting, weakness Psych: Denies SI/HI Hematologic/Lymphatic On Anticoagulants: No Patient History Medical History Essential hypertension Hyperlipidemia Surgical History History of heart valve replacement Family History Mother Pneumonia Father Congestive heart failure Social History household members: none Smoking Status: Former smoker alcohol intake: current Smoking Status: Former smoker alcohol intake frequency: 0-2 drinks per day Alcohol type: beer Exam Narrative Exam Narrative: General: Cooperative, well-developed, not in acute distress HEENT: Normocephalic, atraumatic, PERRLA, normal sclera, eyelids normal Neck: Active full range of motion, atraumatic Chest: Normal to inspection, negative crepitus, no overlying erythema ecchymosis Respiratory: Normal respiratory effort, not in acute respiratory distress, clear to auscultation bilaterally negative cough, wheeze, tachypnea, rhonchi, rales Cardiology: Regular rate rhythm negative gallop, murmur, rubs GI/: No tenderness to palpation, soft, non rigid, normal to inspection, exam deferred MSK: Full active range of motion in all 4 extremities, atraumatic, no tenderness to palpation of any bony prominences Skin: No rashes or lesions noted Neuro: NIH of 0,Alert awake oriented x3, moves all 4 extremities spontaneously, cranial nerves intact, able to answer all questions appropriately follows commands appropriately Psych: Cooperative, negative suicidal or homicidal ideations Initial Vital Signs Initial Vital Signs: Vital Signs Temperature 98.4 F 03/08/25 14:58 Pulse Rate 69 03/08/25 14:58 Respiratory Rate 18 03/08/25 14:58 Blood Pressure 139/71 03/08/25 14:58 Pulse Oximetry 96 03/08/25 14:58 Oxygen Delivery Method Room Air 03/08/25 14:58 Scores NIH Stroke Scale Level of Conciousness: Alert, keenly responsive Ask month/age: Answers both questions correctly. Open/close eyes, close hand: Performs both tasks correctly Best gaze horizontal: Normal Visual glover: No visual loss Facial palsy: Normal symetrical movement Left arm drift: No drift for full 10 sec Right arm drift: No drift for full 10 sec Left leg drift: No drift for full 5 sec Right leg drift: No drift for full 5 sec Limb ataxia: Absent Sensory on face/arms/legs: Normal, no sensory loss Best language: No aphasia, normal Dysarthria: Normal Extinction or inattention: No abnormality Total NIH Stroke scale score: 0 Course Orders Ordered: ED Orders 03/08/25 15:[address] angio head and neck Stat EKG-12 Lead Stat 03/08/25 15:15 CXR [XR chest 1V] Stat 03/08/25 15:20 Complete Blood Count AUTO DIFF Stat Comprehensive Metabolic Panel Stat Ethanol (ETOH) Stat MAG [Magnesium] Stat PTT Partial Thromboplastin Silvano Stat Prothrombin Time INR Stat Troponin & CK Cardiac Panel Stat 03/08/25 15:50 Urinalysis and Microscopic Stat Urine Drug Screen, Rapid Stat Vital Signs Vital signs: Vital Signs - 8 hr 03/08/25 14:58 03/08/25 15:15 03/08/25 15:30 Temperature 98.4 F Pulse Rate 69 69 69 Respiratory Rate 18 21 19 Blood Pressure 139/71 Pulse Oximetry 96 99 Oxygen Delivery Method Room Air 03/08/25 15:58 03/08/25 15:58 03/08/25 16:00 Temperature Pulse Rate 64 Respiratory Rate Blood Pressure 146/72 H 135/70 Pulse Oximetry 98 Oxygen Delivery Method 03/08/25 16:00 03/08/25 16:30 03/08/25 16:30 Temperature Pulse Rate 63 73 Respiratory Rate 23 18 Blood Pressure 136/97 H Pulse Oximetry 98 99 Oxygen Delivery Method 03/08/25 17:00 03/08/25 17:01 03/08/25 17:01 Temperature Pulse Rate 78 79 Respiratory Rate 22 Blood Pressure 148/81 H Pulse Oximetry 98 99 Oxygen Delivery Method MDM - Neuro Symptoms/Deficit Lab Data 03/08/25 15:20 03/08/25 15:20 Labs: Lab Results 03/08/25 03/08/25 03/08/25 Range/Units 15:18 15:20 15:50 WBC 8.1 (4.5-11.0) X10^3/uL RBC 5.10 (4.5-5.9) X10^6/uL Hgb 17.2 (13.5-17.5) g/dL Hct 48.9 (41-53) % MCV 95.9 (80-100) fL MCH 33.8 (26-34) PG MCHC 35.3 (30-36) % RDW 13.7 (11.6-14.8) % Plt Count 262 (150-400) X10^3/uL Neut % (Auto) 62.1 (50-75) % Lymph % (Auto) 25.7 (25-40) % [place] % (Auto) 10.3 (3-14) % Eos % (Auto) 0.9 L (2-4) % Baso % (Auto) 1.0 (0-2) % Neut # (Auto) 5100 (9394-4973) /uL Lymph # (Auto) 2100 (7652-5849) /uL [place] # (Auto) 800 (0-900) /uL Eos # (Auto) 100 (0-450) /uL Baso # (Auto) 100 (0-100) /uL PT 12.3 (9.4-12.5) SECONDS INR 1.1 (0.9-1.3) APTT 27 (25.1-36.5) SECONDS Sodium 140 (137-145) mmol/L Potassium 4.3 (3.4-5.1) mmol/L Chloride 107 (98-107) mmol/L Carbon Dioxide 25 (22-32) mmol/L BUN 20 (9-20) mg/dL Creatinine 1.07 (0.66-1.25) mg/dL Estimated GFR > 60 (>60) mL/min BUN/Creatinine Ratio 18.7 (6-22) Glucose 106 H (70-99) mg/dL POC Whole Bld Glucose 92 (70-99) mg/dL Calcium 9.3 (8.4-10.2) mg/dL Magnesium 2.2 (1.6-2.3) mg/dL Total Bilirubin 1.3 (0.2-1.3) mg/dL AST 33 (17-59) IU/L ALT 27 (<50) IU/L Alkaline Phosphatase 84 (38-126) U/L Total Creatine Kinase 223 H (55-170) U/L Troponin I < 0.012 (0.01-0.034) ng/mL Total Protein 8.5 H (6.3-8.2) g/dL Albumin 4.7 (3.5-5.0) g/dL Globulin 3.8 (1.7-4.1) g/dL Albumin/Globulin Ratio 1.2 (1.0-2.8) Urine Color Yellow Urine Appearance Clear Urine pH 7.0 (4.5-8.0) Ur Specific [place] <=1.005 (1.000-1.035) Urine Protein Negative (Negative) Urine Glucose (UA) Negative (Negative) g/dL Urine Ketones Negative (NEGATIVE) Urine Occult Blood Trace-intact (Negative) Urine Nitrate Negative (Negative) Urine Bilirubin Negative (NEGATIVE) Urine Urobilinogen 0.2 (0.2) E.U./dL Ur Leukocyte Esterase Negative (NEGATIVE) Urine RBC 0-1/hpf (0-5/HPF) Urine WBC 0-1/hpf (0-5/HPF) Ur Squamous Epith Cells 0-1 /hpf (0-5/HPF) Urine Bacteria Occasional (0-1) (None) Ur Culture Indicated? Cult not indicated Vol Urine Centrifuged 10ml (spun) U Opiates 300ng/mL cut Negative (Negative) Ur Oxycodone Screen Negative (Negative) Urine Methadone Screen Negative (Negative) Ur Barbiturates Screen Negative (Negative) U Tricyclic Antidepress Negative (Negative) Ur Phencyclidine Scrn Negative (Negative) Ur Amphetamines Screen Negative (Negative) U Methamphetamines Scrn Negative (Negative) Ur MDMA Scrn (Ecstasy) Negative (Negative) U Benzodiazepines Scrn Negative (Negative) Urine Cocaine Screen Negative (Negative) U Marijuana (THC) Screen Negative (Negative) Urine Specific [place] (Normal) Ethyl Alcohol < 10 (<10) mg/dL Ur Creatinine (Normal) 03/08/25 Range/Units 15:50 WBC (4.5-11.0) X10^3/uL RBC (4.5-5.9) X10^6/uL Hgb (13.5-17.5) g/dL Hct (41-53) % MCV (80-100) fL MCH (26-34) PG MCHC (30-36) % RDW (11.6-14.8) % Plt Count (150-400) X10^3/uL Neut % (Auto) (50-75) % Lymph % (Auto) (25-40) % [place] % (Auto) (3-14) % Eos % (Auto) (2-4) % Baso % (Auto) (0-2) % Neut # (Auto) (6515-8419) /uL Lymph # (Auto) (3157-0485) /uL [place] # (Auto) (0-900) /uL Eos # (Auto) (0-450) /uL Baso # (Auto) (0-100) /uL PT (9.4-12.5) SECONDS INR (0.9-1.3) APTT (25.1-36.5) SECONDS Sodium (137-145) mmol/L Potassium (3.4-5.1) mmol/L Chloride (98-107) mmol/L Carbon Dioxide (22-32) mmol/L BUN (9-20) mg/dL Creatinine (0.66-1.25) mg/dL Estimated GFR (>60) mL/min BUN/Creatinine Ratio (6-22) Glucose (70-99) mg/dL POC Whole Bld Glucose (70-99) mg/dL Calcium (8.4-10.2) mg/dL Magnesium (1.6-2.3) mg/dL Total Bilirubin (0.2-1.3) mg/dL AST (17-59) IU/L ALT (<50) IU/L Alkaline Phosphatase (38-126) U/L Total Creatine Kinase (55-170) U/L Troponin I (0.01-0.034) ng/mL Total Protein (6.3-8.2) g/dL Albumin (3.5-5.0) g/dL Globulin (1.7-4.1) g/dL Albumin/Globulin Ratio (1.0-2.8) Urine Color Urine Appearance Urine pH Normal (4.5-8.0) Ur Specific [place] (1.000-1.035) Urine Protein (Negative) Urine Glucose (UA) (Negative) g/dL Urine Ketones (NEGATIVE) Urine Occult Blood (Negative) Urine Nitrate (Negative) Urine Bilirubin (NEGATIVE) Urine Urobilinogen (0.2) E.U./dL Ur Leukocyte Esterase (NEGATIVE) Urine RBC (0-5/HPF) Urine WBC (0-5/HPF) Ur Squamous Epith Cells (0-5/HPF) Urine Bacteria (None) Ur Culture Indicated? Vol Urine Centrifuged U Opiates 300ng/mL cut (Negative) Ur Oxycodone Screen (Negative) Urine Methadone Screen (Negative) Ur Barbiturates Screen (Negative) U Tricyclic Antidepress (Negative) Ur Phencyclidine Scrn (Negative) Ur Amphetamines Screen (Negative) U Methamphetamines Scrn (Negative) Ur MDMA Scrn (Ecstasy) (Negative) U Benzodiazepines Scrn (Negative) Urine Cocaine Screen (Negative) U Marijuana (THC) Screen (Negative) Urine Specific [place] Normal (Normal) Ethyl Alcohol (<10) mg/dL Ur Creatinine Normal (Normal) Urine Dip Bedside Urine Glucose Negative Bedside Urine Bilirubin - Negative Bedside Urine Ketone - Negative Urine Specific [place] 1.010 Bedside Urine Occult Blood - Negative Bedside Urine pH 6.0 Bedside Urine Protein - Negative Bedside Urine Urobilinogen - Negative Bedside Urine Nitrite - Negative Bedside Urine Leukocytes - Negative Esterase ECG Data Interpretation: EKG interpreted by ED physician sinus 64 beats per minute left axis deviation, QTC 431, QRS VA interval within normal limits no STEMI MDM Narrative Medical decision making narrative: patient is a 84-year-old male with a past medical history of CVA, hypertension, hyperlipidemia, comes into the ED from home for evaluation of dizziness, states that around noon he had dizziness lasted for no more than 5 minutes states it happened when he stood up to walk and attempting to get coffee. He did not fall, states it has since resolved. He denied any chest pain shortness of breath prior during or after this episode. At initial evaluation here patient NIH of 0 on my exam. He states he is completely back to normal, he states that he was just worried that he might have had a stroke again. Patient is already on statin Plavix aspirin has been compliant with this. He said he follows with Dr. Goldberg of Cardiology at [facility], stroke alert was called immediately upon arrival. Lab work unremarkable, EKG nonischemic, CT scan just showing chronic MCA, the CT angio head and neck did show bilateral ICA narrowing of 70%, as well as focal calcifications involving the carotid bifurcation at 60-70%, as well as 50% narrowing of the origin of the left vertebral artery, had did have a discussion with Dr. Rodríguez of Neurosurgery at [facility] he personally reviewed the images and believes this is more of a 50% narrowing, he states that patient does not require transfer or additional workup states he should have carotid duplex performed in outpatient setting, he states patient should continue aspirin statin Plavix and follow up with his primary care doctor as needed. Patient remained neurologically intact NIH of 0, no focal deficits, his symptoms did not recur while here in the emergency department. Patient was instructed follow up with his primary care doctor he verbalized understanding and agrees to being discharged home with outpatient follow up Discharge Plan Departure Patient Disposition: Home Clinical Impression: Dizziness, Carotid artery stenosis Activity Restrictions/Additional Instructions: Please follow up with your primary care doctor for continued evaluation treatment of your symptoms, it would be recommended that you get a ultrasound of your carotid arteries Please continue taking your medications we are currently on Please read the discharge instructions sheet carefully and bring all papers to all doctor follow-up visits, as it may contain information that your doctor may want to see. Disease processes change and evolve, if your symptoms worsen or if you develop any new symptoms that are concerning to you please return for evaluation. Your evaluation today does not show any evidence of any life-threatening/serious illnesses requiring admission to the hospital or surgery. Please follow-up with your doctor for re-evaluation in approximately 1 day. Seek immediate medical attention for any worrisome symptoms. *If you do not have a primary care provider please contact the [facility] Resource line at [phone]. They will ask some questions about your medical history and help get you set up with a doctor in the community. Prescriptions: No Action clopidogrel [Plavix] 75 mg tablet 75 mg PO DAILY Qty: 25 0RF Rx Instructions: Take 4 tablets(300mg) po x 1 day, then 1 tablet(75mg) po once daily x 21 days. metoprolol succinate 25 mg Tablet Extended Release 24 Hr 12.5 mg PO QAM metoprolol succinate 25 mg Tablet Extended Release 24 Hr 25 mg PO BEDTIME aspirin 81 mg Capsule 81 mg PO DAILY atorvastatin 10 mg Tablet 5 mg PO DAILY Stand Alone Forms: Patient Portal/API
[2025-03-08 15:29] LABS: Add Manual Diff / Slide Review NO; Hematocrit 48.9 % (41-53); Hemoglobin 17.2 g/dL (13.5-17.5); Lymphocytes Absolute Auto 2100 /uL (1100-4500); Mean Corpuscular HGB Conc 35.3 % (30-36); Mean Corpuscular Hemoglobin 33.8 PG (26-34); Mean Corpuscular Volume 95.9 fL (80-100); Platelet Count 262 X10^3/uL (150-400)
[2025-03-08 15:39] LABS: INR 1.1 (0.9-1.3); Prothrombin Time 12.3 SECONDS (9.4-12.5)
[2025-03-08 15:41] LABS: PTT Partial Thromboplastin Tim 27 SECONDS (25.1-36.5)
[2025-03-08 15:44] LABS: Alanine Aminotransferase 27 IU/L (<50); Albumin 4.7 g/dL (3.5-5.0); Albumin Globulin Ratio 1.2 (1.0-2.8); Alkaline Phosphatase 84 U/L (38-126); Blood Urea Nitrogen 20 mg/dL (9-20); Calcium 9.3 mg/dL (8.4-10.2); Carbon Dioxide 25 mmol/L (22-32); Chloride 107 mmol/L (98-107); Creatine Kinase 223 U/L (55-170); Estimated Glomerular Filt Rate > 60 mL/min (>60); Ethanol (ETOH) < 10 mg/dL (<10); Globulin 3.8 g/dL (1.7-4.1); Glucose 106 mg/dL (70-99); HEMOLYSIS 16 (0-50); Magnesium 2.2 mg/dL (1.6-2.3); Potassium 4.3 mmol/L (3.4-5.1); Sodium 140 mmol/L (137-145); Total Protein 8.5 g/dL (6.3-8.2)
[2025-03-08 15:55] LABS: Troponin I < 0.012 ng/mL (0.01-0.034)
[2025-03-08 16:15] LABS: UR Morphine/Opiate cutoff 300 Negative (Negative); Ur Specific Gravity Normal (Normal); Urine MDMA Negative (Negative); Urine Methamphetamines Negative (Negative); Urine Tetrahydrocannabinol Negative (Negative); Urine Tricyclic Antidepressant Negative (Negative)
[2025-03-08 16:27] LABS: Appearance Urine UA CLEAR; Bilirubin Urine UA NEGATIVE (NEGATIVE); Color Urine UA YELLOW; Glucose Urine UA NEGATIVE (Negative); Ketones Urine UA NEGATIVE (NEGATIVE); Leukocyte Esterase Urine UA NEGATIVE (NEGATIVE); Nitrite Urine UA NEGATIVE (Negative); Occult Blood Urine UA TRACE-INTACT (Negative); Protein Urine UA NEGATIVE (Negative); Specific Gravity Urine UA <=1.005 (1.000-1.035); Urobilinogen Urine UA 0.2 E.U./dL (0.2); pH Urine UA 7.0 (4.5-8.0)
[2025-03-08 16:33] LABS: Culture Indicated Urine Cult Not Indicated
--- NOTE | 2025-03-08 16:53 | RT ---
Responded to Code Stroke, airway patent and no distress noted. Pt on room air.RN and MD at bedside
== END 2025-03-08 18:56 | disposition home or self-care (01) ==
PROVIDERS: Emergency Provider Student in an Organized Health Care Education/Training Program
DX: R42 Dizziness and giddiness (principal); I65.29 Occlusion and stenosis of unspecified carotid artery; Z79.01 Long term (current) use of anticoagulants
CPT/HCPCS: 36415; 70450; 70496; 70498; 71045; 80053; 80305; 80320; 81001; 81003; 82550; 82962; 83735; 84484; 85025; 85610; 85730; 93005; 99284; Q9967

== ENCOUNTER → 2025-03-11 15:20 | Outpatient (CLI) | payer MEDICARE, SELFPAY ==
[2022-08-20 11:32] VITALS: BMI 22.1
--- NOTE | 2025-03-11 15:22 | DI.US.S_ITS ---
PROCEDURE: US CAROTID DOPPLER BI INDICATIONS: CAROTID STENOSIS TECHNIQUE: Color and pulse Doppler interrogation was performed of both carotid systems, with image documentation and velocity measurements. COMPARISON: [facility], , CAROTID ARTERY DOPPLER BILAT, 12/18/2013, 10:26. FINDINGS: Stenosis calculations are based on SRU (Society of Radiologists in Ultrasound) criteria. Right side: Common carotid artery peak systolic velocity: 51 cm/sec. Internal carotid artery peak systolic velocity: 82 cm/sec. Internal carotid artery end diastolic velocity: 20 cm/sec. External carotid artery peak systolic velocity: 72 cm/sec. ICA/CCA peak systolic ratio: 1.6 . Sahni scale imaging description: Moderate scattered plaque. Percent internal carotid artery stenosis: Less than 50% . Vertebral artery: Flow direction is antegrade. Left side: Common carotid artery peak systolic velocity: 43 cm/sec. Internal carotid artery peak systolic velocity: 71 cm/sec. Internal carotid artery end diastolic velocity: 15 cm/sec. External carotid artery peak systolic velocity: 71 cm/sec. ICA/CCA peak systolic ratio: 1.7 . Sahni scale imaging description: Moderate scattered plaque Percent internal carotid artery stenosis: Less than 50% . Vertebral artery: Flow direction is antegrade. IMPRESSION: Less than 50% bilateral internal carotid artery stenosis. Dictated by: Christopher Smalls RR Interpreted: Hesham Nieves MD on 03/11/2025 at 16:27 Transcribed by: MARIAJOSE on 03/11/2025 at 16:30 Approved by: Hesham Nieves M.D. on 03/11/2025 at 17:18
== END ==
PROVIDERS: Referring Provider Internal Medicine; Visit Provider Internal Medicine
DX: I65.23 Occlusion and stenosis of bilateral carotid arteries (principal); G45.9 Transient cerebral ischemic attack, unspecified
CPT/HCPCS: 93880